=== PATIENT | female | born 1940 | race Caucasian/White ===

== ENCOUNTER 2019-01-04 21:48 | Inpatient (IN) | payer OTHER ==
--- NOTE | 2019-01-04 22:30 | PDOC ---
History of Present Illness - General Stated Complaint: SHORTNESS OF BREATH Time Seen by Provider: 01/04/19 21:54 History Source: Patient, Family (son) Exam Limitations: Language Barrier - History of Present Illness Initial Comments: 01/04/19 22:24 Pt is a 78yo F with PMH of HTN, DM, HLD, Breast Ca s/p L mastectomy (9 years ago ), Rectal Bleeding BIBA for SOB. Per son pt had sudden onset SOB that started around 1 hour ago, she has never had symptoms like this before. Endorses dry cough. Feels SOB when lying down flat. Pt states she was also feeling lightheaded. Denies chest pain, productive cough, fevers, chills, congestion, recent illnesses, abdominal pain, n/v/d, numbness/tingling. She recently returned from [place] 10 days ago. Denies bloody stools at this time. Denies leg swelling, calf pain. PMD: Ervin PMH: see hpi PSH: see hpi Meds: see med rec Allergies: nkda Past History - Past Medical History Allergies/Adverse Reactions: Allergies Allergy/AdvReac Type Severity Reaction Status Date / Time No Known Allergies Allergy Verified 12/23/15 12:13 Home Medications: Ambulatory Orders Aspirin [ASA -] 81 mg PO DAILY 12/15/15 Folic Acid 1 mg PO DAILY 12/15/15 Letrozole [Femara] 2.5 mg PO DAILY 12/15/15 Omeprazole [Prilosec (RX)] 40 mg PO DAILY 12/15/15 Ranitidine HCl [Zantac] 150 mg PO DAILY 12/15/15 Simvastatin [Zocor -] 40 mg PO HS 12/15/15 Carvedilol [Coreg -] 6.25 mg PO BID #60 tablet 12/21/15 Hydrochlorothiazide [Hctz -] 25 mg PO DAILY #30 tablet 12/21/15 Losartan Potassium [Cozaar -] 50 mg PO DAILY #30 tablet 12/21/15 Meclizine HCl 25 mg PO BID PRN #30 tablet 12/21/15 Acetaminophen [Extra Strength Non-Aspirin] 500 mg PO BID 12/23/15 Multivitamins [Tab-A-Vit -] 1 tab PO DAILY 12/23/15 Cancer: Yes (BREAST) Cardiac Disorders: Yes GI Disorders: Yes (HEMMOROIDS) HTN: Yes Hypercholesterolemia: Yes - Surgical History Cholecystectomy: Yes - Suicide/Smoking/Psychosocial Hx Smoking History: Never smoked Have you smoked in the past 12 months: No Hx Alcohol Use: No Drug/Substance Use Hx: No Substance Use Type: None Review of Systems - Review of Systems Constitutional: No: Chills, Fever, Weakness HEENTM: No: Symptoms Reported Respiratory: Yes: See HPI, Cough, Orthopnea, Shortness of Breath. No: Wheezing Cardiac (ROS): Yes: Lightheadedness. No: Chest Pain, Syncope, Chest Tightness ABD/GI: No: Symptoms Reported : No: Symptoms Reported Musculoskeletal: No: Symptoms Reported Integumentary: No: Symptoms Reported Neurological: No: Symptoms reported *Physical Exam - Physical Exam General Appearance: Yes: Appropriately Dressed, Obese. No: Apparent Distress HEENT: positive: EOMI, PRINCESS, Normal ENT Inspection Neck: positive: Trachea midline, Supple. negative: Lymphadenopathy (R), Lymphadenopathy (L) Respiratory/Chest: positive: Lungs Clear, Normal Breath Sounds. negative: Crackles, Wheezing Cardiovascular: positive: S1, S2, Tachycardia. negative: Edema, JVD, Murmur Vascular Pulses: Carotid (R): 2+, Carotid (L): 2+, Dorsalis-Pedis (R): 2+, Doralis-Pedis (L): 2+ Gastrointestinal/Abdominal: positive: Normal Bowel Sounds, Soft. negative: Tender Musculoskeletal: negative: CVA Tenderness Extremity: positive: Normal Capillary Refill. 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 Per son pt had sudden onset SOB that started around 1 hour ago, she has never had symptoms like this before. Pt states she was also feeling lightheaded. Denies chest pain, cough, fevers, chills, congestion, recent illnesses, abdominal pain, n/v/d, numbness/tingling. She recently returned from [place] 10 days ago. Denies bloody stools at this time. Denies leg swelling, calf pain. Vitals: tachycardia, saturating mid 90s on RA, PE: tachycardia, decreased breath sounds Ddx includes but not limited to: pe, acs, chf, anemia, copd/asthma, ptx, pna -labs -ekg, cxr Pt difficult access bedside us: decreased LV contractility. Negative DVT however could not visualize popliteal vv. Lower suspicion for PE at this time, pt probably tachycardic from fever or CHF. 01/05/19 00:08 rectal temp: 102.5. Started sepsis orderset. doppler LE. labs significant for Laboratory Tests 01/04/19 01/04/19 22:30 22:30 Sodium 133 L Magnesium 1.7 L Total Bilirubin 1.9 H Troponin I 0.04 B-Natriuretic Peptide 7629.3 H EKG: TWI leads V4-V6. no zoie or depressions repeat vitals: 100% on 2L NC, HR in 70s-80s, BP 133/68. will hold off on lasix at this time (pt febrile, do not want to volume deplete) straight cath for urine -will start on ceftriaxone once urine is taken -CTAP for fever source and why Tbili is elevated. other LFTs normal will replace Mg -doppler studies pending Will need admission: CHF, fever (uti v. abdominal source) pt signed out to Dr. Dugan *DC/Admit/Observation/Transfer Diagnosis at time of Disposition: CHF (congestive heart failure) Qualifiers: Heart failure type: unspecified Heart failure chronicity: acute Qualified Code( s): I50.9 - Heart failure, unspecified Fever Qualifiers: Fever type: unspecified Qualified Code(s): R50.9 - Fever, unspecified - Referrals Referrals: Kaden Mueller MD [Primary Care Provider] - - Patient Instructions - Post Discharge Activity
[2019-01-04 22:56] LABS: BASO % 0.8 % (0-2.0); EOS % 2.4 % (0-4.5); HEMATOCRIT 35.3 % (32.4-45.2); LYMPH % 10.7 % (8-40); MCH 30.9 pg (25.7-33.7); MEAN PLT VOLUME 8.8 fl (7.5-11.1); NEUT % 76.1 % (42.8-82.8); PLATELET COUNT 234 K/MM3 (134-434); RBC 3.88 M/mm3 (3.60-5.2); RDW 13.7 % (11.6-15.6); WHITE BLOOD COUNT 7.3 K/mm3 (4.0-10.0)
--- NOTE | 2019-01-04 23:51 | PDOC ---
Attending Attestation - Resident Resident Name: Debora,Kala - ED Attending Attestation I have performed the following: I have examined & evaluated the patient, The case was reviewed & discussed with the resident, I agree w/resident's findings & plan, Exceptions are as noted - HPI HPI: 01/04/19 23:45 78 yo F with h/;o breast ca, left mastectomy, htn hld DM here wtih /co sudden onset sob started today. mild cough nonproductive. no cp no leg swelling. no h/ o pe or dvt. also c/o feeling lighteaded. called EMS. on arrival oxygen sats 95 % , tachycardia afebrile. no n/v no chest pain. pt states sob is worse with walking. does have h/o prior gi bleed. no bright red blood per rectum. no other complaints. - Physicial Exam PE: 01/04/19 23:47 awake alert lungs clear bilaterally heart reg tachycardia. no mrg abd soft nt nd. ext wwp no edema. no calf tenderness. nuero alert oriented x 3. - Medical Decision Making 01/04/19 23:48 78 yo F htn hld dm piror gi bleed with sob. differential anemia, gi bleed acs, pneumonia, pe considered. effusion, chf. plan cta labs ekg trop. focused ED ultrasound tte performed indication sob. no rv dilation or strain. severely reduced contractility, trace pericardial effusion. bilat lower extremity doppler performed, common femoral scanned bilaterally past the bifurcation, no visualized clot, full compression bilat popliteals scanned past trifurcation. right with full compressio no clot. left difficult to visualized and limited. impression : no prox dvt right leg, left no prox dvt visualized but limited in popliteal region. recommend repeat. study. plan cxr labs ekg . pt extremely difficult acces. us guided right brachial placed. 01/04/19 23:54 rectal temp was 102. will add septic workup ua, and tylenol cultures obtained. Heart Score/ECG Review #1 General ECG Interpretation: Sinus Rhythm, Normal Rate, Normal Intervals Compared to previous ECG there are: Changes noted (TWI V4 - V6, left axis new from comparison 12/22)
[2019-01-04] MEDS ORDERED: ACETAMINOPHEN 1000 MG/100 ML VIAL (NON FORMULARY) IVPB ONE (23:54)
[2019-01-05] MEDS ORDERED: ACETAMINOPHEN INJECTION 100 ML IVPB ONE (00:04)
[2019-01-05] MEDS ORDERED: ACETAMINOPHEN 1000 MG/100 ML VIAL (NON FORMULARY) IVPB ONE (00:07)
[2019-01-05 00:19] LABS: ALBUMIN 3.7 g/dl (3.4-5.0); ALK PHOS 46 U/L (45-117); BILIRUBIN,TOTAL 1.9 mg/dL (0.2-1); CHLORIDE 101 mmol/L (98-107); CO2 25 mmol/L (21-32); N-TERMINAL BNP 7629.3 pg/ml (5-450); PHOSPHOROUS 3.2 mg/dL (2.5-4.9); SGPT/ALT 25 U/L (13-61); TOT PROT 7.3 g/dl (6.4-8.2)
[2019-01-05 02:00] LABS: ANION GAP 7 MMOL/L (8-16); BLOOD UREA NITROGEN 16 mg/dL (7-18); GLUCOSE,RANDOM 132 mg/dL (74-106); MAGNESIUM 1.7 mg/dL (1.8-2.4); POTASSIUM 4.3 mmol/L (3.5-5.1); SGOT/AST 30 U/L (15-37); SODIUM 133 mmol/L (136-145)
[2019-01-05] MEDS ORDERED: MAGNESIUM SULF 50% (8.12 MEQ/2 ML-1 GM VIAL) IVPB ONE (02:11)
--- NOTE | 2019-01-05 02:13 | PDOC ---
*Physical Exam - Vital Signs Vital Signs - 24 hr 01/04/19 01/05/19 21:55 01:00 Temperature 99 F 103.5 F H Pulse Rate 105 H Respiratory 20 Rate Blood Pressure 184/104 H O2 Sat by Pulse 98 Oximetry (%) - Physical Exam Comments: 01/05/19 02:08 Patient's care is endorsed to me by Dr. Cazares at the end of her shift. 78YOF with h/o breast CA, HTN, HLD, DM, rectal bleeding, and "weak heart" noted in the past by Dr. Shea, who p/w SOB x1 hour today which family states has never happened to her before. [place], was a little tachycardic and lightheaded when she arrived. BNP is over 7000, on POCUS the LV is not cornel well. Opted not to give Lasix at this time given BP. Awaiting UA, CT, admission for sepsis vitals and SOB. ED Treatment Course - LABORATORY CBC & Chemistry Diagram: 01/04/19 22:30 01/04/19 22:30 - ADDITIONAL ORDERS Additional order review: Laboratory Results 01/05/19 01/04/19 01/04/19 00:05 22:30 22:30 PTT (Actin FS) Sodium 133 L Potassium 4.3 Chloride 101 Carbon Dioxide 25 Anion Gap 7 L BUN 16 Creatinine 1.0 Creat Clearance w eGFR 53.48 Random Glucose 132 H Lactic Acid 1.1 Calcium 9.0 Phosphorus 3.2 Magnesium 1.7 L Total Bilirubin 1.9 H AST 30 ALT 25 Alkaline Phosphatase 46 Troponin I 0.04 B-Natriuretic Peptide 7629.3 H Total Protein 7.3 Albumin 3.7 01/04/19 22:30 PTT (Actin FS) 30.1 Sodium Potassium Chloride Carbon Dioxide Anion Gap BUN Creatinine Creat Clearance w eGFR Random Glucose Lactic Acid Calcium Phosphorus Magnesium Total Bilirubin AST ALT Alkaline Phosphatase Troponin I B-Natriuretic Peptide Total Protein Albumin 01/04/19 22:30 RBC 3.88 MCV 91.0 MCHC 34.0 RDW 13.7 D MPV 8.8 Neutrophils % 76.1 D Lymphocytes % 10.7 D Monocytes % 10.0 Eosinophils % 2.4 Basophils % 0.8 - Medications Given in the ED: ED Medications Discontinued Medications Generic Name Dose Route Start Last Admin Trade Name Freq PRN Reason Stop Dose Admin Acetaminophen 1,000 mg 01/04/19 23:54 01/05/19 00:03 Ofirmev Injection - IVPB 01/04/19 23:55 1,000 mg ONCE ONE Administration Acetaminophen 1,000 mg 01/05/19 00:07 01/05/19 00:51 Ofirmev Injection - IVPB 01/05/19 00:08 Not Given ONCE ONE Medical Decision Making - Medical Decision Making Laboratory Tests 01/04/19 01/04/19 01/04/19 22:30 22:30 22:30 WBC 7.3 RBC 3.88 Hgb 12.0 Hct 35.3 MCV 91.0 MCH 30.9 MCHC 34.0 RDW 13.7 D Plt Count 234 D MPV 8.8 Absolute Neuts (auto) 5.5 Neutrophils % 76.1 D Lymphocytes % 10.7 D Monocytes % 10.0 Eosinophils % 2.4 Basophils % 0.8 Nucleated RBC % 0 PTT (Actin FS) 30.1 Sodium 133 L Potassium 4.3 Chloride 101 Carbon Dioxide 25 Anion Gap 7 L BUN 16 Creatinine 1.0 Creat Clearance w eGFR 53.48 Random Glucose 132 H Lactic Acid Calcium 9.0 Phosphorus 3.2 Magnesium 1.7 L Total Bilirubin 1.9 H AST 30 ALT 25 Alkaline Phosphatase 46 Troponin I B-Natriuretic Peptide 7629.3 H Total Protein 7.3 Albumin 3.7 Urine Color Urine Appearance Urine pH Ur Specific [place] Urine Protein Urine Glucose (UA) Urine Ketones Urine Blood Urine Nitrite Urine Bilirubin Urine Urobilinogen Ur Leukocyte Esterase 01/04/19 01/05/19 01/05/19 22:30 00:05 02:30 WBC RBC Hgb Hct MCV MCH MCHC RDW Plt Count MPV Absolute Neuts (auto) Neutrophils % Lymphocytes % Monocytes % Eosinophils % Basophils % Nucleated RBC % PTT (Actin FS) Sodium Potassium Chloride Carbon Dioxide Anion Gap BUN Creatinine Creat Clearance w eGFR Random Glucose Lactic Acid 1.1 Calcium Phosphorus Magnesium Total Bilirubin AST ALT Alkaline Phosphatase Troponin I 0.04 B-Natriuretic Peptide Total Protein Albumin Urine Color Dk yellow Urine Appearance Clear Urine pH 6.5 Ur Specific [place] 1.021 Urine Protein Trace Urine Glucose (UA) Negative Urine Ketones Trace H Urine Blood Negative Urine Nitrite Negative Urine Bilirubin Negative Urine Urobilinogen 2.0 H Ur Leukocyte Esterase Negative 01/05/19 04:58 At this time the patient's SpO2 is 94% on RA, HR is 73, BP is 147/77. 01/05/19 05:20 The Pt is unsafe for discharge at this time. They require further hospital observation, workup, and treatment. Microblog sent to [facility] for admission. Blank Decision to Admit order is placed per ED protocol. The patient will have CT abdomen/pelvis but tech is on break at this time and CT is not emergent. 01/05/19 05:[address] Laurent, in agreement patient going to Med/Surg. *DC/Admit/Observation/Transfer Diagnosis at time of Disposition: Hyperbilirubinemia CHF (congestive heart failure) Qualifiers: Heart failure type: unspecified Heart failure chronicity: acute Qualified Code( s): I50.9 - Heart failure, unspecified Fever Qualifiers: Fever type: unspecified Qualified Code(s): R50.9 - Fever, unspecified - Discharge Dispostion Condition at time of disposition: Guarded Decision to Admit order: Yes - Referrals Referrals: Kaden Mueller MD [Primary Care Provider] - - Patient Instructions - Post Discharge Activity
--- NOTE | 2019-01-05 02:34 | PDOC ---
*Physical Exam - Vital Signs Last Vital Signs Temp Pulse Resp BP Pulse Ox 103.5 F H 105 H 20 184/104 H 98 01/05/19 01:00 01/04/19 21:55 01/04/19 21:55 01/04/19 21:55 01/04/19 21:55 ED Treatment Course - LABORATORY CBC & Chemistry Diagram: 01/04/19 22:30 01/04/19 22:30 - ADDITIONAL ORDERS Additional order review: Laboratory Results 01/05/19 01/04/19 01/04/19 00:05 22:30 22:30 PTT (Actin FS) Sodium 133 L Potassium 4.3 Chloride 101 Carbon Dioxide 25 Anion Gap 7 L BUN 16 Creatinine 1.0 Creat Clearance w eGFR 53.48 Random Glucose 132 H Lactic Acid 1.1 Calcium 9.0 Phosphorus 3.2 Magnesium 1.7 L Total Bilirubin 1.9 H AST 30 ALT 25 Alkaline Phosphatase 46 Troponin I 0.04 B-Natriuretic Peptide 7629.3 H Total Protein 7.3 Albumin 3.7 01/04/19 22:30 PTT (Actin FS) 30.1 Sodium Potassium Chloride Carbon Dioxide Anion Gap BUN Creatinine Creat Clearance w eGFR Random Glucose Lactic Acid Calcium Phosphorus Magnesium Total Bilirubin AST ALT Alkaline Phosphatase Troponin I B-Natriuretic Peptide Total Protein Albumin 01/04/19 22:30 RBC 3.88 MCV 91.0 MCHC 34.0 RDW 13.7 D MPV 8.8 Neutrophils % 76.1 D Lymphocytes % 10.7 D Monocytes % 10.0 Eosinophils % 2.4 Basophils % 0.8 - RADIOLOGY Radiology Studies Ordered: Category Date Time Status ABDOMEN & PELVIS CT W/O CONTR [CT] Stat CT Scan 01/05/19 02:06 Ordered - Medications Given in the ED: ED Medications Discontinued Medications Generic Name Dose Route Start Last Admin Trade Name Freq PRN Reason Stop Dose Admin Acetaminophen 1,000 mg 01/04/19 23:54 01/05/19 00:03 Ofirmev Injection - IVPB 01/04/19 23:55 1,000 mg ONCE ONE Administration Acetaminophen 1,000 mg 01/05/19 00:07 01/05/19 00:51 Ofirmev Injection - IVPB 01/05/19 00:08 Not Given ONCE ONE Medical Decision Making - Medical Decision Making 01/05/19 02:32 Pt signed out to me. Comes with HTN, and fever. Pt has SOB. She has enlarged heart and clear lung felds. She has no clear focus of fever. We are awaiting her UA. She has improvement of her condition with IV ofirmev. She was empirically treated for a UTI by the last team. I ordered a CT scan of the abd/pelvis to look for a source, as she has an elevated Tbili. *DC/Admit/Observation/Transfer Diagnosis at time of Disposition: CHF (congestive heart failure) Qualifiers: Heart failure type: unspecified Heart failure chronicity: acute Qualified Code( s): I50.9 - Heart failure, unspecified Fever Qualifiers: Fever type: unspecified Qualified Code(s): R50.9 - Fever, unspecified - Referrals Referrals: Kaden Mueller MD [Primary Care Provider] - - Patient Instructions - Post Discharge Activity
[2019-01-05 02:43] LABS: PH,URINE 6.5 (5.0-8.0); URINE APPEARANCE CLEAR; URINE BILIRUBIN NEGATIVE (NEGATIVE); URINE COLOR DK YELLOW; URINE GLUCOSE (UA) NEGATIVE (NEGATIVE); URINE KETONE TRACE (NEGATIVE); URINE LEUK ESTERASE NEGATIVE (NEGATIVE); URINE NITRITE NEGATIVE (NEGATIVE); URINE PROTEIN TRACE (NEGATIVE)
[2019-01-05] MEDS ORDERED: FUROSEMIDE 40 MG/4 ML INJECTABLE VIAL IVPUSH ONE (06:54)
--- NOTE | 2019-01-05 06:58 | HP ---
CHIEF COMPLAINT: fever PCP: HISTORY OF PRESENT ILLNESS: 78 y/o F with hx of L breast CA (s/p chemo, rads), HTN, DM, diastolic CHF (past ECHO 2016), rectal bleeding (ext hemorrhoids), who presents to the ED c/o SOB x2 days. As per pt, yesterday her symptoms began; she became SOB at rest and on exertion. During this time, pt also endorsed subjective fever, chills, but did not check her temperature at home. Also with generalized UP. As per ED, when pt arrived she was hypoxic into the upper 80's, but quickly improved. On interview , pt sat 96 on RA and appears comfortable. Denies chest pain or pressure, or changes in urinary or bowel function. Denies recent lower extremity edema. No sick contacts. Pt recently traveled to [facility], returning 10 days ago. At baseline, she ambulates with a rolling walker. Lives at home with her family. ER course was notable for: (1) mg sulfate 1g (2) IV tylenol (3) Recent Travel: [facility], recently returned 10 days ago PAST MEDICAL HISTORY: as above PAST SURGICAL HISTORY: L breast CA lumpectmoy Social History: Smoking: denies Alcohol: denies Drugs: denies Family History: non-contributory Allergies No Known Allergies Allergy (Verified 12/23/15 12:13) HOME MEDICATIONS: Home Medications Medication Instructions Recorded Acetaminophen [Tylenol -] 500 mg PO DAILY 01/05/19 Exemestane [Aromasin -] 25 mg PO DAILY 01/05/19 Folic Acid - 1 mg PO DAILY 01/05/19 Losartan Potassium 100 mg PO DAILY 01/05/19 Meclizine HCl 12.5 mg PO DAILY 01/05/19 Metoprolol Succinate 25 mg PO DAILY 01/05/19 metFORMIN HCL [Metformin HCl] 500 mg PO DAILY 01/05/19 meds need to be verified. pt does not know the dosages family was not at bedside. REVIEW OF SYSTEMS CONSTITUTIONAL: Absent: fever, chills, diaphoresis, generalized weakness, malaise, loss of appetite, weight change HEENT: Absent: rhinorrhea, nasal congestion, throat pain, throat swelling, difficulty swallowing, mouth swelling, ear pain, eye pain, visual changes CARDIOVASCULAR: Absent: chest pain, syncope, palpitations, irregular heart rate, lightheadedness , peripheral edema RESPIRATORY: +SOB, RANGEL Absent: cough, shortness of breath, dyspnea with exertion, orthopnea, wheezing, stridor, hemoptysis GASTROINTESTINAL: Absent: abdominal pain, abdominal distension, nausea, vomiting, diarrhea, constipation, melena, hematochezia GENITOURINARY: Absent: dysuria, frequency, urgency, hesitancy, hematuria, flank pain, genital pain MUSCULOSKELETAL: Absent: myalgia, arthralgia, joint swelling, back pain, neck pain SKIN: Absent: rash, itching, pallor HEMATOLOGIC/IMMUNOLOGIC: Absent: easy bleeding, easy bruising, lymphadenopathy, frequent infections ENDOCRINE: Absent: unexplained weight gain, unexplained weight loss, heat intolerance, cold intolerance NEUROLOGIC: Absent: headache, focal weakness or paresthesias, dizziness, unsteady gait, seizure, mental status changes, bladder or bowel incontinence PSYCHIATRIC: Absent: anxiety, depression, suicidal or homicidal ideation, hallucinations. PHYSICAL EXAMINATION Vital Signs - 24 hr 01/04/19 01/05/19 01/05/19 21:55 01:00 05:51 Temperature 99 F 103.5 F H Pulse Rate 105 H Pulse Rate [ 76 Right] Respiratory 20 16 Rate Blood Pressure 184/104 H Blood Pressure 147/77 [Right Arm] O2 Sat by Pulse 98 96 Oximetry (%) GENERAL: Pleasant. Awake, alert, and fully oriented, in no acute distress. HEAD: Normal with no signs of trauma. EYES: Pupils equal, round and reactive to light, extraocular movements intact, sclera anicteric, conjunctiva clear. EARS, NOSE, THROAT: Ears normal, nares patent, oropharynx clear without exudates. Moist mucous membranes. NECK: Normal range of motion, supple LUNGS: Breath sounds equal, clear to auscultation bilaterally. No wheezes, and no crackles. Poor inspiratory effort. HEART: Regular rate and rhythm, normal S1 and S2 without murmur, rub or gallop. ABDOMEN: Soft, obese, nontender, not distended, normoactive bowel sounds, no guarding, no rebound, no masses. LOWER EXTREMITIES: 2+ pt pulses, warm, well-perfused. No calf tenderness. No peripheral edema. NEUROLOGICAL: Cranial nerves II-XII intact. Able to move UE, LE. sensation intact. PSYCHIATRIC: Cooperative. Good eye contact. SKIN: Warm, dry, normal turgor Laboratory Results 04/02/1701/04/19 01/05/19 22:30 22:30 00:05 WBC 7.3 Hgb 12.0 Hct 35.3 Plt Count 234 D Sodium 133 L Potassium 4.3 Chloride 101 Carbon Dioxide 25 BUN 16 Creatinine 1.0 Lactic Acid 1.1 Total Bilirubin 1.9 H B-Natriuretic Peptide 7629.3 H Influenza A (Rapid) Influenza B (Rapid) 01/05/19 01/05/19 04:30 06:53 BUN Creatinine Lactic Acid 1.4 Total Bilirubin B-Natriuretic Peptide Influenza A (Rapid) Pending Influenza B (Rapid) Pending CTAP: taken, pending CXR: enlarged heart, blunting of costophrenic angles, does not appear to have infiltrate. however rotated. f/u official read duplex: prelim (-) ASSESSMENT/PLAN: 78 y/o F with hx of L breast CA (s/p chemo, rads), HTN, DM, diastolic CHF (past ECHO 2015), rectal bleeding (ext hemorrhoids), who presents to the ED c/o SOB x2 days. #SOB possible 2/2 diastolic CHF exacerbation -without significant vol overload on exam- f/u official CT results -s/p lasix 40mg IVPx 1. will see how responds and can determine if needs further diuresis -last ECHO 2015; f/u repeat ECHO -strict I/O -daily wts -cardio consult: Dr. Severino -na controlled 2g #Fever 2/2 unknown etiology -UA (-), without clinical sx, or leukocytosis -f/u flu testing -will not start abx at this time; f/u CT, flu testing -Tylenol PRN -f/u blood, ucx. lactic WNL #Elevated t bili -without symptoms, no abdom tenderness -will send direct bili -f/u CTAP #hx breast CA -c/w aromasin #HTN- uncontrolled -c/w losartan, metoprolol -meds need to be verified #DM -hold metformin -BGM, ISS ACHS #F/E/N no IVF indicated at this time continue to follow lytes na controlled diet #PPX lovenox 40mg sq qd #Dispo admit to med-surg Visit type - Emergency Visit Emergency Visit: Yes ED Registration Date: 01/05/19 Care time: The patient presented to the Emergency Department on the above date and was hospitalized for further evaluation of their emergent condition. - New Patient This patient is new to me today: Yes Date on this admission: 01/05/19 - Critical Care Critical Care patient: No
[2019-01-05] MEDS ORDERED: INSULIN SLIDING SCALE (NOVOLOG) 1 VIAL SQ SCH (07:00)
[2019-01-05] MEDS ORDERED: ACETAMINOPHEN 325 MG TABLET (FP) ONE (07:23)
--- NOTE | 2019-01-05 07:36 | PN ---
Teaching Attending Note Name of Resident: Liv June ATTENDING PHYSICIAN STATEMENT I saw and evaluated the patient. I reviewed the resident's note and discussed the case with the resident. I agree with the resident's findings and plan as documented. SUBJECTIVE: This is a 78 year old woman with a history of HTN, hyperlipidemia, chronic diastolic heart failure, type 2 DM, PE, breast cancer, OA who comes to the ED complaining of sudden onset of SOB. She reports having a non-productive cough and worse SOB when lying flat. She denies fever, chills, urinary frequency , nocturia. She had a recent trip to OBJECTIVE: Vital Signs Period Temp Pulse Resp BP Sys/Hale Pulse Ox Last 24 Hr 99 F-103.5 F 76-105 16-20 147-184/77-104 96-98 HEART: S1S2, RRR LUNGS: Clear ABDOMEN: Obese, soft, non-tender, non-distended, normal BS EXTREMITIES: No edema Laboratory Tests 01/04/19 01/04/19 01/04/19 22:30 22:30 22:30 WBC 7.3 RBC 3.88 Hgb 12.0 Hct 35.3 MCV 91.0 MCH 30.9 MCHC 34.0 RDW 13.7 D Plt Count 234 D MPV 8.8 Absolute Neuts (auto) 5.5 Neutrophils % 76.1 D Lymphocytes % 10.7 D Monocytes % 10.0 Eosinophils % 2.4 Basophils % 0.8 Nucleated RBC % 0 PTT (Actin FS) 30.1 Sodium 133 L Potassium 4.3 Chloride 101 Carbon Dioxide 25 Anion Gap 7 L BUN 16 Creatinine 1.0 Creat Clearance w eGFR 53.48 Random Glucose 132 H Lactic Acid Calcium 9.0 Phosphorus 3.2 Magnesium 1.7 L Total Bilirubin 1.9 H AST 30 ALT 25 Alkaline Phosphatase 46 Troponin I B-Natriuretic Peptide 7629.3 H Total Protein 7.3 Albumin 3.7 Urine Color Urine Appearance Urine pH Ur Specific [place] Urine Protein Urine Glucose (UA) Urine Ketones Urine Blood Urine Nitrite Urine Bilirubin Urine Urobilinogen Ur Leukocyte Esterase 01/04/19 01/05/19 01/05/19 22:30 00:05 02:30 WBC RBC Hgb Hct MCV MCH MCHC RDW Plt Count MPV Absolute Neuts (auto) Neutrophils % Lymphocytes % Monocytes % Eosinophils % Basophils % Nucleated RBC % PTT (Actin FS) Sodium Potassium Chloride Carbon Dioxide Anion Gap BUN Creatinine Creat Clearance w eGFR Random Glucose Lactic Acid 1.1 Calcium Phosphorus Magnesium Total Bilirubin AST ALT Alkaline Phosphatase Troponin I 0.04 B-Natriuretic Peptide Total Protein Albumin Urine Color Dk yellow Urine Appearance Clear Urine pH 6.5 Ur Specific [place] 1.021 Urine Protein Trace Urine Glucose (UA) Negative Urine Ketones Trace H Urine Blood Negative Urine Nitrite Negative Urine Bilirubin Negative Urine Urobilinogen 2.0 H Ur Leukocyte Esterase Negative 01/05/19 04:30 WBC RBC Hgb Hct MCV MCH MCHC RDW Plt Count MPV Absolute Neuts (auto) Neutrophils % Lymphocytes % Monocytes % Eosinophils % Basophils % Nucleated RBC % PTT (Actin FS) Sodium Potassium Chloride Carbon Dioxide Anion Gap BUN Creatinine Creat Clearance w eGFR Random Glucose Lactic Acid 1.4 Calcium Phosphorus Magnesium Total Bilirubin AST ALT Alkaline Phosphatase Troponin I B-Natriuretic Peptide Total Protein Albumin Urine Color Urine Appearance Urine pH Ur Specific [place] Urine Protein Urine Glucose (UA) Urine Ketones Urine Blood Urine Nitrite Urine Bilirubin Urine Urobilinogen Ur Leukocyte Esterase Home Medications Medication Instructions Recorded Acetaminophen [Tylenol -] 500 mg PO DAILY 01/05/19 Exemestane [Aromasin -] 25 mg PO DAILY 01/05/19 Folic Acid - 1 mg PO DAILY 01/05/19 Losartan Potassium 100 mg PO DAILY 01/05/19 Meclizine HCl 12.5 mg PO DAILY 01/05/19 Metoprolol Succinate 25 mg PO DAILY 01/05/19 metFORMIN HCL [Metformin HCl] 500 mg PO DAILY 01/05/19 ASSESSMENT AND PLAN: This is a 78 year old woman with a history of HTN, hyperlipidemia, chronic diastolic heart failure, type 2 DM, PE, breast cancer, OA who presented to the ED with sudden onset of SOB. 1. Acute on chronic diastolic heart failure - Lasix IV - Echocardiogram - Cardiology consult 2. SIRS with fever and tachycardia - No clear source of infection - CT abdomen/pelvis ordered by ED to evaluate fever, total bili 1.9 - Check influenza - Will hold antibiotics until results of CT and influenza swab available 3. Hyperbilirubinemia - No jaundice on exam - CT abd/pelvis ordered - Check direct bili 4. HTN - Continue Cozaar, Toprol XL 5. Type 2 DM - Hold metformin - Fingersticks with Novolog sliding scale 6. History of PE 7. Breast cancer - Continue Aromasin
[2019-01-05] MEDS: ACETAMINOPHEN 500 MG TABLET (FP) PO PRN ×2 (08:54→22:12)
[2019-01-05] MEDS ORDERED: LOSARTAN POTASSIUM 50 MG TABLET (FP) ONE (08:56)
[2019-01-05] MEDS ORDERED: ENOXAPARIN NA (PORCINE) 40 MG/0.4 ML DISP.SYRIN SQ ONE (08:57)
[2019-01-05] MEDS: ENOXAPARIN NA (PORCINE) 40 MG/0.4 ML DISP.SYRIN SQ SCH (09:03)
[2019-01-05] MEDS: metoPROLOL SUCCINATE 25 MG TAB.SR.24H (FP) PO SCH (09:03)
[2019-01-05] MEDS: LOSARTAN POTASSIUM 50 MG TABLET (FP) PO SCH (09:03)
[2019-01-05] MEDS: EXEMESTANE 25 MG TABLET PO SCH (09:42)
[2019-01-05] MEDS: INSULIN SLIDING SCALE (NOVOLOG) 1 VIAL SQ SCH ×3 (11:12→22:13)
--- NOTE | 2019-01-05 11:39 | EKG ---
Test Reason : Blood Pressure : / mmHG Vent. Rate : 106 BPM Atrial Rate : 106 BPM P-R Int : 128 ms QRS Dur : 094 ms QT Int : 344 ms P-R-T Axes : 041 -10 112 degrees QTc Int : 456 ms SINUS TACHYCARDIA ABNORMAL ECG WHEN COMPARED WITH ECG OF 23-DEC-2015 13:55, VENT. RATE HAS INCREASED BY 39 BPM T WAVE INVERSION NO LONGER EVIDENT IN INFERIOR LEADS T WAVE INVERSION NOW EVIDENT IN LATERAL LEADS Confirmed by DEQUAN BLAKE MD ([id number]) on 01/05/2019 11:38:57 AM Referred By: Confirmed By:DEQUAN BLAKE MD
--- NOTE | 2019-01-05 11:40 | EKG ---
Test Reason : Blood Pressure : / mmHG Vent. Rate : 077 BPM Atrial Rate : 077 BPM P-R Int : 130 ms QRS Dur : 092 ms QT Int : 434 ms P-R-T Axes : 041 -15 -37 degrees QTc Int : 491 ms NORMAL SINUS RHYTHM MINIMAL VOLTAGE CRITERIA FOR LVH, MAY BE NORMAL VARIANT PROLONGED QT ABNORMAL ECG WHEN COMPARED WITH ECG OF 04-JAN-2019 22:06, T WAVE INVERSION NOW EVIDENT IN INFERIOR LEADS T WAVE INVERSION NO LONGER EVIDENT IN LATERAL LEADS Confirmed by DEQUAN BLAKE MD ([id number]) on 01/05/2019 11:40:17 AM Referred By: Confirmed By:DEQUAN BLAKE MD
--- NOTE | 2019-01-05 13:07 | CON.CARD ---
Consult Consult Specialty:: cardiology Reason for Consultation:: SOB; hx CHF - History of Present Illness Chief Complaint: Pt A&Ox3; feels better (less dyspneic) no chest pain History of Present Illness: Pt is a 78yo F with PMH of HTN, DM, HLD, Breast Ca s/p L mastectomy (9 years ago ), Rectal Bleeding BIBA for SOB. Per son pt had sudden onset SOB that started around 1 hour ago, she has never had symptoms like this before. Endorses dry cough. Feels SOB when lying down flat. Pt states she was also feeling lightheaded. Denies chest pain, productive cough, fevers, chills, congestion, recent illnesses, abdominal pain, n/v/d, numbness/tingling. She recently returned from [place] 10 days ago. Denies bloody stools at this time. Denies leg swelling, calf pain. PMD: Ervin - History Source History Provided By: Patient, Medical Record Limitations to Obtaining History: No Limitations - Alcohol/Substance Use Hx Alcohol Use: No History of Substance Use: reports: None - Smoking History Smoking history: Never smoked Have you smoked in the past 12 months: No Home Medications - Allergies Allergies/Adverse Reactions: Allergies Allergy/AdvReac Type Severity Reaction Status Date / Time No Known Allergies Allergy Verified 12/23/15 12:13 - Home Medications Home Medications: Ambulatory Orders Acetaminophen [Tylenol -] 500 mg PO DAILY 01/05/19 Exemestane [Aromasin -] 25 mg PO DAILY 01/05/19 Folic Acid - 1 mg PO DAILY 01/05/19 Losartan Potassium 100 mg PO DAILY 01/05/19 Meclizine HCl 12.5 mg PO BID 01/05/19 Metoprolol Succinate 25 mg PO DAILY 01/05/19 Ranitidine HCl 150 mg PO DAILY 01/05/19 metFORMIN HCL [Metformin HCl] 500 mg PO BID 01/05/19 Vital Signs: Vital Signs Temperature 98.4 F 01/05/19 09:59 Pulse Rate 93 H 01/05/19 07:42 Respiratory Rate 22 H 01/05/19 07:42 Blood Pressure 160/56 L 01/05/19 07:42 O2 Sat by Pulse Oximetry (%) 100 01/05/19 09:06 Cardiovascular: Yes: Regular Rate and Rhythm Heart Sounds: Yes: S1, S2, S4 Murmur: Yes: Systolic Murmur (12/05, RSB-->apex) Musculoskeletal: Yes: Other (left breast removed 2009 (breast CA)) - Other Data Labs, Other Data: CBC, BMP 01/04/19 22:30 01/04/19 22:30 Troponin, BNP 01/04/19 01/04/19 22:30 22:30 Troponin I 0.04 B-Natriuretic Peptide 7629.3 H Troponin, BNP 01/04/19 01/04/19 22:30 22:30 Troponin I 0.04 B-Natriuretic Peptide 7629.3 H Problem List - Problems (1) Overweight Code(s): E66.3 - OVERWEIGHT (2) Acute on chronic diastolic (congestive) heart failure Code(s): I50.33 - ACUTE ON CHRONIC DIASTOLIC (CONGESTIVE) HEART FAILURE (3) Dyspnea Assessment/Plan: bronchodilators, steroids, and O2 per 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 ECHO for LVEF, diastolic compliance, valve status. Code(s): R06.00 - DYSPNEA, UNSPECIFIED Qualifiers: Dyspnea type: dyspnea on exertion Qualified Code(s): R06.09 - Other forms of dyspnea (4) HTN (hypertension) Assessment/Plan: ON losartan and metoprolol ER. Code(s): I10 - ESSENTIAL (PRIMARY) HYPERTENSION Qualifiers: Hypertension type: essential hypertension Qualified Code(s): I10 - Essential (primary) hypertension (5) Hypomagnesemia Assessment/Plan: replete, and keep 2.0-2.4 Code(s): E83.42 - HYPOMAGNESEMIA (6) Aortic stenosis Assessment/Plan: mild, with mod-severe MR on 2016 [facility]; await f/u. Code(s): I35.0 - NONRHEUMATIC AORTIC (VALVE) STENOSIS (7) H/O total mastectomy of left breast Code(s): Z90.12 - ACQUIRED ABSENCE OF LEFT BREAST AND NIPPLE
[2019-01-06] MEDS: ACETAMINOPHEN 500 MG TABLET (FP) PO PRN ×2 (06:13→18:08)
[2019-01-06] MEDS: INSULIN SLIDING SCALE (NOVOLOG) 1 VIAL SQ SCH ×4 (06:30→21:34)
[2019-01-06 08:13] LABS: BASO % 0.7 % (0-2.0); EOS % 1.5 % (0-4.5); HEMATOCRIT 31.2 % (32.4-45.2); HEMOGLOBIN 10.7 GM/dL (10.7-15.3); LYMPH % 8.8 % (8-40); MCH 31.2 pg (25.7-33.7); MCHC 34.3 g/dl (32.0-36.0); MEAN CELL VOLUME 90.8 fl (80-96); MEAN PLT VOLUME 8.8 fl (7.5-11.1); MONO % 9.7 % (3.8-10.2); NEUT % 79.3 % (42.8-82.8); PLATELET COUNT 199 K/MM3 (134-434); RBC 3.44 M/mm3 (3.60-5.2); RDW 13.4 % (11.6-15.6); WHITE BLOOD COUNT 5.7 K/mm3 (4.0-10.0)
[2019-01-06 08:37] LABS: ALBUMIN 3.3 g/dl (3.4-5.0); ALK PHOS 40 U/L (45-117); ANION GAP 9 MMOL/L (8-16); BILIRUBIN,TOTAL 2.5 mg/dL (0.2-1); BLOOD UREA NITROGEN 22 mg/dL (7-18); CALCIUM 7.9 mg/dL (8.5-10.1); CHLORIDE 102 mmol/L (98-107); CO2 22 mmol/L (21-32); GLUCOSE,RANDOM 114 mg/dL (74-106); MAGNESIUM 1.9 mg/dL (1.8-2.4); PHOSPHOROUS 2.5 mg/dL (2.5-4.9); POTASSIUM 3.7 mmol/L (3.5-5.1); SGOT/AST 31 U/L (15-37); SGPT/ALT 22 U/L (13-61); SODIUM 132 mmol/L (136-145); TOT PROT 6.5 g/dl (6.4-8.2)
[2019-01-06] MEDS: LOSARTAN POTASSIUM 50 MG TABLET (FP) PO SCH (10:02)
[2019-01-06] MEDS: EXEMESTANE 25 MG TABLET PO SCH (10:02)
[2019-01-06] MEDS: metoPROLOL SUCCINATE 25 MG TAB.SR.24H (FP) PO SCH (10:02)
[2019-01-06] MEDS: ENOXAPARIN NA (PORCINE) 40 MG/0.4 ML DISP.SYRIN SQ SCH (10:02)
--- NOTE | 2019-01-06 15:38 | PN ---
Progress Note, Physician Chief Complaint: Patient without complaint. Denies cp, sob, n/v. - Current Medication List Current Medications: Active Medications Acetaminophen (Tylenol -) 500 mg PO Q6H PRN PRN Reason: FEVER Last Admin: 01/06/19 06:13 Dose: 500 mg Enoxaparin Sodium (Lovenox -) 40 mg SQ DAILY [facility] Last Admin: 01/06/19 10:02 Dose: 40 mg Exemestane (Aromasin -) 25 mg PO DAILY [facility] Last Admin: 01/06/19 10:02 Dose: 25 mg Insulin Aspart (Novolog Vial Sliding Scale -) 1 vial SQ ACHS [facility]; Protocol Last Admin: 01/06/19 11:58 Dose: Not Given Losartan Potassium (Cozaar -) 100 mg PO DAILY [facility] Last Admin: 01/06/19 10:02 Dose: 100 mg Metoprolol Succinate (Toprol Xl -) 25 mg PO DAILY [facility] Last Admin: 01/06/19 10:02 Dose: 25 mg - Objective Vital Signs: Vital Signs Temperature 37.7 C H 01/06/19 15:30 Pulse Rate 75 01/06/19 15:30 Respiratory Rate 18 01/06/19 15:30 Blood Pressure 153/73 01/06/19 15:30 O2 Sat by Pulse Oximetry (%) 99 01/06/19 09:00 Constitutional: Yes: No Distress, Calm, Obese Cardiovascular: Yes: Regular Rate and Rhythm. No: Gallop, Murmur, Rub Respiratory: Yes: Regular, CTA Bilaterally. No: Rales, Rhonchi, Wheezes Gastrointestinal: Yes: Normal Bowel Sounds, Soft. No: Distention, Tenderness Extremities: Yes: WNL Edema: No Labs: CBC, BMP 01/06/19 06:45 01/06/19 06:45 Problem List - Problems (1) Fever Assessment/Plan: -unclear source -currently afebrile -cultures negative -continue to monitor off antibiotics Code(s): R50.9 - FEVER, UNSPECIFIED Qualifiers: Fever type: unspecified Qualified Code(s): R50.9 - Fever, unspecified (2) Hyperbilirubinemia Assessment/Plan: -continues to elevate -gallbladder unable to be evaluated on CT scan -check abdominal ultrasound -check acute hepatitis panel -if continues to increase, consult GI Code(s): E80.6 - OTHER DISORDERS OF BILIRUBIN METABOLISM (3) Acute on chronic diastolic (congestive) heart failure Assessment/Plan: -resolved Code(s): I50.33 - ACUTE ON CHRONIC DIASTOLIC (CONGESTIVE) HEART FAILURE (4) HTN (hypertension) Assessment/Plan: -continue cozaar and toprol xl Code(s): I10 - ESSENTIAL (PRIMARY) HYPERTENSION Qualifiers: Hypertension type: essential hypertension Qualified Code(s): I10 - Essential (primary) hypertension (5) Rectal bleeding Assessment/Plan: -history of hemorrhoids -monitor Code(s): K62.5 - HEMORRHAGE OF ANUS AND RECTUM
--- NOTE | 2019-01-06 20:50 | PN ---
Progress Note, Physician Chief Complaint: Pt A&O; denies chest pain or dyspnea; feels better with NC O2 (breathes easier). History of Present Illness: Pt is a 78yo F with PMH of HTN, DM, HLD, Breast Ca s/p L mastectomy (9 years ago ), Rectal Bleeding BIBA for SOB. Per son pt had sudden onset SOB that started around 1 hour ago, she has never had symptoms like this before. Endorses dry cough. Feels SOB when lying down flat. Pt states she was also feeling lightheaded. Denies chest pain, productive cough, fevers, chills, congestion, recent illnesses, abdominal pain, n/v/d, numbness/tingling. She recently returned from [place] 10 days ago. Denies bloody stools at this time. Denies leg swelling, calf pain. PMD: Perezro - Current Medication List Current Medications: Active Medications Acetaminophen (Tylenol -) 500 mg PO Q6H PRN PRN Reason: FEVER Last Admin: 01/06/19 18:08 Dose: 500 mg Enoxaparin Sodium (Lovenox -) 40 mg SQ DAILY [facility] [place] Last Admin: 01/06/19 10:02 Dose: 40 mg Exemestane (Aromasin -) 25 mg PO DAILY [facility] Last Admin: 01/06/19 10:02 Dose: 25 mg Insulin Aspart (Novolog Vial Sliding Scale -) 1 vial SQ [facility]; Protocol Last Admin: 01/06/19 17:44 Dose: Not Given Losartan Potassium (Cozaar -) 100 mg PO DAILY [facility] Last Admin: 01/06/19 10:02 Dose: 100 mg Metoprolol Succinate (Toprol Xl -) 25 mg PO DAILY [facility] Last Admin: 01/06/19 10:02 Dose: 25 mg - Objective Vital Signs: Vital Signs Temperature 100.2 F H 01/06/19 18:08 Pulse Rate 75 01/06/19 15:30 Respiratory Rate 18 01/06/19 15:30 Blood Pressure 153/73 01/06/19 15:30 O2 Sat by Pulse Oximetry (%) 99 01/06/19 09:00 Constitutional: Yes: No Distress Eyes: Yes: WNL Labs: CBC, BMP 01/06/19 06:45 01/06/19 06:45 Problem List - Problems (1) Overweight Code(s): E66.3 - OVERWEIGHT (2) Acute on chronic diastolic (congestive) heart failure Code(s): I50.33 - ACUTE ON CHRONIC DIASTOLIC (CONGESTIVE) HEART FAILURE (3) Dyspnea Code(s): R06.00 - DYSPNEA, UNSPECIFIED Qualifiers: Dyspnea type: dyspnea on exertion Qualified Code(s): R06.09 - Other forms of dyspnea (4) HTN (hypertension) Code(s): I10 - ESSENTIAL (PRIMARY) HYPERTENSION Qualifiers: Hypertension type: essential hypertension Qualified Code(s): I10 - Essential (primary) hypertension (5) Hypomagnesemia Code(s): E83.42 - HYPOMAGNESEMIA (6) Aortic stenosis Code(s): I35.0 - NONRHEUMATIC AORTIC (VALVE) STENOSIS (7) H/O total mastectomy of left breast Code(s): Z90.12 - ACQUIRED ABSENCE OF LEFT BREAST AND NIPPLE
[2019-01-06 21:27] LABS: MAGNESIUM 1.9 mg/dL (1.8-2.4)
[2019-01-07] MEDS: INSULIN SLIDING SCALE (NOVOLOG) 1 VIAL SQ SCH ×4 (06:18→21:47)
[2019-01-07 08:58] LABS: BASO % 0.6 % (0-2.0); EOS % 7.2 % (0-4.5); HEMATOCRIT 30.7 % (32.4-45.2); HEMOGLOBIN 10.4 GM/dL (10.7-15.3); LYMPH % 14.3 % (8-40); MCH 31.3 pg (25.7-33.7); MCHC 33.8 g/dl (32.0-36.0); MEAN CELL VOLUME 92.6 fl (80-96); MEAN PLT VOLUME 8.9 fl (7.5-11.1); MONO % 10.6 % (3.8-10.2); NEUT % 67.3 % (42.8-82.8); PLATELET COUNT 167 K/MM3 (134-434); RBC 3.32 M/mm3 (3.60-5.2); WHITE BLOOD COUNT 5.1 K/mm3 (4.0-10.0)
[2019-01-07 09:12] LABS: INR 1.21 (0.83-1.09); PROTHROMBIN TIME (PATIENT) 14.3 SEC (9.7-13.0)
[2019-01-07 09:28] LABS: ALBUMIN 3.1 g/dl (3.4-5.0); ALK PHOS 36 U/L (45-117); ANION GAP 9 MMOL/L (8-16); BILIRUBIN,DIRECT 0.5 mg/dL (0.0-0.2); BILIRUBIN,TOTAL 1.3 mg/dL (0.2-1); BLOOD UREA NITROGEN 22 mg/dL (7-18); CALCIUM 8.1 mg/dL (8.5-10.1); CHLORIDE 104 mmol/L (98-107); CO2 24 mmol/L (21-32); GLUCOSE,RANDOM 93 mg/dL (74-106); MAGNESIUM 2.4 mg/dL (1.8-2.4); PHOSPHOROUS 3.2 mg/dL (2.5-4.9); POTASSIUM 4.1 mmol/L (3.5-5.1); SGOT/AST 30 U/L (15-37); SGPT/ALT 18 U/L (13-61); SODIUM 136 mmol/L (136-145)
[2019-01-07] MEDS ORDERED: PT OWN MED DRAWER 7, Y5N ONE (11:16)
[2019-01-07] MEDS: metoPROLOL SUCCINATE 25 MG TAB.SR.24H (FP) PO SCH (11:31)
[2019-01-07] MEDS: LOSARTAN POTASSIUM 50 MG TABLET (FP) PO SCH (11:31)
[2019-01-07] MEDS: EXEMESTANE 25 MG TABLET PO SCH (11:32)
[2019-01-07] MEDS: ENOXAPARIN NA (PORCINE) 40 MG/0.4 ML DISP.SYRIN SQ SCH (11:32)
--- NOTE | 2019-01-07 12:36 | PN ---
Progress Note, Physician History of Present Illness: Orthopnea, dyspnea resolved. - Current Medication List Current Medications: Active Medications Acetaminophen (Tylenol -) 500 mg PO Q6H PRN PRN Reason: FEVER Last Admin: 01/06/19 18:08 Dose: 500 mg Enoxaparin Sodium (Lovenox -) 40 mg SQ DAILY [facility] Last Admin: 01/07/19 11:32 Dose: 40 mg Exemestane (Aromasin -) 25 mg PO DAILY [facility] Last Admin: 01/07/19 11:32 Dose: 25 mg Insulin Aspart (Novolog Vial Sliding Scale -) 1 vial SQ [facility]; Protocol Last Admin: 01/07/19 12:02 Dose: 2 units Losartan Potassium (Cozaar -) 100 mg PO DAILY [facility] Last Admin: 01/07/19 11:31 Dose: 100 mg Metoprolol Succinate (Toprol Xl -) 25 mg PO DAILY [facility] Last Admin: 01/07/19 11:31 Dose: 25 mg - Objective Vital Signs: Vital Signs Temperature 99.3 F 01/07/19 10:00 Pulse Rate 90 01/07/19 10:00 Respiratory Rate 20 01/07/19 10:00 Blood Pressure 156/79 01/07/19 10:00 O2 Sat by Pulse Oximetry (%) 98 01/07/19 09:00 Constitutional: Yes: No Distress, Calm Neck: Yes: Supple Cardiovascular: Yes: Regular Rate and Rhythm, Murmur (2/6 SM) Respiratory: Yes: Regular, Diminished, On Nasal O2 Gastrointestinal: Yes: Normal Bowel Sounds, Soft, Abdomen, Obese Edema: Yes Edema: LLE: Trace, RLE: Trace Labs: CBC, BMP 01/07/19 08:45 01/07/19 08:45 INR, PTT INR 1.21 (0.83-1.09) H 01/07/19 08:45 Assessment/Plan - Problems (1) Overweight Code(s): E66.3 - OVERWEIGHT (2) Acute on chronic diastolic (congestive) heart failure Code(s): I50.33 - ACUTE ON CHRONIC DIASTOLIC (CONGESTIVE) HEART FAILURE (3) Dyspnea Code(s): R06.00 - DYSPNEA, UNSPECIFIED Qualifiers: Dyspnea type: dyspnea on exertion Qualified Code(s): R06.09 - Other forms of dyspnea (4) HTN (hypertension) Code(s): I10 - ESSENTIAL (PRIMARY) HYPERTENSION Qualifiers: Hypertension type: essential hypertension Qualified Code(s): I10 - Essential (primary) hypertension (5) Hypomagnesemia Code(s): E83.42 - HYPOMAGNESEMIA (6) Aortic stenosis Code(s): I35.0 - NONRHEUMATIC AORTIC (VALVE) STENOSIS (7) H/O total mastectomy of left breast Code(s): Z90.12 - ACQUIRED ABSENCE OF LEFT BREAST AND NIPPLE 12/21/2015 Echo: Normal LV size and fxn, mild AVELINA, mod-severe MR, mild-mod TR RVSP 50-60 mmHg, mild MG 15 mmHg, tr-mild AR, mild MI 1. Acute on chronic LV diastolic failure resolved 2. HTN/HCVD 3. Mod-severe MR, mild P:1. F/u repeat echo results 2. Continue Toprol XL 25 qd, losartan 100 qd with uptitration as hemodynamics tolerate, minimize NSAID use 3. D/c planning, addressed importance of medication and diet compliance.
--- NOTE | 2019-01-07 14:24 | ECHO ---
Name: DE LOS SANTOSCHIDI BINGHAM Exam:Adult Echocardiogram Study Date: 01/07/2019 08:21 AM Age: 78 yrs Reason For Study: CHF Height: 65 in Weight: 200 lb BSA: 2.0 m2 MMode/2D Measurements & Calculations IVSd: 1.1 cm Ao root diam: 2.6 cm LVIDd: 5.1 cm LA dimension: 3.5 cm LVIDs: 4.1 cm LVPWd: 1.5 cm EDV(Teich): 126.6 ml LVOT diam: 2.0 cm ESV(Teich): 72.7 ml LAV (MOD-bp): 94.6 ml Doppler Measurements & Calculations MV E max yash: 94.6 cm/sec Ao V2 max: 278.2 cm/sec MV A max yash: 95.6 cm/sec Ao max P.0 mmHg MV E/A: 0.99 Ao V2 mean: 208.9 cm/sec MV dec time: 0.17 sec Ao mean P.1 mmHg Ao V2 VTI: 50.7 cm WILLI(I,D): 0.85 cm2 AI P1/2t: 425.3 msec WILLI(V,D): 0.95 cm2 AI max yash: 348.1 cm/sec LV V1 max P.8 mmHg AI max P.5 mmHg LV V1 mean P.3 mmHg AI dec slope: 239.7 cm/sec2 LV V1 max: 83.9 cm/sec LV V1 mean: 51.5 cm/sec LV V1 VTI: 13.6 cm MR max yash: 630.5 cm/sec SV(LVOT): 43.0 ml MR max P.2 mmHg TR max yash: 218.5 cm/sec PA V2 max: 134.4 cm/sec TR max P.2 mmHg PA max P.2 mmHg Med Peak E' Yash: 3.8 cm/sec PI Vmax: 181.9 cm/sec Med E/e': 24.8 Lat Peak E' Yash: 3.6 cm/sec Lat E/e': 26.4 Procedure A complete two-dimensional transthoracic echocardiogram was performed (2D, M-mode, Doppler and color flow Doppler). Left Ventricle The left ventricle is normal in size. Left ventricular systolic function is moderately reduced. Eject ion Fraction = 35-40%. There is moderate global hypokinesis of the left ventricle. Right Ventricle The right ventricle is normal size. The right ventricular systolic function is normal. Atria The left atrium is mildly dilated. Right atrial size is normal. Mitral Valve There is moderate mitral annular calcification. There is moderate mitral regurgitation. The mitral re gurgitant jet is eccentrically directed. Tricuspid Valve The tricuspid valve is normal in structure and function. There is mild tricuspid regurgitation. Pulmo nary artery systolic pressure is at least 25 mmHg assuming RA pressure of 3 mmHg. Aortic Valve There is mild aortic sclerosis.;. Mild aortic regurgitation. Pulmonic Valve The pulmonic valve is not well visualized. Mild pulmonic valvular regurgitation. Great Vessels The aortic root is normal size. Pericardium/Pleura Moderate pericardial effusion (1-2 cm). There are no echocardiographic indications of cardiac tampona de. Interpretation Summary The left ventricle is normal in size. Left ventricular systolic function is moderately reduced. There is moderate global hypokinesis of the left ventricle. Ejection Fraction = 35-40%. The right ventricular systolic function is normal. The left atrium is mildly dilated. Right atrial size is normal. There is moderate mitral annular calcification. There is moderate mitral regurgitation. The mitral regurgitant jet is eccentrically directed. There is mild tricuspid regurgitation. Pulmonary artery systolic pressure is at least 25 mmHg assuming RA pressure of 3 mmHg There is mild aortic sclerosis.; Mild aortic regurgitation. Mild pulmonic valvular regurgitation. The aortic root is normal size. Moderate pericardial effusion (1-2 cm) There are no echocardiographic indications of cardiac tamponade, although RA wall collapses during sy stole Previous study is not available for comparison Beka Stock MD 01/07/2019 02:24 PM
--- NOTE | 2019-01-07 15:35 | EKG ---
Test Reason : Blood Pressure : / mmHG Vent. Rate : 092 BPM Atrial Rate : 092 BPM P-R Int : 116 ms QRS Dur : 094 ms QT Int : 410 ms P-R-T Axes : 032 -18 -14 degrees QTc Int : 507 ms NORMAL SINUS RHYTHM MODERATE VOLTAGE CRITERIA FOR LVH, MAY BE NORMAL VARIANT PROLONGED QT ABNORMAL ECG WHEN COMPARED WITH ECG OF 05-JAN-2019 02:40, NO SIGNIFICANT CHANGE WAS FOUND Confirmed by SARBJIT MOLINA, HEATHER ([id number]) on 01/07/2019 3:35:17 PM Referred By: Confirmed By:HEATHER SCHAFFER MD
--- NOTE | 2019-01-07 15:45 | PN ---
Progress Note, Physician Chief Complaint: Patient without complaint. Denies cp, sob, n/v. - Current Medication List Current Medications: Active Medications Acetaminophen (Tylenol -) 500 mg PO Q6H PRN PRN Reason: FEVER Last Admin: 01/06/19 18:08 Dose: 500 mg Enoxaparin Sodium (Lovenox -) 40 mg SQ DAILY [facility] Last Admin: 01/07/19 11:32 Dose: 40 mg Exemestane (Aromasin -) 25 mg PO DAILY [facility] Last Admin: 01/07/19 11:32 Dose: 25 mg Furosemide (Lasix -) 40 mg PO DAILY [facility] Insulin Aspart (Novolog Vial Sliding Scale -) 1 vial SQ ACHS [facility]; Protocol Last Admin: 01/07/19 12:02 Dose: 2 units Losartan Potassium (Cozaar -) 100 mg PO DAILY [facility] Last Admin: 01/07/19 11:31 Dose: 100 mg Metoprolol Succinate (Toprol Xl -) 25 mg PO DAILY [facility] Last Admin: 01/07/19 11:31 Dose: 25 mg - Objective Vital Signs: Vital Signs Temperature 38.2 C H 01/07/19 15:04 Pulse Rate 88 01/07/19 15:04 Respiratory Rate 20 01/07/19 10:00 Blood Pressure 126/66 01/07/19 15:04 O2 Sat by Pulse Oximetry (%) 98 01/07/19 09:00 Constitutional: Yes: No Distress, Calm, Obese Cardiovascular: Yes: Regular Rate and Rhythm. No: Gallop, Murmur, Rub Respiratory: Yes: Regular, CTA Bilaterally, On Nasal O2. No: Rales, Rhonchi, Wheezes Gastrointestinal: Yes: Normal Bowel Sounds, Soft. No: Distention, Tenderness Extremities: Yes: WNL Edema: No Labs: CBC, BMP 01/07/19 08:45 01/07/19 08:45 INR, PTT INR 1.21 (0.83-1.09) H 01/07/19 08:45 Problem List - Problems (1) Fever Code(s): R50.9 - FEVER, UNSPECIFIED Qualifiers: Fever type: unspecified Qualified Code(s): R50.9 - Fever, unspecified (2) Hyperbilirubinemia Code(s): E80.6 - OTHER DISORDERS OF BILIRUBIN METABOLISM (3) Acute on chronic diastolic (congestive) heart failure Code(s): I50.33 - ACUTE ON CHRONIC DIASTOLIC (CONGESTIVE) HEART FAILURE (4) HTN (hypertension) Code(s): I10 - ESSENTIAL (PRIMARY) HYPERTENSION Qualifiers: Hypertension type: essential hypertension Qualified Code(s): I10 - Essential (primary) hypertension (5) Rectal bleeding Code(s): K62.5 - HEMORRHAGE OF ANUS AND RECTUM (6) CHF (congestive heart failure) Code(s): I50.9 - HEART FAILURE, UNSPECIFIED Qualifiers: Heart failure type: systolic Heart failure chronicity: acute on chronic Qualified Code(s): I50.23 - Acute on chronic systolic (congestive) heart failure Assessment/Plan (1) Fever Assessment/Plan: -resolved Code(s): R50.9 - FEVER, UNSPECIFIED Qualifiers: Fever type: unspecified Qualified Code(s): R50.9 - Fever, unspecified (2) Hyperbilirubinemia Assessment/Plan: -improving -ultrasound negative Code(s): E80.6 - OTHER DISORDERS OF BILIRUBIN METABOLISM (3) Acute on chronic diastolic (congestive) heart failure Assessment/Plan: -ECHO reviewed -cardiology following -will start lasix 40mg daily -may need home oxygen Code(s): I50.33 - ACUTE ON CHRONIC DIASTOLIC (CONGESTIVE) HEART FAILURE (4) HTN (hypertension) Assessment/Plan: -continue cozaar and toprol xl Code(s): I10 - ESSENTIAL (PRIMARY) HYPERTENSION Qualifiers: Hypertension type: essential hypertension Qualified Code(s): I10 - Essential (primary) hypertension (5) Rectal bleeding Assessment/Plan: -history of hemorrhoids -monitor Code(s): K62.5 - HEMORRHAGE OF ANUS AND RECTUM Dispo -possible discharge tomorrow
[2019-01-07] MEDS: FUROSEMIDE 40 MG TABLET (FP) PO SCH (16:20)
[2019-01-07] MEDS: ACETAMINOPHEN 500 MG TABLET (FP) PO PRN (16:20)
--- NOTE | 2019-01-07 18:22 | PN ---
Progress Note (short form) - Note Progress Note: ID CONSULT DICTATED PERSISTANT FEVER IN ELDERLY FEMALE RETURNING FROM ? INFECTIOUS ETIOL ( [place] RELATED ILLNESS- MALARIA, ZIKA,DENGUE) ? PNEUMONIA ( DYSPNEA/ DRY COUGH/ L BASILAR CREPITATIONS) ? NON INFECTIOUS (?TEMPORAL ARTERITIS) REPEAT BC ESR CRP QUANTIFERON MALARIA SMEAR CT CHEST HIV TEST REPEAT CBCD ( EOSINOPHILIA) OBSERVE OFF ANTIBIOTICS
--- NOTE | 2019-01-07 19:32 | PN ---
Physical Exam: SUBJECTIVE: Patient seen and examined, no complaints. Daughter present at bedside, granddaughter translated conversation. OBJECTIVE: Vital Signs Period Temp Pulse Resp BP Sys/Hale Pulse Ox Last 24 Hr 97.4 F-101.9 F 88-93 18-20 126-156/60-79 98-98 GENERAL: The patient is awake, alert, and fully oriented, in no acute distress. HEAD: Normal with no signs of trauma. EYES: PERRL, extraocular movements intact. ENT: Oropharynx clear without exudates, moist mucous membranes. NECK: Trachea midline, full range of motion, supple. LUNGS: Breath sounds equal, clear to auscultation bilaterally, no wheezes, no crackles, no accessory muscle use. HEART: Regular rate and rhythm, S1, S2 without murmur, rub or gallop. ABDOMEN: Soft, nontender, nondistended, normoactive bowel sounds. EXTREMITIES: 2+ pulses, warm, no edema. NEUROLOGICAL: Normal speech, gait not observed. PSYCH: Normal mood, normal affect. SKIN: Warm, dry, normal turgor, no rashes. Laboratory Results - last 24 hr 01/06/19 01/06/19 01/07/19 16:30 21:16 05:45 WBC RBC Hgb Hct MCV MCH MCHC RDW Plt Count MPV Absolute Neuts (auto) Neutrophils % Lymphocytes % Monocytes % Eosinophils % Basophils % Nucleated RBC % PT with INR INR Sodium Potassium Chloride Carbon Dioxide Anion Gap BUN Creatinine Creat Clearance w eGFR POC Glucometer 109 94 Random Glucose Calcium Phosphorus Magnesium 1.9 Total Bilirubin Direct Bilirubin AST ALT Alkaline Phosphatase Total Protein Albumin Triglycerides 118 Cholesterol 131 Total LDL Cholesterol 93 HDL Cholesterol 27 L TSH 0.56 01/07/19 01/07/19 01/07/19 08:45 08:45 08:45 WBC 5.1 RBC 3.32 L Hgb 10.4 L Hct 30.7 L MCV 92.6 MCH 31.3 MCHC 33.8 RDW 14.0 Plt Count 167 MPV 8.9 Absolute Neuts (auto) 3.5 Neutrophils % 67.3 Lymphocytes % 14.3 D Monocytes % 10.6 H Eosinophils % 7.2 H D Basophils % 0.6 Nucleated RBC % 0 PT with INR 14.30 H INR 1.21 H Sodium 136 Potassium 4.1 Chloride 104 Carbon Dioxide 24 Anion Gap 9 BUN 22 H Creatinine 1.0 Creat Clearance w eGFR 53.48 POC Glucometer Random Glucose 93 Calcium 8.1 L Phosphorus 3.2 Magnesium 2.4 Total Bilirubin 1.3 H Direct Bilirubin 0.5 H AST 30 ALT 18 Alkaline Phosphatase 36 L Total Protein 6.0 L Albumin 3.1 L Triglycerides Cholesterol Total LDL Cholesterol HDL Cholesterol TSH 01/07/19 01/07/19 11:54 17:23 WBC RBC Hgb Hct MCV MCH MCHC RDW Plt Count MPV Absolute Neuts (auto) Neutrophils % Lymphocytes % Monocytes % Eosinophils % Basophils % Nucleated RBC % PT with INR INR Sodium Potassium Chloride Carbon Dioxide Anion Gap BUN Creatinine Creat Clearance w eGFR POC Glucometer 161 122 Random Glucose Calcium Phosphorus Magnesium Total Bilirubin Direct Bilirubin AST ALT Alkaline Phosphatase Total Protein Albumin Triglycerides Cholesterol Total LDL Cholesterol HDL Cholesterol TSH Active Medications Generic Name Dose Route Start Last Admin Trade Name Freq PRN Reason Stop Dose Admin Acetaminophen 500 mg 01/05/19 10:00 01/07/19 16:20 Tylenol - PO 500 mg Q6H PRN Administration FEVER Enoxaparin Sodium 40 mg 01/05/19 10:00 01/07/19 11:32 Lovenox - SQ 40 mg DAILY [facility] Administration Exemestane 25 mg 01/05/19 10:00 01/07/19 11:32 Aromasin - PO 25 mg DAILY [facility] Administration Furosemide 40 mg 01/07/19 15:45 01/07/19 16:20 Lasix - PO 40 mg DAILY [facility] Administration Insulin Aspart 1 vial 01/05/19 07:52 01/07/19 17:25 Novolog Vial Sliding Scale - SQ Not Given ACHS [facility] Protocol Losartan Potassium 100 mg 01/05/19 10:00 01/07/19 11:31 Cozaar - PO 100 mg DAILY [facility] Administration Metoprolol Succinate 25 mg 01/05/19 10:00 01/07/19 11:31 Toprol Xl - PO 25 mg DAILY [facility] Administration ASSESSMENT/PLAN: 78 y/o F with hx of L breast CA (s/p chemo, rads), HTN, DM, diastolic CHF (past ECHO 2015), rectal bleeding (ext hemorrhoids), who presents to the ED c/o SOB. Fever -unknown source -spiked fever again this afternoon -cultures negative -monitor off abx -consulted ID today Hyperbilirubinemia -normalized today 1.3 from 2.5 -gallbladder unable to be evaluated on CT scan -checked abdominal ultrasound, nl -checked acute hepatitis panel, neg Acute on chronic diastolic heart failure -improved, no more SOB HTN -continue cozaar and toprol xl Rectal bleeding -history of hemorrhoids -monitor F/E/N; no/no changes/diabetic DVY PPX: lovenox Dispo: med surg Problem List - Problems (1) Aortic stenosis Code(s): I35.0 - NONRHEUMATIC AORTIC (VALVE) STENOSIS (2) CHF (congestive heart failure) Code(s): I50.9 - HEART FAILURE, UNSPECIFIED Qualifiers: Heart failure type: systolic Heart failure chronicity: acute on chronic Qualified Code(s): I50.23 - Acute on chronic systolic (congestive) heart failure (3) Fever Code(s): R50.9 - FEVER, UNSPECIFIED Qualifiers: Fever type: unspecified Qualified Code(s): R50.9 - Fever, unspecified (4) H/O total mastectomy of left breast Code(s): Z90.12 - ACQUIRED ABSENCE OF LEFT BREAST AND NIPPLE (5) Hyperbilirubinemia Code(s): E80.6 - OTHER DISORDERS OF BILIRUBIN METABOLISM (6) Hypomagnesemia Code(s): E83.42 - HYPOMAGNESEMIA (7) Overweight Code(s): E66.3 - OVERWEIGHT (8) Acute on chronic diastolic (congestive) heart failure Code(s): I50.33 - ACUTE ON CHRONIC DIASTOLIC (CONGESTIVE) HEART FAILURE (9) Cerebrovascular disease Code(s): I67.9 - CEREBROVASCULAR DISEASE, UNSPECIFIED (10) Dizziness Code(s): R42 - DIZZINESS AND GIDDINESS (11) Dyspnea Code(s): R06.00 - DYSPNEA, UNSPECIFIED Qualifiers: Dyspnea type: dyspnea on exertion Qualified Code(s): R06.09 - Other forms of dyspnea (12) External hemorrhoid Code(s): K64.4 - RESIDUAL HEMORRHOIDAL SKIN TAGS (13) HTN (hypertension) Code(s): I10 - ESSENTIAL (PRIMARY) HYPERTENSION Qualifiers: Hypertension type: essential hypertension Qualified Code(s): I10 - Essential (primary) hypertension (14) Headache Code(s): R51 - HEADACHE Qualifiers: Headache type: tension-type Headache chronicity pattern: acute headache (15) Hyperlipidemia Code(s): E78.5 - HYPERLIPIDEMIA, UNSPECIFIED Qualifiers: Hyperlipidemia type: Pure hypercholesterolemia (16) Hypertensive encephalopathy Code(s): I67.4 - HYPERTENSIVE ENCEPHALOPATHY (17) Rectal bleeding Code(s): K62.5 - HEMORRHAGE OF ANUS AND RECTUM (18) Vaginal prolapse Code(s): N81.10 - CYSTOCELE, UNSPECIFIED Visit type - Emergency Visit Emergency Visit: Yes ED Registration Date: 01/05/19 Care time: The patient presented to the Emergency Department on the above date and was hospitalized for further evaluation of their emergent condition. - New Patient This patient is new to me today: Yes Date on this admission: 01/07/19 - Critical Care Critical Care patient: No
[2019-01-07 23:38] VITALS: BMI 40.6
[2019-01-08 03:11] LABS: HEP.C VIRUS AB <0.1 s/co ratio (0.0-0.9)
[2019-01-08] MEDS: ACETAMINOPHEN 500 MG TABLET (FP) PO PRN (03:13)
[2019-01-08] MEDS: INSULIN SLIDING SCALE (NOVOLOG) 1 VIAL SQ SCH ×4 (06:25→21:38)
[2019-01-08 07:18] LABS: BASO % 0.6 % (0-2.0); EOS % 11.2 % (0-4.5); HEMATOCRIT 29.4 % (32.4-45.2); HEMOGLOBIN 10.2 GM/dL (10.7-15.3); LYMPH % 22.3 % (8-40); MCH 31.5 pg (25.7-33.7); MCHC 34.7 g/dl (32.0-36.0); MEAN PLT VOLUME 8.9 fl (7.5-11.1); MONO % 11.8 % (3.8-10.2); NEUT % 54.1 % (42.8-82.8); PLATELET COUNT 184 K/MM3 (134-434); RBC 3.23 M/mm3 (3.60-5.2); RDW 13.8 % (11.6-15.6); WHITE BLOOD COUNT 4.1 K/mm3 (4.0-10.0)
[2019-01-08 07:45] LABS: ALK PHOS 34 U/L (45-117); ANION GAP 7 MMOL/L (8-16); BILIRUBIN,TOTAL 1.1 mg/dL (0.2-1); BLOOD UREA NITROGEN 22 mg/dL (7-18); CHLORIDE 103 mmol/L (98-107); CO2 24 mmol/L (21-32); GLUCOSE,RANDOM 101 mg/dL (74-106); POTASSIUM 3.8 mmol/L (3.5-5.1); SGOT/AST 30 U/L (15-37); SGPT/ALT 21 U/L (13-61); SODIUM 134 mmol/L (136-145); TOT PROT 6.3 g/dl (6.4-8.2)
[2019-01-08] MEDS ORDERED: PT OWN MED DRAWER 7, Y5N ONE (10:54)
[2019-01-08] MEDS: FUROSEMIDE 40 MG TABLET (FP) PO SCH (10:55)
[2019-01-08] MEDS: LOSARTAN POTASSIUM 50 MG TABLET (FP) PO SCH (10:55)
[2019-01-08] MEDS: ENOXAPARIN NA (PORCINE) 40 MG/0.4 ML DISP.SYRIN SQ SCH (10:55)
[2019-01-08] MEDS: EXEMESTANE 25 MG TABLET PO SCH (10:55)
[2019-01-08] MEDS: metoPROLOL SUCCINATE 25 MG TAB.SR.24H (FP) PO SCH (10:55)
--- NOTE | 2019-01-08 13:46 | PN ---
Progress Note, Physician Chief Complaint: Events noted Not in distress History of Present Illness: Patient was seen and examined. Awake and alert. Chart was reviewed Denies chest pain, SOB or palpitations - Current Medication List Current Medications: Active Medications Acetaminophen (Tylenol -) 500 mg PO Q6H PRN PRN Reason: FEVER Last Admin: 01/08/19 03:13 Dose: 500 mg Enoxaparin Sodium (Lovenox -) 40 mg SQ DAILY [facility] Last Admin: 01/08/19 10:55 Dose: 40 mg Exemestane (Aromasin -) 25 mg PO DAILY [facility] Last Admin: 01/08/19 10:55 Dose: 25 mg Furosemide (Lasix -) 40 mg PO DAILY [facility] Last Admin: 01/08/19 10:55 Dose: 40 mg Insulin Aspart (Novolog Vial Sliding Scale -) 1 vial SQ ACHS [facility]; Protocol Last Admin: 01/08/19 11:36 Dose: Not Given Losartan Potassium (Cozaar -) 100 mg PO DAILY [facility] Last Admin: 01/08/19 10:55 Dose: 100 mg Metoprolol Succinate (Toprol Xl -) 25 mg PO DAILY [facility] Last Admin: 01/08/19 10:55 Dose: 25 mg - Objective Vital Signs: Vital Signs Temperature 99.1 F 01/08/19 13:25 Pulse Rate 71 01/08/19 13:25 Respiratory Rate 20 01/08/19 13:25 Blood Pressure 123/67 01/08/19 13:25 O2 Sat by Pulse Oximetry (%) 98 01/08/19 09:00 Eyes: Yes: PERRL HENT: Yes: Atraumatic Neck: Yes: Supple Cardiovascular: Yes: Regular Rate and Rhythm, Murmur (SM), S1, S2 Respiratory: Yes: CTA Bilaterally Gastrointestinal: Yes: Normal Bowel Sounds, Soft. No: Tenderness Edema: Yes Edema: LLE: Trace, RLE: Trace Labs: CBC, BMP 01/08/19 06:30 01/08/19 06:30 INR, PTT INR 1.21 (0.83-1.09) H 01/07/19 08:45 Problem List - Problems (1) Pericardial effusion Code(s): I31.3 - PERICARDIAL EFFUSION (NONINFLAMMATORY) (2) CHF (congestive heart failure) Code(s): I50.9 - HEART FAILURE, UNSPECIFIED Qualifiers: Heart failure type: systolic Heart failure chronicity: acute on chronic Qualified Code(s): I50.23 - Acute on chronic systolic (congestive) heart failure (3) Acute on chronic diastolic (congestive) heart failure Code(s): I50.33 - ACUTE ON CHRONIC DIASTOLIC (CONGESTIVE) HEART FAILURE (4) Cerebrovascular disease Code(s): I67.9 - CEREBROVASCULAR DISEASE, UNSPECIFIED (5) HTN (hypertension) Code(s): I10 - ESSENTIAL (PRIMARY) HYPERTENSION Qualifiers: Hypertension type: essential hypertension Qualified Code(s): I10 - Essential (primary) hypertension (6) Hyperlipidemia Code(s): E78.5 - HYPERLIPIDEMIA, UNSPECIFIED Qualifiers: Hyperlipidemia type: pure hypercholesterolemia Qualified Code(s): E78.00 - Pure hypercholesterolemia, unspecified; E78.0 - Pure hypercholesterolemia Assessment/Plan 1. Acute on chronic LV diastolic failure 2. HTN/HCVD 3. Moderate - severe MR and mild 4. Pericardial effusion PLAN: 1. Echocardiography revealed moderate LV systolic dysfunction, LVEF 35-40%, moderate eccentric MR, mild TR, mild AR, mild OK, moderate pericardial effusion , but evidence of cardiac tamponade 2. Continue Toprol XL 25 mg QD and Losartan 100 mg QD with uptitration as hemodynamics tolerate 3. Continue present therapy Beka Stock MD
--- NOTE | 2019-01-08 18:36 | PN ---
Teaching Attending Note Name of Resident: Corrine Cervantes ATTENDING PHYSICIAN STATEMENT I saw and evaluated the patient. I reviewed the resident's note and discussed the case with the resident. I agree with the resident's findings and plan as documented. SUBJECTIVE: Ms Chen says she is feeling well today. No cp, sob, n/v. OBJECTIVE: Last Vital Signs Temp Pulse Resp BP Pulse Ox 37.3 C 71 20 123/67 98 01/08/19 13:25 01/08/19 13:25 01/08/19 13:25 01/08/19 13:25 01/08/19 09:00 Gen: nad, obese Pulm: ctab w/o w/r/r CV: rrr w/o m/r/g Abd: +bs, s/nt/nd Ext: no c/c/e CBC, BMP 01/08/19 06:30 01/08/19 06:30 ASSESSMENT AND PLAN: (1) Fever of unknown origin Assessment/Plan: -recurred -ID consulted and appreciate assistance -chest CT reviewed -ESR/CRP checked -quantiferon sent -malarial smear -monitor off antibiotics Code(s): R50.9 - FEVER, UNSPECIFIED Qualifiers: Fever type: unspecified Qualified Code(s): R50.9 - Fever, unspecified (2) Hyperbilirubinemia Assessment/Plan: -improving -ultrasound negative Code(s): E80.6 - OTHER DISORDERS OF BILIRUBIN METABOLISM (3) Acute on chronic diastolic (congestive) heart failure Assessment/Plan: -continue lasix Code(s): I50.33 - ACUTE ON CHRONIC DIASTOLIC (CONGESTIVE) HEART FAILURE (4) HTN (hypertension) Assessment/Plan: -continue cozaar and toprol xl Code(s): I10 - ESSENTIAL (PRIMARY) HYPERTENSION Qualifiers: Hypertension type: essential hypertension Qualified Code(s): I10 - Essential (primary) hypertension (5) Rectal bleeding Assessment/Plan: -history of hemorrhoids -monitor Code(s): K62.5 - HEMORRHAGE OF ANUS AND RECTUM Problem List - Problems (1) Fever Code(s): R50.9 - FEVER, UNSPECIFIED Qualifiers: Fever type: unspecified Qualified Code(s): R50.9 - Fever, unspecified (2) Hyperbilirubinemia Code(s): E80.6 - OTHER DISORDERS OF BILIRUBIN METABOLISM (3) Acute on chronic diastolic (congestive) heart failure Code(s): I50.33 - ACUTE ON CHRONIC DIASTOLIC (CONGESTIVE) HEART FAILURE (4) HTN (hypertension) Code(s): I10 - ESSENTIAL (PRIMARY) HYPERTENSION Qualifiers: Hypertension type: essential hypertension Qualified Code(s): I10 - Essential (primary) hypertension (5) Rectal bleeding Code(s): K62.5 - HEMORRHAGE OF ANUS AND RECTUM (6) CHF (congestive heart failure) Code(s): I50.9 - HEART FAILURE, UNSPECIFIED Qualifiers: Heart failure type: systolic Heart failure chronicity: acute on chronic Qualified Code(s): I50.23 - Acute on chronic systolic (congestive) heart failure
--- NOTE | 2019-01-08 18:55 | PN ---
Physical Exam: SUBJECTIVE: Patient seen and examined, complaining of back pain and constipation. OBJECTIVE: Vital Signs Period Temp Pulse Resp BP Sys/Hale Pulse Ox Last 24 Hr 98.5 F-99.1 F 68-79 17-20 120-130/58-80 98 GENERAL: The patient is awake, alert, and fully oriented, in no acute distress. HEAD: Normal with no signs of trauma. EYES: PERRL, extraocular movements intact. ENT: Oropharynx clear without exudates, moist mucous membranes. NECK: Trachea midline, full range of motion, supple. LUNGS: Breath sounds equal, clear to auscultation bilaterally, no wheezes, no crackles, no accessory muscle use. HEART: Regular rate and rhythm, S1, S2 systolic murmur over right upper sternal border,, rub or gallop. ABDOMEN: Soft, nontender, nondistended, normoactive bowel sounds. EXTREMITIES: 2+ pulses, warm, no edema. NEUROLOGICAL: Normal speech, gait not observed. PSYCH: Normal mood, normal affect. SKIN: Warm, dry, normal turgor, no rashes. Laboratory Results - last 24 hr 01/06/19 01/07/19 01/08/19 16:05 21:40 05:51 WBC RBC Hgb Hct MCV MCH MCHC RDW Plt Count MPV Absolute Neuts (auto) Neutrophils % Lymphocytes % Monocytes % Eosinophils % Basophils % Nucleated RBC % ESR Sodium Potassium Chloride Carbon Dioxide Anion Gap BUN Creatinine Creat Clearance w eGFR POC Glucometer 127 106 Random Glucose Calcium Total Bilirubin AST ALT Alkaline Phosphatase C-Reactive Protein Total Protein Albumin Hepatitis A IgM Ab Negative Hep Bs Antigen Negative Hep B Core IgM Ab Negative Hepatitis C Antibody <0.1 01/08/19 01/08/19 01/08/19 06:30 06:30 06:30 WBC 4.1 RBC 3.23 L Hgb 10.2 L Hct 29.4 L MCV 91.0 MCH 31.5 MCHC 34.7 RDW 13.8 Plt Count 184 MPV 8.9 Absolute Neuts (auto) 2.2 Neutrophils % 54.1 Lymphocytes % 22.3 D Monocytes % 11.8 H Eosinophils % 11.2 H Basophils % 0.6 Nucleated RBC % 0 ESR 49 H Sodium 134 L Potassium 3.8 Chloride 103 Carbon Dioxide 24 Anion Gap 7 L BUN 22 H Creatinine 1.0 Creat Clearance w eGFR 53.48 POC Glucometer Random Glucose 101 Calcium 8.0 L Total Bilirubin 1.1 H AST 30 ALT 21 Alkaline Phosphatase 34 L C-Reactive Protein 8.3 H Total Protein 6.3 L Albumin 3.0 L Hepatitis A IgM Ab Hep Bs Antigen Hep B Core IgM Ab Hepatitis C Antibody 01/08/19 01/08/19 11:27 16:47 WBC RBC Hgb Hct MCV MCH MCHC RDW Plt Count MPV Absolute Neuts (auto) Neutrophils % Lymphocytes % Monocytes % Eosinophils % Basophils % Nucleated RBC % ESR Sodium Potassium Chloride Carbon Dioxide Anion Gap BUN Creatinine Creat Clearance w eGFR POC Glucometer 125 163 Random Glucose Calcium Total Bilirubin AST ALT Alkaline Phosphatase C-Reactive Protein Total Protein Albumin Hepatitis A IgM Ab Hep Bs Antigen Hep B Core IgM Ab Hepatitis C Antibody Active Medications Generic Name Dose Route Start Last Admin Trade Name Freq PRN Reason Stop Dose Admin Acetaminophen 500 mg 01/05/19 10:00 01/08/19 03:13 Tylenol - PO 500 mg Q6H PRN Administration FEVER Enoxaparin Sodium 40 mg 01/05/19 10:00 01/08/19 10:55 Lovenox - SQ 40 mg DAILY [facility] Administration Exemestane 25 mg 01/05/19 10:00 01/08/19 10:55 Aromasin - PO 25 mg DAILY [facility] Administration Furosemide 40 mg 01/07/19 15:45 01/08/19 10:55 Lasix - PO 40 mg DAILY [facility] Administration Insulin Aspart 1 vial 01/05/19 07:52 01/08/19 17:24 Novolog Vial Sliding Scale - SQ 2 units ACHS [facility] Administration Protocol Losartan Potassium 100 mg 01/05/19 10:00 01/08/19 10:55 Cozaar - PO 100 mg DAILY [facility] Administration Metoprolol Succinate 25 mg 01/05/19 10:00 01/08/19 10:55 Toprol Xl - PO 25 mg DAILY [facility] Administration ASSESSMENT/PLAN: 78 y/o F with hx of L breast CA (s/p chemo, rads), HTN, DM, diastolic CHF (past ECHO 2015), rectal bleeding (ext hemorrhoids), who presents to the ED c/o SOB. Fever -unknown source -no fever in 24 hr -cultures negative -monitor off abx -consulted ID today, will f/u TB, malaria screen -Ct chest nl, no acute pathology Hyperbilirubinemia -normalized today 1.31 from 1.3 yesterday -gallbladder unable to be evaluated on CT scan -checked abdominal ultrasound, nl -checked acute hepatitis panel, neg Acute on chronic diastolic heart failure -improved, no more SOB HTN -continue cozaar and toprol xl Rectal bleeding -history of hemorrhoids -monitor F/E/N; no/no changes/diabetic DVY PPX: lovenox Dispo: med surg, possible dc tomorrow Problem List - Problems (1) Aortic stenosis Code(s): I35.0 - NONRHEUMATIC AORTIC (VALVE) STENOSIS Qualifiers: Cardiac valve disease etiology: nonrheumatic Qualified Code(s): I35.0 - Nonrheumatic aortic (valve) stenosis (2) CHF (congestive heart failure) Code(s): I50.9 - HEART FAILURE, UNSPECIFIED Qualifiers: Heart failure type: systolic Heart failure chronicity: acute on chronic Qualified Code(s): I50.23 - Acute on chronic systolic (congestive) heart failure (3) Fever Code(s): R50.9 - FEVER, UNSPECIFIED Qualifiers: Fever type: unspecified Qualified Code(s): R50.9 - Fever, unspecified (4) H/O total mastectomy of left breast Code(s): Z90.12 - ACQUIRED ABSENCE OF LEFT BREAST AND NIPPLE (5) Hyperbilirubinemia Code(s): E80.6 - OTHER DISORDERS OF BILIRUBIN METABOLISM (6) Hypomagnesemia Code(s): E83.42 - HYPOMAGNESEMIA (7) Overweight Code(s): E66.3 - OVERWEIGHT (8) Acute on chronic diastolic (congestive) heart failure Code(s): I50.33 - ACUTE ON CHRONIC DIASTOLIC (CONGESTIVE) HEART FAILURE (9) Cerebrovascular disease Code(s): I67.9 - CEREBROVASCULAR DISEASE, UNSPECIFIED (10) Dizziness Code(s): R42 - DIZZINESS AND GIDDINESS (11) Dyspnea Code(s): R06.00 - DYSPNEA, UNSPECIFIED Qualifiers: Dyspnea type: dyspnea on exertion Qualified Code(s): R06.09 - Other forms of dyspnea (12) External hemorrhoid Code(s): K64.4 - RESIDUAL HEMORRHOIDAL SKIN TAGS (13) HTN (hypertension) Code(s): I10 - ESSENTIAL (PRIMARY) HYPERTENSION Qualifiers: Hypertension type: essential hypertension Qualified Code(s): I10 - Essential (primary) hypertension (14) Headache Code(s): R51 - HEADACHE Qualifiers: Headache type: tension-type Headache chronicity pattern: acute headache (15) Hyperlipidemia Code(s): E78.5 - HYPERLIPIDEMIA, UNSPECIFIED Qualifiers: Hyperlipidemia type: pure hypercholesterolemia Qualified Code(s): E78.00 - Pure hypercholesterolemia, unspecified; E78.0 - Pure hypercholesterolemia (16) Hypertensive encephalopathy Code(s): I67.4 - HYPERTENSIVE ENCEPHALOPATHY (17) Rectal bleeding Code(s): K62.5 - HEMORRHAGE OF ANUS AND RECTUM (18) Vaginal prolapse Code(s): N81.10 - CYSTOCELE, UNSPECIFIED Visit type - Emergency Visit Emergency Visit: Yes ED Registration Date: 01/05/19 Care time: The patient presented to the Emergency Department on the above date and was hospitalized for further evaluation of their emergent condition. - New Patient This patient is new to me today: No - Critical Care Critical Care patient: No
[2019-01-09] MEDS: INSULIN SLIDING SCALE (NOVOLOG) 1 VIAL SQ SCH ×4 (06:03→21:44)
[2019-01-09 07:12] LABS: BASO % 0.6 % (0-2.0); EOS % 10.8 % (0-4.5); HEMATOCRIT 29.3 % (32.4-45.2); HEMOGLOBIN 10.1 GM/dL (10.7-15.3); LYMPH % 26.2 % (8-40); MCH 31.4 pg (25.7-33.7); MCHC 34.6 g/dl (32.0-36.0); MEAN CELL VOLUME 90.7 fl (80-96); MEAN PLT VOLUME 8.9 fl (7.5-11.1); NEUT % 49.4 % (42.8-82.8); PLATELET COUNT 196 K/MM3 (134-434); RBC 3.23 M/mm3 (3.60-5.2); RDW 13.4 % (11.6-15.6); WHITE BLOOD COUNT 4.9 K/mm3 (4.0-10.0)
[2019-01-09 07:33] LABS: ALK PHOS 37 U/L (45-117); ANION GAP 8 MMOL/L (8-16); BILIRUBIN,TOTAL 0.8 mg/dL (0.2-1); BLOOD UREA NITROGEN 19 mg/dL (7-18); CHLORIDE 102 mmol/L (98-107); CO2 26 mmol/L (21-32); GLUCOSE,RANDOM 94 mg/dL (74-106); POTASSIUM 3.9 mmol/L (3.5-5.1); SGOT/AST 32 U/L (15-37); SGPT/ALT 25 U/L (13-61); SODIUM 137 mmol/L (136-145); TOT PROT 6.2 g/dl (6.4-8.2)
[2019-01-09] MEDS: metoPROLOL SUCCINATE 25 MG TAB.SR.24H (FP) PO SCH (09:34)
[2019-01-09] MEDS: ENOXAPARIN NA (PORCINE) 40 MG/0.4 ML DISP.SYRIN SQ SCH (09:34)
[2019-01-09] MEDS: FUROSEMIDE 40 MG TABLET (FP) PO SCH (09:34)
[2019-01-09] MEDS: LOSARTAN POTASSIUM 50 MG TABLET (FP) PO SCH (09:34)
[2019-01-09] MEDS ORDERED: PT OWN MED DRAWER 7, Y5N ONE (09:36)
[2019-01-09] MEDS: EXEMESTANE 25 MG TABLET PO SCH (09:40)
--- NOTE | 2019-01-09 11:10 | PN ---
Teaching Attending Note Name of Resident: Corrine Cervantes ATTENDING PHYSICIAN STATEMENT I saw and evaluated the patient. I reviewed the resident's note and discussed the case with the resident. I agree with the resident's findings and plan as documented with exceptions below. SUBJECTIVE: Patient seen and examined. denies any dyspnea, abdominal pain or urinary symptoms. OBJECTIVE: Vital Signs Period Temp Pulse Resp BP Sys/Hale Pulse Ox Last 24 Hr 98.7 F-99.2 F 68-79 17-20 122-154/64-76 98 Intake & Output 01/06/19 01/07/19 01/08/19 01/09/19 23:59 23:59 23:59 23:59 Intake Total 390 450 950 250 Balance 390 450 950 250 Weight 187 lb 1.6 oz 188 lb 188 lb 4 oz 185 lb 7 oz General: sitting in bed in no acute distress Neck: soft, supple, no JVD Chest: CTAB, no rales or wheezing appreciated Abdomen: soft, obese, NT, no suprapubic or CVA tenderness Extremities: no pedal edema or calf tenderness Home Medications Medication Instructions Recorded Acetaminophen [Tylenol -] 500 mg PO DAILY 01/05/19 Exemestane [Aromasin -] 25 mg PO DAILY 01/05/19 Folic Acid - 1 mg PO DAILY 01/05/19 Losartan Potassium 100 mg PO DAILY 01/05/19 Meclizine HCl 12.5 mg PO BID 01/05/19 Metoprolol Succinate 25 mg PO DAILY 01/05/19 Ranitidine HCl 150 mg PO DAILY 01/05/19 metFORMIN HCL [Metformin HCl] 500 mg PO BID 01/05/19 Active Medications Acetaminophen (Tylenol -) 500 mg PO Q6H PRN PRN Reason: FEVER Last Admin: 01/08/19 03:13 Dose: 500 mg Enoxaparin Sodium (Lovenox -) 40 mg SQ DAILY [facility] Last Admin: 01/09/19 09:34 Dose: 40 mg Exemestane (Aromasin -) 25 mg PO DAILY [facility] Last Admin: 01/09/19 09:40 Dose: 25 mg Furosemide (Lasix -) 40 mg PO DAILY [facility] Last Admin: 01/09/19 09:34 Dose: 40 mg Insulin Aspart (Novolog Vial Sliding Scale -) 1 vial SQ [facility]; Protocol Last Admin: 01/09/19 06:03 Dose: Not Given Losartan Potassium (Cozaar -) 100 mg PO DAILY [facility] Last Admin: 01/09/19 09:34 Dose: 100 mg Metoprolol Succinate (Toprol Xl -) 25 mg PO DAILY [facility] Last Admin: 01/09/19 09:34 Dose: 25 mg Laboratory Results - last 24 hr 01/08/19 01/08/19 01/08/19 11:27 16:47 21:25 WBC RBC Hgb Hct MCV MCH MCHC RDW Plt Count MPV Absolute Neuts (auto) Neutrophils % Lymphocytes % Monocytes % Eosinophils % Basophils % Nucleated RBC % Sodium Potassium Chloride Carbon Dioxide Anion Gap BUN Creatinine Creat Clearance w eGFR POC Glucometer 125 163 98 Random Glucose Calcium Total Bilirubin AST ALT Alkaline Phosphatase Total Protein Albumin 01/09/19 01/09/19 01/09/19 06:02 06:30 06:30 WBC 4.9 RBC 3.23 L Hgb 10.1 L Hct 29.3 L MCV 90.7 MCH 31.4 MCHC 34.6 RDW 13.4 Plt Count 196 MPV 8.9 Absolute Neuts (auto) 2.4 Neutrophils % 49.4 Lymphocytes % 26.2 Monocytes % 13.0 H Eosinophils % 10.8 H Basophils % 0.6 Nucleated RBC % 0 Sodium 137 Potassium 3.9 Chloride 102 Carbon Dioxide 26 Anion Gap 8 BUN 19 H Creatinine 1.0 Creat Clearance w eGFR 53.48 POC Glucometer 98 Random Glucose 94 Calcium 8.0 L Total Bilirubin 0.8 AST 32 ALT 25 Alkaline Phosphatase 37 L Total Protein 6.2 L Albumin 3.0 L 01/09/19 10:49 WBC RBC Hgb Hct MCV MCH MCHC RDW Plt Count MPV Absolute Neuts (auto) Neutrophils % Lymphocytes % Monocytes % Eosinophils % Basophils % Nucleated RBC % Sodium Potassium Chloride Carbon Dioxide Anion Gap BUN Creatinine Creat Clearance w eGFR POC Glucometer 160 Random Glucose Calcium Total Bilirubin AST ALT Alkaline Phosphatase Total Protein Albumin Microbiology 01/05/19 00:05 Blood - Peripheral Venous Blood Culture - Preliminary NO GROWTH OBTAINED AFTER 96 HOURS, INCUBATION TO CONTINUE FOR 1 DAYS. 01/05/19 00:15 Blood - Peripheral Venous Blood Culture - Preliminary NO GROWTH OBTAINED AFTER 96 HOURS, INCUBATION TO CONTINUE FOR 1 DAYS. 01/07/19 20:05 Blood - Peripheral Venous Blood Culture - Preliminary NO GROWTH OBTAINED AFTER 24 HOURS, INCUBATION TO CONTINUE FOR 4 DAYS. 01/07/19 19:45 Blood - Peripheral Venous Blood Culture - Preliminary NO GROWTH OBTAINED AFTER 24 HOURS, INCUBATION TO CONTINUE FOR 4 DAYS. 01/07/19 19:45 Blood - Peripheral Venous Blood Parasites Smear - Final 01/05/19 02:30 Urine - Urine Clean Catch Urine Culture - Final NO GROWTH OBTAINED CT chest/Abdomen/Pelvis and abdominal US results reviewed ASSESSMENT AND PLAN: 78 yof with PMhx of L breast CA (s/p chemo, rads), HTN, DM, diastolic CHF (last Echo 2015 with normal EF), rectal bleeding (ext hemorrhoids) admitted with fever and transient hypoxia. -fever of unknown origin -Acute systolic heart failure exacerbation -New cardiomyopathy (Last EF in 2016 normal) -Moderate Pericardial effusion -Moderate Mitral regurgitation -Mild Aortic scloerosis -NIDDM -HTN -H/o left breast ca (s/p chemoradiation) -H/o haemorrhoidal bleed Plan: Recent travel to [place]. ID input noted. Blood parasite smear neg. ESR/CRP noted. ID input appreciated. HIV test. Monitor off abx. Cardiology input noted. PO lasix. Anticipate outpatient cardiology follow up for further testing given new LV dysfunction, once active infection concerns have improved. Losartan/Beta esther per cardiology. IDDM, diabetic diet, A1c 4.7. DVTPPX lovenox Dispo pending clinical improvement, in 24-48 if afebrile off abx and w/u neg. PT eval and CM consult for d/c planning. Plan discussed with patient and nursing, all questions answered.
--- NOTE | 2019-01-09 12:04 | PN ---
Progress Note, Physician History of Present Illness: Orthopnea, dyspnea resolved. - Current Medication List Current Medications: Active Medications Acetaminophen (Tylenol -) 500 mg PO Q6H PRN PRN Reason: FEVER Last Admin: 01/08/19 03:13 Dose: 500 mg Enoxaparin Sodium (Lovenox -) 40 mg SQ DAILY [facility] Last Admin: 01/09/19 09:34 Dose: 40 mg Exemestane (Aromasin -) 25 mg PO DAILY [facility] Last Admin: 01/09/19 09:40 Dose: 25 mg Furosemide (Lasix -) 40 mg PO DAILY [facility] Last Admin: 01/09/19 09:34 Dose: 40 mg Insulin Aspart (Novolog Vial Sliding Scale -) 1 vial SQ [facility]; Protocol Last Admin: 01/09/19 11:22 Dose: 2 units Losartan Potassium (Cozaar -) 100 mg PO DAILY [facility] Last Admin: 01/09/19 09:34 Dose: 100 mg Metoprolol Succinate (Toprol Xl -) 25 mg PO DAILY [facility] Last Admin: 01/09/19 09:34 Dose: 25 mg - Objective Vital Signs: Vital Signs Temperature 98.8 F 01/09/19 09:00 Pulse Rate 70 01/09/19 09:00 Respiratory Rate 17 01/09/19 09:00 Blood Pressure 149/76 01/09/19 09:00 O2 Sat by Pulse Oximetry (%) 97 01/09/19 09:00 Constitutional: Yes: No Distress, Calm Neck: Yes: Supple Cardiovascular: Yes: Regular Rate and Rhythm Respiratory: Yes: Regular, Diminished Gastrointestinal: Yes: Normal Bowel Sounds, Soft, Abdomen, Obese Edema: No Labs: CBC, BMP 01/09/19 06:30 01/09/19 06:30 INR, PTT INR 1.21 (0.83-1.09) H 01/07/19 08:45 Problem List - Problems (1) Aortic stenosis Code(s): I35.0 - NONRHEUMATIC AORTIC (VALVE) STENOSIS Qualifiers: Cardiac valve disease etiology: nonrheumatic Qualified Code(s): I35.0 - Nonrheumatic aortic (valve) stenosis (2) Pericardial effusion Code(s): I31.3 - PERICARDIAL EFFUSION (NONINFLAMMATORY) (3) HTN (hypertension) Code(s): I10 - ESSENTIAL (PRIMARY) HYPERTENSION Qualifiers: Hypertension type: essential hypertension Qualified Code(s): I10 - Essential (primary) hypertension (4) Hyperlipidemia Code(s): E78.5 - HYPERLIPIDEMIA, UNSPECIFIED Qualifiers: Hyperlipidemia type: pure hypercholesterolemia Qualified Code(s): E78.00 - Pure hypercholesterolemia, unspecified; E78.0 - Pure hypercholesterolemia (5) Acute on chronic systolic (congestive) heart failure Code(s): I50.23 - ACUTE ON CHRONIC SYSTOLIC (CONGESTIVE) HEART FAILURE Assessment/Plan 01/07/2019 Echocardiography revealed moderate LV systolic dysfunction, LVEF 35- 40%, moderate eccentric MR, mild TR, mild AR, mild OR, moderate pericardial effusion, w/o evidence of cardiac tamponade 1. Acute on chronic LV diastolic failure resolved 2. HTN/HCVD 3. Moderate - severe MR and mild 4. Pericardial effusion PLAN: 1. Continue Toprol XL 25 mg QD and Losartan 100 mg QD with uptitration as hemodynamics tolerate 2. Decrease Lasix 20 qd, encourage ambulation
--- NOTE | 2019-01-09 17:30 | PN ---
Physical Exam: SUBJECTIVE: Patient seen and examined. She is feeling good, denies fever. OBJECTIVE: Vital Signs Period Temp Pulse Resp BP Sys/Hale Pulse Ox Last 24 Hr 98.8 F-99.2 F 68-79 17-20 122-154/64-76 95-98 GENERAL: The patient is awake, alert, and fully oriented, in no acute distress. HEAD: Normal with no signs of trauma. EYES: PERRL, extraocular movements intact. ENT: Oropharynx clear without exudates, moist mucous membranes. NECK: Trachea midline, full range of motion, supple. LUNGS: Breath sounds equal, clear to auscultation bilaterally, no wheezes, no crackles, no accessory muscle use. HEART: Regular rate and rhythm, S1, S2 systolic murmur over right upper sternal border, rub or gallop. ABDOMEN: Soft, nontender, nondistended, normoactive bowel sounds. EXTREMITIES: 2+ pulses, warm, no edema. NEUROLOGICAL: Normal speech, gait not observed. PSYCH: Normal mood, normal affect. SKIN: Warm, dry, normal turgor, no rashes. Laboratory Results - last 24 hr 01/08/19 01/09/19 01/09/19 21:25 06:02 06:30 WBC 4.9 RBC 3.23 L Hgb 10.1 L Hct 29.3 L MCV 90.7 MCH 31.4 MCHC 34.6 RDW 13.4 Plt Count 196 MPV 8.9 Absolute Neuts (auto) 2.4 Neutrophils % 49.4 Lymphocytes % 26.2 Monocytes % 13.0 H Eosinophils % 10.8 H Basophils % 0.6 Nucleated RBC % 0 Sodium Potassium Chloride Carbon Dioxide Anion Gap BUN Creatinine Creat Clearance w eGFR POC Glucometer 98 98 Random Glucose Hemoglobin A1c % Calcium Total Bilirubin AST ALT Alkaline Phosphatase Total Protein Albumin 01/09/19 01/09/19 01/09/19 06:30 06:30 10:49 WBC RBC Hgb Hct MCV MCH MCHC RDW Plt Count MPV Absolute Neuts (auto) Neutrophils % Lymphocytes % Monocytes % Eosinophils % Basophils % Nucleated RBC % Sodium 137 Potassium 3.9 Chloride 102 Carbon Dioxide 26 Anion Gap 8 BUN 19 H Creatinine 1.0 Creat Clearance w eGFR 53.48 POC Glucometer 160 Random Glucose 94 Hemoglobin A1c % 4.7 Calcium 8.0 L Total Bilirubin 0.8 AST 32 ALT 25 Alkaline Phosphatase 37 L Total Protein 6.2 L Albumin 3.0 L 01/09/19 16:31 WBC RBC Hgb Hct MCV MCH MCHC RDW Plt Count MPV Absolute Neuts (auto) Neutrophils % Lymphocytes % Monocytes % Eosinophils % Basophils % Nucleated RBC % Sodium Potassium Chloride Carbon Dioxide Anion Gap BUN Creatinine Creat Clearance w eGFR POC Glucometer 122 Random Glucose Hemoglobin A1c % Calcium Total Bilirubin AST ALT Alkaline Phosphatase Total Protein Albumin Active Medications Generic Name Dose Route Start Last Admin Trade Name Nolvia PRN Reason Stop Dose Admin Acetaminophen 500 mg 01/05/19 10:00 01/08/19 03:13 Tylenol - PO 500 mg Q6H PRN Administration FEVER Enoxaparin Sodium 40 mg 01/05/19 10:00 01/09/19 09:34 Lovenox - SQ 40 mg DAILY [facility] Administration Exemestane 25 mg 01/05/19 10:00 01/09/19 09:40 Aromasin - PO 25 mg DAILY [facility] Administration Furosemide 40 mg 01/07/19 15:45 01/09/19 09:34 Lasix - PO 40 mg DAILY [facility] Administration Insulin Aspart 1 vial 01/05/19 07:52 01/09/19 16:34 Novolog Vial Sliding Scale - SQ Not Given ACHS [facility] Protocol Losartan Potassium 100 mg 01/05/19 10:00 01/09/19 09:34 Cozaar - PO 100 mg DAILY [facility] Administration Metoprolol Succinate 25 mg 01/05/19 10:00 01/09/19 09:34 Toprol Xl - PO 25 mg DAILY [facility] Administration ASSESSMENT/PLAN: 78 y/o F with hx of L breast CA (s/p chemo, rads), HTN, DM, diastolic CHF (past ECHO 2015), rectal bleeding (ext hemorrhoids), who presents to the ED c/o SOB. Fever -unknown source, no fever in 24 hr -cultures negative -monitor off abx -consulted ID , will f/u TB, malaria screen, HIV, ESR/CRP -Ct chest nl, no acute pathology Hyperbilirubinemia -normalized -gallbladder unable to be evaluated on CT scan -checked abdominal ultrasound, nl -checked acute hepatitis panel, neg Acute on chronic diastolic heart failure -improved, no more SOB -will follow Cardiology recommendations HTN -continue cozaar and toprol xl Rectal bleeding -history of hemorrhoids -monitor h/o of left breast ca -stable, s.p amputation F/E/N; no/no changes/diabetic DVT PPX: lovenox Dispo: med surg, possible dc tomorrow Problem List - Problems (1) Aortic stenosis Code(s): I35.0 - NONRHEUMATIC AORTIC (VALVE) STENOSIS Qualifiers: Cardiac valve disease etiology: nonrheumatic Qualified Code(s): I35.0 - Nonrheumatic aortic (valve) stenosis (2) CHF (congestive heart failure) Code(s): I50.9 - HEART FAILURE, UNSPECIFIED Qualifiers: Heart failure type: systolic Heart failure chronicity: acute on chronic Qualified Code(s): I50.23 - Acute on chronic systolic (congestive) heart failure (3) Fever Code(s): R50.9 - FEVER, UNSPECIFIED Qualifiers: Fever type: unspecified Qualified Code(s): R50.9 - Fever, unspecified (4) H/O total mastectomy of left breast Code(s): Z90.12 - ACQUIRED ABSENCE OF LEFT BREAST AND NIPPLE (5) Hyperbilirubinemia Code(s): E80.6 - OTHER DISORDERS OF BILIRUBIN METABOLISM (6) Hypomagnesemia Code(s): E83.42 - HYPOMAGNESEMIA (7) Overweight Code(s): E66.3 - OVERWEIGHT (8) Acute on chronic diastolic (congestive) heart failure Code(s): I50.33 - ACUTE ON CHRONIC DIASTOLIC (CONGESTIVE) HEART FAILURE (9) Cerebrovascular disease Code(s): I67.9 - CEREBROVASCULAR DISEASE, UNSPECIFIED (10) Dizziness Code(s): R42 - DIZZINESS AND GIDDINESS (11) Dyspnea Code(s): R06.00 - DYSPNEA, UNSPECIFIED Qualifiers: Dyspnea type: dyspnea on exertion Qualified Code(s): R06.09 - Other forms of dyspnea (12) External hemorrhoid Code(s): K64.4 - RESIDUAL HEMORRHOIDAL SKIN TAGS (13) HTN (hypertension) Code(s): I10 - ESSENTIAL (PRIMARY) HYPERTENSION Qualifiers: Hypertension type: essential hypertension Qualified Code(s): I10 - Essential (primary) hypertension (14) Headache Code(s): R51 - HEADACHE Qualifiers: Headache type: tension-type Headache chronicity pattern: acute headache (15) Hyperlipidemia Code(s): E78.5 - HYPERLIPIDEMIA, UNSPECIFIED Qualifiers: Hyperlipidemia type: pure hypercholesterolemia Qualified Code(s): E78.00 - Pure hypercholesterolemia, unspecified; E78.0 - Pure hypercholesterolemia (16) Hypertensive encephalopathy Code(s): I67.4 - HYPERTENSIVE ENCEPHALOPATHY (17) Rectal bleeding Code(s): K62.5 - HEMORRHAGE OF ANUS AND RECTUM (18) Vaginal prolapse Code(s): N81.10 - CYSTOCELE, UNSPECIFIED Visit type - Emergency Visit Emergency Visit: Yes ED Registration Date: 01/05/19 Care time: The patient presented to the Emergency Department on the above date and was hospitalized for further evaluation of their emergent condition. - New Patient This patient is new to me today: No - Critical Care Critical Care patient: No
[2019-01-10] MEDS: INSULIN SLIDING SCALE (NOVOLOG) 1 VIAL SQ SCH ×2 (06:04→12:03)
[2019-01-10 07:09] LABS: BASO % 0.6 % (0-2.0); EOS % 12.6 % (0-4.5); HEMATOCRIT 29.9 % (32.4-45.2); HEMOGLOBIN 10.4 GM/dL (10.7-15.3); LYMPH % 26.6 % (8-40); MCH 31.4 pg (25.7-33.7); MCHC 34.6 g/dl (32.0-36.0); MEAN CELL VOLUME 90.7 fl (80-96); MEAN PLT VOLUME 8.7 fl (7.5-11.1); NEUT % 47.2 % (42.8-82.8); PLATELET COUNT 218 K/MM3 (134-434); RDW 13.4 % (11.6-15.6); WHITE BLOOD COUNT 5.1 K/mm3 (4.0-10.0)
[2019-01-10 09:10] VITALS: BP 135/64; PULSE 70; TEMP 98.9
[2019-01-10] MEDS ORDERED: PT OWN MED DRAWER 7, Y5N ONE (09:36)
[2019-01-10] MEDS: metoPROLOL SUCCINATE 25 MG TAB.SR.24H (FP) PO SCH (09:44)
[2019-01-10] MEDS: EXEMESTANE 25 MG TABLET PO SCH (09:44)
[2019-01-10] MEDS: ENOXAPARIN NA (PORCINE) 40 MG/0.4 ML DISP.SYRIN SQ SCH (09:44)
[2019-01-10] MEDS: FUROSEMIDE 40 MG TABLET (FP) PO SCH (09:44)
[2019-01-10] MEDS: LOSARTAN POTASSIUM 50 MG TABLET (FP) PO SCH (09:44)
[2019-01-10] MEDS ORDERED: SENNOSIDES 8.6MG TABLET (FP) PO PRN (10:57)
--- NOTE | 2019-01-10 10:57 | PN ---
Progress Note, Physician History of Present Illness: Orthopnea, dyspnea resolved. - Current Medication List Current Medications: Active Medications Acetaminophen (Tylenol -) 500 mg PO Q6H PRN PRN Reason: FEVER Last Admin: 01/08/19 03:13 Dose: 500 mg Enoxaparin Sodium (Lovenox -) 40 mg SQ DAILY [facility] Last Admin: 01/10/19 09:44 Dose: 40 mg Exemestane (Aromasin -) 25 mg PO DAILY [facility] Last Admin: 01/10/19 09:44 Dose: 25 mg Furosemide (Lasix -) 20 mg PO DAILY [facility] Insulin Aspart (Novolog Vial Sliding Scale -) 1 vial SQ ACHS [facility]; Protocol Last Admin: 01/10/19 06:04 Dose: Not Given Losartan Potassium (Cozaar -) 100 mg PO DAILY [facility] Last Admin: 01/10/19 09:44 Dose: 100 mg Metoprolol Succinate (Toprol Xl -) 25 mg PO DAILY [facility] Last Admin: 01/10/19 09:44 Dose: 25 mg - Objective Vital Signs: Vital Signs Temperature 98.9 F 01/10/19 09:09 Pulse Rate 70 01/10/19 09:09 Respiratory Rate 20 01/10/19 09:09 Blood Pressure 135/64 01/10/19 09:09 O2 Sat by Pulse Oximetry (%) 93 L 01/10/19 09:00 Constitutional: Yes: No Distress, Calm Neck: Yes: Supple Cardiovascular: Yes: Regular Rate and Rhythm, Murmur (2/6 SM) Respiratory: Yes: Regular, CTA Bilaterally Gastrointestinal: Yes: Normal Bowel Sounds, Soft Edema: No Labs: CBC, BMP 01/10/19 06:40 01/09/19 06:30 INR, PTT INR 1.21 (0.83-1.09) H 01/07/19 08:45 Problem List - Problems (1) Aortic stenosis Code(s): I35.0 - NONRHEUMATIC AORTIC (VALVE) STENOSIS Qualifiers: Cardiac valve disease etiology: nonrheumatic Qualified Code(s): I35.0 - Nonrheumatic aortic (valve) stenosis (2) Pericardial effusion Code(s): I31.3 - PERICARDIAL EFFUSION (NONINFLAMMATORY) (3) HTN (hypertension) Code(s): I10 - ESSENTIAL (PRIMARY) HYPERTENSION Qualifiers: Hypertension type: essential hypertension Qualified Code(s): I10 - Essential (primary) hypertension (4) Hyperlipidemia Code(s): E78.5 - HYPERLIPIDEMIA, UNSPECIFIED Qualifiers: Hyperlipidemia type: pure hypercholesterolemia Qualified Code(s): E78.00 - Pure hypercholesterolemia, unspecified; E78.0 - Pure hypercholesterolemia (5) Acute on chronic systolic (congestive) heart failure Code(s): I50.23 - ACUTE ON CHRONIC SYSTOLIC (CONGESTIVE) HEART FAILURE Assessment/Plan 01/07/2019 Echocardiography revealed moderate LV systolic dysfunction, LVEF 35- 40%, moderate eccentric MR, mild TR, mild AR, mild NM, moderate pericardial effusion, w/o evidence of cardiac tamponade 1. Acute on chronic LV diastolic failure resolved 2. HTN/HCVD 3. Moderate - severe MR and mild 4. Pericardial effusion PLAN: 1. Continue Toprol XL 25 mg QD and Losartan 100 mg QD with uptitration as hemodynamics tolerate 2. Decreased Lasix 20 qd, encourage ambulation 3. D/c planning with f/u in office
--- NOTE | 2019-01-10 11:00 | DS ---
Physical Exam: SUBJECTIVE: Patient seen and examined, no complaints, eating well, tolerating diet. OBJECTIVE: Vital Signs Period Temp Pulse Resp BP Sys/Hale Pulse Ox Last 24 Hr 98 F-99.0 F 65-74 18-20 127-153/64-77 93-97 PHYSICAL EXAM GENERAL: The patient is awake, alert, in no acute distress. HEAD: Normal with no signs of trauma. EYES: PERRL, extraocular movements intact, sclera anicteric, conjunctiva clear. ENT: Ears normal, nares patent, oropharynx clear without exudates, moist mucous membranes. NECK: Trachea midline, full range of motion, supple. LUNGS: Breath sounds equal, clear to auscultation bilaterally, no wheezes, no crackles, no accessory muscle use. HEART: Regular rate and rhythm, S1, S2 . ABDOMEN: Soft, nontender, nondistended, normoactive bowel sounds, no guarding, no rebound, no hepatosplenomegaly, no masses. EXTREMITIES: 2+ pulses, warm, well-perfused, no edema. NEUROLOGICAL: AAOx3, Cranial nerves II through XII grossly intact. Normal speech , gait not observed. PSYCH: Normal mood, normal affect, pleasant. SKIN: Warm, dry, normal turgor, no rashes or lesions noted. LABS Laboratory Results - last 24 hr 01/08/19 01/09/19 01/09/19 06:30 06:30 16:31 WBC RBC Hgb Hct MCV MCH MCHC RDW Plt Count MPV Absolute Neuts (auto) Neutrophils % Lymphocytes % Monocytes % Eosinophils % Basophils % Nucleated RBC % POC Glucometer 122 Hemoglobin A1c % 4.7 NAIMA Screen Negative 01/09/19 01/10/19 01/10/19 21:06 06:03 06:40 WBC 5.1 RBC 3.30 L Hgb 10.4 L Hct 29.9 L MCV 90.7 MCH 31.4 MCHC 34.6 RDW 13.4 Plt Count 218 MPV 8.7 Absolute Neuts (auto) 2.4 Neutrophils % 47.2 Lymphocytes % 26.6 Monocytes % 13.0 H Eosinophils % 12.6 H Basophils % 0.6 Nucleated RBC % 0 POC Glucometer 133 106 Hemoglobin A1c % NAIMA Screen Microbiology 01/05/19 00:05 Blood - Peripheral Venous Blood Culture - Final NO GROWTH AFTER 5 DAYS INCUBATION 01/05/19 00:15 Blood - Peripheral Venous Blood Culture - Final NO GROWTH AFTER 5 DAYS INCUBATION 01/07/19 20:05 Blood - Peripheral Venous Blood Culture - Preliminary NO GROWTH OBTAINED AFTER 48 HOURS, INCUBATION TO CONTINUE FOR 3 DAYS. 01/07/19 19:45 Blood - Peripheral Venous Blood Culture - Preliminary NO GROWTH OBTAINED AFTER 48 HOURS, INCUBATION TO CONTINUE FOR 3 DAYS. 01/09/19 12:21 Blood - Peripheral Venous Blood Parasites Smear - Final 01/07/19 19:45 Blood - Peripheral Venous Blood Parasites Smear - Final 01/05/19 02:30 Urine - Urine Clean Catch Urine Culture - Final NO GROWTH OBTAINED T Abdomen/Pelvis: CT scan of the abdomen pelvis without oral and intravenous contrast Coronal and sagittal reformatted images were obtained Compared to prior CT scan of the abdomen pelvis dated 12/23/2015 There is interval slight patent in the included the left lower lobe suggestive of air trapping. There are mild bibasal atelectatic changes, right more than left and a small right pleural effusion. Pleural-based nodular density in the right posterior costophrenic angle measuring 7 mm. There is mild cardiomegaly. Moderate pericardial effusion that measures 2.3 cm with the right. Questionable small hiatus hernia. Evaluation of the liver, spleen and pancreas appear unremarkable. Nonvisualization of the gallbladder. There is suggestion of a tiny hiatus hernia. Partially distended stomach without gross wall thickening. Both adrenal glands appear unremarkable. Right kidney is small. Left kidney is within normal limits in size with a large exophytic left renal upper pole cyst again seen measuring 6.2 cm in maximum dimension without gross interval change. There is no evidence of small bowel obstruction. Normal-appearing terminal ileum and appendix. Normal stool burden in the colon with diverticulosis coli and without evidence of acute diverticulitis. No free air, free fluid or enlarged lymph nodes identified. Partially distended urinary bladder without thickening. Nonvisualization of the uterus. Perirectal and pericecal fat are clear. Normal size abdominal aorta with calcified plaques down through its bifurcation. Small fat-containing left inguinal hernia. Moderate degenerative disc disease at L5-S1 level. Visualized osseous structures appear otherwise intact IMPRESSION: See discussion above. No gross interval change. Mild cardiomegaly and moderate pericardial effusion Small hiatus hernia. Nonvisualization of the gallbladder with possible mild fatty infiltration of the liver. Left renal simple cyst and small right kidney again seen. There is no evidence of small bowel obstruction. Diverticulosis coli without evidence of acute diverticulitis. Small fat-containing left inguinal hernia. Nonvisualization of the uterus. CT chest: CT scan of the chest without intravenous contrast Coronal and sagittal reconstruction images were obtained. Compared to prior chest x-ray dated 01/04/2019 there is minimal left apical pleural thickening and scarring as well as adjacent to mild left apical atelectatic changes/interstitial thickening. Note is made of air trapping versus mild atelectatic changes in the right middle lobe, lingular segment of the left upper lobe and both lower lobes. There are mild atelectatic changes versus infiltrates in the right lung base extending to the costophrenic angle. No gross pulmonary nodules, pneumothorax or pleural effusion identified, bilaterally. In the included portion of the lower neck, an enlarged left thyroid lobe with retrosternal extension is present and with a 6 mm focal calcific densities suggestive of a calcified nodule. There is mild cardiomegaly. Moderate pericardial effusion measuring up to 2.2 cm along the right lateral cardiac margin. Calcification of the coronary arteries are present as well as of the aortic and mitral valve. No gross enlarged mediastinal or hilar lymph nodes are identified. Normal size thoracic and included upper abdominal aorta. In included portion of the upper abdomen, there is questionable mild fatty infiltration of the liver. Large exophytic left renal cyst measuring 6 x 5.5 cm. Visualized osseous structures appear intact with minimal degenerative changes in the thoracic spine Impression : Mild air trapping and atelectatic changes in the lung, left apical pleural thickening and scarring as well as mild atelectatic changes versus infiltrates in the right posterior costophrenic angle. No pneumothorax or pleural effusion identified. Mild cardiomegaly and moderate pericardial effusion. Large left renal exophytic cyst measuring 6 x 5.5 cm. Questionable mild fatty infiltration of the liver. Left renal cyst measuring 6 x 5.5 cm. Abdominal US: Real time examination of the abdomen demonstrates the following: The study is limited. The gallbladder has been removed. There is no evidence of intra or extrahepatic biliary duct dilatation. The liver is slightly enlarged measuring 18 cm in craniocaudad dimension. No intrahepatic masses are identified. Hepatopedal flow is documented within the main portal vein. The pancreas is poorly visualized due to overlying bowel gas. The spleen is not enlarged. There is no evidence of hydronephrosis or acute renal abnormalities. The kidneys are mildly atrophic. There is a left upper pole cyst measuring 5.7 x 5.6 x 4.8 cm. There is no evidence of AAA. The IVC is patent. IMPRESSION: Limited study with mild hepatomegaly and no evidence of acute pathology. Please see above discussion. 2D echo: Moderately reduced LV funciton EF 35-40%, moderate MR, mild aortic sclerosis, moderate pericardial effusion HOSPITAL COURSE: Date of Admission:01/05/19 Date of Discharge: 01/10/19 Minutes to complete discharge: 40 Discharge Summary Reason For Visit: FEVER/CONGESTIVE HEART FAILURE/HYPERBILIRUBINEMIA Current Active Problems Acute on chronic systolic (congestive) heart failure (Acute) Aortic stenosis (Acute) CHF (congestive heart failure) (Acute) Fever (Acute) H/O total mastectomy of left breast (Acute) Hyperbilirubinemia (Acute) Hypomagnesemia (Acute) Overweight (Acute) Pericardial effusion (Acute) Hospital Course: 78 yof with PMhx of L breast CA (s/p chemo, rads), HTN, DM, diastolic CHF (last Echo 2015 with normal EF), rectal bleeding (ext hemorrhoids) admitted with fever and transient hypoxia. She had 2D echo with new LV dysfunction with EF 35- 40%, moderate MR and moderate pericardial effusion.She was seen by cardiology and started on lasix with improvement. She was continued on her metoprolol/ losartan. She was noted with fevers during her stay, she had CT chest and abdomen/pelvis and abdominal US as above but no concerns for infection. She had no focal signs/ symptoms concerning for infection. Her duplex lower extremities were negative. Infectious disease was consulted, she initially had work up including ESR (40s) , CRP (8.3), blood parasite screen that was negative and Quantiferon test (that is pending). She was monitored off antibiotics. She has been afebrile for more than 48 hours with no focal concerns for infection and cleared for discharge by cardiology and infectious disease. Her QUANTIFERON test results are pending and can be followed outpatient. Her metformin was held. A1c was noted at 4.7. She will be continued on sliding scale at the SNF for now. She was evaluated by physical therapy and advised SNF placemement. She will be discharged in stable condition. Condition: Stable - Instructions Diet, Activity, Other Instructions: You were admitted with trouble breathing and you were found with decreased heart function and fluid around your lungs. You were seen by risk prevention engineer, received medication to decrease fluid and will need outpatient follow up. You were also noted on fevers, were placed on short term antibiotics. Your fevers have resolved with no concerns. MEDICATIONS: New medication: Lasix 20 mg daily. Insulin sliding scale while at the rehab facility Stop this medication: Metformin 500 mg twice daily Continue other medications as before DIET/ACTIVITY INSTRUCTIONS: Low salt diet. Weigh yourself daily and notify doctor if weight gain > 3 lbs in 2 days. Please note that you kidney function and potassium will need to monitored closely while on the water pill "lasix". Avoid motrin, ibuprofen or any other NSAIDs without discussion with your doctor. FOLLOW UP: YOUR QUANTIFERON TEST IS SENT RESULTS OF WHICH ARE PENDING, PLEASE HAVE YOUR DOCTOR FOLLOW UP ON THE RESULTS. With your primary care physician in 1 week of discharge from rehab With risk prevention engineer Dr. Severino in 1 week (It is very important to follow up with risk prevention engineer as your heart was noted to be weak and will need additional monitoring and testing. If you notice any new fevers, chills, trouble breathing, weight gain or any new concerns, please call 911 or come to the ED. Referrals: Kaden Mueller MD [Primary Care Provider] - Jozef Severino MD [Staff Physician] - 1 Week Disposition: NURSING HOME FACILITY - Home Medications Comprehensive Discharge Medication List: Ambulatory Orders Acetaminophen [Tylenol .Extra-Strength -] 500 mg PO DAILY 01/05/19 Exemestane [Aromasin -] 25 mg PO DAILY 01/05/19 Folic Acid - 1 mg PO DAILY 01/05/19 Losartan Potassium 100 mg PO DAILY 01/05/19 Meclizine HCl 12.5 mg PO BID 01/05/19 Metoprolol Succinate 25 mg PO DAILY 01/05/19 Ranitidine HCl 150 mg PO DAILY 01/05/19 Docusate Sodium [Colace -] 100 mg PO TID capsule 01/10/19 Furosemide [Lasix] 20 mg PO DAILY #30 tablet 01/10/19 Insulin Sliding Scale [Novolog Vial Sliding Scale -] 1 vial SQ ACHS units 01/10 Sennosides [Senna -] 2 tab PO HS PRN tablet 01/10/19 This patient is new to me today: No Emergency Visit: Yes ED Registration Date: 01/05/19 Care time: The patient presented to the Emergency Department on the above date and was hospitalized for further evaluation of their emergent condition. Critical Care patient: No - Discharge Referral Referred to [facility] Yes Physician Referral: Kaden Shea MD ([facility])
[2019-01-10] MEDS ORDERED: POLYETHYLENE GLYCOL 3350 119 GM BTL PO ONE (11:15)
[2019-01-10] MEDS ORDERED: DOCUSATE SODIUM 100 MG CAPSULE (FP) PO SCH (14:00)
[2019-01-11] MEDS ORDERED: FUROSEMIDE 20 MG TABLET (FP) PO SCH (10:00)
== END 2019-01-10 15:26 | disposition home health service (06) | DRG 194 ==
LOC: JER 21:48 → JERBED 01-05 05:19 → J6S 01-05 17:04
PROVIDERS: ADMIT Internal Medicine; ATTEND Hospitalist
DX: I11.0 Hypertensive heart disease with heart failure (principal); I50.33 Acute on chronic diastolic (congestive) heart failure; E78.5 Hyperlipidemia, unspecified; E11.9 Type 2 diabetes mellitus without complications; I67.4 Hypertensive encephalopathy; R50.9 Fever, unspecified; R00.0 Tachycardia, unspecified; E80.6 Other disorders of bilirubin metabolism; R51 Headache; E66.3 Overweight; Z68.41 Body mass index [BMI] 40.0-44.9, adult; E83.42 Hypomagnesemia; K62.5 Hemorrhage of anus and rectum; I08.0 Rheumatic disorders of both mitral and aortic valves; N81.10 Cystocele, unspecified; I31.3 Pericardial effusion (noninflammatory); I42.8 Other cardiomyopathies; R09.02 Hypoxemia; Z85.3 Personal history of malignant neoplasm of breast; Z90.12 Acquired absence of left breast and nipple; Z86.711 Personal history of pulmonary embolism
CPT/HCPCS: 36415; 71045-TC-FY; 71250-TC; 74176-TC; 76700-TC; 80048; 80053; 80061; 80074; 80076; 81003; 82248; 82962; 83036; 83605; 83721; 83735; 83880; 84100; 84443; 84484; 85025; 85610; 85651; 85730; 86038; 86140; 86480; 87040; 87086; 87207; 87804; 93005; 93010; 93306-TC; 93970-TC; 97116-GP; 97162-GP; 99284-25; J0131

== ENCOUNTER 2019-02-18 14:03 | Inpatient (IN) | payer OTHER | END 2019-02-23 16:00 | disposition home or self-care (01) | LOC: J8W 02-19 01:01 → JER 14:03 → JERBED 20:48 ==

== ENCOUNTER 2019-05-09 19:51 | Inpatient (IN) | payer OTHER ==
--- NOTE | 2019-05-09 20:06 | PDOC ---
Rapid Medical Evaluation Chief Complaint: Cold Symptoms Time Seen by Provider: 05/09/19 19:53 Medical Evaluation: Allergies Allergy/AdvReac Type Severity Reaction Status Date / Time No Known Allergies Allergy Verified 02/18/19 14:41 Vital Signs Temp Pulse Resp BP Pulse Ox 100.9 F H 90 20 116/77 97 05/09/19 19:55 05/09/19 19:55 05/09/19 19:55 05/09/19 19:55 05/09/19 19:55 05/09/19 20:04 Pt presents to the ER with cold like symptoms and lower abdominal pain for 4 days Exam: lungs ctab Orders: labs, cxr, iv Pt to proceed to the ER for further evaluation Discharge Disposition - Diagnosis Fever - Referrals - Patient Instructions - Post Discharge Activity
--- NOTE | 2019-05-09 21:36 | PDOC ---
Documentation entered by Austin Carmona SCRIBE, acting as scribe for Adam Gerber MD. Adam Gerber MD: This documentation has been prepared by the Kristine reese Elijah, SCRIBE, under my direction and personally reviewed by me in its entirety. I confirm that the documentation accurately reflects all work, treatment, procedures, and medical decision making performed by me. Attending Attestation - Resident Resident Name: Helder Jean - ED Attending Attestation I have performed the following: I have examined & evaluated the patient, The case was reviewed & discussed with the resident, I agree w/resident's findings & plan - HPI HPI: 05/09/19 21:53 Patient is a 78 year old female with a significant past medical history of HTN, DM, anemia, F, h/o pericardial effusion, Left breast CA s/p mastectomy who presents to the ED with fever. Patient associates fever with cough, decreased PO intake, nausea and abdominal Pain. Allergies: NKA Social History: Has Home [facility] x7 a week. - Physicial Exam PE: 05/10/19 00:37 NAD LCTAB Abd soft, +TTP LLQ, no guarding, no rebound - Medical Decision Making 05/10/19 04:19 Patient describing non-specific symptoms, cough, decreased appetite, nausea, + fever ?viral syndrome Acutely decreased h/h, denies immanuel bleeding, no brb on rectal Focal abd tenderness f/u ct ap [facility] admit
--- NOTE | 2019-05-09 21:38 | PDOC ---
History of Present Illness - General Chief Complaint: Cold Symptoms Stated Complaint: FEVER/COUGHING/BACK PAIN Time Seen by Provider: 05/09/19 19:53 History Source: Patient, Family ([place] Islander-speaking adult son, at bedside) Exam Limitations: No Limitations - History of Present Illness Initial Comments: 05/09/19 21:45 78F w/ HTN, DM, anemia, systolic HF, h/o pericardial effusion, Left breast CA s/ p mastectomy + ALND + chemo + rad presents to the ED w/ complaint of fever, UP, malaise, nonproductive cough, loss of appetite, nausea, diffuse constant lower abd pain 4/10 severity x4day. Denies sick contacts. No new foods. Lives with at home. Ambulates with walker at baseline. Has [employer] x7days/week. 05/10/19 03:48 Timing/Duration: 1 week Severity: mild Past History - Travel Traveled outside of the country in the last 30 days: No Close contact w/someone who was outside of country & ill: No - Past Medical History Allergies/Adverse Reactions: Allergies Allergy/AdvReac Type Severity Reaction Status Date / Time No Known Allergies Allergy Verified 02/18/19 14:41 Home Medications: Ambulatory Orders Exemestane [Aromasin -] 25 mg PO DAILY 01/05/19 Losartan Potassium 100 mg PO DAILY 01/05/19 Metoprolol Succinate 25 mg PO DAILY 01/05/19 Metformin HCl [Glucophage] 500 mg PO BID 02/18/19 Furosemide 40 mg PO DAILY 02/19/19 Amlodipine Besylate 5 mg PO DAILY #30 tablet 02/23/19 Docusate Sodium [Colace -] 100 mg PO TID capsule 02/23/19 Folic Acid - 1 mg PO DAILY #30 tablet 02/23/19 Losartan Potassium [Cozaar -] 100 mg PO DAILY tablet 02/23/19 Metoprolol Succinate [Toprol XL -] 50 mg PO DAILY tab.sr.24h 02/23/19 Pantoprazole Sodium [Protonix -] 40 mg PO DAILY #30 tablet.ec 02/23/19 predniSONE [Deltasone -] 60 mg PO DAILY #42 tablet 02/23/19 Cancer: Yes (BREAST L mastectomy) Cardiac Disorders: Yes COPD: No Diabetes: Yes GI Disorders: Yes (HEMMOROIDS) HTN: Yes Hypercholesterolemia: Yes Other medical history: arthtitis - Surgical History Cholecystectomy: Yes (open cholecystectomy) Other Surgical History: 05/09/19 21:53 - Left mastectomy - hysterectomy - Family Disease History Comment:: 05/09/19 21:54 - no significant FH - Suicide/Smoking/Psychosocial Hx Smoking History: Never smoked Have you smoked in the past 12 months: No Hx Alcohol Use: No Drug/Substance Use Hx: No Substance Use Type: None Hx Substance Use Treatment: No Review of Systems - Review of Systems Able to Perform ROS?: Yes Is the patient limited [place] Islander proficient: Yes Constitutional: Yes: Fever, Loss of Appetite, Weakness HEENTM: No: Blurred Vision, Double Vision, Throat Pain, Difficulty Swallowing Respiratory: Yes: Cough, Shortness of Breath, SOB at Rest. No: Orthopnea, Productive cough Cardiac (ROS): No: Chest Pain, Irregular Heart Rate, Palpitations, Chest Tightness ABD/GI: Yes: Constipated, Nausea. No: Abdominal Distended, Diarrhea, Abdominal cramping, Tarry Stools : No: Burning, Dysuria, Frequency Musculoskeletal: No: Back Pain Neurological: Yes: Headache (frontal UP), Weakness Hematologic/Lymphatic: Yes: Anemia *Physical Exam - Vital Signs Last Vital Signs Temp Pulse Resp BP Pulse Ox 100.9 F H 90 20 116/77 97 05/09/19 19:55 05/09/19 19:55 05/09/19 19:55 05/09/19 19:55 05/09/19 19:55 - Physical Exam General Appearance: Yes: Obese. No: Apparent Distress HEENT: positive: Pale Conjunctivae. negative: Scleral Icterus (R), Scleral Icterus (L), Pharyngeal Erythema Neck: positive: Trachea midline. negative: Lymphadenopathy (R), Lymphadenopathy (L) Respiratory/Chest: positive: Lungs Clear, Normal Breath Sounds. negative: Respiratory Distress, Labored Respiration, Decreased Breath Sounds, Crackles, Rales, Plerual Rub Cardiovascular: positive: Regular Rhythm, S1, S2. negative: Edema, Irregularly Irregular Gastrointestinal/Abdominal: positive: Soft, Other (well-healed Right subcostal incision, lower midline incision). negative: Distended, Guarding, Rebound, Tenderness, Hernia Rectal Exam: positive: normal rectal tone, other (external skin tags visualized , no blood on glove) Neurologic: positive: Fully Oriented, Alert ED Treatment Course - LABORATORY CBC & Chemistry Diagram: 05/09/19 22:50 05/09/19 22:50 Medical Decision Making - Medical Decision Making 05/09/19 22:00 - rectal Tmax 100.8F - pending basic labs(CBC, CMP, UA); CXR, EKG 05/10/19 03:35 - Hgb 6.6, to be transfused pRBC x1 - CT A/P -- slightly prominent retroperitnoeal LN - pt to be admitted *DC/Admit/Observation/Transfer Diagnosis at time of Disposition: Fever Qualifiers: Fever type: unspecified Qualified Code(s): R50.9 - Fever, unspecified Anemia Qualifiers: Anemia type: unspecified type Qualified Code(s): D64.9 - Anemia, unspecified - Discharge Dispostion Condition at time of disposition: Stable Decision to Admit order: Yes - Referrals - Patient Instructions - Post Discharge Activity
[2019-05-09] MEDS ORDERED: ACETAMINOPHEN 1000 MG/100 ML VIAL (NON FORMULARY) IVPB ONE (23:29)
[2019-05-09] MEDS ORDERED: ACETAMINOPHEN INJECTION 100 ML IVPB ONE (23:34)
[2019-05-09 23:38] LABS: ALBUMIN 3.1 g/dl (3.4-5.0); BILIRUBIN,TOTAL 1.4 mg/dL (0.2-1); BLOOD UREA NITROGEN 11.5 mg/dL (7-18); CALCIUM 8.2 mg/dL (8.5-10.1); POTASSIUM 4.5 mmol/L (3.5-5.1); TOT PROT 5.9 g/dl (6.4-8.2)
[2019-05-09 23:47] LABS: BASO % 0.4 % (0-2.0); EOS % 11.7 % (0-4.5); HEMATOCRIT 19.4 % (32.4-45.2); LYMPH % 24.6 % (8-40); MCH 33.7 pg (25.7-33.7); MCHC 34.2 g/dl (32.0-36.0); MEAN CELL VOLUME 98.5 fl (80-96); MEAN PLT VOLUME 8.4 fl (7.5-11.1); MONO % 10.5 % (3.8-10.2); NEUT % 52.8 % (42.8-82.8); PLATELET COUNT 235 K/MM3 (134-434); RBC 1.97 M/mm3 (3.60-5.2); RDW 13.3 % (11.6-15.6); WHITE BLOOD COUNT 5.5 K/mm3 (4.0-10.0)
[2019-05-09 23:54] LABS: HEMOGLOBIN 6.6 GM/dL (10.7-15.3)
[2019-05-09 23:55] LABS: EPI CELLS 13.7 /HPF (0-5/HPF); HYALINE CASTS 15 /lpf (0-8); PH,URINE 6.5 (5.0-8.0); URINE APPEARANCE CLOUDY; URINE BACTERIA 420.2 /hpf (NEGATIVE); URINE BILIRUBIN 1+ (NEGATIVE); URINE COLOR DK YELLOW; URINE GLUCOSE (UA) NEGATIVE (NEGATIVE); URINE KETONE NEGATIVE (NEGATIVE); URINE LEUK ESTERASE TRACE (NEGATIVE); URINE NITRITE NEGATIVE (NEGATIVE); URINE PROTEIN NEGATIVE (NEGATIVE); URINE RBC 1 /hpf (0-4); URINE UROBILINOGEN 4.0 E.U/dl mg/dL (0.2-1.0); URINE WBC 26 /hpf (0-5)
[2019-05-09 23:56] LABS: INR 1.24 (0.83-1.09); PROTHROMBIN TIME (PATIENT) 14.7 SEC (9.7-13.0)
--- NOTE | 2019-05-10 05:08 | HP ---
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 Pt reports she has had one episode of bloody stool. Pt also reports that she is unable to see from her right eye. She reports that she was supposed to see her appeals coordinator-Dr. Berumen but was unable to f/u. She is a poor historian and wants us to speak to her son. Currently, she is stable and c/o of no symptoms at the moment. Admits to night sweats and recent weight loss. Denies sob, chest pain, numbness, tingling, changes in vision, nausea, vomiting, urinary symptoms. ROS is negative. ER course was notable for: (1)CT a/p: Left colon diverticulosis, small haital hernia, left renal cyst, atrophic right kidney, increased retroperitoneal LN presents, cardiomegaly (2)Blood Transfxn in ED (3)FOBT Recent Travel: denies PAST MEDICAL HISTORY: breast ca s/p [id number]-[id number]-[id number], HTN,, CHF, nikkie+ Autoimmune hemolytic anemia, DM PAST SURGICAL HISTORY: Breast ca mastectomy Social History: Smoking: denies Alcohol: denies Drugs: denies Family History: noncontributory Allergies No Known Allergies Allergy (Verified 02/18/19 14:41) HOME MEDICATIONS: Home Medications Medication Instructions Recorded Exemestane [Aromasin -] 25 mg PO DAILY 01/05/19 Losartan Potassium 100 mg PO DAILY 01/05/19 Metoprolol Succinate 25 mg PO DAILY 01/05/19 Metformin HCl [Glucophage] 500 mg PO BID 02/18/19 Furosemide 40 mg PO DAILY 02/19/19 Amlodipine Besylate 5 mg PO DAILY #30 tablet 02/23/19 Docusate Sodium [Colace -] 100 mg PO TID capsule 02/23/19 Folic Acid - 1 mg PO DAILY #30 tablet 02/23/19 Losartan Potassium [Cozaar -] 100 mg PO DAILY tablet 02/23/19 Metoprolol Succinate [Toprol XL -] 50 mg PO DAILY tab.sr.24h 02/23/19 Pantoprazole Sodium [Protonix -] 40 mg PO DAILY #30 tablet.ec 02/23/19 predniSONE [Deltasone -] 60 mg PO DAILY #42 tablet 02/23/19 REVIEW OF SYSTEMS CONSTITUTIONAL: Admits: fever, generalized weakness, weight loss Absent: chills, diaphoresis, loss of appetite, HEENT: Admits: visual changes- cannot see from right eye- possibly chronic- unable to verify Absent: eye pain, CARDIOVASCULAR: Absent: chest pain, syncope RESPIRATORY: Admits: mild, cough Absent: shortness of breath, GASTROINTESTINAL: Admits: lower abdominal pain, one episode of hematochezia Absent: abdominal distension, nausea, vomiting, diarrhea, constipation, melena, GENITOURINARY: Admits: urinary incontinence Absent: dysuria, frequency, urgency ENDOCRINE: Absent: unexplained weight loss NEUROLOGIC: Admits: headache, Absent: bowel incontinence PHYSICAL EXAMINATION Vital Signs - 24 hr Last Vital Signs Temp Pulse Resp BP Pulse Ox 100.9 F H 90 20 116/77 97 05/09/19 19:55 05/09/19 19:55 05/09/19 19:55 05/09/19 19:55 05/09/19 19:55 GENERAL: Awake, alert, and fully oriented, in no acute distress. EYES: Pupils equal, round and reactive to light, extraocular movements intact. Unable to see from right eye- severely blurry vision on right eye NECK: supple without lymphadenopathy, JVD, or masses. No carotid bruit was appreciated LUNGS: Breath sounds equal, clear to auscultation bilaterally. No wheezes, and no crackles. HEART: Systolic murmur present. Regular rate and rhythm, normal S1 and S2. ABDOMEN: Soft, nontender, not distended, normoactive bowel sounds, no guarding, no rebound, no masses. UPPER EXTREMITIES: 2+ pulses, warm, well-perfused. No peripheral edema. LOWER EXTREMITIES: 2+ pulses, warm, well-perfused. No peripheral edema. PSYCHIATRIC: Cooperative. Good eye contact. Appropriate mood and affect. Laboratory Results - last 24 hr CBC, BMP 05/09/19 22:50 05/09/19 22:50 Hepatic Panel Total Bilirubin 1.4 mg/dL (0.2-1) H 05/09/19 22:50 AST 52 U/L (15-37) H 05/09/19 22:50 ALT 35 U/L (13-61) 05/09/19 22:50 Alkaline Phosphatase 37 U/L (45-117) L 05/09/19 22:50 Albumin 3.1 g/dl (3.4-5.0) L 05/09/19 22:50 ASSESSMENT/PLAN: 78 y/o F, pmh of breast ca s/p [id number]-[id number]-[id number], nikkie+ Autoimmune hemolytic anemia presents to the ED c/o fevers, weakness, headaches and 3 days of abdominal pain likely 2/2 to anemia #Autoimmune hemolytic Anemia Vit B12 and folate ordered FOBT ordered Transfusion given in ED- 1U pRBC CT a/p-Left colon diverticulosis, small haital hernia, left renal cyst, atrophic right kidney, increased retroperitoneal LN presents, cardiomegaly EKG LDH ordered Reticulocyte levels Haptoglobin Iron-TIBC panel UCx Prednisone 81mg F/u outpt f/u Dr. Whitten ID f/u r/o TB #Weakness monitor H/H Transfuse if necessary monitor sugars #Abdominal pain r/o colon ca Tylenol IV monitor labs #DVT ppx SCDs #DM BGM Insulin sliding scale FEN: NPO Dispo: f/u vit b12 and folate, LDH, reticulocytes, monitor overnight, continue steroids Visit type - Emergency Visit Emergency Visit: Yes ED Registration Date: 05/10/19 Care time: The patient presented to the Emergency Department on the above date and was hospitalized for further evaluation of their emergent condition. - New Patient This patient is new to me today: Yes Date on this admission: 05/15/19 - Critical Care Critical Care patient: No ATTENDING PHYSICIAN STATEMENT I saw and evaluated the patient. I reviewed the resident's note and discussed the case with the resident. I agree with the resident's findings and plan as documented. SUBJECTIVE: OBJECTIVE: ASSESSMENT AND PLAN:
--- NOTE | 2019-05-10 05:21 | PN ---
Teaching Attending Note ATTENDING PHYSICIAN STATEMENT I saw and evaluated the patient. I reviewed the resident's note and discussed the case with the resident. I agree with the resident's findings and plan as documented. Seen and examined; please refer to resident note for further historical information. Briefly, this is a 78 y/o female presenting to the ER with anemiawith known hx AI hemolytic anemia (states lost to followup with Dr Berumen since DC) who is a poor historian. She tells me that she is not sure if she is on steroids. No marked hemodynamic instability. Stated abdominal pain in ER; improved wehn I saw her with benign exam. Report pending on CT. Febrile at home. Broadly covered and hydrated with isotonic fluid as per ER records. VS, labs, imging reviewed AAO, NAD, resting in bed NC AT EOMI PERRLA RRR s1/2 Lungs CTAB, w/ sym exp NT ND +BS EKG reviewed CXR without apparent change CT report pending; prelim with ASSESSMENT AND PLAN: # Sepsis 2/2 UTI -Assuming fevers, etc also worsened by underying AI process. Continue abx, followup cultures. Consult ID if needed. # AI heme anemia -Checking LDH/retic count. Checking CBC post XF (ordered in ER). 1 mg/kg prednisone. Consulted Dr. Berumen, Dr. Whitten. Appreciate expert assistance. # Hx +TB -Obtain OP records; consider ID consultation. # Diastolic dysfunction -Careful fluid management; noted on echo # Valvular heart disease -Noted; avoid extremes in BP and FU with CV nonurgently Full Code
[2019-05-10] MEDS ORDERED: PANTOPRAZOLE SODIUM 40 MG/100 ML BAG IVPB ONE (05:54)
[2019-05-10] MEDS: PANTOPRAZOLE SODIUM 40 MG VIAL IVPUSH SCH (05:55)
[2019-05-10 07:07] LABS: BILIRUBIN,TOTAL 1.5 mg/dL (0.2-1); BLOOD UREA NITROGEN 10.5 mg/dL (7-18); CALCIUM 8.3 mg/dL (8.5-10.1); POTASSIUM 4.3 mmol/L (3.5-5.1); TOT PROT 5.7 g/dl (6.4-8.2)
[2019-05-10] MEDS: INSULIN SLIDING SCALE (NOVOLOG) 1 VIAL SQ SCH ×4 (07:10→21:59)
[2019-05-10 07:11] LABS: BASO % 0.6 % (0-2.0); EOS % 14.4 % (0-4.5); HEMATOCRIT 19.5 % (32.4-45.2); LYMPH % 29.7 % (8-40); MCH 33.7 pg (25.7-33.7); MCHC 33.9 g/dl (32.0-36.0); MEAN CELL VOLUME 99.5 fl (80-96); MEAN PLT VOLUME 8.9 fl (7.5-11.1); MONO % 9.8 % (3.8-10.2); NEUT % 45.5 % (42.8-82.8); PLATELET COUNT 203 K/MM3 (134-434); RBC 1.96 M/mm3 (3.60-5.2); RDW 13.6 % (11.6-15.6); WHITE BLOOD COUNT 4.8 K/mm3 (4.0-10.0)
[2019-05-10 07:38] LABS: HEMOGLOBIN 6.6 GM/dL (10.7-15.3)
--- NOTE | 2019-05-10 08:29 | PN ---
Teaching Attending Note Name of Resident: Dannie Miranda ATTENDING PHYSICIAN STATEMENT I saw and evaluated the patient. I reviewed the resident's note and discussed the case with the resident. I agree with the resident's findings and plan as documented. SUBJECTIVE: C/O feeling tired and weak OBJECTIVE: Vital Signs Temperature 97.7 F 05/10/19 06:40 Pulse Rate 70 05/10/19 06:40 Respiratory Rate 14 05/10/19 06:40 Blood Pressure 144/55 L 05/10/19 06:40 O2 Sat by Pulse Oximetry (%) 100 05/10/19 06:40 elderly F notin distress HEENT: Mm moist anemia + NECK: No JVD no Bruit CHEST: CTA B/L CVS; S1S2 R SM in mitral area CBC, [facility] 05/10/19 06:00 05/10/19 06:00 ABD: No distention, non tender Bs + EXT: No ovidio afeet EMER[employer]ENCY [employer]ICAL TECH; AOX3 non focal CBC, [facility] 05/10/19 06:00 05/10/19 06:00 Active Medications Insulin Aspart (Novolog Vial Sliding Scale -) 1 vial SQ ACHS [facility]; Protocol Last Admin: 05/10/19 07:10 Dose: Not Given Pantoprazole Sodium (Protonix Iv) 40 mg IVPUSH DAILY [facility] Last Admin: 05/10/19 05:55 Dose: 40 mg Prednisone (Deltasone -) 80 mg PO DAILY [facility] ASSESSMENT AND PLAN:78 y/o F, pmh of breast ca s/p [id number]-eoiexekgy-quttj, HTN,, CHF, nikkie+ Autoimmune hemolytic anemia presents to the ED c/o one week of severe fevers, weakness, headaches and 3 days of intermittent non-radiating abdominal pain. Pt reports she has had one episode of bloody stool Problem List - Problems (1) Symptomatic anemia Assessment/Plan: Due to hemolysis patient didnt F/U with Rhematology or Hematology on Dc home since 02/19/2019 transfuse 1 unit and F/U H/H hematology consult. Code(s): D64.9 - ANEMIA, UNSPECIFIED (2) Autoimmune hemolytic anemias Assessment/Plan: cont Prednisone F/U Rhematology and hematology input Code(s): D59.1 - OTHER AUTOIMMUNE HEMOLYTIC ANEMIAS (3) CHF (congestive heart failure) Assessment/Plan: compensated F/U BMP Code(s): I50.9 - HEART FAILURE, UNSPECIFIED Qualifiers: Heart failure type: systolic Heart failure chronicity: acute on chronic Qualified Code(s): I50.23 - Acute on chronic systolic (congestive) heart failure (4) HTN (hypertension) Assessment/Plan: Well consytrolled resume Home meds Code(s): I10 - ESSENTIAL (PRIMARY) HYPERTENSION Qualifiers: Hypertension type: essential hypertension Qualified Code(s): I10 - Essential (primary) hypertension (5) Hyperlipidemia Assessment/Plan: cont statin Code(s): E78.5 - HYPERLIPIDEMIA, UNSPECIFIED Qualifiers: Hyperlipidemia type: pure hypercholesterolemia Qualified Code(s): E78.00 - Pure hypercholesterolemia, unspecified; E78.0 - Pure hypercholesterolemia (6) Rectal bleeding Assessment/Plan: low H/H plaese consult GI to re evalute Code(s): K62.5 - HEMORRHAGE OF ANUS AND RECTUM (7) Moderate mitral regurgitation Assessment/Plan: Plaese observe closely for CHF F/U BNP and clinical course add lasix PO if c/o pulmonary congestion. Code(s): I34.0 - NONRHEUMATIC MITRAL (VALVE) INSUFFICIENCY
[2019-05-10] MEDS: predniSONE 20 MG TABLET (UD) PO SCH (12:23)
--- NOTE | 2019-05-10 14:00 | EKG ---
Test Reason : Blood Pressure : / mmHG Vent. Rate : 085 BPM Atrial Rate : 085 BPM P-R Int : 134 ms QRS Dur : 094 ms QT Int : 398 ms P-R-T Axes : 048 -09 004 degrees QTc Int : 473 ms NORMAL SINUS RHYTHM NONSPECIFIC ST AND T WAVE ABNORMALITY ABNORMAL ECG WHEN COMPARED WITH ECG OF 18-FEB-2019 17:12, NO SIGNIFICANT CHANGE WAS FOUND Confirmed by LIZZIE BRENNER MD ([id number]) on 05/10/2019 2:00:22 PM Referred By: Confirmed By:LIZZIE BRENNER MD
--- NOTE | 2019-05-10 14:42 | CONSULT ---
Consultation: CONSULT REQUEST: heme/onc HISTORY OF PRESENT ILLNESS: 78 y/o F, pmh of breast ca s/p mastectomy(1999)-radiation-chemo, HTN,, CHF, nikkie+ presents to the ED with weakness and mild headaches for 3 days with abdominal pain and bloody stools. She was found with a Hgb of 6.6/19.5. She is currently being transfused 1 U PRBC. She was discharged on 02/23 for Anemia and was found to have a +nikkie hemolytic anemia w/ macrocytosis and was discharged on prednisone. She was supposed to follow up with Dr Park (who was working patient up for collagen vascular dz), and Dr. Whitten/Irena but was unable to due insurance issues. She did not have a endoscopy/colonoscopy last admission given lack of GI symptomatology, guaiac negative stool. Patient also had a peripheral eosiniphilia at that time that still persists ( 14.4%). Stronglyoidies IgG negative last admission. Parvo B19 IgM ab negative, IGg elevation. Patient currently denies symptoms. Denies headaches, abdominal pain, dizziness since being admitted. Currently denies bloody stools. Famlily hx: no bleeding disorders, malignancies Social hx: denies tobacco, alcohol, drugs Surgical Hx: hysterectomy, mastectomy, cholecystectomy Home Medications Medication Instructions Recorded Exemestane [Aromasin -] 25 mg PO DAILY 01/05/19 Metformin HCl [Glucophage] 500 mg PO BID 02/18/19 Furosemide 40 mg PO DAILY 02/19/19 Amlodipine Besylate 5 mg PO DAILY #30 tablet 02/23/19 Docusate Sodium [Colace -] 100 mg PO TID capsule 02/23/19 Folic Acid - 1 mg PO DAILY #30 tablet 02/23/19 Losartan Potassium [Cozaar -] 100 mg PO DAILY tablet 02/23/19 Metoprolol Succinate [Toprol XL -] 50 mg PO DAILY tab.sr.24h 02/23/19 Pantoprazole Sodium [Protonix -] 40 mg PO DAILY #30 tablet.ec 02/23/19 predniSONE [Deltasone -] 60 mg PO DAILY #42 tablet 02/23/19 Ranitidine HCl 150 mg PO DAILY 05/10/19 Allergies Allergy/AdvReac Type Severity Reaction Status Date / Time No Known Allergies Allergy Verified 02/18/19 14:41 REVIEW OF SYSTEMS: CONSTITUTIONAL: weight changes, weakness Absent: fever, chills, diaphoresis, malaise, loss of appetite HEENT: Absent: rhinorrhea, nasal congestion, throat pain, throat swelling, difficulty swallowing, mouth swelling, ear pain, eye pain, visual changes CARDIOVASCULAR: Absent: chest pain, syncope, palpitations, irregular heart rate, lightheadedness , peripheral edema RESPIRATORY: Absent: cough, shortness of breath, dyspnea with exertion, orthopnea, wheezing, stridor, hemoptysis GASTROINTESTINAL: Absent: abdominal pain, abdominal distension, nausea, vomiting, diarrhea, constipation, melena, hematochezia GENITOURINARY: Absent: dysuria, frequency, urgency, hesitancy, hematuria, flank pain, genital pain SKIN: Absent: rash, itching, pallor HEMATOLOGIC/IMMUNOLOGIC: Absent: easy bleeding, easy bruising, lymphadenopathy, frequent infections PHYSICAL EXAMINATION Vital Signs - 24 hr 05/09/19 05/10/19 05/10/19 19:55 06:40 08:57 Temperature 100.9 F H 97.7 F 97.6 F Pulse Rate 90 Pulse Rate [ 70 70 Right Radial] Respiratory 20 14 16 Rate Blood Pressure 116/77 Blood Pressure 144/55 L 120/54 L [Right Arm] O2 Sat by Pulse 97 100 96 Oximetry (%) 05/10/19 05/10/19 05/10/19 10:13 13:40 14:07 Temperature 98.6 F 98.4 F 98.9 F Pulse Rate 75 80 81 Pulse Rate [ Right Radial] Respiratory 18 20 20 Rate Blood Pressure 151/60 125/48 L 153/75 Blood Pressure [Right Arm] O2 Sat by Pulse 97 Oximetry (%) GENERAL: a/o x 3 EYES: Pupils equal, round and reactive to light, pale conjunctiva EARS, NOSE, THROAT: Moist mucous membranes. Chest: L masectomy NECK: supple without lymphadenopathy, JVD, or masses. LUNGS: decreased breath sounds HEART: RRR ABDOMEN: Soft, nontender, not distended, normoactive bowel sounds LOWER EXTREMITIES: 2+ pulses, No peripheral edema. Laboratory Results - last 24 hr 05/09/19 05/10/19 05/10/19 23:10 00:25 06:00 WBC 4.8 RBC 1.96 L Hgb 6.6 L* Hct 19.5 L MCV 99.5 H MCH 33.7 MCHC 33.9 RDW 13.6 Plt Count 203 MPV 8.9 Absolute Neuts (auto) 2.2 Neutrophils % 45.5 Lymphocytes % 29.7 D Monocytes % 9.8 Eosinophils % 14.4 H Basophils % 0.6 Nucleated RBC % 0 PT with INR INR Sodium Potassium Chloride Carbon Dioxide Anion Gap BUN Creatinine Est GFR (CKD-EPI)AfAm Est GFR (CKD-EPI)NonAf POC Glucometer Random Glucose Calcium Iron TIBC Iron Saturation Unsaturated IBC Total Bilirubin AST ALT Alkaline Phosphatase LD Total Total Protein Albumin Urine Color Dk yellow Urine Appearance Cloudy Urine pH 6.5 Ur Specific [place] 1.017 Urine Protein Negative Urine Glucose (UA) Negative Urine Ketones Negative Urine Blood Negative Urine Nitrite Negative Urine Bilirubin 1+ H Urine Urobilinogen 4.0 e.u/dl H Ur Leukocyte Esterase Trace Urine WBC (Auto) 26 Urine RBC (Auto) 1 Urine Casts (Auto) 15 U Pathogenic Cast Auto None seen U Epithel Cells (Auto) 13.7 Urine Bacteria (Auto) 420.2 Blood Type A POSITIVE Antibody Screen Positive Prewarmed Antibody Srcn Negative Antibody Identification Cold auto Antigen Identification No Result Required. Crossmatch See Detail Active Medications Generic Name Dose Route Start Last Admin Trade Name Freq PRN Reason Stop Dose Admin Insulin Aspart 1 vial 05/10/19 07:00 05/10/19 12:13 Novolog Vial Sliding Scale - SQ Not Given ACHS [facility] Protocol Pantoprazole Sodium 40 mg 05/10/19 04:57 05/10/19 05:55 Protonix Iv IVPUSH 40 mg DAILY [facility]RI Administration Prednisone 80 mg 05/10/19 10:00 05/10/19 12:23 Deltasone - PO 80 mg DAILY [facility]RI Administration ASSESSMENT/PLAN: #Anemia #Nikkie + AIHA #Macrocytosis -1 U prbc ordered -FOBT pending -no signs of bleeding -Retic count, haptoglobin pending. -LDH 361 -B12, Folic acid -Repeat nikkie test -On Prednisone 80mg daily -FU rheumatology reccs -GI consult -monitor H&H Dispo: We will continue to follow the patient. Thank you for this consultative opportunity. Visit type - Emergency Visit Emergency Visit: Yes ED Registration Date: 05/10/19 Care time: The patient presented to the Emergency Department on the above date and was hospitalized for further evaluation of their emergent condition. - New Patient This patient is new to me today: Yes Date on this admission: 05/11/19 - Critical Care Critical Care patient: No ATTENDING PHYSICIAN STATEMENT I saw and evaluated the patient. I reviewed the resident's note and discussed the case with the resident. I agree with the resident's findings and plan as documented. SUBJECTIVE: OBJECTIVE: ASSESSMENT AND PLAN:
[2019-05-10 15:13] LABS: RETICULOCYTES 3.82 % (0.5-1.5)
--- NOTE | 2019-05-10 17:27 | CONSULT ---
Consult Consult Specialty:: Rheumatology - History of Present Illness History of Present Illness: 78-year-old female with a history of hemolytic anemia, breast cancer more than 10 years ago,, s/p chemo and radiation, hypertension, anemia (baseline Hgb 10) diabetes, diastolic CHF and 2 year history decreased vision in the right eye ( etiology?) admitted with a 3 day history of weakness, malaise, possible fever and shortness of breath. HPI The patient was admitted on with hemolytic anemia. On that admission: NAIMA and anti-DNA ds were negative, no M spike and normal urinalysis. Haptoglobin <10, reticulocytes 10.19% and direct Sudha positive. She was started on steroids and on DC H/H was 8.8/26.3. The patient reports that 3 days ago she developed progressive weakness, difficulty in walking with her walker and shortness of breath even at rest. According to her son she had fever of 100. She denies cough, chest pain, abdominal pain or hematochezia. On this admission CBC with WBC of 5.5, Hgb 6.6, HCT 19.4 and platelets 235. On admission temp was 100.9 and since then she has not have fever. She denies skin rash, oral ulcers, Sicca syndrome, Raynaud's phenomenon or hair loss.. - History Source History Provided By: Patient, Family Member, Medical Record Limitations to Obtaining History: No Limitations - Past Medical History Cardio/Vascular: Yes: CHF (Diastolic oper the chart), HTN ...: No Musculoskeletal: Yes: Osteoarthritis Endocrine: Yes: Diabetes Mellitus (DM II) - Past Surgical History Past Surgical History: Yes: Cholecystectomy (Open), Hysterectomy (LEYLA) - Alcohol/Substance Use Hx Alcohol Use: No History of Substance Use: reports: None - Smoking History Smoking history: Never smoked Have you smoked in the past 12 months: No - Social History Usual Living Arrangement: With Spouse ADL: Independent History of Recent Travel: Yes ([facility]) Home Medications - Allergies Allergies/Adverse Reactions: Allergies Allergy/AdvReac Type Severity Reaction Status Date / Time No Known Allergies Allergy Verified 02/18/19 14:41 - Home Medications Home Medications: Ambulatory Orders Exemestane [Aromasin -] 25 mg PO DAILY 01/05/19 Metformin HCl [Glucophage] 500 mg PO BID 02/18/19 Furosemide 40 mg PO DAILY 02/19/19 Amlodipine Besylate 5 mg PO DAILY #30 tablet 02/23/19 Docusate Sodium [Colace -] 100 mg PO TID capsule 02/23/19 Folic Acid - 1 mg PO DAILY #30 tablet 02/23/19 Losartan Potassium [Cozaar -] 100 mg PO DAILY tablet 02/23/19 Metoprolol Succinate [Toprol XL -] 50 mg PO DAILY tab.sr.24h 02/23/19 Pantoprazole Sodium [Protonix -] 40 mg PO DAILY #30 tablet.ec 02/23/19 predniSONE [Deltasone -] 60 mg PO DAILY #42 tablet 02/23/19 Ranitidine HCl 150 mg PO DAILY 05/10/19 Family Disease History - Family Disease History Family Disease History: Other: Father (Killed. Pt. could not remember age), Mother (: "Lung problems"), Brother (3, 1 with diabetes), Sister (2, healthy ), Son (5. Some with "sugar problems"), Daughter (3 ) Review of Systems - Review of Systems Constitutional: reports: Lethargy, Malaise, Weakness Eyes: reports: Other (Long termhistorydecreased vision in theright eye.) HENT: reports: No Symptoms Neck: reports: No Symptoms Cardiovascular: reports: Shortness of Breath Respiratory: reports: No Symptoms Gastrointestinal: reports: No Symptoms Musculoskeletal: reports: No Symptoms Integumentary: reports: No Symptoms Neurological: reports: No Symptoms Physical Exam Vital Signs: Vital Signs Temperature 98.9 F 05/10/19 14:07 Pulse Rate 81 05/10/19 14:07 Respiratory Rate 20 05/10/19 14:07 Blood Pressure 153/75 05/10/19 14:07 O2 Sat by Pulse Oximetry (%) 97 05/10/19 10:13 Constitutional: Yes: Mild Distress Eyes: Yes: WNL HENT: Yes: WNL Neck: Yes: WNL Cardiovascular: Yes: WNL Respiratory: Yes: WNL Gastrointestinal: Yes: WNL Musculoskeletal: Yes: Other (No active joints.) Labs: CBC, BMP 05/10/19 06:00 05/10/19 06:00 Laboratory Tests 05/09/19 05/10/19 05/10/19 23:10 06:00 06:00 Retic Count 3.82 H D Random Glucose 88 Calcium 8.3 L Iron 108 TIBC 213 L Iron Saturation 50 H Unsaturated IBC 105 L Total Bilirubin 1.5 H AST 42 H ALT 32 Alkaline Phosphatase 36 L LD Total 361 H Total Protein 5.7 L Albumin 3.0 L Urine Appearance Cloudy Urine pH 6.5 Ur Specific [place] 1.017 Urine Protein Negative Urine Glucose (UA) Negative Urine Ketones Negative Urine Blood Negative Urine Nitrite Negative Urine Bilirubin 1+ H Urine Urobilinogen 4.0 e.u/dl H Ur Leukocyte Esterase Trace Urine WBC (Auto) 26 Urine RBC (Auto) 1 Urine Casts (Auto) 15 U Pathogenic Cast Auto None seen Problem List - Problems (1) Autoimmune hemolytic anemias Assessment/Plan: Sudha positive hemolytic anemia. No evidence of other CTD. Continue same medications. Code(s): D59.1 - OTHER AUTOIMMUNE HEMOLYTIC ANEMIAS
--- NOTE | 2019-05-10 17:43 | PN ---
Physical Exam: SUBJECTIVE: Patient seen and examined at bedside today. no acute events overnight. OBJECTIVE: Vital Signs Period Temp Pulse Resp BP Sys/Hale Pulse Ox Last 24 Hr 97.6 F-100.9 F 70-90 14-20 116-153/48-77 96-100 GENERAL: The patient is awake, alert, and fully oriented, in no acute distress. HEAD: Normal with no signs of trauma. LUNGS: Breath sounds equal, clear to auscultation bilaterally, no wheezes, no crackles, no accessory muscle use. HEART: Regular rate and rhythm, S1, S2 without murmur, rub or gallop. ABDOMEN: Soft, nontender, nondistended, normoactive bowel sounds, no guarding, no rebound. EXTREMITIES: warm, well-perfused, no edema. NEUROLOGICAL: Cranial nerves II through XII grossly intact. Normal speech, gait not observed. PSYCH: Normal mood, normal affect. SKIN: Warm, dry, normal turgor, no rashes or lesions noted Laboratory Results - last 24 hr 05/09/19 05/09/19 05/09/19 22:50 22:50 22:50 WBC 5.5 RBC 1.97 L Hgb 6.6 L* Hct 19.4 L D MCV 98.5 H MCH 33.7 MCHC 34.2 RDW 13.3 D Plt Count 235 D MPV 8.4 Absolute Neuts (auto) 2.9 Neutrophils % 52.8 Lymphocytes % 24.6 Monocytes % 10.5 H Eosinophils % 11.7 H D Basophils % 0.4 Nucleated RBC % 0 Retic Count PT with INR 14.70 H INR 1.24 H Sodium 138 Potassium 4.5 Chloride 106 Carbon Dioxide 25 Anion Gap 8 BUN 11.5 Creatinine 1.0 Est GFR (CKD-EPI)AfAm 62.05 Est GFR (CKD-EPI)NonAf 53.54 POC Glucometer Random Glucose 94 Calcium 8.2 L Iron TIBC Iron Saturation Unsaturated IBC Total Bilirubin 1.4 H AST 52 H ALT 35 Alkaline Phosphatase 37 L LD Total Total Protein 5.9 L Albumin 3.1 L Urine Color Urine Appearance Urine pH Ur Specific [place] Urine Protein Urine Glucose (UA) Urine Ketones Urine Blood Urine Nitrite Urine Bilirubin Urine Urobilinogen Ur Leukocyte Esterase Urine WBC (Auto) Urine RBC (Auto) Urine Casts (Auto) U Pathogenic Cast Auto U Epithel Cells (Auto) Urine Bacteria (Auto) Blood Type Antibody Screen Prewarmed Antibody Srcn Antibody Identification Antigen Identification Crossmatch 05/09/19 05/10/19 05/10/19 23:10 00:25 06:00 WBC 4.8 RBC 1.96 L Hgb 6.6 L* Hct 19.5 L MCV 99.5 H MCH 33.7 MCHC 33.9 RDW 13.6 Plt Count 203 MPV 8.9 Absolute Neuts (auto) 2.2 Neutrophils % 45.5 Lymphocytes % 29.7 D Monocytes % 9.8 Eosinophils % 14.4 H Basophils % 0.6 Nucleated RBC % 0 Retic Count 3.82 H D PT with INR INR Sodium Potassium Chloride Carbon Dioxide Anion Gap BUN Creatinine Est GFR (CKD-EPI)AfAm Est GFR (CKD-EPI)NonAf POC Glucometer Random Glucose Calcium Iron TIBC Iron Saturation Unsaturated IBC Total Bilirubin AST ALT Alkaline Phosphatase LD Total Total Protein Albumin Urine Color Dk yellow Urine Appearance Cloudy Urine pH 6.5 Ur Specific [place] 1.017 Urine Protein Negative Urine Glucose (UA) Negative Urine Ketones Negative Urine Blood Negative Urine Nitrite Negative Urine Bilirubin 1+ H Urine Urobilinogen 4.0 e.u/dl H Ur Leukocyte Esterase Trace Urine WBC (Auto) 26 Urine RBC (Auto) 1 Urine Casts (Auto) 15 U Pathogenic Cast Auto None seen U Epithel Cells (Auto) 13.7 Urine Bacteria (Auto) 420.2 Blood Type A POSITIVE Antibody Screen Positive Prewarmed Antibody Srcn Negative Antibody Identification Cold auto Antigen Identification No Result Required. Crossmatch See Detail 05/10/19 05/10/19 05/10/19 06:00 12:09 16:29 WBC RBC Hgb Hct MCV MCH MCHC RDW Plt Count MPV Absolute Neuts (auto) Neutrophils % Lymphocytes % Monocytes % Eosinophils % Basophils % Nucleated RBC % Retic Count PT with INR INR Sodium 142 Potassium 4.3 Chloride 108 H Carbon Dioxide 25 Anion Gap 8 BUN 10.5 Creatinine 1.0 Est GFR (CKD-EPI)AfAm 62.05 Est GFR (CKD-EPI)NonAf 53.54 POC Glucometer 91 106 Random Glucose 88 Calcium 8.3 L Iron 108 TIBC 213 L Iron Saturation 50 H Unsaturated IBC 105 L Total Bilirubin 1.5 H AST 42 H ALT 32 Alkaline Phosphatase 36 L LD Total 361 H Total Protein 5.7 L Albumin 3.0 L Urine Color Urine Appearance Urine pH Ur Specific [place] Urine Protein Urine Glucose (UA) Urine Ketones Urine Blood Urine Nitrite Urine Bilirubin Urine Urobilinogen Ur Leukocyte Esterase Urine WBC (Auto) Urine RBC (Auto) Urine Casts (Auto) U Pathogenic Cast Auto U Epithel Cells (Auto) Urine Bacteria (Auto) Blood Type Antibody Screen Prewarmed Antibody Srcn Antibody Identification Antigen Identification Crossmatch Active Medications Generic Name Dose Route Start Last Admin Trade Name Nolvia PRN Reason Stop Dose Admin Insulin Aspart 1 vial 05/10/19 07:00 05/10/19 17:10 Novolog Vial Sliding Scale - SQ Not Given ACHS GERRI Protocol Pantoprazole Sodium 40 mg 05/10/19 04:57 05/10/19 05:55 Protonix Iv IVPUSH 40 mg DAILY GERRI Administration Prednisone 80 mg 05/10/19 10:00 05/10/19 12:23 Deltasone - PO 80 mg DAILY GERRI Administration ASSESSMENT/PLAN: 78 y/o F, pmh of breast ca s/p [id number]-[id number], nikkie+ Autoimmune hemolytic anemia presents to the ED c/o fevers, weakness, headaches and 3 days of abdominal pain likely 2/2 to anemia #Autoimmune hemolytic Anemia Vit B12 and folate normal FOBT ordered Transfusion given- 1U pRBC, rpt cbc at 10pm CT a/p-Left colon diverticulosis, small haital hernia, left renal cyst, atrophic right kidney, increased retroperitoneal LN presents, cardiomegaly LDH 361 (High) Reticulocyte levels Haptoglobin Iron-TIBC panel - Rpt nikkie test pending Prednisone 80mg continue, Dr. 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 F/u outpt f/u Dr. Whitten #Weakness monitor H/H Transfuse if necessary monitor sugars #Abdominal pain r/o colon ca Tylenol IV monitor labs #DVT ppx SCDs #DM BGM Insulin sliding scale Visit type - Emergency Visit Emergency Visit: Yes ED Registration Date: 05/10/19 Care time: The patient presented to the Emergency Department on the above date and was hospitalized for further evaluation of their emergent condition. - New Patient This patient is new to me today: Yes Date on this admission: 05/10/19 - Critical Care Critical Care patient: No - Discharge Referral Referred to [facility] Med P.C.: No ATTENDING PHYSICIAN STATEMENT I saw and evaluated the patient. I reviewed the resident's note and discussed the case with the resident. I agree with the resident's findings and plan as documented. SUBJECTIVE: OBJECTIVE: ASSESSMENT AND PLAN:
[2019-05-10 20:03] LABS: HEMATOCRIT 26.3 % (32.4-45.2); HEMOGLOBIN 8.8 GM/dL (10.7-15.3); MCH 33.2 pg (25.7-33.7); MCHC 33.4 g/dl (32.0-36.0); MEAN CELL VOLUME 99.4 fl (80-96); MEAN PLT VOLUME 9.4 fl (7.5-11.1); PLATELET COUNT 262 K/MM3 (134-434); RBC 2.65 M/mm3 (3.60-5.2); RDW 13.8 % (11.6-15.6); WHITE BLOOD COUNT 5.8 K/mm3 (4.0-10.0)
--- NOTE | 2019-05-10 20:38 | PN ---
Teaching Attending Note Name of Resident: Gretta Koehler ATTENDING PHYSICIAN STATEMENT I saw and evaluated the patient. I reviewed the resident's note and discussed the case with the resident. I agree with the resident's findings and plan as documented. ASSESSMENT AND PLAN: 78 y/o patient with Nikkie+ autoimmunehemolytic anemia, obesity, wheel chair bound, DM, HTN, h/o breast cancer h/o breast cancer --8yrs. ago s/p MRM/chemotx/RT. HAs been on aromasin for 8 yrs.Treated by Johny Gale at [facility] Autoimmune hemolytic anemia--s/p 1 unit PRBCs 02/17--+ nikkie 05/10/19--nikkie negative/ + cold auto antibody Monitor CBC/LDh/REtic Will repeat Nikkie continue 80mg prednisone continue protonix and folic acid will follow
--- NOTE | 2019-05-10 20:53 | CON.GI ---
Consult Consult Specialty:: Gastroenterology ( covering the [facility] GI service) Referred by:: Dr Jamey Koehler Reason for Consultation:: anemia - History of Present Illness Chief Complaint: fever History of Present Illness: 78 Iranian speaking F is admitted with fever. She denies abdominal pain. She denies any overt bleeding. The history is obtained with a Iranian speaking staff member interpreting. She has a history hemolysis. She has a colonoscopy remotely. Dr Bass offered her EGD and colonoscopy when he consulted on and she declined it after being informed of the potential risks. She has not changed her mind. Her LDH suggests hemolysis but other confirmatory studies are pending. - History Source History Provided By: Patient Limitations to Obtaining History: Language Barrier - Past Medical History Cardio/Vascular: Yes: CHF (Diastolic oper the chart), HTN Gastrointestinal: Yes: Hiatal Hernia ...: No Heme/Onc: Yes: Anemia (hemolysis), Cancer (breast cancer s/p resection and chemotherapy) Musculoskeletal: Yes: Osteoarthritis Endocrine: Yes: Diabetes Mellitus (DM II) - Past Surgical History Past Surgical History: Yes: Cholecystectomy (Open), Hysterectomy (LEYLA) - Alcohol/Substance Use Hx Alcohol Use: No History of Substance Use: reports: None - Smoking History Smoking history: Never smoked Have you smoked in the past 12 months: No - Social History Usual Living Arrangement: With Spouse ADL: Independent History of Recent Travel: Yes ([facility]) Home Medications - Allergies Allergies/Adverse Reactions: Allergies Allergy/AdvReac Type Severity Reaction Status Date / Time No Known Allergies Allergy Verified 02/18/19 14:41 - Home Medications Home Medications: Ambulatory Orders Exemestane [Aromasin -] 25 mg PO DAILY 01/05/19 Metformin HCl [Glucophage] 500 mg PO BID 02/18/19 Furosemide 40 mg PO DAILY 02/19/19 Amlodipine Besylate 5 mg PO DAILY #30 tablet 02/23/19 Docusate Sodium [Colace -] 100 mg PO TID capsule 02/23/19 Folic Acid - 1 mg PO DAILY #30 tablet 02/23/19 Losartan Potassium [Cozaar -] 100 mg PO DAILY tablet 02/23/19 Metoprolol Succinate [Toprol XL -] 50 mg PO DAILY tab.sr.24h 02/23/19 Pantoprazole Sodium [Protonix -] 40 mg PO DAILY #30 tablet.ec 02/23/19 predniSONE [Deltasone -] 60 mg PO DAILY #42 tablet 02/23/19 Ranitidine HCl 150 mg PO DAILY 05/10/19 Family Disease History - Family Disease History Family Disease History: Other: Father (Killed. Pt. could not remember age), Mother (: "Lung problems"), Brother (3, 1 with diabetes), Sister (2, healthy ), Son (5. Some with "sugar problems"), Daughter (3 ) Review of Systems Unable to obtain ROS, reason: language barrier Physical Exam-GI Vital Signs: Vital Signs Temperature 98.0 F 05/10/19 18:20 Pulse Rate 77 05/10/19 18:20 Respiratory Rate 18 05/10/19 18:20 Blood Pressure 151/80 05/10/19 18:20 O2 Sat by Pulse Oximetry (%) 97 05/10/19 10:13 CBC,CMP WBC 5.8 K/mm3 (4.0-10.0) 05/10/19 19:15 RBC 2.65 M/mm3 (3.60-5.2) L 05/10/19 19:15 Hgb 8.8 GM/dL (10.7-15.3) L 05/10/19 19:15 Hct 26.3 % (32.4-45.2) L D 05/10/19 19:15 MCV 99.4 fl (80-96) H 05/10/19 19:15 MCH 33.2 pg (25.7-33.7) 05/10/19 19:15 MCHC 33.4 g/dl (32.0-36.0) 05/10/19 19:15 RDW 13.8 % (11.6-15.6) 05/10/19 19:15 Plt Count 262 K/MM3 (134-434) D 05/10/19 19:15 MPV 9.4 fl (7.5-11.1) 05/10/19 19:15 Absolute Neuts (auto) 2.2 K/mm3 (1.5-8.0) 05/10/19 06:00 Neutrophils % 45.5 % (42.8-82.8) 05/10/19 06:00 Lymphocytes % 29.7 % (8-40) D 05/10/19 06:00 Monocytes % 9.8 % (3.8-10.2) 05/10/19 06:00 Eosinophils % 14.4 % (0-4.5) H 05/10/19 06:00 Basophils % 0.6 % (0-2.0) 05/10/19 06:00 Nucleated RBC % 0 % (0-0) 05/10/19 06:00 Retic Count 3.82 % (0.5-1.5) H D 05/10/19 06:00 Sodium 142 mmol/L (136-145) 05/10/19 06:00 Potassium 4.3 mmol/L (3.5-5.1) 05/10/19 06:00 Chloride 108 mmol/L (98-107) H 05/10/19 06:00 Carbon Dioxide 25 mmol/L (21-32) 05/10/19 06:00 Anion Gap 8 MMOL/L (8-16) 05/10/19 06:00 BUN 10.5 mg/dL (7-18) 05/10/19 06:00 Creatinine 1.0 mg/dL (0.55-1.3) 05/10/19 06:00 Est GFR (CKD-EPI)AfAm 62.05 05/10/19 06:00 Est GFR (CKD-EPI)NonAf 53.54 05/10/19 06:00 POC Glucometer 106 UNITS (80-120) 05/10/19 16:29 Random Glucose 88 mg/dL (74-106) 05/10/19 06:00 Calcium 8.3 mg/dL (8.5-10.1) L 05/10/19 06:00 Iron 108 ug/dL (50-175) 05/10/19 06:00 TIBC 213 ug/dL (250-450) L 05/10/19 06:00 Iron Saturation 50 % (17.5-39) H 05/10/19 06:00 Unsaturated IBC 105 ug/dL (200-275) L 05/10/19 06:00 Total Bilirubin 1.5 mg/dL (0.2-1) H 05/10/19 06:00 AST 42 U/L (15-37) H 05/10/19 06:00 ALT 32 U/L (13-61) 05/10/19 06:00 Alkaline Phosphatase 36 U/L (45-117) L 05/10/19 06:00 LD Total 361 U/L (84-246) H 05/10/19 06:00 Total Protein 5.7 g/dl (6.4-8.2) L 05/10/19 06:00 Albumin 3.0 g/dl (3.4-5.0) L 05/10/19 06:00 Current Medications Generic Name Dose Route Start Last Admin Trade Name Nolvia PRN Reason Stop Dose Admin Insulin Aspart 1 vial 05/10/19 07:00 05/10/19 17:10 Novolog Vial Sliding Scale - SQ Not Given ACHS GERRI Protocol Pantoprazole Sodium 40 mg 05/10/19 04:57 05/10/19 05:55 Protonix Iv IVPUSH 40 mg DAILY GERRI Administration Prednisone 80 mg 05/10/19 10:00 05/10/19 12:23 Deltasone - PO 80 mg DAILY GERRI Administration Constitutional: Yes: Calm Eyes: Yes: Conjunctiva Clear HENT: Yes: Atraumatic Neck: Yes: Trachea Midline Cardiovascular: Yes: Regular Rate and Rhythm Respiratory: Yes: CTA Bilaterally Gastrointestinal Inspection: Yes: Scars (healed vertical suprapubic and oblique RUQ incisionsl) ...Auscultate: Yes: Normoactive Bowel Sounds ...Palpate: Yes: Soft, Other (nontender) ...Rectal Exam: Yes: Guaiac Positive (soft brown guaiac negative stool) Labs: CBC, BMP 05/10/19 19:15 05/10/19 06:00 INR, PTT INR 1.24 (0.83-1.09) H 05/09/19 22:50 Laboratory Tests 12/15/15 01/04/19 01/10/19 16:36 22:30 06:40 Hgb 12.4 12.0 10.4 L 02/18/19 02/19/19 02/23/19 17:30 05:40 07:30 Hgb 8.6 L 7.7 L 8.8 L 05/09/19 05/10/19 22:50 19:15 Hgb 6.6 L* 8.8 L Imaging - Results Cat Scan: Report Reviewed ( Final Report CT ABDOMEN & PELVIS CT WITH CONTR Show Printer-Friendly Version Patient Name: Chidi Spencer : 1940 ID: [id number] Study Date: 10-May-2019 01:34 Craig Vargasracqueljevon Name: CHIDI SPENCER DEPARTMENT OF RADIOLOGY Phys: Lupe Jeanh RESIDENT : 1940 Age: 78 [facility]: [facility] Acct: [id number] Loc: [address] [place] [address] Exam Date: 05/10/19 Status: [place] [address] Unit Number: [id number] EXAM#: TYPE/EXAM: RESULT: [id number] CT/ ABDOMEN PELVIS CT WITH CONTR Evaluate for abdominal pain CT scan of the abdomen and pelvis following intravenous contrast. Coronal and sagittal reformatted images were obtained 98 cc of Omnipaque 350 was intravenously injected Comparison: Prior CT scan of the abdomen pelvis dated 01/05/2019 There are mild bibasal atelectatic changes, right more than left. Evaluation of the liver, spleen and pancreas appear unremarkable. Nonvisualization of the gallbladder. Small hiatus hernia. Nondistended stomach limiting its evaluation. Both adrenal glands appear unremarkable. Right kidney is small with an irregular margin suggestive of scarring. Partially exaggerated phytic large left renal simple cyst measuring 5.3 cm. There is no evidence of small bowel obstruction. Notes made of mild mesenteric stranding at the junction of the third and fourth portion of the duodenal which is of uncertain etiology without gross wall thickening. However, no oral contrast was administered. There is no evidence of small bowel obstruction. Normal- appearing terminal ileum and appendix. Normal stool burden in the colon with multiple diverticula mainly in the descending as well as in the proximal and mid sigmoid colon without evidence of acute diverticulitis. No free air or free fluid in the abdomen pelvis. Normal size and enhancement of the lower thoracic and abdominal aorta down through its bifurcation with multiple calcified plaques present. Partially distended urinary bladder without wall thickening. Nonvisualization of the uterus. There are a few subcentimeter and almost borderline para-aortic and paracaval lymph nodes which are nonspecific. Mild degenerative disc disease at L5-S1 level. Mild chronic compression of L2 superior endplate and minimal anterolisthesis of L4 over L5. IMPRESSION : Small hiatus hernia. Nonvisualization of the gallbladder and uterus. Small right kidney with very irregular margins suggestive of scarring. Exophytic left renal simple cyst measuring 5.3 cm. Questionable mild mesenteric stranding around the wall of the duodenum at the junction of its third and fourth portion without gross wall thickening. Correlate clinically for further evaluation. No free air or free fluid in the abdomen and pelvis. A few subcentimeter and almost borderline para-aortic lymph nodes which are nonspecific. Mild cardiomegaly Reported By: Greg Masters MD 1133 Technologist: Christian Gaffney Transcribed Date/Time: 05/10/19 1133 Statistical Methods Teacher: Greg Masters Printed Date/Time: By: Signed by: Greg Masters Signed on: 10-May-2019 11:34) Problem List - Problems (1) Breast cancer Code(s): C50.919 - MALIGNANT NEOPLASM OF UNSP SITE OF UNSPECIFIED FEMALE BREAST (2) Anemia Code(s): D64.9 - ANEMIA, UNSPECIFIED Qualifiers: Anemia type: unspecified type Qualified Code(s): D64.9 - Anemia, unspecified (3) Autoimmune hemolytic anemias Code(s): D59.1 - OTHER AUTOIMMUNE HEMOLYTIC ANEMIAS (4) Fever Code(s): R50.9 - FEVER, UNSPECIFIED Qualifiers: Fever type: unspecified Qualified Code(s): R50.9 - Fever, unspecified (5) Diabetes mellitus Code(s): E11.9 - TYPE 2 DIABETES MELLITUS WITHOUT COMPLICATIONS Assessment/Plan Assessment: - Worsening of anemia that appears related to hemolysis as she is guaiac negative Plan: -- Await hemotological evaluation results - Serial stools for occult blood. If positive will need to ask patient to reconsider endoscopic evaluations
[2019-05-10] MEDS ORDERED: INSULIN (NOVOLOG MIX 70/30) 100 UNITS/ML MDV SQ ONE ×2 (21:33→21:36)
[2019-05-10] MEDS ORDERED: INSULIN (NOVOLOG) ASPART 100 UNITS/ML 10ML VIAL ONE (21:36)
[2019-05-11] MEDS: INSULIN SLIDING SCALE (NOVOLOG) 1 VIAL SQ SCH ×4 (06:14→21:40)
[2019-05-11 08:11] LABS: BASO % 0.2 % (0-2.0); EOS % 0.2 % (0-4.5); HEMATOCRIT 24.8 % (32.4-45.2); HEMOGLOBIN 8.4 GM/dL (10.7-15.3); LYMPH % 20.9 % (8-40); MCH 33.5 pg (25.7-33.7); MEAN CELL VOLUME 98.6 fl (80-96); MEAN PLT VOLUME 8.4 fl (7.5-11.1); MONO % 9.1 % (3.8-10.2); NEUT % 69.6 % (42.8-82.8); PLATELET COUNT 290 K/MM3 (134-434); RBC 2.51 M/mm3 (3.60-5.2); RDW 13.1 % (11.6-15.6); WHITE BLOOD COUNT 7.9 K/mm3 (4.0-10.0)
[2019-05-11 08:26] LABS: BILIRUBIN,TOTAL 3.4 mg/dL (0.2-1); BLOOD UREA NITROGEN 17.1 mg/dL (7-18); CALCIUM 8.4 mg/dL (8.5-10.1); POTASSIUM 4.7 mmol/L (3.5-5.1); TOT PROT 6.1 g/dl (6.4-8.2)
[2019-05-11] MEDS: FOLIC ACID 1 MG TABLET (FP) PO SCH (10:17)
[2019-05-11] MEDS: predniSONE 20 MG TABLET (UD) PO SCH (10:17)
[2019-05-11] MEDS: PANTOPRAZOLE SODIUM 40 MG VIAL IVPUSH SCH (10:17)
[2019-05-11] MEDS ORDERED: INSULIN (NOVOLOG) ASPART 100 UNITS/ML 10ML VIAL ONE ×2 (10:37→17:02)
[2019-05-11 11:38] LABS: ANISOCYTOSIS 1+; MACROCYTOSIS 1+; OVALOCYTE 1+; PLATELET ESTIMATE NORMAL
--- NOTE | 2019-05-11 12:01 | PN ---
<Dannie Miranda - Last Filed: 05/11/19 14:28> Physical Exam: SUBJECTIVE: Patient seen and examined at the bedside this AM. No acute events overnight. OBJECTIVE: Vital Signs Period Temp Pulse Resp BP Sys/Hale Pulse Ox Last 24 Hr 97.6 F-98.9 F 73-83 18-20 103-158/48-80 96-97 GENERAL: The patient is awake, alert, and fully oriented, c/o dizziness. HEAD: Normal with no signs of trauma. NECK: supple. LUNGS: Breath sounds equal, clear to auscultation bilaterally, no wheezes, no crackles, no accessory muscle use. HEART: Regular rate and rhythm, S1, S2 without murmur, rub or gallop. ABDOMEN: Soft, nontender, nondistended, normoactive bowel sounds, no guarding, no rebound. EXTREMITIES: 2+ pulses, warm, well-perfused, no edema. NEUROLOGICAL: Cranial nerves II through XII grossly intact. Normal speech, gait not observed. PSYCH: Normal mood, normal affect. SKIN: Warm, dry, no rashes or lesions noted Laboratory Results - last 24 hr 05/10/19 05/10/19 05/10/19 00:25 06:00 06:00 WBC RBC Hgb Hct MCV MCH MCHC RDW Plt Count MPV Absolute Neuts (auto) Neutrophils % Lymphocytes % Monocytes % Eosinophils % Basophils % Nucleated RBC % Retic Count 3.82 H D Haptoglobin 26 L Sodium Potassium Chloride Carbon Dioxide Anion Gap BUN Creatinine Est GFR (CKD-EPI)AfAm Est GFR (CKD-EPI)NonAf POC Glucometer Random Glucose Calcium Total Bilirubin AST ALT Alkaline Phosphatase Total Protein Albumin Vitamin B12 Serum Folate Blood Type A POSITIVE Antibody Screen Positive Prewarmed Antibody Srcn Negative Antibody Identification Cold auto Antigen Identification No Result Required. Direct Antiglob Test Crossmatch See Detail 05/10/19 05/10/19 05/10/19 12:09 16:29 19:15 WBC RBC Hgb Hct MCV MCH MCHC RDW Plt Count MPV Absolute Neuts (auto) Neutrophils % Lymphocytes % Monocytes % Eosinophils % Basophils % Nucleated RBC % Retic Count Haptoglobin Sodium Potassium Chloride Carbon Dioxide Anion Gap BUN Creatinine Est GFR (CKD-EPI)AfAm Est GFR (CKD-EPI)NonAf POC Glucometer 91 106 Random Glucose Calcium Total Bilirubin AST ALT Alkaline Phosphatase Total Protein Albumin Vitamin B12 607 Serum Folate 37 H Blood Type Antibody Screen Prewarmed Antibody Srcn Antibody Identification Antigen Identification Direct Antiglob Test Crossmatch 05/10/19 05/10/19 05/10/19 19:15 19:15 21:26 WBC 5.8 RBC 2.65 L Hgb 8.8 L Hct 26.3 L D MCV 99.4 H MCH 33.2 MCHC 33.4 RDW 13.8 Plt Count 262 D MPV 9.4 Absolute Neuts (auto) Neutrophils % Lymphocytes % Monocytes % Eosinophils % Basophils % Nucleated RBC % Retic Count Haptoglobin Sodium Potassium Chloride Carbon Dioxide Anion Gap BUN Creatinine Est GFR (CKD-EPI)AfAm Est GFR (CKD-EPI)NonAf POC Glucometer 168 Random Glucose Calcium Total Bilirubin AST ALT Alkaline Phosphatase Total Protein Albumin Vitamin B12 Serum Folate Blood Type Antibody Screen Prewarmed Antibody Srcn Antibody Identification Antigen Identification Direct Antiglob Test Negative Crossmatch 05/11/19 05/11/19 05/11/19 05:46 06:40 06:40 WBC 7.9 RBC 2.51 L Hgb 8.4 L Hct 24.8 L MCV 98.6 H MCH 33.5 MCHC 34.0 RDW 13.1 Plt Count 290 MPV 8.4 D Absolute Neuts (auto) 5.5 Neutrophils % 69.6 D Lymphocytes % 20.9 D Monocytes % 9.1 Eosinophils % 0.2 D Basophils % 0.2 Nucleated RBC % 0 Retic Count Haptoglobin Sodium 141 Potassium 4.7 Chloride 107 Carbon Dioxide 23 Anion Gap 11 BUN 17.1 Creatinine 1.0 Est GFR (CKD-EPI)AfAm 62.05 Est GFR (CKD-EPI)NonAf 53.54 POC Glucometer 145 Random Glucose 174 H Calcium 8.4 L Total Bilirubin 3.4 H AST 36 ALT 30 Alkaline Phosphatase 42 L Total Protein 6.1 L Albumin 3.0 L Vitamin B12 Serum Folate Blood Type Antibody Screen Prewarmed Antibody Srcn Antibody Identification Antigen Identification Direct Antiglob Test Crossmatch 05/11/19 10:27 WBC RBC Hgb Hct MCV MCH MCHC RDW Plt Count MPV Absolute Neuts (auto) Neutrophils % Lymphocytes % Monocytes % Eosinophils % Basophils % Nucleated RBC % Retic Count Haptoglobin Sodium Potassium Chloride Carbon Dioxide Anion Gap BUN Creatinine Est GFR (CKD-EPI)AfAm Est GFR (CKD-EPI)NonAf POC Glucometer 191 Random Glucose Calcium Total Bilirubin AST ALT Alkaline Phosphatase Total Protein Albumin Vitamin B12 Serum Folate Blood Type Antibody Screen Prewarmed Antibody Srcn Antibody Identification Antigen Identification Direct Antiglob Test Crossmatch Active Medications Generic Name Dose Route Start Last Admin Trade Name Nolvia PRN Reason Stop Dose Admin Folic Acid 1 mg 05/11/19 10:00 05/11/19 10:17 Folic Acid - PO 1 mg DAILY GERRI Administration Insulin Aspart 1 vial 05/10/19 07:00 05/11/19 10:44 Novolog Vial Sliding Scale - SQ 2 unit ACHS GERRI Administration Protocol Pantoprazole Sodium 40 mg 05/10/19 04:57 05/11/19 10:17 Protonix Iv IVPUSH 40 mg DAILY GERRI Administration Prednisone 80 mg 05/10/19 10:00 05/11/19 10:17 Deltasone - PO 80 mg DAILY GERRI Administration ASSESSMENT/PLAN: Images: CT A/P: Left colon diverticulosis, small haital hernia, left renal cyst, atrophic right kidney, increased retroperitoneal LN presents, cardiomegaly 78 y/o F, pmh of breast ca s/p [id number], nikkie+ Autoimmune hemolytic anemia presents to the ED c/o fevers, weakness, headaches and 3 days of abdominal pain likely 2/2 to anemia #Autoimmune hemolytic Anemia Vit B12-[address] Osborn consulted- iron deficiency anemia, pt on folate, continue with Prednisone 80mg, ordered rpt nikkie test, protonix. Dr. Park consulted- c/w prednisone 80mg Dr. Faith (GI consult) -FOBT negative, pt refusing colonoscopy in past and at this time, monitor for any signs of bleeding. Transfusion given- 1U pRBC, rpt cbc shows Hb 8.4 Reticulocyte increased, haptoglobin low, LDH high suggestive of UP. - Direct bili ordered, rpt LDH, haptoglobin. -Rpt nikkie test pending Prednisone 80mg continue, Dr. 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 #Abdominal pain r/o colon ca Tylenol IV monitor labs - no colonoscopy at this time - protonix 40mg IV for stress ulcer ppx while on steroids. #DM BGM Insulin sliding scale #DVT ppx: SCDs Visit type - Emergency Visit Emergency Visit: Yes ED Registration Date: 05/10/19 Care time: The patient presented to the Emergency Department on the above date and was hospitalized for further evaluation of their emergent condition. - New Patient This patient is new to me today: No - Critical Care Critical Care patient: No - Discharge Referral Referred to [facility] Med [facility].C[facility] No ATTENDING PHYSICIAN STATEMENT I saw and evaluated the patient. I reviewed the resident's note and discussed the case with the resident. I agree with the resident's findings and plan as documented. SUBJECTIVE: OBJECTIVE: ASSESSMENT AND PLAN: <ChrisMando angeles - Last Filed: 05/11/19 16:26> Physical Exam: SUBJECTIVE: Patient seen and examined OBJECTIVE: Vital Signs Period Temp Pulse Resp BP Sys/Hale Pulse Ox Last 24 Hr 97.4 F-98.3 F 73-83 18-20 103-158/63-80 96-97 GENERAL: The patient is awake, alert, and fully oriented, in no acute distress. HEAD: Normal with no signs of trauma. EYES: PERRL, extraocular movements intact, sclera anicteric, conjunctiva clear. No ptosis. ENT: Ears normal, nares patent, oropharynx clear without exudates, moist mucous membranes. NECK: Trachea midline, full range of motion, supple. LUNGS: Breath sounds equal, clear to auscultation bilaterally, no wheezes, no crackles, no accessory muscle use. HEART: Regular rate and rhythm, S1, S2 without murmur, rub or gallop. ABDOMEN: Soft, nontender, nondistended, normoactive bowel sounds, no guarding, no rebound, no hepatosplenomegaly, no masses. EXTREMITIES: 2+ pulses, warm, well-perfused, no edema. NEUROLOGICAL: Cranial nerves II through XII grossly intact. Normal speech, gait not observed. PSYCH: Normal mood, normal affect. SKIN: Warm, dry, normal turgor, no rashes or lesions noted Laboratory Results - last 24 hr 05/10/19 05/10/19 05/10/19 06:00 16:29 19:15 WBC RBC Hgb Hct MCV MCH MCHC RDW Plt Count MPV Absolute Neuts (auto) Neutrophils % Neutrophils % (Manual) Band Neutrophils % Lymphocytes % Lymphocytes % (Manual) Monocytes % Monocytes % (Manual) Eosinophils % Eosinophils % (Manual) Basophils % Basophils % (Manual) Myelocytes % (Man) Promyelocytes % (Man) Blast Cells % (Manual) Nucleated RBC % Metamyelocytes Hypochromia Platelet Estimate Polychromasia Poikilocytosis Anisocytosis Microcytosis Macrocytosis Ovalocytes Acanthocytes (Spur) Haptoglobin 26 L Sodium Potassium Chloride Carbon Dioxide Anion Gap BUN Creatinine Est GFR (CKD-EPI)AfAm Est GFR (CKD-EPI)NonAf POC Glucometer 106 Random Glucose Calcium Total Bilirubin AST ALT Alkaline Phosphatase Total Protein Albumin Vitamin B12 607 Serum Folate 37 H Direct Antiglob Test 05/10/19 05/10/19 05/10/19 19:15 19:15 21:26 WBC 5.8 RBC 2.65 L Hgb 8.8 L Hct 26.3 L D MCV 99.4 H MCH 33.2 MCHC 33.4 RDW 13.8 Plt Count 262 D MPV 9.4 Absolute Neuts (auto) Neutrophils % Neutrophils % (Manual) Band Neutrophils % Lymphocytes % Lymphocytes % (Manual) Monocytes % Monocytes % (Manual) Eosinophils % Eosinophils % (Manual) Basophils % Basophils % (Manual) Myelocytes % (Man) Promyelocytes % (Man) Blast Cells % (Manual) Nucleated RBC % Metamyelocytes Hypochromia Platelet Estimate Polychromasia Poikilocytosis Anisocytosis Microcytosis Macrocytosis Ovalocytes Acanthocytes (Spur) Haptoglobin Sodium Potassium Chloride Carbon Dioxide Anion Gap BUN Creatinine Est GFR (CKD-EPI)AfAm Est GFR (CKD-EPI)NonAf POC Glucometer 168 Random Glucose Calcium Total Bilirubin AST ALT Alkaline Phosphatase Total Protein Albumin Vitamin B12 Serum Folate Direct Antiglob Test Negative 05/11/19 05/11/19 05/11/19 05:46 06:40 06:40 WBC 7.9 RBC 2.51 L Hgb 8.4 L Hct 24.8 L MCV 98.6 H MCH 33.5 MCHC 34.0 RDW 13.1 Plt Count 290 MPV 8.4 D Absolute Neuts (auto) 5.5 Neutrophils % 69.6 D Neutrophils % (Manual) 75.0 Band Neutrophils % 1.0 Lymphocytes % 20.9 D Lymphocytes % (Manual) 13.0 Monocytes % 9.1 Monocytes % (Manual) 8 Eosinophils % 0.2 D Eosinophils % (Manual) 0.0 Basophils % 0.2 Basophils % (Manual) 0.0 Myelocytes % (Man) 2 Promyelocytes % (Man) 0 Blast Cells % (Manual) 0 Nucleated RBC % 0 Metamyelocytes 0 Hypochromia 0 Platelet Estimate Normal Polychromasia 1+ Poikilocytosis 1+ Anisocytosis 1+ Microcytosis 0 Macrocytosis 1+ Ovalocytes 1+ Acanthocytes (Spur) 1+ Haptoglobin Sodium 141 Potassium 4.7 Chloride 107 Carbon Dioxide 23 Anion Gap 11 BUN 17.1 Creatinine 1.0 Est GFR (CKD-EPI)AfAm 62.05 Est GFR (CKD-EPI)NonAf 53.54 POC Glucometer 145 Random Glucose 174 H Calcium 8.4 L Total Bilirubin 3.4 H AST 36 ALT 30 Alkaline Phosphatase 42 L Total Protein 6.1 L Albumin 3.0 L Vitamin B12 Serum Folate Direct Antiglob Test 05/11/19 10:27 WBC RBC Hgb Hct MCV MCH MCHC RDW Plt Count MPV Absolute Neuts (auto) Neutrophils % Neutrophils % (Manual) Band Neutrophils % Lymphocytes % Lymphocytes % (Manual) Monocytes % Monocytes % (Manual) Eosinophils % Eosinophils % (Manual) Basophils % Basophils % (Manual) Myelocytes % (Man) Promyelocytes % (Man) Blast Cells % (Manual) Nucleated RBC % Metamyelocytes Hypochromia Platelet Estimate Polychromasia Poikilocytosis Anisocytosis Microcytosis Macrocytosis Ovalocytes Acanthocytes (Spur) Haptoglobin Sodium Potassium Chloride Carbon Dioxide Anion Gap BUN Creatinine Est GFR (CKD-EPI)AfAm Est GFR (CKD-EPI)NonAf POC Glucometer 191 Random Glucose Calcium Total Bilirubin AST ALT Alkaline Phosphatase Total Protein Albumin Vitamin B12 Serum Folate Direct Antiglob Test Active Medications Generic Name Dose Route Start Last Admin Trade Name Freq PRN Reason Stop Dose Admin Folic Acid 1 mg 05/11/19 10:00 05/11/19 10:17 Folic Acid - PO 1 mg DAILY GERRI Administration Insulin Aspart 1 vial 05/10/19 07:00 05/11/19 10:44 Novolog Vial Sliding Scale - SQ 2 unit ACHS GERRI Administration Protocol Pantoprazole Sodium 40 mg 05/10/19 04:57 05/11/19 10:17 Protonix Iv IVPUSH 40 mg DAILY GERRI Administration Prednisone 80 mg 05/10/19 10:00 05/11/19 10:17 Deltasone - PO 80 mg DAILY GERRI Administration ASSESSMENT/PLAN: ATTENDING PHYSICIAN STATEMENT see teaching attending note
--- NOTE | 2019-05-11 16:57 | PN ---
Teaching Attending Note Name of Resident: Dannie Miranda ATTENDING PHYSICIAN STATEMENT I saw and evaluated the patient. I reviewed the resident's note and discussed the case with the resident. I agree with the resident's findings and plan as documented. SUBJECTIVE: Pt today reports feeling some mild abd discomfort but otherwise no fevers, chills, Nausea, vomiting, diarrhea, dysuria. She continues to feel some malaise. Pt states appetite is good. OBJECTIVE: Vital Signs Temperature 97.4 F L 05/11/19 15:00 Pulse Rate 76 05/11/19 15:00 Respiratory Rate 20 05/11/19 15:00 Blood Pressure 146/67 05/11/19 15:00 O2 Sat by Pulse Oximetry (%) 96 05/11/19 10:00 Intake & Output 05/09/19 05/10/19 05/11/19 05/12/19 11:59 11:59 11:59 11:59 Intake Total 830 600 Balance 830 600 Weight 179 lb 1.6 oz 176 lb 11.2 oz Laboratory Results - last 24 hr 05/10/19 05/10/19 05/10/19 06:00 19:15 19:15 WBC RBC Hgb Hct MCV MCH MCHC RDW Plt Count MPV Absolute Neuts (auto) Neutrophils % Neutrophils % (Manual) Band Neutrophils % Lymphocytes % Lymphocytes % (Manual) Monocytes % Monocytes % (Manual) Eosinophils % Eosinophils % (Manual) Basophils % Basophils % (Manual) Myelocytes % (Man) Promyelocytes % (Man) Blast Cells % (Manual) Nucleated RBC % Metamyelocytes Hypochromia Platelet Estimate Polychromasia Poikilocytosis Anisocytosis Microcytosis Macrocytosis Ovalocytes Acanthocytes (Spur) Haptoglobin 26 L Sodium Potassium Chloride Carbon Dioxide Anion Gap BUN Creatinine Est GFR (CKD-EPI)AfAm Est GFR (CKD-EPI)NonAf POC Glucometer Random Glucose Calcium Total Bilirubin AST ALT Alkaline Phosphatase Total Protein Albumin Vitamin B12 607 Serum Folate 37 H Direct Antiglob Test Negative 05/10/19 05/10/19 05/11/19 19:15 21:26 05:46 WBC 5.8 RBC 2.65 L Hgb 8.8 L Hct 26.3 L D MCV 99.4 H MCH 33.2 MCHC 33.4 RDW 13.8 Plt Count 262 D MPV 9.4 Absolute Neuts (auto) Neutrophils % Neutrophils % (Manual) Band Neutrophils % Lymphocytes % Lymphocytes % (Manual) Monocytes % Monocytes % (Manual) Eosinophils % Eosinophils % (Manual) Basophils % Basophils % (Manual) Myelocytes % (Man) Promyelocytes % (Man) Blast Cells % (Manual) Nucleated RBC % Metamyelocytes Hypochromia Platelet Estimate Polychromasia Poikilocytosis Anisocytosis Microcytosis Macrocytosis Ovalocytes Acanthocytes (Spur) Haptoglobin Sodium Potassium Chloride Carbon Dioxide Anion Gap BUN Creatinine Est GFR (CKD-EPI)AfAm Est GFR (CKD-EPI)NonAf POC Glucometer 168 145 Random Glucose Calcium Total Bilirubin AST ALT Alkaline Phosphatase Total Protein Albumin Vitamin B12 Serum Folate Direct Antiglob Test 05/11/19 05/11/19 05/11/19 06:40 06:40 10:27 WBC 7.9 RBC 2.51 L Hgb 8.4 L Hct 24.8 L MCV 98.6 H MCH 33.5 MCHC 34.0 RDW 13.1 Plt Count 290 MPV 8.4 D Absolute Neuts (auto) 5.5 Neutrophils % 69.6 D Neutrophils % (Manual) 75.0 Band Neutrophils % 1.0 Lymphocytes % 20.9 D Lymphocytes % (Manual) 13.0 Monocytes % 9.1 Monocytes % (Manual) 8 Eosinophils % 0.2 D Eosinophils % (Manual) 0.0 Basophils % 0.2 Basophils % (Manual) 0.0 Myelocytes % (Man) 2 Promyelocytes % (Man) 0 Blast Cells % (Manual) 0 Nucleated RBC % 0 Metamyelocytes 0 Hypochromia 0 Platelet Estimate Normal Polychromasia 1+ Poikilocytosis 1+ Anisocytosis 1+ Microcytosis 0 Macrocytosis 1+ Ovalocytes 1+ Acanthocytes (Spur) 1+ Haptoglobin Sodium 141 Potassium 4.7 Chloride 107 Carbon Dioxide 23 Anion Gap 11 BUN 17.1 Creatinine 1.0 Est GFR (CKD-EPI)AfAm 62.05 Est GFR (CKD-EPI)NonAf 53.54 POC Glucometer 191 Random Glucose 174 H Calcium 8.4 L Total Bilirubin 3.4 H AST 36 ALT 30 Alkaline Phosphatase 42 L Total Protein 6.1 L Albumin 3.0 L Vitamin B12 Serum Folate Direct Antiglob Test ASSESSMENT AND PLAN: Autoimmune hemolytic anemias - antiglobin test neg, Tbil rising - pt with ongoing hemolysis evaluation, repeat LDH, haptoglobin, CBC and Tbil/ Dbil to determine indirect bili - CBC today roughtly stable, no indication for additional transfusion at this time - c/w prednisone 80mg as per heme recommendations, avoid cold exposure - c/w folate daily Diabetes mellitus - monitor daily FSG DVT PPx: SCDs given hemolysis Nutrition: moderate carb diet, low sodium < 2gm/day
--- NOTE | 2019-05-11 17:02 | PN ---
Progress Note, Physician History of Present Illness: Feels very well. No complaints. Endorses some generalized weakness when walked to bathroom with assistance. - Current Medication List Current Medications: Active Medications Folic Acid (Folic Acid -) 1 mg PO DAILY [facility] Last Admin: 05/11/19 10:17 Dose: 1 mg Insulin Aspart (Novolog Vial Sliding Scale -) 1 vial SQ ACHS [facility]; Protocol Last Admin: 05/11/19 10:44 Dose: 2 unit Pantoprazole Sodium (Protonix Iv) 40 mg IVPUSH DAILY [facility] Last Admin: 05/11/19 10:17 Dose: 40 mg Prednisone (Deltasone -) 80 mg PO DAILY [facility] Last Admin: 05/11/19 10:17 Dose: 80 mg - Objective Vital Signs: Vital Signs Temperature 97.4 F L 05/11/19 15:00 Pulse Rate 76 05/11/19 15:00 Respiratory Rate 20 05/11/19 15:00 Blood Pressure 146/67 05/11/19 15:00 O2 Sat by Pulse Oximetry (%) 96 05/11/19 10:00 Constitutional: Yes: No Distress Cardiovascular: Yes: Regular Rate and Rhythm Respiratory: Yes: Regular, CTA Bilaterally Gastrointestinal: Yes: WNL, Normal Bowel Sounds, Soft Edema: No Labs: CBC, BMP 05/11/19 06:40 05/11/19 06:40 INR, PTT INR 1.24 (0.83-1.09) H 05/09/19 22:50 Assessment/Plan 78F with hx Arlyn+ (on 02/17) autoimmune hemolytic anemia, wheel chair bound, DM , HTN, h/o breast cancer s/p MRM/chemotx/RT 8 years ago, on aromasin, admitted with anemia. Mildly elevated LDH, hapto decfreased. 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 s/p 1 u PRBC with good response. Started on prednisone 80 mg daily. Hgb stable today. Keep patient warm.
[2019-05-12] MEDS: INSULIN SLIDING SCALE (NOVOLOG) 1 VIAL SQ SCH ×4 (06:35→21:19)
[2019-05-12 08:58] LABS: HEMOGLOBIN 7.5 GM/dL (10.7-15.3); MCH 33.8 pg (25.7-33.7); MCHC 33.9 g/dl (32.0-36.0); MEAN CELL VOLUME 99.7 fl (80-96); MEAN PLT VOLUME 8.1 fl (7.5-11.1); PLATELET COUNT 347 K/MM3 (134-434); RDW 13.4 % (11.6-15.6); WHITE BLOOD COUNT 12.1 K/mm3 (4.0-10.0)
[2019-05-12 09:09] LABS: BILIRUBIN,DIRECT 0.8 mg/dL (0.0-0.2)
[2019-05-12] MEDS: PANTOPRAZOLE SODIUM 40 MG VIAL IVPUSH SCH (09:25)
[2019-05-12] MEDS: predniSONE 20 MG TABLET (UD) PO SCH (09:25)
[2019-05-12] MEDS: FOLIC ACID 1 MG TABLET (FP) PO SCH (09:25)
--- NOTE | 2019-05-12 09:27 | PN ---
Physical Exam: SUBJECTIVE: Patient seen and examined, has no complaints at this time. OBJECTIVE:She has been afebrile since admission and VS are stable Vital Signs Period Temp Pulse Resp BP Sys/Hale Pulse Ox Last 24 Hr 97.4 F-98.2 F 74-86 20-20 143-153/67-86 96-97 GENERAL: The patient is awake, alert, and fully oriented, in no acute distress. HEAD: Normal with no signs of trauma. EYES: PERRL, extraocular movements intact, sclera anicteric, conjunctiva clear. No ptosis. ENT: Ears normal, nares patent, oropharynx clear without exudates, moist mucous membranes. NECK: Trachea midline, full range of motion, supple. LUNGS: Breath sounds equal, clear to auscultation bilaterally, no wheezes, no crackles, no accessory muscle use. HEART: Regular rate and rhythm, S1, S2 without murmur, rub or gallop. ABDOMEN: Soft, nontender, nondistended, normoactive bowel sounds, no guarding, no rebound, no hepatosplenomegaly, no masses. EXTREMITIES: 2+ pulses, warm, well-perfused, no edema. NEUROLOGICAL: Cranial nerves II through XII grossly intact. Normal speech, gait not observed. PSYCH: Normal mood, normal affect. SKIN: Warm, dry, normal turgor, no rashes or lesions noted Laboratory Results - last 24 hr 05/11/19 05/11/19 05/11/19 06:40 10:27 16:57 WBC RBC Hgb Hct MCV MCH MCHC RDW Plt Count MPV Neutrophils % (Manual) 75.0 Band Neutrophils % 1.0 Lymphocytes % (Manual) 13.0 Monocytes % (Manual) 8 Eosinophils % (Manual) 0.0 Basophils % (Manual) 0.0 Myelocytes % (Man) 2 Promyelocytes % (Man) 0 Blast Cells % (Manual) 0 Metamyelocytes 0 Hypochromia 0 Platelet Estimate Normal Polychromasia 1+ Poikilocytosis 1+ Anisocytosis 1+ Microcytosis 0 Macrocytosis 1+ Ovalocytes 1+ Acanthocytes (Spur) 1+ POC Glucometer 191 238 Direct Bilirubin LD Total 05/11/19 05/12/19 05/12/19 21:39 06:15 07:40 WBC 12.1 H RBC 2.20 L Hgb 7.5 L Hct 22.0 L MCV 99.7 H MCH 33.8 H MCHC 33.9 RDW 13.4 Plt Count 347 MPV 8.1 Neutrophils % (Manual) Band Neutrophils % Lymphocytes % (Manual) Monocytes % (Manual) Eosinophils % (Manual) Basophils % (Manual) Myelocytes % (Man) Promyelocytes % (Man) Blast Cells % (Manual) Metamyelocytes Hypochromia Platelet Estimate Polychromasia Poikilocytosis Anisocytosis Microcytosis Macrocytosis Ovalocytes Acanthocytes (Spur) POC Glucometer 211 160 Direct Bilirubin LD Total 05/12/19 07:40 WBC RBC Hgb Hct MCV MCH MCHC RDW Plt Count MPV Neutrophils % (Manual) Band Neutrophils % Lymphocytes % (Manual) Monocytes % (Manual) Eosinophils % (Manual) Basophils % (Manual) Myelocytes % (Man) Promyelocytes % (Man) Blast Cells % (Manual) Metamyelocytes Hypochromia Platelet Estimate Polychromasia Poikilocytosis Anisocytosis Microcytosis Macrocytosis Ovalocytes Acanthocytes (Spur) POC Glucometer Direct Bilirubin 0.8 H LD Total 437 H Active Medications Generic Name Dose Route Start Last Admin Trade Name Freq PRN Reason Stop Dose Admin Folic Acid 1 mg 05/11/19 10:00 05/12/19 09:25 Folic Acid - PO 1 mg DAILY GERRI Administration Insulin Aspart 1 vial 05/10/19 07:00 05/12/19 06:35 Novolog Vial Sliding Scale - SQ 2 unit ACHS GERRI Administration Protocol Pantoprazole Sodium 40 mg 05/10/19 04:57 05/12/19 09:25 Protonix Iv IVPUSH 40 mg DAILY GERRI Administration Prednisone 80 mg 05/10/19 10:00 05/12/19 09:25 Deltasone - PO 80 mg DAILY GERRI Administration ASSESSMENT/PLAN: 78 y/o F, pmh of breast ca s/p [id number], HTN,, CHF( questionabel History as the TTE on 01/2019 was WNL), nikkie+ Autoimmune hemolytic anemia presents to the ED c/o one week of severe fevers, weakness, headaches and 3 days of intermittent nonradiating abdominal pain. Pt reports she has had one episode of bloody stool. Pt also reports that she is unable to see from her right eye. She was found to have active hemolytic anemia which responded to transfusion and prednisone also been evaluated by GI and they recommended colonoscopy for the episodes of blood in the stool h/o breast cancer --8yrs. ago s/p MRM/chemotx/RT. HAs been on aromasin for 8 yrs.Treated by Johny Gale at [facility] Autoimmune hemolytic anemia--s/p 1 unit PRBCs, H/H is stable at this time 02/17--+ nikkie 05/10/19--nikkie negative/ + cold auto antibody Monitor CBC/LDh/REtic(pending for today) CBC is stable at this time Will repeat Nikkie continue 80mg prednisone continue protonix and folic acid Abnormal colon on imaging: was evaluated by GI and further revaluation by colonoscopy was recommended Diet: dibatic/ cardiac DVT ppx: on SCD Visit type - Emergency Visit Emergency Visit: Yes ED Registration Date: 05/10/19 Care time: The patient presented to the Emergency Department on the above date and was hospitalized for further evaluation of their emergent condition. - New Patient This patient is new to me today: Yes Date on this admission: 05/12/19 - Critical Care Critical Care patient: No - Discharge Referral Referred to [facility] Med [facility] No
--- NOTE | 2019-05-12 21:35 | PN ---
Progress Note, Physician History of Present Illness: No complaints. Denies SOB, chest pain, dizziness - Current Medication List Current Medications: Active Medications Folic Acid (Folic Acid -) 1 mg PO DAILY [facility] Last Admin: 05/12/19 09:25 Dose: 1 mg Insulin Aspart (Novolog Vial Sliding Scale -) 1 vial SQ ACHS [facility]; Protocol Last Admin: 05/12/19 21:19 Dose: 4 unit Pantoprazole Sodium (Protonix Iv) 40 mg IVPUSH DAILY [facility] Last Admin: 05/12/19 09:25 Dose: 40 mg Prednisone (Deltasone -) 80 mg PO DAILY [facility] Last Admin: 05/12/19 09:25 Dose: 80 mg - Objective Vital Signs: Vital Signs Temperature 98.0 F 05/12/19 14:00 Pulse Rate 68 05/12/19 14:00 Respiratory Rate 18 05/12/19 14:00 Blood Pressure 142/70 05/12/19 14:00 O2 Sat by Pulse Oximetry (%) 95 05/12/19 10:00 Constitutional: Yes: No Distress Eyes: Yes: Conjunctiva Clear Respiratory: Yes: Regular, CTA Bilaterally Gastrointestinal: Yes: Soft. No: Distention, Tenderness Edema: No Labs: CBC, BMP 05/12/19 07:40 05/11/19 06:40 INR, PTT INR 1.24 (0.83-1.09) H 05/09/19 22:50 Assessment/Plan 78F with hx Arlyn+ (on 02/17) autoimmune hemolytic anemia, wheel chair bound, DM , HTN, h/o breast cancer s/p MRM/chemotx/RT 8 years ago, on aromasin, admitted with anemia. Mildly elevated LDH, hapto decreased. 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 s/p 1 u PRBC with good response. Started on prednisone 80 mg daily. Hgb decreased today. Continue to monitor CBC and hemolysis parameters closely. Keep patient warm.
[2019-05-13] MEDS: INSULIN SLIDING SCALE (NOVOLOG) 1 VIAL SQ SCH ×4 (06:02→21:18)
--- NOTE | 2019-05-13 08:01 | PN ---
Teaching Attending Note Name of Resident: Dannie Miranda ATTENDING PHYSICIAN STATEMENT I saw and evaluated the patient. I reviewed the resident's note and discussed the case with the resident. I agree with the resident's findings and plan as documented. SUBJECTIVE: Feels imp OBJECTIVE: Vital Signs Temperature 99.5 F 05/13/19 06:00 Pulse Rate 94 H 05/13/19 06:00 Respiratory Rate 20 05/13/19 06:00 Blood Pressure 121/70 05/13/19 06:00 O2 Sat by Pulse Oximetry (%) 95 05/12/19 22:00 Elderly F notin distress HEENT: Mm moist anemia + NECK: No JVD no Bruit CHEST: CTA B/L CVS; S1S2 R SM in mitral area ABD: No distention, non tender Bs + EXT: No ovidio afeet [employer]; AOX3 non focal CBC, BMP 05/12/19 07:40 05/11/19 06:40 Active Medications Folic Acid (Folic Acid -) 1 mg PO DAILY [facility] Last Admin: 05/12/19 09:25 Dose: 1 mg Insulin Aspart (Novolog Vial Sliding Scale -) 1 vial SQ [facility]; Protocol Last Admin: 05/13/19 06:02 Dose: Not Given Pantoprazole Sodium (Protonix Iv) 40 mg IVPUSH DAILY [facility] Last Admin: 05/12/19 09:25 Dose: 40 mg Prednisone (Deltasone -) 80 mg PO DAILY [facility] Last Admin: 05/12/19 09:25 Dose: 80 mg ASSESSMENT AND PLAN:78 yers old f admited with anemia H/O Arlyn + hemolytic anemia Plan: please discuss with Hematology patient wants to F/U in [place] , if agrees can be Dc home on Po prednisone tapering as recommonded by the Hemayatology consult Rhematology sign off dont want to F/U. Problem List - Problems (1) Symptomatic anemia Code(s): D64.9 - ANEMIA, UNSPECIFIED (2) Autoimmune hemolytic anemias Code(s): D59.1 - OTHER AUTOIMMUNE HEMOLYTIC ANEMIAS (3) CHF (congestive heart failure) Code(s): I50.9 - HEART FAILURE, UNSPECIFIED Qualifiers: Heart failure type: systolic Heart failure chronicity: acute on chronic Qualified Code(s): I50.23 - Acute on chronic systolic (congestive) heart failure (4) HTN (hypertension) Code(s): I10 - ESSENTIAL (PRIMARY) HYPERTENSION Qualifiers: Hypertension type: essential hypertension Qualified Code(s): I10 - Essential (primary) hypertension (5) Hyperlipidemia Code(s): E78.5 - HYPERLIPIDEMIA, UNSPECIFIED Qualifiers: Hyperlipidemia type: pure hypercholesterolemia Qualified Code(s): E78.00 - Pure hypercholesterolemia, unspecified; E78.0 - Pure hypercholesterolemia (6) Rectal bleeding Code(s): K62.5 - HEMORRHAGE OF ANUS AND RECTUM (7) Moderate mitral regurgitation Code(s): I34.0 - NONRHEUMATIC MITRAL (VALVE) INSUFFICIENCY
[2019-05-13 09:53] LABS: HEMATOCRIT 22.6 % (32.4-45.2); HEMOGLOBIN 7.4 GM/dL (10.7-15.3); MCH 33.4 pg (25.7-33.7); MCHC 32.7 g/dl (32.0-36.0); MEAN CELL VOLUME 102.1 fl (80-96); MEAN PLT VOLUME 8.2 fl (7.5-11.1); PLATELET COUNT 330 K/MM3 (134-434); RBC 2.21 M/mm3 (3.60-5.2); RDW 13.8 % (11.6-15.6); WHITE BLOOD COUNT 13.9 K/mm3 (4.0-10.0)
[2019-05-13] MEDS: FOLIC ACID 1 MG TABLET (FP) PO SCH (10:18)
[2019-05-13] MEDS: predniSONE 20 MG TABLET (UD) PO SCH (10:18)
[2019-05-13] MEDS: PANTOPRAZOLE SODIUM 40 MG VIAL IVPUSH SCH (10:19)
--- NOTE | 2019-05-13 16:29 | PN ---
Physical Exam: SUBJECTIVE: Patient seen and examined at the bedside. No acute events overnight. OBJECTIVE: Vital Signs Period Temp Pulse Resp BP Sys/Hale Pulse Ox Last 24 Hr 98.2 F-99.5 F 70-94 18-103 121-149/69-85 95-95 GENERAL: The patient is awake, alert, and fully oriented, in no acute distress. HEAD: Normal with no signs of trauma. NECK: supple. LUNGS: Breath sounds equal, clear to auscultation bilaterally, no wheezes, no crackles, no accessory muscle use. HEART: Regular rate and rhythm, S1, S2 without murmur, rub or gallop. ABDOMEN: Soft, nontender, nondistended, normoactive bowel sounds, no guarding, no rebound. EXTREMITIES: warm, well-perfused, no edema. NEUROLOGICAL: Cranial nerves II through XII grossly intact. Normal speech, gait not observed. PSYCH: Normal mood, normal affect. SKIN: Warm, dry, no rashes or lesions noted Laboratory Results - last 24 hr 05/10/19 05/12/19 05/12/19 00:25 17:11 21:16 WBC RBC Hgb Hct MCV MCH MCHC RDW Plt Count MPV POC Glucometer 333 210 LD Total Blood Type A POSITIVE Antibody Screen Positive Prewarmed Antibody Srcn Negative Antibody Identification Cold auto Crossmatch See Detail 05/13/19 05/13/19 05/13/19 05:44 06:30 06:30 WBC 13.9 H RBC 2.21 L Hgb 7.4 L Hct 22.6 L MCV 102.1 H MCH 33.4 MCHC 32.7 RDW 13.8 Plt Count 330 MPV 8.2 POC Glucometer 146 LD Total 392 H Blood Type Antibody Screen Prewarmed Antibody Srcn Antibody Identification Crossmatch 05/13/19 11:48 WBC RBC Hgb Hct MCV MCH MCHC RDW Plt Count MPV POC Glucometer 145 LD Total Blood Type Antibody Screen Prewarmed Antibody Srcn Antibody Identification Crossmatch Active Medications Generic Name Dose Route Start Last Admin Trade Name Freq PRN Reason Stop Dose Admin Folic Acid 1 mg 05/11/19 10:00 05/13/19 10:18 Folic Acid - PO 1 mg DAILY [facility] Administration Insulin Aspart 1 vial 05/10/19 07:00 05/13/19 11:49 Novolog Vial Sliding Scale - SQ Not Given ACHS [facility] Protocol Pantoprazole Sodium 40 mg 05/10/19 04:57 05/13/19 10:19 Protonix Iv IVPUSH 40 mg DAILY [facility] Administration Prednisone 80 mg 05/10/19 10:00 05/13/19 10:18 Deltasone - PO 80 mg DAILY [facility] Administration ASSESSMENT/PLAN: Images: CT A/P: Left colon diverticulosis, small haital hernia, left renal cyst, atrophic right kidney, increased retroperitoneal LN presents, cardiomegaly 78 y/o F, pmh of breast ca s/p [id number], nikkie+ Autoimmune hemolytic anemia presents to the ED c/o fevers, weakness, headaches and 3 days of abdominal pain likely 2/2 to anemia #Autoimmune hemolytic Anemia Dr. Osborn consulted- patient wants to F/U in [place], 7.4 Hb, LDH [address] Osborn's evaluation of patient before d/c. Dr. Park consulted- c/w prednisone 80mg, no f/u necessary. Dr. Faith (GI consult) -FOBT negative, pt refusing colonoscopy in past and at this time, monitor for any signs of bleeding. Prednisone 80mg continue, can be d/c on po prednisone taper w protonix. Dr. 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 #Abdominal pain r/o colon ca Tylenol IV monitor labs - no colonoscopy at this time - protonix 40mg IV for stress ulcer ppx while on steroids. #DM BGM Insulin sliding scale #DVT ppx: SCDs Visit type - Emergency Visit Emergency Visit: Yes ED Registration Date: 05/10/19 Care time: The patient presented to the Emergency Department on the above date and was hospitalized for further evaluation of their emergent condition. - New Patient This patient is new to me today: No - Critical Care Critical Care patient: No - Discharge Referral Referred to [facility] Med P.C.: No ATTENDING PHYSICIAN STATEMENT I saw and evaluated the patient. I reviewed the resident's note and discussed the case with the resident. I agree with the resident's findings and plan as documented. SUBJECTIVE: OBJECTIVE: ASSESSMENT AND PLAN:
--- NOTE | 2019-05-13 19:10 | PN ---
Progress Note (short form) - Note Progress Note: Patient seen and examined Denies any specific complaints Last Vital Signs Temp Pulse Resp BP Pulse Ox 98.8 F 74 20 149/85 95 05/13/19 08:41 05/13/19 08:41 05/13/19 08:41 05/13/19 08:41 05/13/19 09:00 Cor: RSR, No murmurs, No gallops Lungs: Clear to P&A Abd: Soft, Normal bowel sounds, No organomegaly Ext:No significant edema Abnormal Lab Results 05/10/19 05/13/19 05/13/19 00:25 06:30 06:30 WBC 13.9 H RBC 2.21 L Hgb 7.4 L Hct 22.6 L MCV 102.1 H LD Total 392 H Crossmatch See Detail Home Medication List Medication Instructions Recorded Confirmed Type Exemestane [Aromasin -] 25 mg PO DAILY 01/05/19 05/10/19 History Metformin HCl [Glucophage] 500 mg PO BID 02/18/19 05/10/19 History Furosemide 40 mg PO DAILY 02/19/19 05/10/19 History Ranitidine HCl 150 mg PO DAILY 05/10/19 05/10/19 History Active Medications Generic Name Dose Route Start Last Admin Trade Name Freq PRN Reason Stop Dose Admin Folic Acid 1 mg 05/11/19 10:00 05/13/19 10:18 Folic Acid - PO 1 mg DAILY [facility] Administration Insulin Aspart 1 vial 05/10/19 07:00 05/13/19 17:29 Novolog Vial Sliding Scale - SQ 8 unit ACHS [facility] Administration Protocol Pantoprazole Sodium 40 mg 05/10/19 04:57 05/13/19 10:19 Protonix Iv IVPUSH 40 mg DAILY [facility] Administration Prednisone 80 mg 05/10/19 10:00 05/13/19 10:18 Deltasone - PO 80 mg DAILY [facility] Administration A/P 78 y/o patient with Nikkie+ autoimmunehemolytic anemia, obesity, wheel chair bound, DM, HTN, h/o breast cancer h/o breast cancer --8yrs. ago s/p MRM/chemotx/RT. HAs been on aromasin for 8 yrs.Treated by Johny Gale at [facility] Autoimmune hemolytic anemia--s/p 1 unit PRBCs 02/17--+ nikkie 05/10/19--nikkie negative/ + cold auto antibody LDH/hapto s/o hemolysis Discussed with blood bank -- will send repeat Nikkie test/tepe and screen to [facility] [place] will check cold agglutinins/cryoglobulins/Hep. serologies/flow/FISH/cytogenetics CT a/p non contrast--renal scarring, thickening of duodenum, mesenteric staranding, nonspecific paraaortic adenopathy CT chest --left apical pleural scarring SIFE/UIFE --negative. TSH/B12/folate--normal IRon studies s/o overload continue 60mg prednisone continue protonix and folic acid Plan: check ferritin check flow to r/o PNH/lymphoproliferative disorders and MDS Will also check repeat stool studies . May need GI w/u check cold aggluitinind/cryoglobulins/ Hep. serologies Discussed with blood bank -- will send repeat Nikkie test/tepe and screen to [facility] [place] continue 60mg daily prednisone/folic acid Based on above w/u will consider further testing
[2019-05-13 19:58] LABS: BASO % 0.1 % (0-2.0); HEMATOCRIT 25.8 % (32.4-45.2); HEMOGLOBIN 8.3 GM/dL (10.7-15.3); LYMPH % 17.1 % (8-40); MCH 33.4 pg (25.7-33.7); MCHC 32.2 g/dl (32.0-36.0); MEAN CELL VOLUME 103.8 fl (80-96); MEAN PLT VOLUME 8.2 fl (7.5-11.1); NEUT % 80.8 % (42.8-82.8); PLATELET COUNT 376 K/MM3 (134-434); RBC 2.49 M/mm3 (3.60-5.2); RDW 13.5 % (11.6-15.6); WHITE BLOOD COUNT 13.4 K/mm3 (4.0-10.0)
[2019-05-13] MEDS ORDERED: INSULIN (NOVOLOG) ASPART 100 UNITS/ML 10ML VIAL ONE (21:10)
[2019-05-14] MEDS: INSULIN SLIDING SCALE (NOVOLOG) 1 VIAL SQ SCH ×4 (06:07→21:28)
--- NOTE | 2019-05-14 07:55 | PN ---
Teaching Attending Note Name of Resident: Dannie Miranda ATTENDING PHYSICIAN STATEMENT I saw and evaluated the patient. I reviewed the resident's note and discussed the case with the resident. I agree with the resident's findings and plan as documented. 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; AOX3 non focal CBC, BMP 05/14/19 10:40 05/14/19 10:45 Active Medications Folic Acid (Folic Acid -) 1 mg PO DAILY [facility] Last Admin: 05/13/19 10:18 Dose: 1 mg Insulin Aspart (Novolog Vial Sliding Scale -) 1 vial SQ ACHS [facility]; Protocol Last Admin: 05/14/19 06:07 Dose: Not Given Pantoprazole Sodium (Protonix Iv) 40 mg IVPUSH DAILY [facility] Last Admin: 05/13/19 10:19 Dose: 40 mg Prednisone (Deltasone -) 60 mg PO DAILY [facility] ASSESSMENT AND PLAN:78 yers old f admited with anemia H/O Arlyn + hemolytic anemia H/H stable on Prednisone 60 mg Daily Problem List - Problems (1) Symptomatic anemia Assessment/Plan: Improving on Prednisone cont PO prednisone 60 mg daily F/U Hematology recommendations. Daily CBC LDH, Reticount. Code(s): D64.9 - ANEMIA, UNSPECIFIED (2) Autoimmune hemolytic anemias Assessment/Plan: cont Prednisone F/U hematology input Code(s): D59.1 - OTHER AUTOIMMUNE HEMOLYTIC ANEMIAS (3) CHF (congestive heart failure) Assessment/Plan: compensated F/U BMP Code(s): I50.9 - HEART FAILURE, UNSPECIFIED Qualifiers: Heart failure type: systolic Heart failure chronicity: acute on chronic Qualified Code(s): I50.23 - Acute on chronic systolic (congestive) heart failure (4) HTN (hypertension) Assessment/Plan: Well consytrolled resume Home meds Code(s): I10 - ESSENTIAL (PRIMARY) HYPERTENSION Qualifiers: Hypertension type: essential hypertension Qualified Code(s): I10 - Essential (primary) hypertension (5) Hyperlipidemia Assessment/Plan: cont statin Code(s): E78.5 - HYPERLIPIDEMIA, UNSPECIFIED Qualifiers: Hyperlipidemia type: pure hypercholesterolemia Qualified Code(s): E78.00 - Pure hypercholesterolemia, unspecified; E78.0 - Pure hypercholesterolemia (6) Moderate mitral regurgitation Assessment/Plan: Please observe closely for CHF F/U BNP and clinical course add lasix PO if develops pulmonary congestion. Code(s): I34.0 - NONRHEUMATIC MITRAL (VALVE) INSUFFICIENCY
[2019-05-14] MEDS ORDERED: INSULIN (NOVOLOG) ASPART 100 UNITS/ML 10ML VIAL ONE (11:07)
[2019-05-14] MEDS: PANTOPRAZOLE 40 MG TABLET (FP) PO SCH (11:10)
[2019-05-14] MEDS: predniSONE 20 MG TABLET (UD) PO SCH (11:12)
[2019-05-14] MEDS: FOLIC ACID 1 MG TABLET (FP) PO SCH (11:12)
[2019-05-14] MEDS: PANTOPRAZOLE SODIUM 40 MG VIAL IVPUSH SCH (11:13)
[2019-05-14] MEDS ORDERED: PT OWN MED DRAWER 7, Y5N ONE (11:56)
[2019-05-14 12:09] LABS: ALBUMIN 3.3 g/dl (3.4-5.0); BILIRUBIN,TOTAL 0.9 mg/dL (0.2-1); BLOOD UREA NITROGEN 30.7 mg/dL (7-18); CALCIUM 8.7 mg/dL (8.5-10.1); POTASSIUM 4.2 mmol/L (3.5-5.1); TOT PROT 6.3 g/dl (6.4-8.2)
[2019-05-14 13:54] LABS: ANISOCYTOSIS 1+; MACROCYTOSIS 1+; PLATELET ESTIMATE NORMAL
[2019-05-14 13:56] LABS: BASO % 0.4 % (0-2.0); EOS % 0.2 % (0-4.5); HEMATOCRIT 28.1 % (32.4-45.2); HEMOGLOBIN 8.9 GM/dL (10.7-15.3); LYMPH % 26.6 % (8-40); MCH 33.4 pg (25.7-33.7); MCHC 31.8 g/dl (32.0-36.0); MEAN CELL VOLUME 105.1 fl (80-96); MEAN PLT VOLUME 8.4 fl (7.5-11.1); MONO % 7.7 % (3.8-10.2); NEUT % 65.1 % (42.8-82.8); PLATELET COUNT 390 K/MM3 (134-434); RBC 2.68 M/mm3 (3.60-5.2); RDW 14.6 % (11.6-15.6); WHITE BLOOD COUNT 16.5 K/mm3 (4.0-10.0)
[2019-05-14 14:57] LABS: ANISOCYTOSIS 1+; MACROCYTOSIS 1+; OVALOCYTE 1+; PLATELET ESTIMATE NORMAL
--- NOTE | 2019-05-14 17:09 | PN ---
Physical Exam: SUBJECTIVE: Patient seen and examined at bedside. No acute events. OBJECTIVE: Vital Signs Period Temp Pulse Resp BP Sys/Hale Pulse Ox Last 24 Hr 97.6 F-98.7 F 71-86 16-20 134-160/70-85 96 GENERAL: The patient is awake, alert, and fully oriented, in no acute distress. HEAD: Normal with no signs of trauma. NECK: supple. LUNGS: Breath sounds equal, clear to auscultation bilaterally, no wheezes, no crackles, no accessory muscle use. HEART: Regular rate and rhythm, S1, S2 without murmur, rub or gallop. ABDOMEN: Soft, nontender, nondistended, normoactive bowel sounds, no guarding, no rebound. EXTREMITIES: warm, well-perfused, no edema. NEUROLOGICAL: Cranial nerves II through XII grossly intact. Normal speech, gait not observed. PSYCH: Normal mood, normal affect. SKIN: Warm, dry, no rashes or lesions noted Laboratory Results - last 24 hr 05/12/19 05/13/19 05/13/19 07:40 06:30 17:02 WBC RBC Hgb Hct MCV MCH MCHC RDW Plt Count MPV Absolute Neuts (auto) Neutrophils % Neutrophils % (Manual) Band Neutrophils % Lymphocytes % Lymphocytes % (Manual) Monocytes % Monocytes % (Manual) Eosinophils % Eosinophils % (Manual) Basophils % Basophils % (Manual) Myelocytes % (Man) Promyelocytes % (Man) Blast Cells % (Manual) Nucleated RBC % Metamyelocytes Hypochromia Platelet Estimate Polychromasia Poikilocytosis Anisocytosis Microcytosis Macrocytosis Ovalocytes Acanthocytes (Spur) Haptoglobin < 10 L < 10 L Sodium Potassium Chloride Carbon Dioxide Anion Gap BUN Creatinine Est GFR (CKD-EPI)AfAm Est GFR (CKD-EPI)NonAf POC Glucometer 332 Random Glucose Calcium Total Bilirubin AST ALT Alkaline Phosphatase LD Total Total Protein Albumin Blood Type Antibody Screen Antibody Identification Antigen Identification Direct Antiglob Test 05/13/19 05/13/19 05/13/19 19:00 19:00 19:00 WBC 13.4 H RBC 2.49 L Hgb 8.3 L Hct 25.8 L MCV 103.8 H MCH 33.4 MCHC 32.2 RDW 13.5 Plt Count 376 MPV 8.2 Absolute Neuts (auto) 10.8 H Neutrophils % 80.8 Neutrophils % (Manual) 72.7 Band Neutrophils % 0.0 Lymphocytes % 17.1 Lymphocytes % (Manual) 21.2 D Monocytes % 2.0 L Monocytes % (Manual) 3 L Eosinophils % 0.0 D Eosinophils % (Manual) 2.0 D Basophils % 0.1 Basophils % (Manual) 0.0 Myelocytes % (Man) 0 D Promyelocytes % (Man) 0 Blast Cells % (Manual) 0 Nucleated RBC % 1 H Metamyelocytes 0 Hypochromia 0 Platelet Estimate Normal Polychromasia 1+ Poikilocytosis 0 Anisocytosis 1+ Microcytosis 0 Macrocytosis 1+ Ovalocytes Acanthocytes (Spur) Haptoglobin Sodium Potassium Chloride Carbon Dioxide Anion Gap BUN Creatinine Est GFR (CKD-EPI)AfAm Est GFR (CKD-EPI)NonAf POC Glucometer Random Glucose Calcium Total Bilirubin AST ALT Alkaline Phosphatase LD Total Total Protein Albumin Blood Type A POSITIVE Antibody Screen Positive Antibody Identification Inconclusive Antigen Identification No Result Required. Direct Antiglob Test Positive H 05/13/19 05/13/19 05/14/19 20:15 20:59 05:51 WBC RBC Hgb Hct MCV MCH MCHC RDW Plt Count MPV Absolute Neuts (auto) Neutrophils % Neutrophils % (Manual) Band Neutrophils % Lymphocytes % Lymphocytes % (Manual) Monocytes % Monocytes % (Manual) Eosinophils % Eosinophils % (Manual) Basophils % Basophils % (Manual) Myelocytes % (Man) Promyelocytes % (Man) Blast Cells % (Manual) Nucleated RBC % Metamyelocytes Hypochromia Platelet Estimate Polychromasia Poikilocytosis Anisocytosis Microcytosis Macrocytosis Ovalocytes Acanthocytes (Spur) Haptoglobin Sodium Potassium Chloride Carbon Dioxide Anion Gap BUN Creatinine Est GFR (CKD-EPI)AfAm Est GFR (CKD-EPI)NonAf POC Glucometer 253 135 Random Glucose Calcium Total Bilirubin AST ALT Alkaline Phosphatase LD Total 849 H Total Protein Albumin Blood Type Antibody Screen Antibody Identification Antigen Identification Direct Antiglob Test 05/14/19 05/14/19 05/14/19 10:40 10:45 11:11 WBC 16.5 H RBC 2.68 L Hgb 8.9 L Hct 28.1 L MCV 105.1 H MCH 33.4 MCHC 31.8 L RDW 14.6 Plt Count 390 MPV 8.4 Absolute Neuts (auto) 10.7 H Neutrophils % 65.1 Neutrophils % (Manual) 66.3 Band Neutrophils % 0.0 Lymphocytes % 26.6 D Lymphocytes % (Manual) 29.6 D Monocytes % 7.7 D Monocytes % (Manual) 3 L Eosinophils % 0.2 D Eosinophils % (Manual) 0.0 D Basophils % 0.4 D Basophils % (Manual) 0.0 Myelocytes % (Man) 1 D Promyelocytes % (Man) 0 Blast Cells % (Manual) 0 Nucleated RBC % 1 H Metamyelocytes 0 Hypochromia 0 Platelet Estimate Normal Polychromasia 1+ Poikilocytosis 2+ Anisocytosis 1+ Microcytosis 0 Macrocytosis 1+ Ovalocytes 1+ Acanthocytes (Spur) 1+ Haptoglobin Sodium 141 Potassium 4.2 Chloride 109 H Carbon Dioxide 23 Anion Gap 10 BUN 30.7 H Creatinine 1.0 Est GFR (CKD-EPI)AfAm 62.05 Est GFR (CKD-EPI)NonAf 53.54 POC Glucometer 144 Random Glucose 146 H Calcium 8.7 Total Bilirubin 0.9 D AST 57 H ALT 73 H Alkaline Phosphatase 41 L LD Total Total Protein 6.3 L Albumin 3.3 L Blood Type Antibody Screen Antibody Identification Antigen Identification Direct Antiglob Test Active Medications Generic Name Dose Route Start Last Admin Trade Name Freq PRN Reason Stop Dose Admin Folic Acid 1 mg 05/11/19 10:00 05/14/19 11:12 Folic Acid - PO 1 mg DAILY [facility] Administration Insulin Aspart 1 vial 05/10/19 07:00 05/14/19 11:13 Novolog Vial Sliding Scale - SQ Not Given ACHS [facility] Protocol Losartan Potassium 100 mg 05/14/19 14:45 Cozaar - PO DAILY [facility] Metoprolol Succinate 50 mg 05/14/19 14:45 Toprol Xl - PO DAILY [facility] Pantoprazole Sodium 40 mg 05/14/19 10:30 05/14/19 11:10 Protonix - PO Not Given DAILY [facility] Prednisone 60 mg 05/14/19 10:00 05/14/19 11:12 Deltasone - PO 60 mg DAILY [facility] Administration ASSESSMENT/PLAN: Images: CT A/P: Left colon diverticulosis, small haital hernia, left renal cyst, atrophic right kidney, increased retroperitoneal LN presents, cardiomegaly Echo- 02/19/19: moderate MR 78 y/o F, pmh of breast ca s/p [id number]-[id number], nikkie+ Autoimmune hemolytic anemia presents to the ED c/o fevers, weakness, headaches and 3 days of abdominal pain likely 2/2 to anemia #Autoimmune hemolytic Anemia Dr. Osborn consulted- Pt undergoing extensive heme w/u for hemolytic anemia ( nikkie test, type and screen, cold agglutinins, cryoglobulins, hep serologies, flow, fish, cytogenetics, LDH) and this will determine if pt goes home on rituximab or prednisone depending on cold/warm agglutinin positivity. elevated MCV due to immature rbc's being larger b12, folate not decreased, 8.4 Hb, LDH 849. Dr. Park consulted- c/w prednisone 80mg, no f/u necessary. Dr. Faith (GI consult) -FOBT negative, pt refusing colonoscopy in past and at this time, monitor for any signs of bleeding. switch Prednisone to 60mg, w PO 40mg protonix. Dr. 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 - Please observe closely for CHF F/U BNP and clinical course add lasix PO if develops pulmonary congestion #Abdominal pain r/o colon ca Tylenol IV AST/ALT: newly elevated at 57,73 respectively - no colonoscopy at this time - protonix 40mg po for stress ulcer ppx while on steroids. - monitor for signs of CHF, f/u BNP, start PO lasix if isigns of of overload, echo in january showed moderate MR. #DM BGM Insulin sliding scale #DVT ppx: SCDs Visit type - Emergency Visit Emergency Visit: Yes ED Registration Date: 05/10/19 Care time: The patient presented to the Emergency Department on the above date and was hospitalized for further evaluation of their emergent condition. - New Patient This patient is new to me today: No - Critical Care Critical Care patient: No - Discharge Referral Referred to [facility] Med P.C.: No ATTENDING PHYSICIAN STATEMENT I saw and evaluated the patient. I reviewed the resident's note and discussed the case with the resident. I agree with the resident's findings and plan as documented. SUBJECTIVE: OBJECTIVE: ASSESSMENT AND PLAN:
[2019-05-14] MEDS: LOSARTAN POTASSIUM 50 MG TABLET (FP) PO SCH (17:41)
--- NOTE | 2019-05-14 19:07 | PN ---
Progress Note (short form) - Note Progress Note: Patient seen and examined Offers no complaints No chest pains or SOB Last Vital Signs Temp Pulse Resp BP Pulse Ox 98.7 F 71 18 134/82 100 05/14/19 14:47 05/14/19 14:47 05/14/19 14:47 05/14/19 14:47 05/14/19 09:00 CBC, BMP 05/14/19 10:40 05/14/19 10:45 HEENT: FIFI, EOM Intact Cor: RSR, systolic murmur Lungs: Clear to P&A Abd: Soft, Normal bowel sounds, No organomegaly Ext:SCD Skin: No rashes, Integument intact Current Medications Generic Name Dose Route Start Last Admin Trade Name Nolvia PRN Reason Stop Dose Admin Folic Acid 1 mg 05/11/19 10:00 05/14/19 11:12 Folic Acid - PO 1 mg DAILY [facility] Administration Insulin Aspart 1 vial 05/10/19 07:00 05/14/19 17:41 Novolog Vial Sliding Scale - SQ 10 unit ACHS [facility] Administration Protocol Losartan Potassium 100 mg 05/14/19 14:45 05/14/19 17:41 Cozaar - PO 100 mg DAILY [facility] Administration Metoprolol Succinate 50 mg 05/14/19 14:45 05/14/19 17:41 Toprol Xl - PO 50 mg DAILY [facility] Administration Pantoprazole Sodium 40 mg 05/14/19 10:30 05/14/19 11:10 Protonix - PO Not Given DAILY [facility] Prednisone 60 mg 05/14/19 10:00 05/14/19 11:12 Deltasone - PO 60 mg DAILY [facility] Administration Impression: History of Arlyn positivity with hemolysis Currently Arlyn- negative with cold antibody positivity Work up for PNH , cold agglutinins , hepatitis, Cryoglobulins pending S/P transfusion of one unit of packed cells- 2ith Hct 28% Await work up Continue prednisone
[2019-05-15] MEDS: INSULIN SLIDING SCALE (NOVOLOG) 1 VIAL SQ SCH ×4 (06:01→21:53)
[2019-05-15 09:16] LABS: BILIRUBIN,TOTAL 0.8 mg/dL (0.2-1); BLOOD UREA NITROGEN 29.1 mg/dL (7-18); CALCIUM 8.4 mg/dL (8.5-10.1); POTASSIUM 4.2 mmol/L (3.5-5.1); TOT PROT 5.8 g/dl (6.4-8.2)
[2019-05-15 09:32] LABS: BASO % 0.2 % (0-2.0); EOS % 0.2 % (0-4.5); HEMATOCRIT 24.9 % (32.4-45.2); HEMOGLOBIN 8.3 GM/dL (10.7-15.3); LYMPH % 27.2 % (8-40); MCH 34.3 pg (25.7-33.7); MCHC 33.4 g/dl (32.0-36.0); MEAN CELL VOLUME 102.6 fl (80-96); MEAN PLT VOLUME 8.1 fl (7.5-11.1); MONO % 9.4 % (3.8-10.2); PLATELET COUNT 368 K/MM3 (134-434); RBC 2.42 M/mm3 (3.60-5.2); RDW 14.4 % (11.6-15.6)
[2019-05-15] MEDS: LOSARTAN POTASSIUM 50 MG TABLET (FP) PO SCH (10:03)
[2019-05-15] MEDS: predniSONE 20 MG TABLET (UD) PO SCH (10:03)
[2019-05-15] MEDS: FOLIC ACID 1 MG TABLET (FP) PO SCH (10:03)
[2019-05-15] MEDS: PANTOPRAZOLE 40 MG TABLET (FP) PO SCH (10:04)
[2019-05-15] MEDS ORDERED: INSULIN (NOVOLOG) ASPART 100 UNITS/ML 10ML VIAL ONE ×2 (11:58→21:07)
[2019-05-15 14:08] LABS: MACROCYTOSIS 1+; OVALOCYTE 1+; PLATELET ESTIMATE NORMAL
--- NOTE | 2019-05-15 17:06 | PN ---
Teaching Attending Note Name of Resident: Dannie Miranda ATTENDING PHYSICIAN STATEMENT I saw and evaluated the patient. I reviewed the resident's note and discussed the case with the resident. I agree with the resident's findings and plan as documented. SUBJECTIVE: Patient is feeling well with jennifer cute distress. wants to go home OBJECTIVE: Vital Signs Temperature 98.2 F 05/15/19 14:38 Pulse Rate 67 05/15/19 14:38 Respiratory Rate 20 05/15/19 14:38 Blood Pressure 143/70 05/15/19 14:38 O2 Sat by Pulse Oximetry (%) 98 05/15/19 09:00 GENERAL: The patient is awake, alert, and fully oriented, in no acute distress. HEAD: Normal with no signs of trauma. EYES: PERRL, extraocular movements intact, sclera anicteric, conjunctiva clear. No ptosis. ENT: Ears normal, nares patent, oropharynx clear without exudates, moist mucous membranes. NECK: Trachea midline, full range of motion, supple. LUNGS: Breath sounds equal, clear to auscultation bilaterally, no wheezes, no crackles, no accessory muscle use. HEART: Regular rate and rhythm, S1, S2 without murmur, rub or gallop. ABDOMEN: Soft, nontender, nondistended, normoactive bowel sounds, no guarding, no rebound, no hepatosplenomegaly, no masses. EXTREMITIES: 2+ pulses, warm, well-perfused, no edema. NEUROLOGICAL: Cranial nerves II through XII grossly intact. Normal speech, gait not observed. PSYCH: Normal mood, normal affect. SKIN: Warm, dry, normal turgor, no rashes or lesions noted CBCD WBC 13.0 K/mm3 (4.0-10.0) H 05/15/19 08:00 RBC 2.42 M/mm3 (3.60-5.2) L 05/15/19 08:00 Hgb 8.3 GM/dL (10.7-15.3) L 05/15/19 08:00 Hct 24.9 % (32.4-45.2) L 05/15/19 08:00 MCV 102.6 fl (80-96) H 05/15/19 08:00 MCHC 33.4 g/dl (32.0-36.0) 05/15/19 08:00 RDW 14.4 % (11.6-15.6) 05/15/19 08:00 Plt Count 368 K/MM3 (134-434) 05/15/19 08:00 MPV 8.1 fl (7.5-11.1) 05/15/19 08:00 CMP Sodium 143 mmol/L (136-145) 05/15/19 08:00 Potassium 4.2 mmol/L (3.5-5.1) 05/15/19 08:00 Chloride 112 mmol/L (98-107) H 05/15/19 08:00 Carbon Dioxide 24 mmol/L (21-32) 05/15/19 08:00 Anion Gap 7 MMOL/L (8-16) L 05/15/19 08:00 BUN 29.1 mg/dL (7-18) H 05/15/19 08:00 Creatinine 1.0 mg/dL (0.55-1.3) 05/15/19 08:00 Random Glucose 117 mg/dL (74-106) H 05/15/19 08:00 Calcium 8.4 mg/dL (8.5-10.1) L 05/15/19 08:00 Total Bilirubin 0.8 mg/dL (0.2-1) 05/15/19 08:00 AST 43 U/L (15-37) H 05/15/19 08:00 ALT 71 U/L (13-61) H 05/15/19 08:00 Alkaline Phosphatase 37 U/L (45-117) L 05/15/19 08:00 Total Protein 5.8 g/dl (6.4-8.2) L 05/15/19 08:00 Albumin 3.0 g/dl (3.4-5.0) L 05/15/19 08:00 Current Medications Generic Name Dose Route Start Last Admin Trade Name Freq PRN Reason Stop Dose Admin Folic Acid 1 mg 05/11/19 10:00 05/15/19 10:03 Folic Acid - PO 1 mg DAILY GERRI Administration Insulin Aspart 1 vial 05/10/19 07:00 05/15/19 12:10 Novolog Vial Sliding Scale - SQ 2 unit ACHS GERRI Administration Protocol Losartan Potassium 100 mg 05/14/19 14:45 05/15/19 10:03 Cozaar - PO 100 mg DAILY GERRI Administration Metoprolol Succinate 50 mg 05/14/19 14:45 05/15/19 10:04 Toprol Xl - PO 50 mg DAILY GERRI Administration Pantoprazole Sodium 40 mg 05/14/19 10:30 05/15/19 10:04 Protonix - PO 40 mg DAILY GERRI Administration Prednisone 60 mg 05/14/19 10:00 05/15/19 10:03 Deltasone - PO 60 mg DAILY GERRI Administration Home Medications Medication Instructions Recorded Exemestane [Aromasin -] 25 mg PO DAILY 01/05/19 Metformin HCl [Glucophage] 500 mg PO BID 02/18/19 Furosemide 40 mg PO DAILY 02/19/19 Amlodipine Besylate 5 mg PO DAILY #30 tablet 02/23/19 Docusate Sodium [Colace -] 100 mg PO TID capsule 02/23/19 Folic Acid - 1 mg PO DAILY #30 tablet 02/23/19 Losartan Potassium [Cozaar -] 100 mg PO DAILY tablet 02/23/19 Metoprolol Succinate [Toprol XL -] 50 mg PO DAILY tab.sr.24h 02/23/19 Pantoprazole Sodium [Protonix -] 40 mg PO DAILY #30 tablet.ec 02/23/19 predniSONE [Deltasone -] 60 mg PO DAILY #42 tablet 02/23/19 Ranitidine HCl 150 mg PO DAILY 05/10/19 ASSESSMENT AND PLAN: Patient is a 78yo female with PMHx of chronic systolic and diastolic heart failure, pericardial effusion, severe MR, L breast cancer, s/p chemo and radiation , HTn, anemia, external hemorrhoids , and a recent hospitalization for CHF . presented with hemolytic anemia. 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 #Osteoarthritis of knees. on po tylenol and getting steroid which is helping her knee pain. # Macrocytic anemia : on folate acid , Hapto and LDH elevated trending down # H/o chronic systolic and diastolic heart failure: euvolemic ,cont home lasix , losartan, cont Bb ( increased due to elevated HTN) # H/o Mod pericarial effusion : last admission , repeat Echo. no signs of tamponade clinically # Hx of diabetes on metformin at home, will order BGMs ac with ss coverage #Positive QTF gold last admission, no resp sx. no fever or chills. chest CT last admisison with scarring in FABIENNE and L base possible atelectasis. # Elevated Bili: chronic ,indirect. mild hepatomegaly on US form last admission. GI input appreciated DVT Px: SCds only GI Px: Protonix
--- NOTE | 2019-05-15 17:41 | PN ---
Physical Exam: SUBJECTIVE: Patient seen and examined at bedside this AM. No acute events. OBJECTIVE: Vital Signs Period Temp Pulse Resp BP Sys/Hale Pulse Ox Last 24 Hr 97.5 F-98.8 F 66-79 16-20 143-157/70-90 98-98 GENERAL: The patient is awake, alert, and fully oriented, in no acute distress. HEAD: Normal with no signs of trauma. NECK: supple. LUNGS: Breath sounds equal, clear to auscultation bilaterally, no wheezes, no crackles, no accessory muscle use. HEART: Regular rate and rhythm, S1, S2 without murmur, rub or gallop. ABDOMEN: Soft, nontender, nondistended, normoactive bowel sounds, no guarding, no rebound. EXTREMITIES: warm, well-perfused, no edema. NEUROLOGICAL: Cranial nerves II through XII grossly intact. Normal speech, gait not observed. PSYCH: Normal mood, normal affect. SKIN: Warm, dry, no rashes or lesions noted Laboratory Results - last 24 hr 05/14/19 05/15/19 05/15/19 20:42 05:41 08:00 WBC RBC Hgb Hct MCV MCH MCHC RDW Plt Count MPV Absolute Neuts (auto) Neutrophils % Neutrophils % (Manual) Band Neutrophils % Lymphocytes % Lymphocytes % (Manual) Monocytes % Monocytes % (Manual) Eosinophils % Eosinophils % (Manual) Basophils % Basophils % (Manual) Myelocytes % (Man) Promyelocytes % (Man) Blast Cells % (Manual) Nucleated RBC % Metamyelocytes Hypochromia Platelet Estimate Polychromasia Poikilocytosis Microcytosis Macrocytosis Ovalocytes Bristol Cells Acanthocytes (Spur) Retic Count Sodium 143 Potassium 4.2 Chloride 112 H Carbon Dioxide 24 Anion Gap 7 L BUN 29.1 H Creatinine 1.0 Est GFR (CKD-EPI)AfAm 62.05 Est GFR (CKD-EPI)NonAf 53.54 POC Glucometer 291 144 Random Glucose 117 H Calcium 8.4 L Total Bilirubin 0.8 AST 43 H ALT 71 H Alkaline Phosphatase 37 L LD Total 358 H Total Protein 5.8 L Albumin 3.0 L 05/15/19 05/15/19 05/15/19 08:00 08:15 11:46 WBC 13.0 H RBC 2.42 L Hgb 8.3 L Hct 24.9 L MCV 102.6 H MCH 34.3 H MCHC 33.4 RDW 14.4 Plt Count 368 MPV 8.1 Absolute Neuts (auto) 8.2 H Neutrophils % 63.0 Neutrophils % (Manual) 64.9 Band Neutrophils % 0.0 Lymphocytes % 27.2 Lymphocytes % (Manual) 21.7 D Monocytes % 9.4 Monocytes % (Manual) 6 D Eosinophils % 0.2 Eosinophils % (Manual) 0.0 Basophils % 0.2 Basophils % (Manual) 0.0 Myelocytes % (Man) 0 D Promyelocytes % (Man) 0 Blast Cells % (Manual) 0 Nucleated RBC % 1 H Metamyelocytes 0 Hypochromia 0 Platelet Estimate Normal Polychromasia 2+ Poikilocytosis 2+ Microcytosis 1+ Macrocytosis 1+ Ovalocytes 1+ Juan Cells 2+ Acanthocytes (Spur) 1+ Retic Count 13.96 H* D Sodium Potassium Chloride Carbon Dioxide Anion Gap BUN Creatinine Est GFR (CKD-EPI)AfAm Est GFR (CKD-EPI)NonAf POC Glucometer 169 Random Glucose Calcium Total Bilirubin AST ALT Alkaline Phosphatase LD Total Total Protein Albumin 05/15/19 16:44 WBC RBC Hgb Hct MCV MCH MCHC RDW Plt Count MPV Absolute Neuts (auto) Neutrophils % Neutrophils % (Manual) Band Neutrophils % Lymphocytes % Lymphocytes % (Manual) Monocytes % Monocytes % (Manual) Eosinophils % Eosinophils % (Manual) Basophils % Basophils % (Manual) Myelocytes % (Man) Promyelocytes % (Man) Blast Cells % (Manual) Nucleated RBC % Metamyelocytes Hypochromia Platelet Estimate Polychromasia Poikilocytosis Microcytosis Macrocytosis Ovalocytes Juan Cells Acanthocytes (Spur) Retic Count Sodium Potassium Chloride Carbon Dioxide Anion Gap BUN Creatinine Est GFR (CKD-EPI)AfAm Est GFR (CKD-EPI)NonAf POC Glucometer 215 Random Glucose Calcium Total Bilirubin AST ALT Alkaline Phosphatase LD Total Total Protein Albumin Active Medications Generic Name Dose Route Start Last Admin Trade Name Freq PRN Reason Stop Dose Admin Folic Acid 1 mg 05/11/19 10:00 05/15/19 10:03 Folic Acid - PO 1 mg DAILY GERRI Administration Insulin Aspart 1 vial 05/10/19 07:00 05/15/19 17:17 Novolog Vial Sliding Scale - SQ 4 unit ACHS GERRI Administration Protocol Losartan Potassium 100 mg 05/14/19 14:45 05/15/19 10:03 Cozaar - PO 100 mg DAILY GERRI Administration Metoprolol Succinate 50 mg 05/14/19 14:45 05/15/19 10:04 Toprol Xl - PO 50 mg DAILY GERRI Administration Pantoprazole Sodium 40 mg 05/14/19 10:30 05/15/19 10:04 Protonix - PO 40 mg DAILY GERRI Administration Prednisone 60 mg 05/14/19 10:00 05/15/19 10:03 Deltasone - PO 60 mg DAILY GERRI Administration ASSESSMENT/PLAN: 78 y/o F, pmh of breast ca s/p [id number], nikkie+ Autoimmune hemolytic anemia presents to the ED c/o fevers, weakness, headaches and 3 days of abdominal pain likely 2/2 to anemia #Autoimmune hemolytic Anemia - nikkie test, type and screen, cold agglutinins, cryoglobulins, hep serologies , flow, fish, cytogenetics pending - as per heme pt will be placed on rituximab or prednisone depending on cold/ warm agglutinin positivity. - Hb and Hct stable, LDH 849-> 358, retic count up from 3.82 on admission -> 13.96 but in prior admission pt has elevated retic count. - Please observe closely for CHF F/U BNP and clinical course add lasix PO if develops pulmonary congestion #Abdominal pain r/o colon ca Tylenol IV - AST/ALT 43, 71. - no colonoscopy at this time - protonix 40mg po for stress ulcer ppx while on steroids. #DM BGM Insulin sliding scale #DVT ppx: SCDs Dispo: spoke to pt's son regarding f/u with hematology, he agreed to take his mother to follow up. Visit type - Emergency Visit Emergency Visit: Yes ED Registration Date: 05/10/19 Care time: The patient presented to the Emergency Department on the above date and was hospitalized for further evaluation of their emergent condition. - New Patient This patient is new to me today: No - Critical Care Critical Care patient: No - Discharge Referral Referred to [facility] No ATTENDING PHYSICIAN STATEMENT I saw and evaluated the patient. I reviewed the resident's note and discussed the case with the resident. I agree with the resident's findings and plan as documented. SUBJECTIVE: OBJECTIVE: ASSESSMENT AND PLAN:
--- NOTE | 2019-05-15 18:28 | PN ---
Progress Note (short form) - Note Progress Note: Patient seen and examined Denies any specific complaints Last Vital Signs Temp Pulse Resp BP Pulse Ox 98.2 F 67 20 143/70 98 05/15/19 14:38 05/15/19 14:38 05/15/19 14:38 05/15/19 14:38 05/15/19 09:00 Cor: RSR, No murmurs, No gallops Lungs: Clear to P&A Abd: Soft, Normal bowel sounds, No organomegaly Ext:No significant edema Abnormal Lab Results 05/15/19 05/15/19 05/15/19 08:00 08:00 08:15 WBC 13.0 H RBC 2.42 L Hgb 8.3 L Hct 24.9 L MCV 102.6 H MCH 34.3 H Absolute Neuts (auto) 8.2 H Nucleated RBC % 1 H Retic Count 13.96 H* D Chloride 112 H Anion Gap 7 L BUN 29.1 H Random Glucose 117 H Calcium 8.4 L AST 43 H ALT 71 H Alkaline Phosphatase 37 L LD Total 358 H Total Protein 5.8 L Albumin 3.0 L Home Medication List Medication Instructions Recorded Confirmed Type Exemestane [Aromasin -] 25 mg PO DAILY 01/05/19 05/10/19 History Metformin HCl [Glucophage] 500 mg PO BID 02/18/19 05/10/19 History Furosemide 40 mg PO DAILY 02/19/19 05/10/19 History Ranitidine HCl 150 mg PO DAILY 05/10/19 05/10/19 History Active Medications Generic Name Dose Route Start Last Admin Trade Name Roberthq PRN Reason Stop Dose Admin Folic Acid 1 mg 05/11/19 10:00 05/15/19 10:03 Folic Acid - PO 1 mg DAILY GERRI Administration Insulin Aspart 1 vial 05/10/19 07:00 05/15/19 17:17 Novolog Vial Sliding Scale - SQ 4 unit ACHS GERRI Administration Protocol Losartan Potassium 100 mg 05/14/19 14:45 05/15/19 10:03 Cozaar - PO 100 mg DAILY GERRI Administration Metoprolol Succinate 50 mg 05/14/19 14:45 05/15/19 10:04 Toprol Xl - PO 50 mg DAILY GERRI Administration Pantoprazole Sodium 40 mg 05/14/19 10:30 05/15/19 10:04 Protonix - PO 40 mg DAILY GERRI Administration Prednisone 60 mg 05/14/19 10:00 05/15/19 10:03 Deltasone - PO 60 mg DAILY GERRI Administration A/P 78 y/o patient with Nikkie+ autoimmunehemolytic anemia, obesity, wheel chair bound, DM, HTN, h/o breast cancer h/o breast cancer --8yrs. ago s/p MRM/chemotx/RT. HAs been on aromasin for 8 yrs.Treated by Johyn Gale at [facility] Autoimmune hemolytic anemia--s/p 1 unit PRBCs 02/17--+ nikkie 05/10/19--nikkie negative/ + cold auto antibody Ab testing from [facility] shows -- Autoanti E, autoanti-I and warmautoaby LDH/hapto s/o hemolysis Continue 60 mg daily prednisone/ protonix/folic acid CT a/p non contrast--renal scarring, thickening of duodenum, mesenteric staranding, nonspecific paraaortic adenopathy CT chest --left apical pleural scarring SIFE/UIFE --negative. TSH/B12/folate--normal IRon studies s/o overload Plan: check flow to r/o PNH/lymphoproliferative disorders and MDS Will also check repeat stool studies . May need GI w/u check cold aggluitinins/cryoglobulins/ Hep. serologies continue 60mg daily prednisone/folic acid PAtient will need to follow up closely with Johny Michael on discharge at [facility]
[2019-05-16] MEDS: INSULIN SLIDING SCALE (NOVOLOG) 1 VIAL SQ SCH ×4 (06:26→21:07)
[2019-05-16 07:59] LABS: BASO % 0.7 % (0-2.0); EOS % 0.3 % (0-4.5); LYMPH % 28.6 % (8-40); MCHC 33.5 g/dl (32.0-36.0); MEAN CELL VOLUME 104.5 fl (80-96); MEAN PLT VOLUME 8.5 fl (7.5-11.1); MONO % 9.2 % (3.8-10.2); NEUT % 61.2 % (42.8-82.8); PLATELET COUNT 318 K/MM3 (134-434); RBC 2.58 M/mm3 (3.60-5.2); RDW 17.4 % (11.6-15.6); WHITE BLOOD COUNT 10.6 K/mm3 (4.0-10.0)
[2019-05-16 08:40] LABS: BILIRUBIN,TOTAL 0.6 mg/dL (0.2-1); BLOOD UREA NITROGEN 29.8 mg/dL (7-18); CALCIUM 8.5 mg/dL (8.5-10.1); CREATININE 1.1 mg/dL (0.55-1.3); POTASSIUM 4.4 mmol/L (3.5-5.1); TOT PROT 5.5 g/dl (6.4-8.2); URIC ACID 6.1 mg/dL (2.6-7.2)
[2019-05-16] MEDS: predniSONE 20 MG TABLET (UD) PO SCH (09:54)
[2019-05-16] MEDS: LOSARTAN POTASSIUM 50 MG TABLET (FP) PO SCH (09:54)
[2019-05-16] MEDS: PANTOPRAZOLE 40 MG TABLET (FP) PO SCH (09:54)
[2019-05-16] MEDS: FOLIC ACID 1 MG TABLET (FP) PO SCH (09:54)
[2019-05-16 10:12] LABS: ANISOCYTOSIS 1+; MACROCYTOSIS 1+; OVALOCYTE 1+; PLATELET ESTIMATE NORMAL
--- NOTE | 2019-05-16 17:56 | PN ---
<Dannie Miranda - Last Filed: 05/16/19 18:00> Physical Exam: SUBJECTIVE: Patient seen and examined at bedside this AM. no acute events. OBJECTIVE: Vital Signs Period Temp Pulse Resp BP Sys/Hale Pulse Ox Last 24 Hr 97.4 F-98.4 F 62-64 20-20 143-175/69-85 98-98 GENERAL: The patient is awake, alert, and fully oriented, in no acute distress. HEAD: Normal with no signs of trauma. NECK: supple. LUNGS: Breath sounds equal, clear to auscultation bilaterally, no wheezes, no crackles, no accessory muscle use. HEART: Regular rate and rhythm, S1, S2 without murmur, rub or gallop. ABDOMEN: Soft, nontender, nondistended, normoactive bowel sounds, no guarding, no rebound. EXTREMITIES: warm, well-perfused, no edema. NEUROLOGICAL: Cranial nerves II through XII grossly intact. Normal speech, gait not observed. PSYCH: Normal mood, normal affect. SKIN: Warm, dry, no rashes or lesions noted Laboratory Results - last 24 hr 05/15/19 05/16/19 05/16/19 21:22 06:06 07:01 WBC 10.6 H RBC 2.58 L Hgb 9.0 L Hct 27.0 L MCV 104.5 H MCH 35.0 H MCHC 33.5 RDW 17.4 H Plt Count 318 MPV 8.5 Absolute Neuts (auto) 6.5 Neutrophils % 61.2 Neutrophils % (Manual) 59.6 Band Neutrophils % 1.0 Lymphocytes % 28.6 Lymphocytes % (Manual) 26.3 D Monocytes % 9.2 Monocytes % (Manual) 10 Eosinophils % 0.3 Eosinophils % (Manual) 1.0 D Basophils % 0.7 D Basophils % (Manual) 0.0 Myelocytes % (Man) 0 Promyelocytes % (Man) 0 Blast Cells % (Manual) 0 Nucleated RBC % 0 Metamyelocytes 1 D Hypochromia 0 Platelet Estimate Normal Polychromasia 1+ Poikilocytosis 2+ Anisocytosis 1+ Microcytosis 0 Macrocytosis 1+ Ovalocytes 1+ Acanthocytes (Spur) 1+ Sodium Potassium Chloride Carbon Dioxide Anion Gap BUN Creatinine Est GFR (CKD-EPI)AfAm Est GFR (CKD-EPI)NonAf POC Glucometer 235 115 Random Glucose Uric Acid Calcium Ferritin Total Bilirubin AST ALT Alkaline Phosphatase LD Total Total Protein Albumin 05/16/19 05/16/19 05/16/19 07:01 07:01 11:21 WBC RBC Hgb Hct MCV MCH MCHC RDW Plt Count MPV Absolute Neuts (auto) Neutrophils % Neutrophils % (Manual) Band Neutrophils % Lymphocytes % Lymphocytes % (Manual) Monocytes % Monocytes % (Manual) Eosinophils % Eosinophils % (Manual) Basophils % Basophils % (Manual) Myelocytes % (Man) Promyelocytes % (Man) Blast Cells % (Manual) Nucleated RBC % Metamyelocytes Hypochromia Platelet Estimate Polychromasia Poikilocytosis Anisocytosis Microcytosis Macrocytosis Ovalocytes Acanthocytes (Spur) Sodium 143 Potassium 4.4 Chloride 110 H Carbon Dioxide 25 Anion Gap 8 BUN 29.8 H Creatinine 1.1 Est GFR (CKD-EPI)AfAm 55.30 Est GFR (CKD-EPI)NonAf 47.71 POC Glucometer 136 Random Glucose 108 H Uric Acid 6.1 Calcium 8.5 Ferritin 821.5 H Total Bilirubin 0.6 AST 30 ALT 68 H Alkaline Phosphatase 36 L LD Total 321 H Total Protein 5.5 L Albumin 3.0 L 05/16/19 16:26 WBC RBC Hgb Hct MCV MCH MCHC RDW Plt Count MPV Absolute Neuts (auto) Neutrophils % Neutrophils % (Manual) Band Neutrophils % Lymphocytes % Lymphocytes % (Manual) Monocytes % Monocytes % (Manual) Eosinophils % Eosinophils % (Manual) Basophils % Basophils % (Manual) Myelocytes % (Man) Promyelocytes % (Man) Blast Cells % (Manual) Nucleated RBC % Metamyelocytes Hypochromia Platelet Estimate Polychromasia Poikilocytosis Anisocytosis Microcytosis Macrocytosis Ovalocytes Acanthocytes (Spur) Sodium Potassium Chloride Carbon Dioxide Anion Gap BUN Creatinine Est GFR (CKD-EPI)AfAm Est GFR (CKD-EPI)NonAf POC Glucometer 306 Random Glucose Uric Acid Calcium Ferritin Total Bilirubin AST ALT Alkaline Phosphatase LD Total Total Protein Albumin Active Medications Generic Name Dose Route Start Last Admin Trade Name Freq PRN Reason Stop Dose Admin Folic Acid 1 mg 05/11/19 10:00 05/16/19 09:54 Folic Acid - PO 1 mg DAILY GERRI Administration Insulin Aspart 1 vial 05/10/19 07:00 05/16/19 17:08 Novolog Vial Sliding Scale - SQ 8 unit ACHS GERRI Administration Protocol Losartan Potassium 100 mg 05/14/19 14:45 05/16/19 09:54 Cozaar - PO 100 mg DAILY GERRI Administration Metoprolol Succinate 50 mg 05/14/19 14:45 05/16/19 09:54 Toprol Xl - PO 50 mg DAILY GERRI Administration Pantoprazole Sodium 40 mg 05/14/19 10:30 05/16/19 09:54 Protonix - PO 40 mg DAILY GERRI Administration Prednisone 60 mg 05/14/19 10:00 05/16/19 09:54 Deltasone - PO 60 mg DAILY GERRI Administration ASSESSMENT/PLAN: 78 y/o F, pmh of breast ca s/p [id number], nikkie+ Autoimmune hemolytic anemia presents to the ED c/o fevers, weakness, headaches and 3 days of abdominal pain likely 2/2 to anemia #Autoimmune hemolytic Anemia - nikkie test, type and screen, r/o PNG, MDS, cold agglutinins, cryoglobulins, hep serologies, flow, fish, cytogenetics pending - as per heme, pt will be placed on rituximab or prednisone depending on cold/ warm agglutinin positivity. - Hb 9 and Hct 27 stable, LDH 358->321 downtrending, ferritin-821 - Please observe closely for CHF F/U BNP and clinical course add lasix PO if develops pulmonary congestion #Abdominal pain r/o colon ca Tylenol IV - AST/ALT 43, 71. - no colonoscopy at this time - protonix 40mg po for stress ulcer ppx while on steroids. #DM BGM Insulin sliding scale #DVT ppx: SCDs Dispo: Waiting for heme labs before d/c. Visit type - Emergency Visit Emergency Visit: Yes ED Registration Date: 05/10/19 Care time: The patient presented to the Emergency Department on the above date and was hospitalized for further evaluation of their emergent condition. - New Patient This patient is new to me today: No - Critical Care Critical Care patient: No - Discharge Referral Referred to [facility] Med P.C.: No ATTENDING PHYSICIAN STATEMENT I saw and evaluated the patient. I reviewed the resident's note and discussed the case with the resident. I agree with the resident's findings and plan as documented. SUBJECTIVE: OBJECTIVE: ASSESSMENT AND PLAN: <Irena Merritt - Last Filed: 05/16/19 18:21> Physical Exam: SUBJECTIVE: Patient seen and examined OBJECTIVE: Vital Signs Period Temp Pulse Resp BP Sys/Hale Pulse Ox Last 24 Hr 97.4 F-98.4 F 62-64 20-20 143-175/69-85 98-98 GENERAL: The patient is awake, alert, and fully oriented, in no acute distress. HEAD: Normal with no signs of trauma. EYES: PERRL, extraocular movements intact, sclera anicteric, conjunctiva clear. No ptosis. ENT: Ears normal, nares patent, oropharynx clear without exudates, moist mucous membranes. NECK: Trachea midline, full range of motion, supple. LUNGS: Breath sounds equal, clear to auscultation bilaterally, no wheezes, no crackles, no accessory muscle use. HEART: Regular rate and rhythm, S1, S2 without murmur, rub or gallop. ABDOMEN: Soft, nontender, nondistended, normoactive bowel sounds, no guarding, no rebound, no hepatosplenomegaly, no masses. EXTREMITIES: 2+ pulses, warm, well-perfused, no edema. NEUROLOGICAL: Cranial nerves II through XII grossly intact. Normal speech, gait not observed. PSYCH: Normal mood, normal affect. SKIN: Warm, dry, normal turgor, no rashes or lesions noted Laboratory Results - last 24 hr 05/15/19 05/16/19 05/16/19 21:22 06:06 07:01 WBC 10.6 H RBC 2.58 L Hgb 9.0 L Hct 27.0 L MCV 104.5 H MCH 35.0 H MCHC 33.5 RDW 17.4 H Plt Count 318 MPV 8.5 Absolute Neuts (auto) 6.5 Neutrophils % 61.2 Neutrophils % (Manual) 59.6 Band Neutrophils % 1.0 Lymphocytes % 28.6 Lymphocytes % (Manual) 26.3 D Monocytes % 9.2 Monocytes % (Manual) 10 Eosinophils % 0.3 Eosinophils % (Manual) 1.0 D Basophils % 0.7 D Basophils % (Manual) 0.0 Myelocytes % (Man) 0 Promyelocytes % (Man) 0 Blast Cells % (Manual) 0 Nucleated RBC % 0 Metamyelocytes 1 D Hypochromia 0 Platelet Estimate Normal Polychromasia 1+ Poikilocytosis 2+ Anisocytosis 1+ Microcytosis 0 Macrocytosis 1+ Ovalocytes 1+ Acanthocytes (Spur) 1+ Sodium Potassium Chloride Carbon Dioxide Anion Gap BUN Creatinine Est GFR (CKD-EPI)AfAm Est GFR (CKD-EPI)NonAf POC Glucometer 235 115 Random Glucose Uric Acid Calcium Ferritin Total Bilirubin AST ALT Alkaline Phosphatase LD Total Total Protein Albumin 05/16/19 05/16/19 05/16/19 07:01 07:01 11:21 WBC RBC Hgb Hct MCV MCH MCHC RDW Plt Count MPV Absolute Neuts (auto) Neutrophils % Neutrophils % (Manual) Band Neutrophils % Lymphocytes % Lymphocytes % (Manual) Monocytes % Monocytes % (Manual) Eosinophils % Eosinophils % (Manual) Basophils % Basophils % (Manual) Myelocytes % (Man) Promyelocytes % (Man) Blast Cells % (Manual) Nucleated RBC % Metamyelocytes Hypochromia Platelet Estimate Polychromasia Poikilocytosis Anisocytosis Microcytosis Macrocytosis Ovalocytes Acanthocytes (Spur) Sodium 143 Potassium 4.4 Chloride 110 H Carbon Dioxide 25 Anion Gap 8 BUN 29.8 H Creatinine 1.1 Est GFR (CKD-EPI)AfAm 55.30 Est GFR (CKD-EPI)NonAf 47.71 POC Glucometer 136 Random Glucose 108 H Uric Acid 6.1 Calcium 8.5 Ferritin 821.5 H Total Bilirubin 0.6 AST 30 ALT 68 H Alkaline Phosphatase 36 L LD Total 321 H Total Protein 5.5 L Albumin 3.0 L 05/16/19 16:26 WBC RBC Hgb Hct MCV MCH MCHC RDW Plt Count MPV Absolute Neuts (auto) Neutrophils % Neutrophils % (Manual) Band Neutrophils % Lymphocytes % Lymphocytes % (Manual) Monocytes % Monocytes % (Manual) Eosinophils % Eosinophils % (Manual) Basophils % Basophils % (Manual) Myelocytes % (Man) Promyelocytes % (Man) Blast Cells % (Manual) Nucleated RBC % Metamyelocytes Hypochromia Platelet Estimate Polychromasia Poikilocytosis Anisocytosis Microcytosis Macrocytosis Ovalocytes Acanthocytes (Spur) Sodium Potassium Chloride Carbon Dioxide Anion Gap BUN Creatinine Est GFR (CKD-EPI)AfAm Est GFR (CKD-EPI)NonAf POC Glucometer 306 Random Glucose Uric Acid Calcium Ferritin Total Bilirubin AST ALT Alkaline Phosphatase LD Total Total Protein Albumin Active Medications Generic Name Dose Route Start Last Admin Trade Name Freq PRN Reason Stop Dose Admin Folic Acid 1 mg 05/11/19 10:00 05/16/19 09:54 Folic Acid - PO 1 mg DAILY GERRI Administration Insulin Aspart 1 vial 05/10/19 07:00 05/16/19 17:08 Novolog Vial Sliding Scale - SQ 8 unit ACHS GERRI Administration Protocol Losartan Potassium 100 mg 05/14/19 14:45 05/16/19 09:54 Cozaar - PO 100 mg DAILY GERRI Administration Metoprolol Succinate 50 mg 05/14/19 14:45 05/16/19 09:54 Toprol Xl - PO 50 mg DAILY GERRI Administration Pantoprazole Sodium 40 mg 05/14/19 10:30 05/16/19 09:54 Protonix - PO 40 mg DAILY GERRI Administration Prednisone 60 mg 05/14/19 10:00 05/16/19 09:54 Deltasone - PO 60 mg DAILY GERRI Administration ASSESSMENT/PLAN: ATTENDING PHYSICIAN STATEMENT I saw and evaluated the patient. I reviewed the resident's note and discussed the case with the resident. I agree with the resident's findings and plan as documented. SUBJECTIVE: OBJECTIVE: ASSESSMENT AND PLAN:
[2019-05-16 19:11] LABS: HEP B CORE AB, TOT Negative (Negative)
--- NOTE | 2019-05-16 19:30 | PN ---
Teaching Attending Note Name of Resident: Dannie Miranda ATTENDING PHYSICIAN STATEMENT I saw and evaluated the patient. I reviewed the resident's note and discussed the case with the resident. I agree with the resident's findings and plan as documented. SUBJECTIVE: Patient is feeling better with no acute distress. OBJECTIVE: Vital Signs Temperature 98.4 F 05/16/19 15:32 Pulse Rate 62 05/16/19 15:32 Respiratory Rate 20 05/16/19 09:00 Blood Pressure 143/69 05/16/19 15:32 O2 Sat by Pulse Oximetry (%) 98 05/16/19 09:00 GENERAL: The patient is awake, alert, and fully oriented, in no acute distress. HEAD: Normal with no signs of trauma. EYES: PERRL, extraocular movements intact, sclera anicteric, conjunctiva clear. ENT: Ears normal, oropharynx clear without exudates, moist mucous membranes. NECK: Trachea midline, full range of motion, supple. LUNGS: Breath sounds equal, clear to auscultation bilaterally, no wheezes, no crackles, no accessory muscle use. HEART: Regular rate and rhythm, S1, S2 without murmur, rub or gallop. ABDOMEN: Soft, NT, ND, normoactive bowel sounds, no guarding, no rebound, no hepatosplenomegaly, no masses. EXTREMITIES: 2+ pulses, warm, well-perfused, no edema. NEUROLOGICAL: Cranial nerves II through XII grossly intact. Normal speech, gait not observed. PSYCH: Normal mood, normal affect. SKIN: Warm, dry, normal turgor, no rashes or lesions noted CBCD WBC 10.6 K/mm3 (4.0-10.0) H 05/16/19 07:01 RBC 2.58 M/mm3 (3.60-5.2) L 05/16/19 07:01 Hgb 9.0 GM/dL (10.7-15.3) L 05/16/19 07:01 Hct 27.0 % (32.4-45.2) L 05/16/19 07:01 MCV 104.5 fl (80-96) H 05/16/19 07:01 MCHC 33.5 g/dl (32.0-36.0) 05/16/19 07:01 RDW 17.4 % (11.6-15.6) H 05/16/19 07:01 Plt Count 318 K/MM3 (134-434) 05/16/19 07:01 MPV 8.5 fl (7.5-11.1) 05/16/19 07:01 CMP Sodium 143 mmol/L (136-145) 05/16/19 07:01 Potassium 4.4 mmol/L (3.5-5.1) 05/16/19 07:01 Chloride 110 mmol/L (98-107) H 05/16/19 07:01 Carbon Dioxide 25 mmol/L (21-32) 05/16/19 07:01 Anion Gap 8 MMOL/L (8-16) 05/16/19 07:01 BUN 29.8 mg/dL (7-18) H 05/16/19 07:01 Creatinine 1.1 mg/dL (0.55-1.3) 05/16/19 07:01 Random Glucose 108 mg/dL (74-106) H 05/16/19 07:01 Calcium 8.5 mg/dL (8.5-10.1) 05/16/19 07:01 Total Bilirubin 0.6 mg/dL (0.2-1) 05/16/19 07:01 AST 30 U/L (15-37) 05/16/19 07:01 ALT 68 U/L (13-61) H 05/16/19 07:01 Alkaline Phosphatase 36 U/L (45-117) L 05/16/19 07:01 Total Protein 5.5 g/dl (6.4-8.2) L 05/16/19 07:01 Albumin 3.0 g/dl (3.4-5.0) L 05/16/19 07:01 Current Medications Generic Name Dose Route Start Last Admin Trade Name Freq PRN Reason Stop Dose Admin Folic Acid 1 mg 05/11/19 10:00 05/16/19 09:54 Folic Acid - PO 1 mg DAILY GERRI Administration Insulin Aspart 1 vial 05/10/19 07:00 05/16/19 17:08 Novolog Vial Sliding Scale - SQ 8 unit ACHS GERRI Administration Protocol Losartan Potassium 100 mg 05/14/19 14:45 05/16/19 09:54 Cozaar - PO 100 mg DAILY GERRI Administration Metoprolol Succinate 50 mg 05/14/19 14:45 05/16/19 09:54 Toprol Xl - PO 50 mg DAILY GERRI Administration Pantoprazole Sodium 40 mg 05/14/19 10:30 05/16/19 09:54 Protonix - PO 40 mg DAILY GERRI Administration Prednisone 60 mg 05/14/19 10:00 05/16/19 09:54 Deltasone - PO 60 mg DAILY GERRI Administration Home Medications Medication Instructions Recorded Exemestane [Aromasin -] 25 mg PO DAILY 01/05/19 Metformin HCl [Glucophage] 500 mg PO BID 02/18/19 Furosemide 40 mg PO DAILY 02/19/19 Amlodipine Besylate 5 mg PO DAILY #30 tablet 02/23/19 Docusate Sodium [Colace -] 100 mg PO TID capsule 02/23/19 Folic Acid - 1 mg PO DAILY #30 tablet 02/23/19 Losartan Potassium [Cozaar -] 100 mg PO DAILY tablet 02/23/19 Metoprolol Succinate [Toprol XL -] 50 mg PO DAILY tab.sr.24h 02/23/19 Pantoprazole Sodium [Protonix -] 40 mg PO DAILY #30 tablet.ec 02/23/19 predniSONE [Deltasone -] 60 mg PO DAILY #42 tablet 02/23/19 Ranitidine HCl 150 mg PO DAILY 05/10/19 ASSESSMENT AND PLAN: Patient is a 78yo female with PMHx of chronic systolic and diastolic heart failure, pericardial effusion, severe MR, L breast cancer, s/p chemo and radiation , HTn, anemia, external hemorrhoids , and a recent hospitalization for CHF . presented with hemolytic anemia. # Acute asymptomatic hemolytic anemia; autoimmune in nature with macrocytosis: on Prednisone po 60mg daily as per hematology TO CONTINUE. # CT a/p non contrast--renal scarring, thickening of duodenum, mesenteric staranding, nonspecific paraaortic adenopathy follow up as an outpatient. #Autoimmune hemolytic anemia--s/p 1 unit PRBCs, 02/17--+ nikkie, 05/10/19--nikkie negative/ + cold auto antibody # HTN controlled will continue to monitor ; on Losartan and BB continue to monitor . #Osteoarthritis of knees. on po tylenol and getting steroid which is helping her knee pain. # Macrocytic anemia : on folate acid , Hapto and LDH elevated trending down # H/o chronic systolic and diastolic heart failure: euvolemic ,cont home lasix , losartan, cont Bb ( increased due to elevated HTN) # H/o Mod pericarial effusion : last admission , repeat Echo. no signs of tamponade clinically # Hx of diabetes on metformin at home, will order BGMs ac with ss coverage #Positive QTF gold last admission, no resp sx. no fever or chills. chest CT last admisison with scarring in FABIENNE and L base possible atelectasis. # Elevated Bili: chronic ,indirect. mild hepatomegaly on US form last admission. GI input appreciated DVT Px: SCds only GI Px: Protonix
[2019-05-16 20:56] VITALS: PULSE 61
[2019-05-16] MEDS ORDERED: INSULIN (NOVOLOG) ASPART 100 UNITS/ML 10ML VIAL ONE (21:00)
--- NOTE | 2019-05-16 21:30 | PN ---
Progress Note (short form) - Note Progress Note: Patient seen and examined Denies any specific complaints Last Vital Signs Temp Pulse Resp BP Pulse Ox 98.9 F 61 18 147/69 100 05/16/19 20:55 05/16/19 20:55 05/16/19 20:56 05/16/19 20:55 05/16/19 20:56 Cor: RSR, No murmurs, No gallops Lungs: Clear to P&A Abd: Soft, Normal bowel sounds, No organomegaly Ext:No significant edema Abnormal Lab Results 05/14/19 05/16/19 05/16/19 12:34 07:01 07:01 WBC 10.6 H RBC 2.58 L Hgb 9.0 L Hct 27.0 L MCV 104.5 H MCH 35.0 H RDW 17.4 H Chloride 110 H BUN 29.8 H Random Glucose 108 H Ferritin ALT 68 H Alkaline Phosphatase 36 L LD Total 321 H Total Protein 5.5 L Albumin 3.0 L Hepatitis A Ab Total Positive H 05/16/19 07:01 WBC RBC Hgb Hct MCV MCH RDW Chloride BUN Random Glucose Ferritin 821.5 H ALT Alkaline Phosphatase LD Total Total Protein Albumin Hepatitis A Ab Total Home Medication List Medication Instructions Recorded Confirmed Type Exemestane [Aromasin -] 25 mg PO DAILY 01/05/19 05/10/19 History Metformin HCl [Glucophage] 500 mg PO BID 02/18/19 05/10/19 History Furosemide 40 mg PO DAILY 02/19/19 05/10/19 History Ranitidine HCl 150 mg PO DAILY 05/10/19 05/10/19 History Active Medications Generic Name Dose Route Start Last Admin Trade Name Nolvia PRN Reason Stop Dose Admin Folic Acid 1 mg 05/11/19 10:00 05/16/19 09:54 Folic Acid - PO 1 mg DAILY GERRI Administration Insulin Aspart 1 vial 05/10/19 07:00 05/16/19 21:07 Novolog Vial Sliding Scale - SQ 4 unit ACHS GERRI Administration Protocol Losartan Potassium 100 mg 05/14/19 14:45 05/16/19 09:54 Cozaar - PO 100 mg DAILY GERRI Administration Metoprolol Succinate 50 mg 05/14/19 14:45 05/16/19 09:54 Toprol Xl - PO 50 mg DAILY GERRI Administration Pantoprazole Sodium 40 mg 05/14/19 10:30 05/16/19 09:54 Protonix - PO 40 mg DAILY GERRI Administration Prednisone 60 mg 05/14/19 10:00 05/16/19 09:54 Deltasone - PO 60 mg DAILY GERRI Administration A/P 78 y/o patient with Nikkie+ autoimmunehemolytic anemia, obesity, wheel chair bound, DM, HTN, h/o breast cancer h/o breast cancer --8yrs. ago s/p MRM/chemotx/RT. HAs been on aromasin for 8 yrs.Treated by Johny Gale at [facility] Autoimmune hemolytic anemia--s/p 1 unit PRBCs 02/17--+ nikkie 05/10/19--nikkie negative/ + cold auto antibody Ab testing from [facility] shows -- Autoanti E, autoanti-I and warmautoaby LDH/hapto s/o hemolysis Continue 60 mg daily prednisone/ protonix/folic acid add mepron Based on response to steroids may need to consider rituxan CT a/p non contrast--renal scarring, thickening of duodenum, mesenteric staranding, nonspecific paraaortic adenopathy CT chest --left apical pleural scarring SIFE/UIFE --negative. TSH/B12/folate--normal NAIMA negative IRon studies s/o overload cold agglutinins pending Flow preliminarily suggestive of left shift of neutrophils. no atypical findins. Negative for PNH PAtient will need to follow up closely with Johny Michael on discharge at [facility]. Will need to coordinate care with Dr. Aguila discussed with primary team
[2019-05-17] MEDS: INSULIN SLIDING SCALE (NOVOLOG) 1 VIAL SQ SCH ×2 (06:05→11:45)
[2019-05-17] MEDS ORDERED: ATOVAQUONE 750 MG/5 ML (UNIT-DOSE PACKAGING) PO SCH (08:00)
[2019-05-17] MEDS ORDERED: PT OWN MED DRAWER 7, Y5N ONE ×3 (08:25→10:26)
[2019-05-17 08:53] LABS: BASO % 0.1 % (0-2.0); EOS % 0.5 % (0-4.5); HEMATOCRIT 27.3 % (32.4-45.2); HEMOGLOBIN 9.3 GM/dL (10.7-15.3); LYMPH % 29.9 % (8-40); MCH 35.4 pg (25.7-33.7); MCHC 34.1 g/dl (32.0-36.0); MEAN CELL VOLUME 103.9 fl (80-96); MONO % 10.2 % (3.8-10.2); NEUT % 59.3 % (42.8-82.8); PLATELET COUNT 282 K/MM3 (134-434); RBC 2.62 M/mm3 (3.60-5.2); RDW 17.6 % (11.6-15.6); WHITE BLOOD COUNT 9.8 K/mm3 (4.0-10.0)
[2019-05-17 09:14] LABS: BILIRUBIN,TOTAL 0.7 mg/dL (0.2-1); BLOOD UREA NITROGEN 28.6 mg/dL (7-18); CALCIUM 8.4 mg/dL (8.5-10.1); CREATININE 0.9 mg/dL (0.55-1.3); POTASSIUM 4.3 mmol/L (3.5-5.1); TOT PROT 5.6 g/dl (6.4-8.2)
--- NOTE | 2019-05-17 09:29 | PATH ---
Surgical Pathology Report Patient Name: CHIDI SPENCER [facility]. Rec. #: [id number] /Age/Gender: 1940 (Age: 78) / F Account: [id number] Location: [address] [place] [address] Taken: 05/14/2019 Received: 05/15/2019 Reported: 05/17/2019 Physicians: Irena Merritt M.D. Specimen(s) Received PERIPHERAL BLOOD Clinical History r/o Autoimmune hemolytic anemia Final Diagnosis COMPREHENSIVE FLOW PANEL performed and interpreted at [place], [place] ([id number]) shows the following: INTERPRETATION: Slightly left-shifted granulocytes. There is no evidence of B or T-cell proliferative disorders or increased blasts. PAROXYSMAL NOCTURNAL HEMOGLOBINURIA ASSAY by Flow performed and reported by [facility] [place], [place] ([id number]) shows the following: INTERPRETATION: No phenotypic evidence of Paroxysmal Nocturnal Hemoglobulinuria (PNH) See [facility] report ([id number] and [id number]) for additional details. Electronically Signed Jada Menendez M.D. Addendum Reported: 05/20/2019 Addendum Diagnosis MYELODYSPLASIA FISH PANEL performed and interpreted at [facility] [place], [place] ([id number]) shows the following: INTERPRETATION: No evidence of deletion 5q or monosomy 5 is present. No evidence of deletion 7q or monosomy 7 is present. No evidence of trisomy 8 (+8) is present. No evidence of deletion 13q14 is present. No evidence of rearrangement of 11q23. No evidence of a deletion of the p53 (17p13) locus. No evidence of deletion 20q12 is present See [facility] report ([id number]) for additional details. Jada Menendez M.D. Addendum Reported: 05/22/2019 Addendum Diagnosis CYTOGENETIC KARYOTYPE ANALYSIS performed and interpreted at [facility] [place] ([id number]) shows the following: RESULTS: 45,X,-X[3]/46,XX[17] INTERPRETATION: Normal Female Karyotype Analysis was performed on cells from an unstimulated culture and a culture that was stimulated with lymphoid mitogens. 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 Although loss of an X chromosome has been reported in association with lymphoid disorders, this is most likely age-related and of no clinical significance. No other consistent numerical or structural chromosome abnormalities were observed and the remaining seventeen cells appear to be chromosomally normal. Subtle rearrangements or the presence of an aberrant clone in a low proportion of cells cannot be ruled out. Correlation with another clinical hematologic data is suggested. See [facility] report for additional details. Jada Menendez M.D. Gross Description Received are 2 green top tubes of blood which are sent to [facility]. 05/15/2019 saudi05/15/2019
[2019-05-17] MEDS: PANTOPRAZOLE 40 MG TABLET (FP) PO SCH (10:07)
[2019-05-17] MEDS: predniSONE 20 MG TABLET (UD) PO SCH (10:07)
[2019-05-17] MEDS: FOLIC ACID 1 MG TABLET (FP) PO SCH (10:07)
[2019-05-17] MEDS: LOSARTAN POTASSIUM 50 MG TABLET (FP) PO SCH (10:07)
[2019-05-17] MEDS ORDERED: PANTOPRAZOLE 40 MG TABLET (FP) PO SCH (10:45)
--- NOTE | 2019-05-17 12:04 | PN ---
Teaching Attending Note Name of Resident: Dannie Miranda ATTENDING PHYSICIAN STATEMENT I saw and evaluated the patient. I reviewed the resident's note and discussed the case with the resident. I agree with the resident's findings and plan as documented. SUBJECTIVE: Patient is comfortable with no acute distress. wants to go home OBJECTIVE: Vital Signs Temperature 97.6 F 05/17/19 05:00 Pulse Rate 61 05/17/19 05:00 Respiratory Rate 18 05/16/19 20:56 Blood Pressure 157/74 05/17/19 05:00 O2 Sat by Pulse Oximetry (%) 100 05/16/19 20:56 GENERAL: The patient is awake, alert, and fully oriented, in no acute distress. HEAD: Normal with no signs of trauma. EYES: PERRL, extraocular movements intact, sclera anicteric, conjunctiva clear. ENT: Ears normal, oropharynx clear without exudates, moist mucous membranes. NECK: Trachea midline, full range of motion, supple. LUNGS: Breath sounds equal, clear to auscultation bilaterally, no wheezes, no crackles, no accessory muscle use. HEART: Regular rate and rhythm, S1, S2 without murmur, rub or gallop. ABDOMEN: Soft, NT, ND, normoactive bowel sounds, no guarding, no rebound, no hepatosplenomegaly, no masses. EXTREMITIES: 2+ pulses, warm, well-perfused, no edema. NEUROLOGICAL: Cranial nerves II through XII grossly intact. Normal speech, gait not observed. PSYCH: Normal mood, normal affect. SKIN: Warm, dry, normal turgor, no rashes or lesions noted CBCD WBC 9.8 K/mm3 (4.0-10.0) 05/17/19 08:00 RBC 2.62 M/mm3 (3.60-5.2) L 05/17/19 08:00 Hgb 9.3 GM/dL (10.7-15.3) L 05/17/19 08:00 Hct 27.3 % (32.4-45.2) L 05/17/19 08:00 MCV 103.9 fl (80-96) H 05/17/19 08:00 MCHC 34.1 g/dl (32.0-36.0) 05/17/19 08:00 RDW 17.6 % (11.6-15.6) H 05/17/19 08:00 Plt Count 282 K/MM3 (134-434) 05/17/19 08:00 MPV 8.0 fl (7.5-11.1) 05/17/19 08:00 CMP Sodium 142 mmol/L (136-145) 05/17/19 08:00 Potassium 4.3 mmol/L (3.5-5.1) 05/17/19 08:00 Chloride 110 mmol/L (98-107) H 05/17/19 08:00 Carbon Dioxide 25 mmol/L (21-32) 05/17/19 08:00 Anion Gap 7 MMOL/L (8-16) L 05/17/19 08:00 BUN 28.6 mg/dL (7-18) H 05/17/19 08:00 Creatinine 0.9 mg/dL (0.55-1.3) 05/17/19 08:00 Random Glucose 100 mg/dL (74-106) 05/17/19 08:00 Calcium 8.4 mg/dL (8.5-10.1) L 05/17/19 08:00 Total Bilirubin 0.7 mg/dL (0.2-1) 05/17/19 08:00 AST 27 U/L (15-37) 05/17/19 08:00 ALT 61 U/L (13-61) 05/17/19 08:00 Alkaline Phosphatase 37 U/L (45-117) L 05/17/19 08:00 Total Protein 5.6 g/dl (6.4-8.2) L 05/17/19 08:00 Albumin 3.0 g/dl (3.4-5.0) L 05/17/19 08:00 Current Medications Generic Name Dose Route Start Last Admin Trade Name Freq PRN Reason Stop Dose Admin Atovaquone 1,500 mg 05/17/19 08:00 05/17/19 09:27 Mepron - PO 1,500 mg DAILY@0800 [facility] Administration Folic Acid 1 mg 05/11/19 10:00 05/17/19 10:07 Folic Acid - PO 1 mg DAILY GERRI Administration Insulin Aspart 1 vial 05/10/19 07:00 05/17/19 06:05 Novolog Vial Sliding Scale - SQ Not Given ACHS [facility] Protocol Losartan Potassium 100 mg 05/14/19 14:45 05/17/19 10:07 Cozaar - PO 100 mg DAILY GERRI Administration Metoprolol Succinate 50 mg 05/14/19 14:45 05/17/19 10:07 Toprol Xl - PO 50 mg DAILY GERRI Administration Pantoprazole Sodium 40 mg 05/17/19 10:45 Protonix - PO DAILY GERRI Prednisone 60 mg 05/14/19 10:00 05/17/19 10:07 Deltasone - PO 60 mg DAILY GERRI Administration Home Medications Medication Instructions Recorded Exemestane [Aromasin -] 25 mg PO DAILY 01/05/19 Metformin HCl [Glucophage] 500 mg PO BID 02/18/19 Folic Acid - 1 mg PO DAILY #30 tablet 02/23/19 Losartan Potassium [Cozaar -] 100 mg PO DAILY tablet 02/23/19 Metoprolol Succinate [Toprol XL -] 50 mg PO DAILY tab.sr.24h 02/23/19 Pantoprazole Sodium [Protonix -] 40 mg PO DAILY #30 tablet.ec 05/17/19 Prednisone [Prednisone 50 MG 50 mg PO DAILY #8 tablet 05/17/19 TABLETS] ASSESSMENT AND PLAN: Patient is a 78yo female with PMHx of chronic systolic and diastolic heart failure, pericardial effusion, severe MR, L breast cancer, s/p chemo and radiation , HTn, anemia, external hemorrhoids , and a recent hospitalization for CHF . presented with hemolytic anemia. # Acute asymptomatic hemolytic anemia; autoimmune in nature with macrocytosis: on Prednisone po 60mg daily as per hematology we can taper it off on a weekly basis, will start 50mg x 5 days then 4mg x 5days -->40mg x 5days--->30mg x 5 days , follow with territory service representative closely at [facility]; Johny Michael who is her hem/onc , patient has an appointment on 05/24/2019 at [facility] with dr. Mingo chaney. Case discussed with dR. Mingo Chaney (HEM/ONC OF THE PATIENT ) AGREES to send the patient on prednisone 50mg x [address] Aguila is aware and will continue the taper in his office and as per no indication at this time to give the patient Mepron, discussed with as well. added protonix/folic acid; as per (hem/onc) ; Ab testing from [facility] shows -- Autoanti E, autoanti-I and warmautoaby, LDH/hapto suggestive of possible hemolysis, NAIMA negative, NAIMA negative, IRon studies suggestive of overload, SIFE/UIFE --negative. TSH/B12/folate--normal. # CT a/p non contrast--renal scarring, thickening of duodenum, mesenteric stranding, nonspecific paraaortic adenopathy #Autoimmune hemolytic anemia--s/p 1 unit PRBCs, 02/17--+ nikkie, 05/10/19--nikkie negative/ + cold auto antibody # HTN controlled will continue to monitor ; on Losartan and BB continue to monitor . #Osteoarthritis of knees. on po tylenol and getting steroid which is helping her knee pain. # Macrocytic anemia : on folate acid , Hapto and LDH elevated trending down # H/o chronic systolic and diastolic heart failure: euvolemic ,cont home lasix , losartan, cont Bb ( increased due to elevated HTN) # H/o Mod pericarial effusion : last admission , repeat Echo. no signs of tamponade clinically # Hx of diabetes on metformin at home, will order BGMs ac with ss coverage #Positive QTF gold last admission, no resp sx. no fever or chills. chest CT last admisison with scarring in FABIENNE and L base possible atelectasis. # Elevated Bili: chronic ,indirect. mild hepatomegaly on US form last admission. GI input appreciated DVT Px: SCds only GI Px: Protonix
[2019-05-17 12:22] VITALS: BP 146/72; TEMP 98.5
[2019-05-17 13:33] VITALS: BMI 35.2
--- NOTE | 2019-05-17 14:02 | DS ---
Physical Exam: SUBJECTIVE: Patient seen and examined at the bedside this AM. No acute events. OBJECTIVE: Vital Signs Period Temp Pulse Resp BP Sys/Hale Pulse Ox Last 24 Hr 97.6 F-98.9 F 61-64 18-20 143-157/69-74 100-100 PHYSICAL EXAM GENERAL: The patient is awake, alert, and fully oriented, in no acute distress. NECK: supple. LUNGS: Breath sounds equal, clear to auscultation bilaterally, no wheezes, no crackles, no accessory muscle use. HEART: Regular rate and rhythm, S1, S2 without murmur, rub or gallop. ABDOMEN: Soft, nontender, nondistended, no guarding, no rebound. EXTREMITIES: warm, well-perfused, no edema. NEUROLOGICAL: Cranial nerves II through XII grossly intact. Normal speech, gait not observed. PSYCH: Normal mood, normal affect. SKIN: Warm, dry, no rashes or lesions noted. LABS Laboratory Results - last 24 hr 05/14/19 05/16/19 05/16/19 12:34 16:26 20:52 WBC RBC Hgb Hct MCV MCH MCHC RDW Plt Count MPV Absolute Neuts (auto) Neutrophils % Lymphocytes % Monocytes % Eosinophils % Basophils % Nucleated RBC % Sodium Potassium Chloride Carbon Dioxide Anion Gap BUN Creatinine Est GFR (CKD-EPI)AfAm Est GFR (CKD-EPI)NonAf POC Glucometer 306 221 Random Glucose Calcium Total Bilirubin AST ALT Alkaline Phosphatase Total Protein Albumin Hep A IgM Ab Confirm Negative Hepatitis A Ab Total Positive H Hep Bs Antigen Negative Hep Bs Antibody Non reactive Hep B Core Total Ab Negative Hep B Core IgM Ab Negative Hepatitis Be Antibody Negative Hepatitis Be Antigen Negative 05/17/19 05/17/19 05/17/19 06:04 08:00 08:00 WBC 9.8 RBC 2.62 L Hgb 9.3 L Hct 27.3 L MCV 103.9 H MCH 35.4 H MCHC 34.1 RDW 17.6 H Plt Count 282 MPV 8.0 Absolute Neuts (auto) 5.8 Neutrophils % 59.3 Lymphocytes % 29.9 Monocytes % 10.2 Eosinophils % 0.5 Basophils % 0.1 Nucleated RBC % 0 Sodium 142 Potassium 4.3 Chloride 110 H Carbon Dioxide 25 Anion Gap 7 L BUN 28.6 H Creatinine 0.9 Est GFR (CKD-EPI)AfAm 70.48 Est GFR (CKD-EPI)NonAf 60.81 POC Glucometer 135 Random Glucose 100 Calcium 8.4 L Total Bilirubin 0.7 AST 27 ALT 61 Alkaline Phosphatase 37 L Total Protein 5.6 L Albumin 3.0 L Hep A IgM Ab Confirm Hepatitis A Ab Total Hep Bs Antigen Hep Bs Antibody Hep B Core Total Ab Hep B Core IgM Ab Hepatitis Be Antibody Hepatitis Be Antigen 05/17/19 11:46 WBC RBC Hgb Hct MCV MCH MCHC RDW Plt Count MPV Absolute Neuts (auto) Neutrophils % Lymphocytes % Monocytes % Eosinophils % Basophils % Nucleated RBC % Sodium Potassium Chloride Carbon Dioxide Anion Gap BUN Creatinine Est GFR (CKD-EPI)AfAm Est GFR (CKD-EPI)NonAf POC Glucometer 122 Random Glucose Calcium Total Bilirubin AST ALT Alkaline Phosphatase Total Protein Albumin Hep A IgM Ab Confirm Hepatitis A Ab Total Hep Bs Antigen Hep Bs Antibody Hep B Core Total Ab Hep B Core IgM Ab Hepatitis Be Antibody Hepatitis Be Antigen HOSPITAL COURSE: Date of Admission:05/10/19 This is a 78 y/o F with a PMH of breast ca s/p mastectomy (radiation/chemo), nikkie+ autoimmune hemolytic anemia, who was admitted for anemia. She received one bag of prbc since being here as well as evaluated by GI for any bleeding, but no signs have been shown at this time. She is to f/u with GI as o/p. She is being worked up for multiple causes of hemolytic anemia and most of her labs are still pending at this time and she is to follow up with her chef broiler or fry as an o/p to see what type of treatment she should be on. She was sent home on prednisone. Date of Discharge: 05/17/19 Minutes to complete discharge: 35 Discharge Summary Reason For Visit: ANEMIA Current Active Problems Anemia (Chronic) Autoimmune hemolytic anemias (Chronic) Diabetes mellitus (Chronic) Symptomatic anemia (Chronic) Condition: Improved - Instructions Diet, Activity, Other Instructions: You were admitted for having low blood levels (autoimmune hemolytic anemia). We had Rice Milling Supervisor (stomach doctor) evaluate you while you were here and you refused colonoscopy but you did not show any signs of bleeding. You were seen by a blood doctor (Dr. Osborn) who checked multiple blood tests on you and would like you to follow up with her in regards to the findings and what treatment you should be on. Medication to continue to taking at home: - Prednisone 50 mg for 8 days (05/18-05/25) - Protonix 40mg by mouth once daily. These are the blood anemia doctors to follow up with: Dr. Whitten/Dr. Osborn-- [phone] Dr. Troy- [phone] Dr. Yuri Romero--[phone] Hematology at [address] [place], [place] [phone] Hematology at [address] [place] [address] -- [phone] YOU HAVE AN APPOINTMENT WITH YOUR OWN DOCTOR DR. TANIA JOHN NEXT MONDAY PLEASE FOLLOW UP WITH HIM FOR FURTHER CARE. Please follow up with your car seat upholsterer, Dr. Berumen within 1 week. Please follow up with your primary care physician, Dr. Mueller, within 1 week. Please follow up with your itinerant teacher assistant, Dr. Bass. You will need a colonoscopy and/or endoscopy as an outpatient. Return to the emergency room if you have any worsening of your current symptoms , or: chest pain, severe headache, dizziness, shortness of breath, or signs of bleeding. En espanol: Fue ingresado por tener niveles sanguneos bajos (anemia hemoltica autoinmune) . Hicimos que un Gastroenterlogo (mdico del estmago) lo evaluara mientras estuvo aqu y rechaz la colonoscopia, dewey no mostr signos de sangrado. Fue visto por un mdico de janine (Dr. Osborn) que shagufta mltiples anlisis de janine en usted y le adryanara que hiciera un seguimiento con avni con respecto a los hallazgos y el tratamiento que debe recibir. Medicamentos para seguir tomando en casa: - Prednisona 50 mg por va oral jacqueline vez al da para 8 hale. - Protonix 40mg por va oral jacqueline vez al da. Estos son los mdicos de anemia sangunea a los que se debe susan seguimiento: Dr. Whitten / Dr. Osborn-- [phone] Dr. Troy- [phone] Dr. Yuri Romero - [phone] Hematologa en [phone] Hematologa en [address] [place] [address] Ross un seguimiento con willson reumatlogo, el Dr. Berumen dentro de 1 semana. Ross un seguimiento con willson mdico de atencin primaria, Dr. Mueller, dentro de 1 semana. Por favor, ross un seguimiento con willson gastroenterlogo, Dr. Bass. Necesitar jacqueline colonoscopia y / o endoscopia mateo paciente ambulatorio. Regrese a la ana laura de emergencias si empeora derek sntomas actuales o: dolor en el pecho, dolor de sabino intenso, mareos, falta de aliento o signos de sangrado. Hayes suerte! Referrals: Kaden Mueller MD [Staff Physician] - 1 Week Desmond Bass DO [Staff Physician] - Joe Romero MD [Staff Physician] - 1 Week Tania John MD [Non Staff, Medical] - 05/24/19 Irena Merritt MD [Staff Physician] - 1 Week Mando Troy MD [Staff Physician] - 1 Week Garth Whitten MD [Staff Physician] - 1 Week Disposition: HOME - Home Medications Comprehensive Discharge Medication List: Ambulatory Orders Exemestane [Aromasin -] 25 mg PO DAILY 01/05/19 Metformin HCl [Glucophage] 500 mg PO BID 02/18/19 Folic Acid - 1 mg PO DAILY #30 tablet 02/23/19 Losartan Potassium [Cozaar -] 100 mg PO DAILY tablet 02/23/19 Metoprolol Succinate [Toprol XL -] 50 mg PO DAILY tab.sr.24h 02/23/19 Pantoprazole Sodium [Protonix -] 40 mg PO DAILY #30 tablet.ec 05/17/19 Prednisone [Prednisone 50 MG TABLETS] 50 mg PO DAILY #8 tablet 05/17/19 This patient is new to me today: No Emergency Visit: Yes ED Registration Date: 05/10/19 Care time: The patient presented to the Emergency Department on the above date and was hospitalized for further evaluation of their emergent condition. Critical Care patient: No - Discharge Referral Referred to [facility] No ATTENDING PHYSICIAN STATEMENT I saw and evaluated the patient. I reviewed the resident's note and discussed the case with the resident. I agree with the resident's findings and plan as documented. SUBJECTIVE: OBJECTIVE: ASSESSMENT AND PLAN:
[2019-05-17 17:11] LABS: COLD AGGLUTININS Negative (Neg <1:32)
== END 2019-05-17 16:00 | disposition home or self-care (01) | DRG 660 ==
LOC: JER 19:51 → JERBED 05-10 03:46 → J6S 05-10 10:02
PROVIDERS: ADMIT Internal Medicine; ATTEND Internal Medicine
PROC: 30233N1 Transfusion of Nonautologous Red Blood Cells into Peripheral Vein, Percutaneous Approach (ICD-10-PCS; principal; 2019-05-10)
DX: D59.1 Other autoimmune hemolytic anemias (principal); E11.9 Type 2 diabetes mellitus without complications; I50.42 Chronic combined systolic (congestive) and diastolic (congestive) heart failure; K57.90 Diverticulosis of intestine, part unspecified, without perforation or abscess without bleeding; K44.9 Diaphragmatic hernia without obstruction or gangrene; N28.1 Cyst of kidney, acquired; N26.1 Atrophy of kidney (terminal); I31.3 Pericardial effusion (noninflammatory); I11.0 Hypertensive heart disease with heart failure; K64.4 Residual hemorrhoidal skin tags; M17.0 Bilateral primary osteoarthritis of knee; I34.0 Nonrheumatic mitral (valve) insufficiency; D64.9 Anemia, unspecified; K62.5 Hemorrhage of anus and rectum; E66.8 Other obesity; J98.11 Atelectasis; R51 Headache; R16.0 Hepatomegaly, not elsewhere classified; H54.50 Low vision, one eye, unspecified eye; Z99.3 Dependence on wheelchair; Z68.35 Body mass index [BMI] 35.0-35.9, adult; Z85.3 Personal history of malignant neoplasm of breast
CPT/HCPCS: 36415; 36430; 36511; 71045-TC-FY; 74177-TC; 80053; 81003; 82248; 82595; 82607; 82728; 82746; 82962; 83010; 83540; 83550; 83615; 84550; 85025; 85027; 85044; 85610; 86157; 86704; 86706; 86707; 86708; 86709; 86850; 86870; 86880; 86900; 86901; 86902; 86922; 87086; 87340; 88300-TC; 93005; 93010; 97116-GP; 97161-GP; 99285-25; J0131; P9038; P9058

== ENCOUNTER → 2019-06-02 | Emergency (ER) | payer OTHER | LOC: JER 19:25 ==

== ENCOUNTER 2019-12-19 15:49 | Inpatient (IN) | payer MEDICARE, OTHER ==
--- NOTE | 2019-12-19 16:34 | PDOC ---
History of Present Illness - General Stated Complaint: FEVER Time Seen by Provider: 12/19/19 15:54 History Source: EMS, Old Records Exam Limitations: Clinical Condition - History of Present Illness Initial Comments: 12/19/19 16:36 79YOF with h/o IDDM, breast CA s/p left mastectomy with chemo and radiation, Arlyn+ hemolytic anemia requiring admission and transfusions, syncope, HTN, HLD, and morbid obesity who was BIBEMS for altered mental status per family and fever, also had a 30 second episode of seizure-like activity per EMS just after exiting the ambulance here on [facility] property. She is drowsy on arrival into the ED and unable to provide any medical history or to converse. Family is not present for additional history, but EMS elaborates that the symptoms began this morning and family was concerned when she was less responsive and interactive than normal. Past History - Past Medical History Allergies/Adverse Reactions: Allergies Allergy/AdvReac Type Severity Reaction Status Date / Time No Known Allergies Allergy Verified 02/18/19 14:41 Home Medications: Ambulatory Orders Exemestane [Aromasin -] 25 mg PO DAILY 01/05/19 Metformin HCl [Glucophage] 500 mg PO BID 02/18/19 Folic Acid - 1 mg PO DAILY #30 tablet 02/23/19 Metoprolol Succinate [Toprol XL -] 50 mg PO DAILY tab.sr.24h 02/23/19 Lancets/Blood Glucose Strips [Fora [id number] Strp-Lnct] 1 each MC DAILY 30 Days combo..pkg 05/17/19 Pantoprazole Sodium [Protonix -] 40 mg PO DAILY #30 tablet.ec 05/17/19 Atovaquone [Mepron Oral Solution -] 1,500 mg PO DAILY@0800 #300 ml 06/15/19 Prednisone 5 mg PO DAILY #80 tab.ds.pk 06/15/19 Amlodipine Besylate [Norvasc -] 5 mg PO DAILY 12/23/19 Chlorthalidone 25 mg PO DAILY 12/23/19 Furosemide [Lasix] 40 mg PO DAILY 12/23/19 Losartan Potassium [Cozaar -] 50 mg PO DAILY 12/23/19 Anemia: Yes Cancer: Yes (BREAST L mastectomy) Cardiac Disorders: Yes COPD: No CHF: Yes Diabetes: Yes GI Disorders: Yes (HEMMOROIDS) HTN: Yes Hypercholesterolemia: Yes - Surgical History Cholecystectomy: Yes (open cholecystectomy) - Psycho Social/Smoking Cessation Hx Smoking History: Never smoked Have you smoked in the past 12 months: No Hx Alcohol Use: No Drug/Substance Use Hx: No Substance Use Type: None Hx Substance Use Treatment: No Review of Systems - Review of Systems Able to Perform ROS?: No (altered mental state) *Physical Exam - Physical Exam 12/23/19 10:11 GENERAL: obtunded, unable to answer questions, decreased response to verbal stimuli, only responsive to sternal rub and pain with moans, obese HEENT: PERRLA, EOMI, moist mucous membranes, atraumatic NECK/BACK: no spinal stepoff or deformity, no hematoma, neck supple CARDIOVASCULAR: rapid regular rhythm, normal S1S2, no MGR, capillary refill <2 seconds, extremities wwp LUNGS/RESPIRATORY: bilateral diffuse crackles and coarse breath sounds without focal area of decreased breath sounds GI/ABDOMEN: symmetric [id number], normoactive BS, soft, no midline pulsatile masses, no organomegaly : normal external appearance, no lesions, no swelling, non-malodorous EXTREMITIES: no muscle atrophy, no acute deformity, significant LUE>RUE edema with 3+ pitting edema to left hand and distal FA SKIN: warm and dry, no pallor, no jaundice, no rash, no bruising, no skin b reakdown, no cuts NEUROLOGICAL: Not alert or oriented, GCS is 7, CN II-XII grossly intact, no obvious facial droop, otherwise patient is unable to participate in exam ED Treatment Course - LABORATORY CBC & Chemistry Diagram: 12/23/19 05:00 12/23/19 05:00 Medical Decision Making - Critical Care Time Total Critical Care Time (minutes): 100 Critical Care Statement: The care of this patient involved high complexity decision making to prevent further life threatening deterioration of the patient's condition and/or to evaluate & treat vital organ system(s) failure or risk of failure. - Medical Decision Making 12/19/19 17:34 79YOF with h/o IDDM, breast CA, HTN, HLD, hemolytic anemia, BIBEMS for AMS, fever, and apparent seizure. Initial Vital Signs Temp Pulse Resp BP Pulse Ox 102.5 F H 127 H 20 137/85 100 12/19/19 15:50 12/19/19 15:50 12/19/19 15:50 12/19/19 15:50 12/19/19 15:50 Likely seizure. Most likely sepsis d/t UTI, PNA, influenza, or other infectious etiology. Possible superimposed CHF exacerbation, possible PE although patient never hypoxic on RA. W/U ORDERED: Sepsis order set, head CT, chest CT wwo contrast, EKG, CXR TX Ordered: Initially ordered D5W, Ceftriaxone, Azithromycin, Keppra. EKG: See HEART Score/ECG Section. CXR: Rotated, atelectasis, suboptimal study but no obvious focal consolidation. Left shoulder dislocation noted, unclear at this time whether acute or chronic as patient does not react to palpation/slight ranging of the LUE. Radial pulses intact and symmetric. Laboratory Tests 12/19/19 12/19/19 12/19/19 15:57 16:00 16:00 WBC RBC Hgb Hct MCV MCH MCHC RDW Plt Count MPV Absolute Neuts (auto) Neutrophils % Neutrophils % (Manual) Band Neutrophils % Lymphocytes % Lymphocytes % (Manual) Monocytes % Monocytes % (Manual) Eosinophils % Eosinophils % (Manual) Basophils % Nucleated RBC % Hypochromia Platelet Estimate Anisocytosis Macrocytosis Rouleaux PT with INR 12.80 INR 1.08 PTT (Actin FS) 23.6 L VBG pH POC VBG pCO2 POC VBG pO2 VBG HCO3 VBG O2 Sat (Mehran) VBG Base Excess Sodium Potassium Chloride Carbon Dioxide Anion Gap BUN Creatinine Est GFR (CKD-EPI)AfAm Est GFR (CKD-EPI)NonAf POC Glucometer 142 Random Glucose Lactic Acid Calcium Magnesium Total Bilirubin AST ALT Alkaline Phosphatase Troponin I 0.09 H Total Protein Albumin Urine Color Urine Appearance Urine pH Ur Specific [place] Urine Protein Urine Glucose (UA) Urine Ketones Urine Blood Urine Nitrite Urine Bilirubin Urine Urobilinogen Ur Leukocyte Esterase Urine WBC (Auto) Urine RBC (Auto) Urine Casts (Auto) U Epithel Cells (Auto) Urine Bacteria (Auto) Influenza A (Rapid) Influenza B (Rapid) 12/19/19 12/19/19 12/19/19 16:00 16:00 16:00 WBC 6.8 RBC 2.32 L Hgb 8.1 L Hct 24.7 L MCV 106.5 H MCH 35.0 H MCHC 32.9 RDW 14.0 D Plt Count 200 MPV 8.6 Absolute Neuts (auto) 4.3 Neutrophils % 63.1 Neutrophils % (Manual) 65.0 Band Neutrophils % 3.0 Lymphocytes % 32.0 D Lymphocytes % (Manual) 25.0 D Monocytes % 3.7 L Monocytes % (Manual) 6 D Eosinophils % 0.3 Eosinophils % (Manual) 1.0 Basophils % 0.9 Nucleated RBC % 0 Hypochromia 2+ Platelet Estimate Adequate Anisocytosis 2+ Macrocytosis 2+ Rouleaux 2+ PT with INR INR PTT (Actin FS) VBG pH POC VBG pCO2 POC VBG pO2 VBG HCO3 VBG O2 Sat (Mehran) VBG Base Excess Sodium Potassium Chloride Carbon Dioxide Anion Gap BUN Creatinine Est GFR (CKD-EPI)AfAm Est GFR (CKD-EPI)NonAf POC Glucometer Random Glucose Lactic Acid Calcium Magnesium Total Bilirubin AST ALT Alkaline Phosphatase Troponin I Total Protein Albumin Urine Color Yellow Urine Appearance Cloudy Urine pH 5.0 D Ur Specific [place] 1.017 Urine Protein 1+ H Urine Glucose (UA) Trace Urine Ketones Negative Urine Blood Negative Urine Nitrite Negative Urine Bilirubin Negative Urine Urobilinogen 1.0 Ur Leukocyte Esterase Negative Urine WBC (Auto) 5 Urine RBC (Auto) 4 Urine Casts (Auto) 1 U Epithel Cells (Auto) 14 Urine Bacteria (Auto) 5320 Influenza A (Rapid) Negative Influenza B (Rapid) Negative 12/19/19 12/19/19 12/19/19 16:00 16:00 16:00 WBC RBC Hgb Hct MCV MCH MCHC RDW Plt Count MPV Absolute Neuts (auto) Neutrophils % Neutrophils % (Manual) Band Neutrophils % Lymphocytes % Lymphocytes % (Manual) Monocytes % Monocytes % (Manual) Eosinophils % Eosinophils % (Manual) Basophils % Nucleated RBC % Hypochromia Platelet Estimate Anisocytosis Macrocytosis Rouleaux PT with INR INR PTT (Actin FS) VBG pH 7.42 H POC VBG pCO2 35.0 L POC VBG pO2 138 H VBG HCO3 22.2 L VBG O2 Sat (Mehran) 99.3 H VBG Base Excess -1.4 Sodium 143 Potassium 2.6 L* Chloride 106 Carbon Dioxide 23 Anion Gap 15 BUN 25.7 H Creatinine 1.5 H Est GFR (CKD-EPI)AfAm 37.74 Est GFR (CKD-EPI)NonAf 32.56 POC Glucometer Random Glucose 135 H Lactic Acid 9.2 H* Calcium 7.9 L Magnesium 1.3 L Total Bilirubin 1.1 H AST 22 ALT 24 Alkaline Phosphatase 45 Troponin I Total Protein 5.2 L Albumin 2.7 L Urine Color Urine Appearance Urine pH Ur Specific [place] Urine Protein Urine Glucose (UA) Urine Ketones Urine Blood Urine Nitrite Urine Bilirubin Urine Urobilinogen Ur Leukocyte Esterase Urine WBC (Auto) Urine RBC (Auto) Urine Casts (Auto) U Epithel Cells (Auto) Urine Bacteria (Auto) Influenza A (Rapid) Influenza B (Rapid) 12/19/19 17:45 Additionally ordered given the hypokalemia are potassium and Mg IVPB. Patient being started on medications and second PIV being started then will go to CT under iso precautions. 12/19/19 18:[address] Michael's discussion with the son, it is learned that the patient's last known well time was noon today when he was speaking with the patient. Son stated that she is normally talking and functional. 12/19/19 18:[address] getting studies, patient remains responsive only to sternal rub/pain, opens eyes spontaneously but does not track or make eye contact, possible slight gaze to the right noted my myself and RN Andra. Discharge - Discharge Information Problems reviewed: Yes Clinical Impression/Diagnosis: Fever, Altered mental status Condition: Guarded - Admission Yes - Follow up/Referral - Patient Discharge Instructions - Post Discharge Activity
[2019-12-19] MEDS ORDERED: ACETAMINOPHEN 1000 MG/100 ML VIAL (NON FORMULARY) IVPB ONE (16:41)
[2019-12-19] MEDS ORDERED: ACETAMINOPHEN INJECTION 100 ML IVPB ONE (16:44)
[2019-12-19] MEDS ORDERED: VANCOMYCIN 1 GRAM (PRE-DOCKED) 1,000 MG/250 ML BAG IVPB ONE ×2 (16:45→21:06)
[2019-12-19 16:52] LABS: BASO % 0.9 % (0-2.0); EOS % 0.3 % (0-4.5); HEMATOCRIT 24.7 % (32.4-45.2); HEMOGLOBIN 8.1 GM/dL (10.7-15.3); MCHC 32.9 g/dl (32.0-36.0); MEAN CELL VOLUME 106.5 fl (80-96); MEAN PLT VOLUME 8.6 fl (7.5-11.1); MONO % 3.7 % (3.8-10.2); NEUT % 63.1 % (42.8-82.8); PLATELET COUNT 200 K/MM3 (134-434); RBC 2.32 M/mm3 (3.60-5.2); WHITE BLOOD COUNT 6.8 K/mm3 (4.0-10.0)
[2019-12-19 16:55] LABS: EPI CELLS 14 /uL (0-25.1); HYALINE CASTS 1 /uL (0-3.1); URINE APPEARANCE CLOUDY; URINE BACTERIA 5320 /uL (0-1359); URINE BILIRUBIN NEGATIVE (NEGATIVE); URINE COLOR YELLOW; URINE GLUCOSE (UA) TRACE (NEGATIVE); URINE KETONE NEGATIVE (NEGATIVE); URINE LEUK ESTERASE NEGATIVE (NEGATIVE); URINE NITRITE NEGATIVE (NEGATIVE); URINE PROTEIN 1+ (NEGATIVE); URINE RBC 4 /uL (0-23.9); URINE WBC 5 /uL (0-25.8)
[2019-12-19] MEDS ORDERED: CEFTRIAXONE 1,000 MG in DEXTROSE 5%-WATER - 50 ML IVPB ONE (17:07)
[2019-12-19] MEDS ORDERED: AZITHROMYCIN IVPB 500 MG in DEXTROSE 5%-WATER - 250 ML IVPB ONE (17:08)
[2019-12-19] MEDS ORDERED: levETIRAcetam 500 MG/5 ML INJECTION VIAL IVPB ONE ×2 (17:15→17:43)
[2019-12-19 17:17] LABS: INR 1.08 (0.83-1.09); PROTHROMBIN TIME (PATIENT) 12.8 SEC (9.7-13.0)
[2019-12-19 17:20] LABS: ACTIVATED PTT 23.6 SECONDS (25.2-36.5)
[2019-12-19 17:23] LABS: ALBUMIN 2.7 g/dl (3.4-5.0); BILIRUBIN,TOTAL 1.1 mg/dL (0.2-1); BLOOD UREA NITROGEN 25.7 mg/dL (7-18); CALCIUM 7.9 mg/dL (8.5-10.1); CREATININE 1.5 mg/dL (0.55-1.3); MAGNESIUM 1.3 mg/dL (1.8-2.4); TOT PROT 5.2 g/dl (6.4-8.2)
[2019-12-19 17:28] LABS: POTASSIUM 2.6 mmol/L (3.5-5.1)
[2019-12-19] MEDS ORDERED: POTASSIUM CHLORIDE 20 MEQ PREMIX IVPB 100 ML IVPB ONE (17:28)
[2019-12-19] MEDS ORDERED: DEXTROSE 5%-WATER 1000 ML INFUS.BAG IV ONE (17:30)
[2019-12-19 17:36] LABS: VENOUS PH 7.42 (7.31-7.41)
[2019-12-19 17:41] LABS: ANISOCYTOSIS 2+; MACROCYTOSIS 2+
[2019-12-19 17:42] LABS: PLATELET ESTIMATE ADEQUATE; ROULEAU 2+
[2019-12-19] MEDS ORDERED: CEFTRIAXONE 2 GM/100 ML BAG IVPB ONE (17:43)
[2019-12-19] MEDS ORDERED: AZITHROMYCIN IVPB 500 MG/250 ML BAG IVPB ONE (17:43)
[2019-12-19] MEDS ORDERED: CEFTRIAXONE 1 GM/50 ML BAG ONE (17:44)
[2019-12-19] MEDS ORDERED: MAGNESIUM SULF 50% (8.12 MEQ/2 ML-1 GM VIAL) IVPB ONE ×2 (17:47→21:00)
[2019-12-19] MEDS ORDERED: VANCOMYCIN 1,000 MG in DEXTROSE 5%-WATER - 250 ML IVPB ONE (19:12)
[2019-12-19] MEDS ORDERED: ACYCLOVIR INJECTION 860 MG in DEXTROSE 5%-WATER - 100 ML IVPB ONE (19:14)
[2019-12-19] MEDS ORDERED: KCL 10 MEQ IVPB 20 MEQ/200 ML INFUS.BAG IVPB ONE (19:33)
[2019-12-19] MEDS ORDERED: MAGNESIUM 1GM/D5W - 1 GM/100 ML IVPB IVPB ONE ×2 (19:33→22:27)
--- NOTE | 2019-12-19 19:46 | CONSULT ---
Consultation: REQUESTING PROVIDER: CONSULT REQUEST: We have been asked to medically evaluate this patient for altered mental status, sepsis. HISTORY OF PRESENT ILLNESS: 79 yo M w h/o HTN, HLD, IDDM, Morbid obesity, breast cancer s/p chemoradiation, Arlyn + hemolytic anemia requiring transfusion who presented to the emergency department with seizure like activity, altered mental status. Patient not accompanied by family at bedside. Patient partially verbal, non communicative, and confused on history. Patient Algerian speaking, and poor historian. ED staff report that patient experienced witnessed episode of whole body convulsive "shaking," at approximately 1200 PM today following administration of Insulin. This episode lasted for approximately 30 minutes. Patient brought into ED by EMS, with waxing and waning consciousness, slurred speech, and disorientation. Next of Kin () [phone]. Allergies: NKDA REVIEW OF SYSTEMS: CONSTITUTIONAL: Patient unable to provide 13 point ROS inspection d/t current mental status impairment. PHYSICAL EXAMINATION Vital Signs - 24 hr 12/19/19 12/19/19 12/19/19 15:50 17:38 18:15 Temperature 102.5 F H Pulse Rate 127 H Pulse Rate [ 108 H Apical] Respiratory 20 20 Rate Blood Pressure 137/85 Blood Pressure 124/79 [Right Arm] O2 Sat by Pulse 100 96 99 Oximetry (%) 12/19/19 19:00 Temperature Pulse Rate Pulse Rate [ 100 H Apical] Respiratory 20 Rate Blood Pressure Blood Pressure 126/65 [Right Arm] O2 Sat by Pulse 98 Oximetry (%) GENERAL: +Minimally responsive to tactile stimuli, disoriented, does not follow commands, slightly verbal, non communicative. HEAD: Normal with no signs of trauma. EYES: Pupils equal, round and reactive to light, extraocular movements intact, sclera anicteric, conjunctiva clear. No lid lag. EARS, NOSE, THROAT: Ears normal, nares patent, oropharynx clear without exudates. Moist mucous membranes. NECK: Normal range of motion, supple without lymphadenopathy, JVD, or masses. LUNGS: + Lung sounds diminished right lower lung field. No accessory muscle use. HEART: Regular rate and rhythm, normal S1 and S2 without murmur, rub or gallop. ABDOMEN: Soft, nontender, not distended, normoactive bowel sounds, no guarding, no rebound, no masses. No hepatomegaly or splenomegaly. MUSCULOSKELETAL: Normal range of motion at all joints. No bony deformities or tenderness. No CVA tenderness. UPPER EXTREMITIES: 2+ pitting edema. 2+ pulses, warm, well-perfused. No cyanosis. No clubbing. Cap refill <2 seconds. LOWER EXTREMITIES: 2+ pitting edema. 2+ pulses, warm, well-perfused. No calf tenderness. NEUROLOGICAL: Cranial nerves II-XII intact. Normal speech. Normal gait. SKIN: Warm, dry, normal turgor, no rashes or lesions noted. Laboratory Results - last 24 hr 12/19/19 12/19/19 12/19/19 15:57 16:00 16:00 WBC RBC Hgb Hct MCV MCH MCHC RDW Plt Count MPV Absolute Neuts (auto) Neutrophils % Neutrophils % (Manual) Band Neutrophils % Lymphocytes % Lymphocytes % (Manual) Monocytes % Monocytes % (Manual) Eosinophils % Eosinophils % (Manual) Basophils % Nucleated RBC % Hypochromia Platelet Estimate Anisocytosis Macrocytosis Rouleaux PT with INR 12.80 INR 1.08 PTT (Actin FS) 23.6 L VBG pH POC VBG pCO2 POC VBG pO2 VBG HCO3 VBG O2 Sat (Mehran) VBG Base Excess Sodium Potassium Chloride Carbon Dioxide Anion Gap BUN Creatinine Est GFR (CKD-EPI)AfAm Est GFR (CKD-EPI)NonAf POC Glucometer 142 Random Glucose Lactic Acid Calcium Magnesium Total Bilirubin AST ALT Alkaline Phosphatase Troponin I 0.09 H Total Protein Albumin Urine Color Urine Appearance Urine pH Ur Specific [place] Urine Protein Urine Glucose (UA) Urine Ketones Urine Blood Urine Nitrite Urine Bilirubin Urine Urobilinogen Ur Leukocyte Esterase Urine WBC (Auto) Urine RBC (Auto) Urine Casts (Auto) U Epithel Cells (Auto) Urine Bacteria (Auto) Influenza A (Rapid) Influenza B (Rapid) 12/19/19 12/19/19 12/19/19 16:00 16:00 16:00 WBC 6.8 RBC 2.32 L Hgb 8.1 L Hct 24.7 L MCV 106.5 H MCH 35.0 H MCHC 32.9 RDW 14.0 D Plt Count 200 MPV 8.6 Absolute Neuts (auto) 4.3 Neutrophils % 63.1 Neutrophils % (Manual) 65.0 Band Neutrophils % 3.0 Lymphocytes % 32.0 D Lymphocytes % (Manual) 25.0 D Monocytes % 3.7 L Monocytes % (Manual) 6 D Eosinophils % 0.3 Eosinophils % (Manual) 1.0 Basophils % 0.9 Nucleated RBC % 0 Hypochromia 2+ Platelet Estimate Adequate Anisocytosis 2+ Macrocytosis 2+ Rouleaux 2+ PT with INR INR PTT (Actin FS) VBG pH POC VBG pCO2 POC VBG pO2 VBG HCO3 VBG O2 Sat (Mehran) VBG Base Excess Sodium Potassium Chloride Carbon Dioxide Anion Gap BUN Creatinine Est GFR (CKD-EPI)AfAm Est GFR (CKD-EPI)NonAf POC Glucometer Random Glucose Lactic Acid Calcium Magnesium Total Bilirubin AST ALT Alkaline Phosphatase Troponin I Total Protein Albumin Urine Color Yellow Urine Appearance Cloudy Urine pH 5.0 D Ur Specific [place] 1.017 Urine Protein 1+ H Urine Glucose (UA) Trace Urine Ketones Negative Urine Blood Negative Urine Nitrite Negative Urine Bilirubin Negative Urine Urobilinogen 1.0 Ur Leukocyte Esterase Negative Urine WBC (Auto) 5 Urine RBC (Auto) 4 Urine Casts (Auto) 1 U Epithel Cells (Auto) 14 Urine Bacteria (Auto) 5320 Influenza A (Rapid) Negative Influenza B (Rapid) Negative 12/19/19 12/19/19 12/19/19 16:00 16:00 16:00 WBC RBC Hgb Hct MCV MCH MCHC RDW Plt Count MPV Absolute Neuts (auto) Neutrophils % Neutrophils % (Manual) Band Neutrophils % Lymphocytes % Lymphocytes % (Manual) Monocytes % Monocytes % (Manual) Eosinophils % Eosinophils % (Manual) Basophils % Nucleated RBC % Hypochromia Platelet Estimate Anisocytosis Macrocytosis Rouleaux PT with INR INR PTT (Actin FS) VBG pH 7.42 H POC VBG pCO2 35.0 L POC VBG pO2 138 H VBG HCO3 22.2 L VBG O2 Sat (Mehran) 99.3 H VBG Base Excess -1.4 Sodium 143 Potassium 2.6 L* Chloride 106 Carbon Dioxide 23 Anion Gap 15 BUN 25.7 H Creatinine 1.5 H Est GFR (CKD-EPI)AfAm 37.74 Est GFR (CKD-EPI)NonAf 32.56 POC Glucometer Random Glucose 135 H Lactic Acid 9.2 H* Calcium 7.9 L Magnesium 1.3 L Total Bilirubin 1.1 H AST 22 ALT 24 Alkaline Phosphatase 45 Troponin I Total Protein 5.2 L Albumin 2.7 L Urine Color Urine Appearance Urine pH Ur Specific [place] Urine Protein Urine Glucose (UA) Urine Ketones Urine Blood Urine Nitrite Urine Bilirubin Urine Urobilinogen Ur Leukocyte Esterase Urine WBC (Auto) Urine RBC (Auto) Urine Casts (Auto) U Epithel Cells (Auto) Urine Bacteria (Auto) Influenza A (Rapid) Influenza B (Rapid) Active Medications Generic Name Dose Route Start Last Admin Trade Name Freq PRN Reason Stop Dose Admin Vancomycin HCl 1,000 mg/ 250 mls @ 166.667 mls/hr 12/19/19 19:12 Dextrose IVPB 12/19/19 20:41 ONCE ONE Protocol Acyclovir 860 mg/ Dextrose 117.2 mls @ 100 mls/hr 12/19/19 19:14 IVPB 12/19/19 20:13 ONCE ONE ASSESSMENT/PLAN: 79 yo M w h/o HTN, HLD, IDDM, diverticuloisis, chronic systolic and diastolic heart failure, morbid obesity, breast cancer s/p chemoradiation, 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 Patient with 2/4 SIRS criteria in ED (Temp 102.5, HR 127, BP 137/85, RR 20, O2 100 % on RA). Exam notable for disorientation, with minimal responsiveness to tactile stimuli. Patient does not follow commands, is non communicative, and slightly verbal, with disoriented speech. + diffuse peripheral pitting edema. Negative nuchal rigidity or findings. Breath sounds slightly diminished RLL base, airway intact. Patient to be admitted to ICU for further evaluation / workup for presumptive infectious etiology of altered mental status, and concern for respiratory airway/compromise. Neurologic: Responsive to tactile stimuli, disoriented, non communicative - Mental status possibly 2/2 infectious etiology vs. metabolic encephalopathy - Possible seizure prior to arrival (1200 PM) 12-19-19 - CT Head (12-19-19): No acute intracranial pathology. Chronic supratentorial, and infratentorial infarcts - Cervical Spine CT (12-19-19): No fracture identified - Levetiracetam 1000 mg IV in ED. - Continue Levetiracetam 500 mg IV BID - Continuous neuro checks - Neurology consult Cardiac: - BP 137, 85, HR 127 - Tachycardia likely 2/2 sepsis vs. dehydration - Troponin 0.09. Troponinemia Likely 2/2 demand ischemia, - EKG: LVH, TWI V4-V6, AvL (12-19-19). Similiar to prior interval EKG (06-03-19) - Echocardiogram (02-19-19): Moderate Mitral Regurgitation. Left atrium mildly dilated. - Provide fluid resuscitation Pulmonary: - Airway intact, with absent emesis - Nasal Cannula 2 Liters, O2 100 % - ABG (12-19-19): 7.42/35/138/22.0 - CXR (12-19-19): No acute process Gastrointestinal: - Home Protonix 40 mg QD - Continue 40 mg Protonix PPI IV QD Renal: - BUN/Cr: 25.7/1.5 (Cr~0.8) - Replace K+, Mg+ . K+ 2.6, Mg+ 1.3 (12-19-19) - Cantu Catheter in place (12-19-19) - Follow up renal ultrasound - Will continue to avoid nephrotoxic agents including contrast dyes, Aminoglycosides, and Metformin - Maintain accurate Is/Os - Provide gentle fluid resuscitation / normal saline Hematology/Oncology: History of Autoimmune Hemolytic Anemia - H/H: 8.1/24.7, PLT 200 (12-19-19) - Serial CBC (H/H ) monitoring - Transfuse PRBC Hemoglobin < 7.0. - Follow up Iron studies (Ferritin, Reticulocyte Count, LDH, Haptoglobin) - Hematology Consult Infectious Disease: - 2/4 SIRS criteria (Temp 102.5, HR 127) - WBC ~6.8, Lactic Acid ~9.2 - CXR (12-19-19): No sign of an acute process - Influenza A/B: Negative - UA: Negative LE, Negative Nitrite, 5 WBC, 4 RBC - Pending blood cx., sputum cx., urine cx. - Pending COVID-19 nasopharyngeal swab obtained in ED (12-19-19) - Placed on Contact and droplet precautions - Patient received Ceftriaxone 1000 mg in ED - Continue Vancomycin 1000 mg IV QD, Azithromycin 500 mg IV QD, Cefepime 1000 mg IV QD, Acyclovir 850 IV BID - F/u Vancomycin Trough - Repeat Lactic Acid - Lumbar puncture r/o meningitis. Patient currently unable to tolerate LP d/t agitation/AMS - Consult Infectious Disease Endocrine: - BS ~ 142 (12-19-19) - Withhold home Metformin 500 mg BID - Sliding scale Insulin FEN: - NS 75 cc/hr - lytes PRN, Mg +, K + - NPO T/L/N: Right IJ central PPx: Mechanical/SCDs, Heparin SubQ, Protonix 40 mg QD Code Status : Full Code Dispo: Continue ICU monitoring Visit type - Emergency Visit Emergency Visit: Yes Care time: The patient presented to the Emergency Department on the above date and was hospitalized for further evaluation of their emergent condition. - New Patient This patient is new to me today: Yes Date on this admission: 12/19/19 - Critical Care Critical Care patient: Yes Total Critical Care Time (in minutes): 45 Critical Care Statement: The care of this patient involved high complexity decision making to prevent further life threatening deterioration of the patient's condition and/or to evaluate & treat vital organ system(s) failure or risk of failure. ATTENDING PHYSICIAN STATEMENT I saw and evaluated the patient. I reviewed the resident's note and discussed the case with the resident. I agree with the resident's findings and plan as documented. SUBJECTIVE: OBJECTIVE: ASSESSMENT AND PLAN:
[2019-12-19] MEDS ORDERED: CEFEPIME 1 GM in DEXTROSE 5%-WATER 100 ML IVPB ONE ×2 (20:20→20:45)
[2019-12-19] MEDS ORDERED: SODIUM CHLORIDE 1,000 ML IV STA (20:21)
[2019-12-19] MEDS ORDERED: CEFEPIME HCL/D5W 1 GM/50 ML BAG IVPB ONE (20:21)
--- NOTE | 2019-12-19 20:22 | HP ---
CHIEF COMPLAINT: fever, seizure PCP: Beatrice HISTORY OF PRESENT ILLNESS: 79 yo woman Presented to ER with altered mental status and had a seizure in route to emergency room. As per family patient was noncommunicative and confused during the day. Patient was brought in with waxing and waning consciousness, slurred speech and disorientation. She was thought to be protecting her airway and decision was made not to intubate her. Patient was hemodynamically stable. Found to have high lactic acidosis shortly after her procedure episode. Decision to place central venous line and right femoral vein was made after patient was thought to have poor venous access. Patient noted to have had positive QuantiFERON in the past and received rifampin for latent TB. Was previously on Bactrim prophylaxis? Status post Rituxan therapy. Unsure if patient completed her rifampin course already are no for latent TB. To determine during the day. Patient had bone marrow biopsy performed which showed no increase in blast, no morphological evidence of overt/advanced MDS, no immunophenotypic evidence of lymphoma. ER course was notable for: (1) acyclovir (2)vanocmycin (3) ceftriaxone Recent Travel: no PAST MEDICAL HISTORY: HTN, HLD, IDDM, Morbid obesity, breast cancer s/p chemoradiation, Arlyn + hemolytic anemia PAST SURGICAL HISTORY: unknown Social History:unknown Smoking: Alcohol: Drugs: Allergies No Known Allergies Allergy (Verified 02/18/19 14:41) HOME MEDICATIONS: Home Medications Medication Instructions Recorded Exemestane [Aromasin -] 25 mg PO DAILY 01/05/19 Metformin HCl [Glucophage] 500 mg PO BID 02/18/19 Folic Acid - 1 mg PO DAILY #30 tablet 02/23/19 Losartan Potassium [Cozaar -] 100 mg PO DAILY tablet 02/23/19 Metoprolol Succinate [Toprol XL -] 50 mg PO DAILY tab.sr.24h 02/23/19 Lancets/Blood Glucose Strips [Fora 1 each MC DAILY 30 Days combo..pkg 05/17/19 [id number] Strp-Lnct] Pantoprazole Sodium [Protonix -] 40 mg PO DAILY #30 tablet.ec 05/17/19 Atovaquone [Mepron Oral Solution -] 1,500 mg PO DAILY@0800 #300 ml 06/15/19 Prednisone 5 mg PO DAILY #80 tab.ds.pk 06/15/19 Rifampin [Rifadin -] 600 mg PO DAILY #30 capsule 06/15/19 REVIEW OF SYSTEMS Unable to obtain at this time as patient has altered mental status is not able to provide a reliable history PHYSICAL EXAMINATION Vital Signs - 24 hr 12/19/19 12/19/19 12/19/19 15:50 17:38 18:15 Temperature 102.5 F H Pulse Rate 127 H Pulse Rate [ 108 H Apical] Respiratory 20 20 Rate Blood Pressure 137/85 Blood Pressure 124/79 [Right Arm] O2 Sat by Pulse 100 96 99 Oximetry (%) 12/19/19 19:00 Temperature Pulse Rate Pulse Rate [ 100 H Apical] Respiratory 20 Rate Blood Pressure Blood Pressure 126/65 [Right Arm] O2 Sat by Pulse 98 Oximetry (%) GENERAL: Obese, nontoxic-appearing, disoriented HEAD: Normal with no signs of trauma. EYES: Pupils equal, round and reactive to light, extraocular movements intact, sclera anicteric, conjunctiva clear. No lid lag. EARS, NOSE, THROAT: Ears normal, nares patent, oropharynx clear without exudates. Moist mucous membranes. NECK: Normal range of motion, supple without lymphadenopathy, JVD, or masses. LUNGS: Breath sounds equal, clear to auscultation bilaterally. No wheezes, and no crackles. No accessory muscle use. HEART: Regular rate and rhythm, normal S1 and S2 without murmur, rub or gallop. ABDOMEN: Soft, nontender, not distended, normoactive bowel sounds, no guarding, no rebound, no masses. MUSCULOSKELETAL: Normal range of motion at all joints. No bony deformities or tenderness. No CVA tenderness. UPPER EXTREMITIES: 2+ pulses, warm, well-perfused. No cyanosis. No clubbing. No peripheral edema. LOWER EXTREMITIES: 2+ pulses, warm, well-perfused. No calf tenderness. No peripheral edema. NEUROLOGICAL: Altered mental status PSYCHIATRIC: Cooperative. Good eye contact. Appropriate mood and affect. SKIN: Warm, dry, normal turgor, no rashes or lesions noted, normal capillary refill. Laboratory Results - last 24 hr 12/19/19 12/19/19 12/19/19 15:57 16:00 16:00 WBC RBC Hgb Hct MCV MCH MCHC RDW Plt Count MPV Absolute Neuts (auto) Neutrophils % Neutrophils % (Manual) Band Neutrophils % Lymphocytes % Lymphocytes % (Manual) Monocytes % Monocytes % (Manual) Eosinophils % Eosinophils % (Manual) Basophils % Nucleated RBC % Hypochromia Platelet Estimate Anisocytosis Macrocytosis Rouleaux PT with INR 12.80 INR 1.08 PTT (Actin FS) 23.6 L VBG pH POC VBG pCO2 POC VBG pO2 VBG HCO3 VBG O2 Sat (Mehran) VBG Base Excess Sodium Potassium Chloride Carbon Dioxide Anion Gap BUN Creatinine Est GFR (CKD-EPI)AfAm Est GFR (CKD-EPI)NonAf POC Glucometer 142 Random Glucose Lactic Acid Calcium Magnesium Total Bilirubin AST ALT Alkaline Phosphatase Troponin I 0.09 H Total Protein Albumin Urine Color Urine Appearance Urine pH Ur Specific [place] Urine Protein Urine Glucose (UA) Urine Ketones Urine Blood Urine Nitrite Urine Bilirubin Urine Urobilinogen Ur Leukocyte Esterase Urine WBC (Auto) Urine RBC (Auto) Urine Casts (Auto) U Epithel Cells (Auto) Urine Bacteria (Auto) Influenza A (Rapid) Influenza B (Rapid) 12/19/19 12/19/19 12/19/19 16:00 16:00 16:00 WBC 6.8 RBC 2.32 L Hgb 8.1 L Hct 24.7 L MCV 106.5 H MCH 35.0 H MCHC 32.9 RDW 14.0 D Plt Count 200 MPV 8.6 Absolute Neuts (auto) 4.3 Neutrophils % 63.1 Neutrophils % (Manual) 65.0 Band Neutrophils % 3.0 Lymphocytes % 32.0 D Lymphocytes % (Manual) 25.0 D Monocytes % 3.7 L Monocytes % (Manual) 6 D Eosinophils % 0.3 Eosinophils % (Manual) 1.0 Basophils % 0.9 Nucleated RBC % 0 Hypochromia 2+ Platelet Estimate Adequate Anisocytosis 2+ Macrocytosis 2+ Rouleaux 2+ PT with INR INR PTT (Actin FS) VBG pH POC VBG pCO2 POC VBG pO2 VBG HCO3 VBG O2 Sat (Mehran) VBG Base Excess Sodium Potassium Chloride Carbon Dioxide Anion Gap BUN Creatinine Est GFR (CKD-EPI)AfAm Est GFR (CKD-EPI)NonAf POC Glucometer Random Glucose Lactic Acid Calcium Magnesium Total Bilirubin AST ALT Alkaline Phosphatase Troponin I Total Protein Albumin Urine Color Yellow Urine Appearance Cloudy Urine pH 5.0 D Ur Specific [place] 1.017 Urine Protein 1+ H Urine Glucose (UA) Trace Urine Ketones Negative Urine Blood Negative Urine Nitrite Negative Urine Bilirubin Negative Urine Urobilinogen 1.0 Ur Leukocyte Esterase Negative Urine WBC (Auto) 5 Urine RBC (Auto) 4 Urine Casts (Auto) 1 U Epithel Cells (Auto) 14 Urine Bacteria (Auto) 5320 Influenza A (Rapid) Negative Influenza B (Rapid) Negative 12/19/19 12/19/19 12/19/19 16:00 16:00 16:00 WBC RBC Hgb Hct MCV MCH MCHC RDW Plt Count MPV Absolute Neuts (auto) Neutrophils % Neutrophils % (Manual) Band Neutrophils % Lymphocytes % Lymphocytes % (Manual) Monocytes % Monocytes % (Manual) Eosinophils % Eosinophils % (Manual) Basophils % Nucleated RBC % Hypochromia Platelet Estimate Anisocytosis Macrocytosis Rouleaux PT with INR INR PTT (Actin FS) VBG pH 7.42 H POC VBG pCO2 35.0 L POC VBG pO2 138 H VBG HCO3 22.2 L VBG O2 Sat (Mehran) 99.3 H VBG Base Excess -1.4 Sodium 143 Potassium 2.6 L* Chloride 106 Carbon Dioxide 23 Anion Gap 15 BUN 25.7 H Creatinine 1.5 H Est GFR (CKD-EPI)AfAm 37.74 Est GFR (CKD-EPI)NonAf 32.56 POC Glucometer Random Glucose 135 H Lactic Acid 9.2 H* Calcium 7.9 L Magnesium 1.3 L Total Bilirubin 1.1 H AST 22 ALT 24 Alkaline Phosphatase 45 Troponin I Total Protein 5.2 L Albumin 2.7 L Urine Color Urine Appearance Urine pH Ur Specific [place] Urine Protein Urine Glucose (UA) Urine Ketones Urine Blood Urine Nitrite Urine Bilirubin Urine Urobilinogen Ur Leukocyte Esterase Urine WBC (Auto) Urine RBC (Auto) Urine Casts (Auto) U Epithel Cells (Auto) Urine Bacteria (Auto) Influenza A (Rapid) Influenza B (Rapid) Imaging studies reviewedhead CT was negative for any acute insults, CT of cervical C-spine without contrast was negative for any acute fracture ASSESSMENT/PLAN: Critically ill 79-year-old woman with severe sepsis, tachycardia, high lactic acidosis up to 9. Source of infection is uncertain however should rule out meningitis especially given recent altered mental status. Chest CT was not very suggestive of intrathoracic infection. Should rule out COVID19. Altered mental status may be metabolic encephalopathy secondary to underlying infection. High lactic acidosis with borderline anion gap suspect is likely secondary to seizure activity. Severe electrolyte derangements including severe hypokalemia, hypomagnesemia AKImay be secondary to sepsis versus prerenal azotemia. Hypoalbuminemia was present. Seizure disorder may be secondary to underlying infection or may be organic cause of altered mental status. Would rule out meningitis with lumbar puncture once patient is more willing to undergo procedure. Troponinemia is likely secondary to underlying sepsis. Severe microcytic anemiawe will work-up and trend CBC to ensure is not worsening. At this time patient is excepted to ICU Contact and airborne precautions, rule out COVID19 Contact Department of Health COVID19 nasopharyngeal swab PCR Bedrest and fall precautions ID, critical care, neurology consults Cyclovir, cefepime, vancomycin, ampicillin to cover empirically for possible meningitisdosed renally Blood cultures, urine culture Neurology to perform LP BGM's and fingerstick coverage with NovoLog insulin Gentle IV fluid hydration Transthoracic echo Monitor closely patient's vital signs Avoid narcotics and other sedatives Send LDH, reticulocyte count, haptoglobin Ferritin, iron level, vitamin B12, TSH Correct electrolytes including potassium, magnesium Avoid nephrotoxins Renal ultrasound I's and O's and daily weights Trend lactic acid Status post Keppra 1000 mg loading, continue 500 mg IV twice daily Keep n.p.o. for now DVT prophylaxisheparin subcu 35 minutes spent on this critically ill patient. Visit type - Emergency Visit Emergency Visit: Yes ED Registration Date: 12/19/19 Care time: The patient presented to the Emergency Department on the above date and was hospitalized for further evaluation of their emergent condition. - New Patient This patient is new to me today: Yes Date on this admission: 12/19/19 - Critical Care Critical Care patient: Yes Total Critical Care Time (in minutes): 35 Critical Care Statement: The care of this patient involved high complexity decision making to prevent further life threatening deterioration of the patient's condition and/or to evaluate & treat vital organ system(s) failure or risk of failure.
--- NOTE | 2019-12-19 20:31 | PDOC ---
*Physical Exam - Vital Signs Last Vital Signs Temp Pulse Resp BP Pulse Ox 102.5 F H 100 H 20 126/65 98 12/19/19 15:50 12/19/19 19:00 12/19/19 19:00 12/19/19 19:00 12/19/19 19:00 - Physical Exam General Appearance: Yes: Nourished, Appropriately Dressed, Apparent Distress, Obese HEENT: positive: PRINCESS, Normal ENT Inspection Neck: positive: Trachea midline, Supple Respiratory/Chest: positive: Rhonchi (lower right). negative: Lungs Clear Cardiovascular: positive: Regular Rhythm, S1, S2, Tachycardia Vascular Pulses: Dorsalis-Pedis (R): 2+, Doralis-Pedis (L): 2+ Gastrointestinal/Abdominal: positive: Soft Rectal Exam: positive: deferred Musculoskeletal: positive: Normal Inspection, Other (left arm/hand swelling) Extremity: positive: Normal Inspection Integumentary: positive: Normal Color, Dry, Warm Neurologic: positive: Confused, Disoriented. negative: Fully Oriented ED Treatment Course - LABORATORY CBC & Chemistry Diagram: 12/19/19 16:00 12/19/19 16:00 - ADDITIONAL ORDERS Additional order review: Laboratory Results 12/19/19 12/19/19 12/19/19 16:00 16:00 16:00 PT with INR INR PTT (Actin FS) VBG pH 7.42 H POC VBG pCO2 35.0 L POC VBG pO2 138 H VBG HCO3 22.2 L VBG O2 Sat (Mehran) 99.3 H VBG Base Excess -1.4 Sodium 143 Potassium 2.6 L* Chloride 106 Carbon Dioxide 23 Anion Gap 15 BUN 25.7 H Creatinine 1.5 H Est GFR (CKD-EPI)AfAm 37.74 Est GFR (CKD-EPI)NonAf 32.56 POC Glucometer Random Glucose 135 H Lactic Acid 9.2 H* Calcium 7.9 L Magnesium 1.3 L Total Bilirubin 1.1 H AST 22 ALT 24 Alkaline Phosphatase 45 Troponin I Total Protein 5.2 L Albumin 2.7 L Urine Color Urine Appearance Urine pH Ur Specific [place] Urine Protein Urine Glucose (UA) Urine Ketones Urine Blood Urine Nitrite Urine Bilirubin Urine Urobilinogen Ur Leukocyte Esterase Urine WBC (Auto) Urine RBC (Auto) Urine Casts (Auto) U Epithel Cells (Auto) Urine Bacteria (Auto) 12/19/19 12/19/19 12/19/19 16:00 16:00 16:00 PT with INR 12.80 INR 1.08 PTT (Actin FS) 23.6 L VBG pH POC VBG pCO2 POC VBG pO2 VBG HCO3 VBG O2 Sat (Mehran) VBG Base Excess Sodium Potassium Chloride Carbon Dioxide Anion Gap BUN Creatinine Est GFR (CKD-EPI)AfAm Est GFR (CKD-EPI)NonAf POC Glucometer Random Glucose Lactic Acid Calcium Magnesium Total Bilirubin AST ALT Alkaline Phosphatase Troponin I 0.09 H Total Protein Albumin Urine Color Yellow Urine Appearance Cloudy Urine pH 5.0 D Ur Specific [place] 1.017 Urine Protein 1+ H Urine Glucose (UA) Trace Urine Ketones Negative Urine Blood Negative Urine Nitrite Negative Urine Bilirubin Negative Urine Urobilinogen 1.0 Ur Leukocyte Esterase Negative Urine WBC (Auto) 5 Urine RBC (Auto) 4 Urine Casts (Auto) 1 U Epithel Cells (Auto) 14 Urine Bacteria (Auto) 5320 12/19/19 15:57 PT with INR INR PTT (Actin FS) VBG pH POC VBG pCO2 POC VBG pO2 VBG HCO3 VBG O2 Sat (Mehran) VBG Base Excess Sodium Potassium Chloride Carbon Dioxide Anion Gap BUN Creatinine Est GFR (CKD-EPI)AfAm Est GFR (CKD-EPI)NonAf POC Glucometer 142 Random Glucose Lactic Acid Calcium Magnesium Total Bilirubin AST ALT Alkaline Phosphatase Troponin I Total Protein Albumin Urine Color Urine Appearance Urine pH Ur Specific [place] Urine Protein Urine Glucose (UA) Urine Ketones Urine Blood Urine Nitrite Urine Bilirubin Urine Urobilinogen Ur Leukocyte Esterase Urine WBC (Auto) Urine RBC (Auto) Urine Casts (Auto) U Epithel Cells (Auto) Urine Bacteria (Auto) 12/19/19 12/19/19 16:00 15:57 RBC 2.32 L MCV 106.5 H MCHC 32.9 RDW 14.0 D MPV 8.6 Neutrophils % 63.1 Lymphocytes % 32.0 D Monocytes % 3.7 L Eosinophils % 0.3 Basophils % 0.9 POC Glucometer 142 - Medications Given in the ED: ED Medications Discontinued Medications Generic Name Dose Route Start Last Admin Trade Name Freq PRN Reason Stop Dose Admin Acetaminophen 1,000 mg 12/19/19 16:41 12/19/19 16:49 Ofirmev Injection - IVPB 12/19/19 16:42 1,000 mg ONCE ONE Administration Ceftriaxone Sodium 1,000 mg/ 50 mls @ 100 mls/hr 12/19/19 17:07 12/19/19 19:32 Dextrose IVPB 12/19/19 17:36 100 mls/hr ONCE ONE Administration Levetiracetam 1,000 mg 12/19/19 17:15 12/19/19 19:20 Keppra Injection - IVPB 12/19/19 17:16 1,000 mg ONCE ONE Administration Medical Decision Making - Critical Care Time Total Critical Care Time (minutes): 60 Critical Care Statement: The care of this patient involved high complexity decision making to prevent further life threatening deterioration of the patient's condition and/or to evaluate & treat vital organ system(s) failure or risk of failure. - Medical Decision Making Patient signed out to me from Dr. Dugan pending CT reads, consistent IV access, and admission to the ICU for likely meningitis vs pneumonia vs seizures - I ordered Vanc, ceftriaxone, and acyclovir - Patient also received other Abx first Central triple lumen placed in right femoral for access as patient's only access was a left arm IV which apparently cannot be used because she had breast cancer on the left. CT results: No acute bleed in head, chronic infarcts. When I reviewed the Chest CT there appeared to be some abnormal markings in the right lower lobe. Disposition: Admission to ICU - Seizures - Meningitis r/o - PNA r/o - AMS - Hypokalemia - Lactic acidosis Discharge - Discharge Information Problems reviewed: Yes Clinical Impression/Diagnosis: Fever, Altered mental status Condition: Guarded - Admission Yes - Follow up/Referral - Patient Discharge Instructions - Post Discharge Activity Procedures - Central Line Central Line Lumen: triple Central Line Position: femoral (R) Anesthesia: 1% Lidocaine Amount of anesthesia (ccs): 5 Complications: none Post Central Line Insertion: sutured, good blood return
[2019-12-19] MEDS ORDERED: WATER IVPB ONE (21:00)
[2019-12-19] MEDS ORDERED: WATER IVPB SCH (21:00)
[2019-12-19] MEDS ORDERED: DEXTROSE 5% IVPB ONE (21:00)
[2019-12-19] MEDS ORDERED: ACYCLOVIR SODIUM IVPB ONE (21:00)
[2019-12-19] MEDS ORDERED: DEXTROSE 5% IVPB SCH (21:00)
[2019-12-19] MEDS ORDERED: ACYCLOVIR SODIUM IVPB SCH (21:00)
[2019-12-19] MEDS ORDERED: INSULIN SLIDING SCALE (NOVOLOG) 1 VIAL SQ SCH (22:00)
[2019-12-19] MEDS ORDERED: CEFEPIME 1 GM/100 ML BAG IVPB ONE (22:09)
[2019-12-19] MEDS ORDERED: HALOPERIDOL LACTATE 5 MG/ML IM ONE (22:47)
[2019-12-19] MEDS ORDERED: HALOPERIDOL LACTATE 5 MG/ML ONE (23:30)
[2019-12-19] MEDS ORDERED: AMPICILLIN SODIUM 2 GM VIAL ONE (23:33)
[2019-12-19] MEDS: AMPICILLIN - 2 GM in SODIUM CHLORIDE 100 ML IVPB SCH (23:55)
--- NOTE | 2019-12-20 00:14 | PDOC ---
Documentation entered by Drew Ojeda SCRIBE, acting as scribe for Mando Michael DO. Mando Michael DO: This documentation has been prepared by the Rusty reese Daniel, SCRIBE, under my direction and personally reviewed by me in its entirety. I confirm that the documentation accurately reflects all work, treatment, procedures, and medical decision making performed by me. 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 She is drowsy on arrival into the ED and unable to provide any medical history or to converse. Family is not present for additional history, but EMS elaborates that the symptoms began this morning and family was concerned when she was less responsive and interactive than normal. - Physicial Exam PE: 12/19/19 17:26 GENERAL: +Awake but lethargic and somnolent. In no acute distress HEAD: No signs of trauma EYES: PERRLA, EOMI, sclera anicteric, conjunctiva clear ENT: Auricles normal inspection, hearing grossly normal, nares patent, oropharynx clear without exudates. Moist mucosa NECK: Normal ROM, supple, no lymphadenopathy, JVD, or masses LUNGS: +bibasilar crackles. No wheezes HEART: Regular rate and rhythm, normal S1 and S2, no murmurs, rubs or gallops ABDOMEN: Soft, nontender, normoactive bowel sounds. No guarding, no rebound. No masses EXTREMITIES: +2-3+ pitting edema. Normal range of motion. No clubbing or cyanosis. No cords, erythema, or tenderness NEUROLOGICAL: +responds to voice. +still in postictal state. Not posturing, non focal findings. No gaze deviation. Moving all extremities. Cranial nerves II through XII grossly intact. Normal speech SKIN: Warm, Dry, normal turgor, no rashes or lesions noted. - Medical Decision Making 12/19/19 17:26 Patient is an 79 year old here with seizure, fever, and AMS. Will obtain CT head, will order IV antibiotics, conservative IV fluids. Will evaluate fever and AMS with flu swab, Covid testing, and will obtain CT chest with and without con trast to evaluate for PE vs pneumonia vs Covid. Will obtain septic workout. Differential is hyponatremia vs hypoglycemia vs intracranial hemorrhage resulting in seizure and central fever vs pneumonia vs UTI secondart to flu vs community acquired pneumonia. Patient is hypokalemic with elevated lactate. Appreciate renal impairment but benefits of IV contrast outweigh the risks. Will proceed with CT chest with and without contrast. On reassessment, patient's vitals are stable, still in postictal state, but is protecting her airway. New differential is meningococcal meningitis vs sepsis with pneumonia with hypoglycemia episode and seizure. CT head negative for gross hemorrhage, comprehensive reads for CT head and chest pending. Will consider intubation at this time. Patient is arousable to physical stimuli, not vomiting, and is protecting airway but given AMS will likely intubate. Patient had left upper extremity IV in place. Patient's son states that her left upper extremity should not be used. IV treatment was discontinued through the left upper extremity and a right femoral TLC was placed due to the patient's poor access. Patient is still altered but is more awake, her eyes are open, and she is answering simple questions. Patient is being covered by antivirals and antibiotics. Patient accepted to the ICU. EKG: Sinus tachycardia at 117. Left forward axis LVH with nonspecific T wave inversions in V4-6, 1 in AVL. No acute ischemia, EKG performed at 1704, unchanged from prior. Discharge - Discharge Information Clinical Impression/Diagnosis: Fever, Altered mental status Condition: Guarded - Follow up/Referral - Patient Discharge Instructions - Post Discharge Activity
[2019-12-20] MEDS ORDERED: KCL 10 MEQ IVPB 10 MEQ/100 ML INFUS.BAG IVPB ONE (00:21)
[2019-12-20] MEDS: KCL 10 MEQ IVPB 10 MEQ/100 ML INFUS.BAG IVPB SCH ×6 (00:26→17:58)
[2019-12-20] MEDS: SODIUM CHLORIDE 1,000 ML IV SCH ×4 (01:22→21:53)
[2019-12-20] MEDS: levETIRAcetam 500 MG/5 ML INJECTION VIAL IVPB SCH ×3 (01:31→21:51)
[2019-12-20] MEDS ORDERED: AMPICILLIN SODIUM 2 GM VIAL ONE (01:35)
[2019-12-20] MEDS ORDERED: DEXTROSE 5%-WATER 100 ML IVPB ONE ×3 (01:36→21:05)
[2019-12-20] MEDS ORDERED: SODIUM CHLORIDE 100 ML IVPB ONE (01:36)
[2019-12-20] MEDS ORDERED: CEFEPIME HCL 1 GM VIAL (RESTRICTED TO ID) ONE (01:36)
[2019-12-20] MEDS: AMPICILLIN - 2 GM in SODIUM CHLORIDE 100 ML IVPB SCH (01:43)
[2019-12-20] MEDS: INSULIN SLIDING SCALE (NOVOLOG) 1 VIAL SQ SCH ×4 (01:48→21:52)
[2019-12-20] MEDS: HEPARIN NA (PORCINE) 5,000 UNITS/ML 1ML VIAL SQ SCH ×3 (01:49→17:59)
[2019-12-20] MEDS: ACETAMINOPHEN 1000 MG/100 ML VIAL (NON FORMULARY) IVPB PRN ×3 (01:49→21:51)
[2019-12-20] MEDS: MAGNESIUM SULF 50% (8.12 MEQ/2 ML-1 GM VIAL) IVPB SCH (01:53)
[2019-12-20] MEDS ORDERED: CEFEPIME 1 GM in DEXTROSE 5%-WATER 100 ML IVPB SCH (02:00)
[2019-12-20 06:33] LABS: BASO % 0.5 % (0-2.0); EOS % 0.6 % (0-4.5); HEMATOCRIT 21.4 % (32.4-45.2); HEMOGLOBIN 7.3 GM/dL (10.7-15.3); LYMPH % 20.8 % (8-40); MCH 35.5 pg (25.7-33.7); MCHC 34.1 g/dl (32.0-36.0); MEAN CELL VOLUME 104.2 fl (80-96); MEAN PLT VOLUME 7.9 fl (7.5-11.1); MONO % 3.1 % (3.8-10.2); PLATELET COUNT 161 K/MM3 (134-434); RBC 2.06 M/mm3 (3.60-5.2); RDW 14.4 % (11.6-15.6); WHITE BLOOD COUNT 7.4 K/mm3 (4.0-10.0)
[2019-12-20 07:30] LABS: ALBUMIN 2.2 g/dl (3.4-5.0); BLOOD UREA NITROGEN 17.3 mg/dL (7-18); MAGNESIUM 1.6 mg/dL (1.8-2.4); PHOSPHOROUS 1.4 mg/dL (2.5-4.9); TOT PROT 4.6 g/dl (6.4-8.2)
[2019-12-20] MEDS ORDERED: ACYCLOVIR 1000 MG (50MG/ML) VIAL IVPB ONE ×2 (08:00)
[2019-12-20 08:04] LABS: CALCIUM 6.9 mg/dL (8.5-10.1)
[2019-12-20 08:43] LABS: ANISOCYTOSIS 0; MACROCYTOSIS 0; PLATELET ESTIMATE DECREASED; TEAR DROP CELLS 1+
[2019-12-20] MEDS ORDERED: VANCOMYCIN 1,250 MG in DEXTROSE 5%-WATER - 250 ML IVPB SCH ×3 (09:00→22:00)
[2019-12-20] MEDS ORDERED: KCL 10 MEQ IVPB 10 MEQ/100 ML INFUS.BAG IVPB SCH (09:00)
[2019-12-20] MEDS ORDERED: CEFTRIAXONE 2 GM in DEXTROSE 5%-WATER 100 ML IVPB SCH (09:16)
[2019-12-20 09:51] LABS: PHOSPHOROUS 1.5 mg/dL (2.5-4.9)
[2019-12-20] MEDS ORDERED: PT OWN MED DRAWER 7, Y5N ONE ×2 (09:51→12:27)
[2019-12-20] MEDS ORDERED: DEXTROSE 5% IVPB SCH (10:00)
[2019-12-20] MEDS ORDERED: WATER IVPB SCH (10:00)
[2019-12-20] MEDS ORDERED: PREDNISONE 5 MG PO SCH (10:00)
[2019-12-20] MEDS ORDERED: predniSONE 20 MG TABLET (UD) PO SCH (10:00)
[2019-12-20] MEDS ORDERED: ACYCLOVIR SODIUM IVPB SCH (10:00)
[2019-12-20] MEDS ORDERED: POTASSIUM PHOSPHATE 15 MM in SODIUM CHLORIDE 250 ML IVPB ONE (10:00)
[2019-12-20] MEDS ORDERED: predniSONE 5 MG TABLET (UD) PO SCH ×2 (10:00→13:15)
[2019-12-20] MEDS ORDERED: PNEUMOC 13-VAL CONJ-DIP CRM/PF 0.5 ML DISP.SYRIN IM ONE (10:00)
[2019-12-20] MEDS: MUPIROCIN 2% TOPICAL OINTMENT FOR DECOLONIZATION NS SCH ×2 (10:09→21:54)
[2019-12-20] MEDS: PANTOPRAZOLE SODIUM 40 MG VIAL IVPUSH SCH (10:09)
[2019-12-20] MEDS: CEFTRIAXONE 2 GM in DEXTROSE 5%-WATER 100 ML IVPB SCH ×2 (10:11→21:55)
[2019-12-20] MEDS ORDERED: MAGNESIUM SULF 50% (8.12 MEQ/2 ML-1 GM VIAL) IVPB ONE (10:30)
--- NOTE | 2019-12-20 10:44 | PN ---
Physical Exam: SUBJECTIVE: Patient seen and examined. Pt confused and continues to spike fevers. currently at 101F. OBJECTIVE: Vital Signs Period Temp Pulse Resp BP Sys/Hale Pulse Ox Last 24 Hr 99.3 F-102.5 F 100-128 20-28 124-158/65-101 96-100 GENERAL: The patient is awake, alert, but confused. in mod distress. HEAD: Normal with no signs of trauma. EYES: PERRL, extraocular movements intact, sclera anicteric, conjunctiva clear. No ptosis. ENT: oropharynx clear without exudates, slightly dry mucous membranes. NECK: Trachea midline, full range of motion, supple. LUNGS: Breath sounds equal, clear to auscultation bilaterally but decreased at the bases HEART: Regular rate and rhythm, S1, S2 without murmur, rub or gallop. ABDOMEN: Soft, nontender, nondistended but obese, normoactive bowel sounds, no guarding, no rebound, no hepatosplenomegaly, no masses. EXTREMITIES: 2+ pulses, warm, well-perfused, 1+ edema in UE and LE NEUROLOGICAL: unable to assess given confusion. however, pt is agitated and moving arms and legs. thus motor grossly intact. negative kernig and brudzinski sign PSYCH: agitated and confused SKIN: Warm, dry Laboratory Results - last 24 hr 12/19/19 12/19/19 12/19/19 15:57 16:00 16:00 WBC RBC Hgb Hct MCV MCH MCHC RDW Plt Count MPV Absolute Neuts (auto) Neutrophils % Neutrophils % (Manual) Band Neutrophils % Lymphocytes % Lymphocytes % (Manual) Monocytes % Monocytes % (Manual) Eosinophils % Eosinophils % (Manual) Basophils % Basophils % (Manual) Myelocytes % (Man) Promyelocytes % (Man) Blast Cells % (Manual) Nucleated RBC % Metamyelocytes Hypochromia Platelet Estimate Polychromasia Poikilocytosis Anisocytosis Microcytosis Macrocytosis Spherocytes Tear Drop Cells [place] Cells Rouleaux Schistocytes Retic Count PT with INR 12.80 INR 1.08 PTT (Actin FS) 23.6 L VBG pH POC VBG pCO2 POC VBG pO2 VBG HCO3 VBG O2 Sat (Mehran) VBG Base Excess Sodium Potassium Chloride Carbon Dioxide Anion Gap BUN Creatinine Est GFR (CKD-EPI)AfAm Est GFR (CKD-EPI)NonAf POC Glucometer 142 Random Glucose Lactic Acid Calcium Phosphorus Magnesium Iron Ferritin Total Bilirubin AST ALT Alkaline Phosphatase LD Total Creatine Kinase 18 L CK-MB (CK-2) < 1.0 Troponin I 0.09 H Total Protein Albumin Vitamin B12 TSH Urine Color Urine Appearance Urine pH Ur Specific Sawyer Urine Protein Urine Glucose (UA) Urine Ketones Urine Blood Urine Nitrite Urine Bilirubin Urine Urobilinogen Ur Leukocyte Esterase Urine WBC (Auto) Urine RBC (Auto) Urine Casts (Auto) U Epithel Cells (Auto) Urine Bacteria (Auto) Random Vancomycin Influenza A (Rapid) Influenza B (Rapid) 12/19/19 12/19/19 12/19/19 16:00 16:00 16:00 WBC 6.8 RBC 2.32 L Hgb 8.1 L Hct 24.7 L MCV 106.5 H MCH 35.0 H MCHC 32.9 RDW 14.0 D Plt Count 200 MPV 8.6 Absolute Neuts (auto) 4.3 Neutrophils % 63.1 Neutrophils % (Manual) 65.0 Band Neutrophils % 3.0 Lymphocytes % 32.0 D Lymphocytes % (Manual) 25.0 D Monocytes % 3.7 L Monocytes % (Manual) 6 D Eosinophils % 0.3 Eosinophils % (Manual) 1.0 Basophils % 0.9 Basophils % (Manual) Myelocytes % (Man) Promyelocytes % (Man) Blast Cells % (Manual) Nucleated RBC % 0 Metamyelocytes Hypochromia 2+ Platelet Estimate Adequate Polychromasia Poikilocytosis Anisocytosis 2+ Microcytosis Macrocytosis 2+ Spherocytes Tear Drop Cells [place] Cells Rouleaux 2+ Schistocytes Retic Count PT with INR INR PTT (Actin FS) VBG pH POC VBG pCO2 POC VBG pO2 VBG HCO3 VBG O2 Sat (Mehran) VBG Base Excess Sodium Potassium Chloride Carbon Dioxide Anion Gap BUN Creatinine Est GFR (CKD-EPI)AfAm Est GFR (CKD-EPI)NonAf POC Glucometer Random Glucose Lactic Acid Calcium Phosphorus Magnesium Iron Ferritin Total Bilirubin AST ALT Alkaline Phosphatase LD Total Creatine Kinase CK-MB (CK-2) Troponin I Total Protein Albumin Vitamin B12 TSH Urine Color Yellow Urine Appearance Cloudy Urine pH 5.0 D Ur Specific [place]yer 1.017 Urine Protein 1+ H Urine Glucose (UA) Trace Urine Ketones Negative Urine Blood Negative Urine Nitrite Negative Urine Bilirubin Negative Urine Urobilinogen 1.0 Ur Leukocyte Esterase Negative Urine WBC (Auto) 5 Urine RBC (Auto) 4 Urine Casts (Auto) 1 U Epithel Cells (Auto) 14 Urine Bacteria (Auto) 5320 Random Vancomycin Influenza A (Rapid) Negative Influenza B (Rapid) Negative 12/19/19 12/19/19 12/19/19 16:00 16:00 16:00 WBC RBC Hgb Hct MCV MCH MCHC RDW Plt Count MPV Absolute Neuts (auto) Neutrophils % Neutrophils % (Manual) Band Neutrophils % Lymphocytes % Lymphocytes % (Manual) Monocytes % Monocytes % (Manual) Eosinophils % Eosinophils % (Manual) Basophils % Basophils % (Manual) Myelocytes % (Man) Promyelocytes % (Man) Blast Cells % (Manual) Nucleated RBC % Metamyelocytes Hypochromia Platelet Estimate Polychromasia Poikilocytosis Anisocytosis Microcytosis Macrocytosis Spherocytes Tear Drop Cells Juan Cells Rouleaux Schistocytes Retic Count PT with INR INR PTT (Actin FS) VBG pH 7.42 H POC VBG pCO2 35.0 L POC VBG pO2 138 H VBG HCO3 22.2 L VBG O2 Sat (Mehran) 99.3 H VBG Base Excess -1.4 Sodium 143 Potassium 2.6 L* Chloride 106 Carbon Dioxide 23 Anion Gap 15 BUN 25.7 H Creatinine 1.5 H Est GFR (CKD-EPI)AfAm 37.74 Est GFR (CKD-EPI)NonAf 32.56 POC Glucometer Random Glucose 135 H Lactic Acid 9.2 H* Calcium 7.9 L Phosphorus Magnesium 1.3 L Iron Ferritin Total Bilirubin 1.1 H AST 22 ALT 24 Alkaline Phosphatase 45 LD Total Creatine Kinase CK-MB (CK-2) Troponin I Total Protein 5.2 L Albumin 2.7 L Vitamin B12 TSH Urine Color Urine Appearance Urine pH Ur Specific [place]yer Urine Protein Urine Glucose (UA) Urine Ketones Urine Blood Urine Nitrite Urine Bilirubin Urine Urobilinogen Ur Leukocyte Esterase Urine WBC (Auto) Urine RBC (Auto) Urine Casts (Auto) U Epithel Cells (Auto) Urine Bacteria (Auto) Random Vancomycin Influenza A (Rapid) Influenza B (Rapid) 12/19/19 12/19/19 12/19/19 22:59 22:59 22:59 WBC RBC Hgb Hct MCV MCH MCHC RDW Plt Count MPV Absolute Neuts (auto) Neutrophils % Neutrophils % (Manual) Band Neutrophils % Lymphocytes % Lymphocytes % (Manual) Monocytes % Monocytes % (Manual) Eosinophils % Eosinophils % (Manual) Basophils % Basophils % (Manual) Myelocytes % (Man) Promyelocytes % (Man) Blast Cells % (Manual) Nucleated RBC % Metamyelocytes Hypochromia Platelet Estimate Polychromasia Poikilocytosis Anisocytosis Microcytosis Macrocytosis Spherocytes Tear Drop Cells Juan Cells Rouleaux Schistocytes Retic Count PT with INR INR PTT (Actin FS) VBG pH POC VBG pCO2 POC VBG pO2 VBG HCO3 VBG O2 Sat (Mehran) VBG Base Excess Sodium Potassium Chloride Carbon Dioxide Anion Gap BUN Creatinine Est GFR (CKD-EPI)AfAm Est GFR (CKD-EPI)NonAf POC Glucometer Random Glucose Lactic Acid 3.4 H* Calcium Phosphorus Magnesium Iron 19 L Ferritin 1171.4 H Total Bilirubin AST ALT Alkaline Phosphatase LD Total 526 H Creatine Kinase CK-MB (CK-2) Troponin I Total Protein Albumin Vitamin B12 443 TSH Urine Color Urine Appearance Urine pH Ur Specific [place] Urine Protein Urine Glucose (UA) Urine Ketones Urine Blood Urine Nitrite Urine Bilirubin Urine Urobilinogen Ur Leukocyte Esterase Urine WBC (Auto) Urine RBC (Auto) Urine Casts (Auto) U Epithel Cells (Auto) Urine Bacteria (Auto) Random Vancomycin Influenza A (Rapid) Influenza B (Rapid) 12/19/19 12/20/19 12/20/19 22:59 01:44 05:00 WBC RBC Hgb Hct MCV MCH MCHC RDW Plt Count MPV Absolute Neuts (auto) Neutrophils % Neutrophils % (Manual) Band Neutrophils % Lymphocytes % Lymphocytes % (Manual) Monocytes % Monocytes % (Manual) Eosinophils % Eosinophils % (Manual) Basophils % Basophils % (Manual) Myelocytes % (Man) Promyelocytes % (Man) Blast Cells % (Manual) Nucleated RBC % Metamyelocytes Hypochromia Platelet Estimate Polychromasia Poikilocytosis Anisocytosis Microcytosis Macrocytosis Spherocytes Tear Drop Cells [place] Cells Rouleaux Schistocytes Retic Count 6.50 H D PT with INR INR PTT (Actin FS) VBG pH POC VBG pCO2 POC VBG pO2 VBG HCO3 VBG O2 Sat (Mehran) VBG Base Excess Sodium Potassium Chloride Carbon Dioxide Anion Gap BUN Creatinine Est GFR (CKD-EPI)AfAm Est GFR (CKD-EPI)NonAf POC Glucometer 241 Random Glucose Lactic Acid Calcium Phosphorus Magnesium Iron Ferritin Total Bilirubin AST ALT Alkaline Phosphatase LD Total Creatine Kinase CK-MB (CK-2) Troponin I Total Protein Albumin Vitamin B12 TSH Urine Color Urine Appearance Urine pH Ur Specific [place] Urine Protein Urine Glucose (UA) Urine Ketones Urine Blood Urine Nitrite Urine Bilirubin Urine Urobilinogen Ur Leukocyte Esterase Urine WBC (Auto) Urine RBC (Auto) Urine Casts (Auto) U Epithel Cells (Auto) Urine Bacteria (Auto) Random Vancomycin 5.6 Influenza A (Rapid) Influenza B (Rapid) 12/20/19 12/20/19 12/20/19 05:00 05:00 06:00 WBC 7.4 RBC 2.06 L Hgb 7.3 L Hct 21.4 L MCV 104.2 H MCH 35.5 H MCHC 34.1 RDW 14.4 Plt Count 161 MPV 7.9 Absolute Neuts (auto) 5.5 Neutrophils % 75.0 Neutrophils % (Manual) 76.0 Band Neutrophils % 9.0 Lymphocytes % 20.8 D Lymphocytes % (Manual) 11.0 D Monocytes % 3.1 L Monocytes % (Manual) 2 L Eosinophils % 0.6 D Eosinophils % (Manual) 0.0 D Basophils % 0.5 Basophils % (Manual) 0.0 Myelocytes % (Man) 0 D Promyelocytes % (Man) 0 Blast Cells % (Manual) 0 Nucleated RBC % 0 Metamyelocytes 0 D Hypochromia 0 Platelet Estimate Decreased Polychromasia 1+ Poikilocytosis 1+ Anisocytosis 0 Microcytosis 0 Macrocytosis 0 Spherocytes 1+ Tear Drop Cells 1+ Juan Cells 1+ Rouleaux Schistocytes 1+ Retic Count PT with INR INR PTT (Actin FS) VBG pH POC VBG pCO2 POC VBG pO2 VBG HCO3 VBG O2 Sat (Mehran) VBG Base Excess Sodium 143 Potassium 3.0 L 3.0 L Chloride 109 H Carbon Dioxide 25 Anion Gap 9 BUN 17.3 Creatinine 1.0 Est GFR (CKD-EPI)AfAm 61.62 Est GFR (CKD-EPI)NonAf 53.17 POC Glucometer Random Glucose 107 H Lactic Acid Calcium 6.9 L* Phosphorus 1.4 L 1.5 L Magnesium 1.6 L Iron Ferritin Total Bilirubin 1.0 AST 22 ALT 22 Alkaline Phosphatase 38 L LD Total Creatine Kinase 27 CK-MB (CK-2) Troponin I 0.10 H Total Protein 4.6 L Albumin 2.2 L Vitamin B12 TSH 0.66 Urine Color Urine Appearance Urine pH Ur Specific [place] Urine Protein Urine Glucose (UA) Urine Ketones Urine Blood Urine Nitrite Urine Bilirubin Urine Urobilinogen Ur Leukocyte Esterase Urine WBC (Auto) Urine RBC (Auto) Urine Casts (Auto) U Epithel Cells (Auto) Urine Bacteria (Auto) Random Vancomycin Influenza A (Rapid) Influenza B (Rapid) 12/20/19 12/20/19 06:18 10:31 WBC RBC Hgb Hct MCV MCH MCHC RDW Plt Count MPV Absolute Neuts (auto) Neutrophils % Neutrophils % (Manual) Band Neutrophils % Lymphocytes % Lymphocytes % (Manual) Monocytes % Monocytes % (Manual) Eosinophils % Eosinophils % (Manual) Basophils % Basophils % (Manual) Myelocytes % (Man) Promyelocytes % (Man) Blast Cells % (Manual) Nucleated RBC % Metamyelocytes Hypochromia Platelet Estimate Polychromasia Poikilocytosis Anisocytosis Microcytosis Macrocytosis Spherocytes Tear Drop Cells [place] Cells Rouleaux Schistocytes Retic Count PT with INR INR PTT (Actin FS) VBG pH POC VBG pCO2 POC VBG pO2 VBG HCO3 VBG O2 Sat (Mehran) VBG Base Excess Sodium Potassium Chloride Carbon Dioxide Anion Gap BUN Creatinine Est GFR (CKD-EPI)AfAm Est GFR (CKD-EPI)NonAf POC Glucometer 104 97 Random Glucose Lactic Acid Calcium Phosphorus Magnesium Iron Ferritin Total Bilirubin AST ALT Alkaline Phosphatase LD Total Creatine Kinase CK-MB (CK-2) Troponin I Total Protein Albumin Vitamin B12 TSH Urine Color Urine Appearance Urine pH Ur Specific [place] Urine Protein Urine Glucose (UA) Urine Ketones Urine Blood Urine Nitrite Urine Bilirubin Urine Urobilinogen Ur Leukocyte Esterase Urine WBC (Auto) Urine RBC (Auto) Urine Casts (Auto) U Epithel Cells (Auto) Urine Bacteria (Auto) Random Vancomycin Influenza A (Rapid) Influenza B (Rapid) Active Medications Generic Name Dose Route Start Last Admin Trade Name Freq PRN Reason Stop Dose Admin Acetaminophen 1,000 mg 12/20/19 01:14 12/20/19 10:07 Ofirmev Injection - IVPB 1,000 mg Q6H PRN Administration FEVER Chlorhexidine Gluconate 1 applic 12/20/19 22:00 Hibiclens For Decolonization - TP HS GERRI Heparin Sodium (Porcine) 5,000 unit 12/20/19 02:00 12/20/19 10:09 Heparin - SQ 5,000 unit Q8H-IV GERRI Administration Sodium Chloride 1,000 mls @ 75 mls/hr 12/19/19 20:45 12/20/19 01:51 Normal Saline - IV Not Given ASDIR GERRI Vancomycin HCl 1,250 mg/ 250 mls @ 166.667 mls/hr 12/20/19 09:00 Dextrose IVPB Q12H GERRI Protocol Potassium Phosphate 15 mm/ 255 mls @ 62.5 mls/hr 12/20/19 10:00 Sodium Chloride IVPB 12/20/19 14:04 ONCE ONE Vancomycin HCl 1,250 mg/ 250 mls @ 166.667 mls/hr 12/20/19 10:00 Dextrose IVPB 12/20/19 23:29 Q12H GERRI Ceftriaxone Sodium 2 gm/ 100 mls @ 200 mls/hr 12/20/19 10:00 12/20/19 10:11 Dextrose IVPB Not Given BID GERRI Insulin Aspart 1 vial 12/19/19 22:00 12/20/19 01:48 Novolog Vial Sliding Scale - SQ 4 units ACHS GERRI Administration Protocol Levetiracetam 500 mg 12/19/19 22:00 12/20/19 10:09 Keppra Injection - IVPB 500 mg BID GERRI Administration Mupirocin 1 applic 12/20/19 10:00 12/20/19 10:09 Bactroban Ointment (For Decolonization) - NS 12/25/19 09:59 1 applic BID GERRI Administration Pantoprazole Sodium 40 mg 12/20/19 10:00 12/20/19 10:09 Protonix Iv IVPUSH 40 mg DAILY GERRI Administration Prednisone 15 mg 12/30/19 10:00 Deltasone - PO 01/02/20 10:01 DAILY GERRI Prednisone 10 mg 01/03/20 10:00 Deltasone - PO 01/06/20 10:01 DAILY GERRI Prednisone 5 mg 01/07/20 10:00 Deltasone - PO 01/10/20 10:01 DAILY GERRI ASSESSMENT/PLAN: 79 yo M w h/o HTN, HLD, IDDM, diverticuloisis, chronic systolic and diastolic heart failure, morbid obesity, breast cancer s/p chemoradiation, 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 Patient with 2/4 SIRS criteria in ED (Temp 102.5, HR 127, BP 137/85, RR 20, O2 100 % on RA). admitted to for sepsis ,r/o meningitis and r/o covid (low suspicion) Neuro: - Pt today is agitated, awake and alert however remains confused. - Based on convo this morning with family, pt had fever, chills and was confused prompting them to bring her to the ED. unclear if seizure activity occured. - CT Head (12-19-19): No acute intracranial pathology. Chronic supratentorial, and infratentorial infarcts - Cervical Spine CT (12-19-19): No fracture identified - Levetiracetam 1000 mg IV in ED. - Continue Levetiracetam 500 mg IV BID - UA and CXR negative. Pt bacteremic with gram positive cocci in chain. given AMS and fever, cannot r/o meningitis. - In ED, pt received Ceftriaxone 1000 mg. then overnight Vancomycin 1000 mg IV, Azithromycin 500 mg IV, Cefepime 1000 mg IV , Acyclovir 850 IV. - Per ID, continue with vancomycin 1250mg daily, rocephin 2gm Q12H to ensure adequate CSF presensation. - cont neurochecks - Neurology consulted: agree with above care. - will hold off LP today. given unclear last dose of AC unclear. per son last dose might have been 2 weeks ago given GIB at that time. Cardio: - BP stable. remains tachycardic in the 120s - Tachycardia likely 2/2 sepsis vs agitation - Troponin 0.09 -> 0.10 -> 0.08. Troponinemia Likely 2/2 demand ischemia, - EKG: LVH, TWI V4-V6, AvL (12-19-19). Similiar to prior interval EKG (06-03-19) - Echocardiogram ordered - fem line placed in ED 12/19/19 Pulmonary: - Airway intact - Nasal Cannula 2 Liters, O2 100 % - ABG (12-19-19): 7.42/35/138/22.0 - CXR (12-19-19): No acute process Gastrointestinal: - No active issues. - Home Protonix 40 mg QD - Continue 40 mg Protonix PPI IV QD - CT A/P and CT CHEST: Partially occlusive thrombus is seen within the lower third of the inferior vena cava extending into the right common iliac, and right external iliac veins and possibly into the right common femoral vein. The common bile duct is dilated with a 1.2 cm diameter. This finding appears to be mildly increased previously measuring 1 cm. No gross intraductal calculus is identified with the limitations of CT. Borderline splenic size. There is no hydronephrosis. Mild to moderate diffuse renal cortical atrophy. Stable 5.3 cm left renal cortical cyst. The liver, pancreas, and adrenal glands demonstrate no discrete pathology. There is no aortic aneurysm. The appendix appears to be partially visualized. There is no obvious acute appendicitis. Sigmoid diverticulosis is seen without evidence of acute diverticulitis. There is no obvious acute colitis. No gross small bowel abnormality is noted. Small hiatal hernia. Absent versus atrophic uterus. Renal: - BUN/Cr: 17.3/1 (Cr~0.8) - abnormal lytes : mag, K, Phos. all repleted - f/u afternoon BMP - Cantu Catheter in place (12-19-19) - Follow up renal ultrasound - Maintain accurate Is/Os Hematology/Oncology: History of Autoimmune Hemolytic Anemia - H/H: 8.1/24.7, PLT 200 -> 7.3/21.4 , plt 161 - monitor - Transfuse PRBC Hemoglobin < 7.0. - Iron studies : iron 19, Ferritin 1171.4, Reticulocyte Count 6.50, LDH 526, Haptoglobin pending) - pt on prednisone at home. unclear which dose. per son, might be between 7-8mg of prednisone. pt in hemolytic crisis. will give one dose of medrol 80 once and recheck hem panel in the am. 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 med still on list. to be confirmed by primary team. - sepsis from unclear etiology. r/o meningitis, r/o COVID - initial (Temp 102.5, HR 127). this morning temp remain 101F. tylenol given. - initial WBC ~6.8, Lactic Acid ~9.2, this am tem - CXR (12-19-19): No sign of an acute process - Influenza A/B: Negative - UA: Negative LE, Negative Nitrite, 5 WBC, 4 RBC - blood cx growing gram positive cocci in chain. urine culture pending. - Pending COVID-19 nasopharyngeal swab obtained in ED (12-19-19) - given low suspicion for COVID since bt has clear source for symptoms, will D/C airborne precautions and keep droplet precautions - Patient received Ceftriaxone 1000 mg in ED - overnight Vancomycin 1000 mg IV, Azithromycin 500 mg IV, Cefepime 1000 mg IV, Acyclovir 850 IV - F/u Vancomycin Trough - will continue with vanco 1250 mg daily and rocephin 2gm Q12H - Repeat Lactic Acid 2.6 . downtrended - ID recs appreciated Endocrine: - BS 113 - BGM - Sliding scale Insulin FEN: - currently edematous. d/c standing fluids - lytes PRN - NPO T/L/N: Right fem line PPx: Mechanical/SCDs, Heparin SubQ, Protonix 40 mg QD Code Status : Full Code Dispo: Continue ICU monitoring Visit type - Emergency Visit Emergency Visit: Yes ED Registration Date: 12/19/19 Care time: The patient presented to the Emergency Department on the above date and was hospitalized for further evaluation of their emergent condition. - New Patient This patient is new to me today: Yes Date on this admission: 12/20/19 - Critical Care Critical Care patient: Yes Total Critical Care Time (in minutes): 36 Critical Care Statement: The care of this patient involved high complexity decision making to prevent further life threatening deterioration of the patient's condition and/or to evaluate & treat vital organ system(s) failure or risk of failure. ATTENDING PHYSICIAN STATEMENT I saw and evaluated the patient. I reviewed the resident's note and discussed the case with the resident. I agree with the resident's findings and plan as documented. SUBJECTIVE: OBJECTIVE: ASSESSMENT AND PLAN:
--- NOTE | 2019-12-20 11:04 | PN ---
Progress Note (short form) - Note Progress Note: ID consult dictated brought to ed with mental status changes lethargy yesterday ?seizure fevers noted ?chronic prednisone for hemolytic anemia unable to reach family ct scans of chest and head done notable for chronic infarcts, no acute infarcts chest ct no acute infiltrates blood cultures 4/4- gram positive cocci in chains on exam she is afebrile and confused responsive to name does not follow commands neck is supple confusion/fever/new seizure r/o meningitis strep bacteremia- ?pneumococcal isolation for possible pneumococcal meningitis LP low clinical suspicion for covid-19- maintain droplet isolation vancomycin/rocephin-meningitis dose thrombus IVC-?need for A/c history of hemolytic anemia history of positve quant- s/p rifampin treatment d/w ICU team please try to reach family for more history over 45 minutes spent in the care of this critically ill ICU patient repeat blood cultures in am Problem List - Problems (1) Altered mental status Code(s): R41.82 - ALTERED MENTAL STATUS, UNSPECIFIED (2) Streptococcal meningitis Code(s): G00.2 - STREPTOCOCCAL MENINGITIS (3) Autoimmune hemolytic anemias Code(s): D59.1 - OTHER AUTOIMMUNE HEMOLYTIC ANEMIAS (4) Diabetes mellitus Code(s): E11.9 - TYPE 2 DIABETES MELLITUS WITHOUT COMPLICATIONS (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
--- NOTE | 2019-12-20 12:06 | CONS ---
INFECTIOUS DISEASE CONSULTATION DATE OF CONSULTATION: DATE OF DICTATION: 12/20/2019 HISTORY: This is an 79-year-old woman. She presented to the ER yesterday with apparently she became confused during the course of the day yesterday, and she apparently started having fever. There was apparently a witnessed seizure-like activity, per EMS after exiting the ambulance at [facility]. There was no family present, and this history is all from the ER note. I attempted to contact the family but was unable to reach anybody. Per the ER note, the symptoms began that morning, and she was less interactive than usual. PAST MEDICAL HISTORY: Significant for breast cancer with left mastectomy with chemotherapy and radiation. Positive hemolytic anemia, syncope, hypertension, hyperlipidemia, morbid obesity, and diabetes. She has a history as well of positive QuantiFERON has been on rifampin for latent TB. She was last in the hospital in June. At that time, she was on rifampin, but further details regarding her hemolytic anemia are not known. SURGICAL HISTORY: Not available. SOCIAL HISTORY: She lives at home. She has no known drug allergies. MEDICATIONS: Her medication list is not updated. REVIEW OF SYSTEMS: As well is not available as she has altered mental status. PHYSICAL EXAMINATION: Vital Signs: She has fever. Maximum temperature of 102.5, current temperature is 99.3, pulse of 112, blood pressure 113/92, respiratory rate is 28. She weighs 85 kg. HEENT: She is normocephalic. General: She is restless in bed. She opens her eyes to [place], but she is not following any commands, and she is not able to converse. DIAGNOSTIC DATA: Her white count is 7.4, hemoglobin 7.3, platelets are 161. Her INR is 1. Her BUN 17, creatinine 1. Her albumin is 2.2. Urinalysis has 5 white cells. Her Influenza screen is negative. She has had multiple imaging including her head. She had 2 head CTs, a cervical spine CT and a CT of her chest. No infiltrate or pleural effusion is noted. She has had resolution of a large pericardial effusion. Head CT shows evidence of multiple old CVAs. No acute CVAs. CAT scan also shows that she has a partially occlusive thrombus in the lower 1/3 of the inferior vena cava extending into the right common iliac, right external iliac, and right common femoral vein. She has a mildly dilated CBD duct. Her blood cultures, 4/4 bottles drawn on admission are growing gram-positive cocci in chains. In summary, this is an 79-year-old woman with confusion, fever, new seizure, rule out meningitis, strep bacteremia, possibly pneumococcal. On exam, she does not have any nuchal rigidity, but given the clinical picture would be reasonable to isolate her for possible pneumococcal meningitis and get an LP. Low clinical suspicion for COVID-19 with regards to the fact that there is a source for her fever as well as a clear CAT scan of her chest. Of note, on the CAT scan of her abdomen and pelvis, there is evidence of a thrombus, which needs to be addressed by the primary team. Lastly, she has a history of hemolytic anemia so unclear if she has been maintained on steroids. It is unclear what her baseline medications are. History of positive QuantiFERON status post rifampin treatment. Further recommendations to follow. JAH GUTIERREZ M.D. MAYO/[id number]
[2019-12-20 12:23] LABS: EPI CELLS 7 /uL (0-25.1); HYALINE CASTS 1 /uL (0-3.1); URINE APPEARANCE CLEAR; URINE BACTERIA 88 /uL (0-1359); URINE BILIRUBIN NEGATIVE (NEGATIVE); URINE COLOR YELLOW; URINE GLUCOSE (UA) NEGATIVE (NEGATIVE); URINE KETONE NEGATIVE (NEGATIVE); URINE LEUK ESTERASE NEGATIVE (NEGATIVE); URINE NITRITE NEGATIVE (NEGATIVE); URINE PROTEIN 2+ (NEGATIVE); URINE RBC 14 /uL (0-23.9); URINE UROBILINOGEN 0.2 mg/dL (0.2-1.0)
--- NOTE | 2019-12-20 12:40 | PN ---
Teaching Attending Note Name of Resident: Trey Vivas ATTENDING PHYSICIAN STATEMENT I saw and evaluated the patient. I reviewed the resident's note and discussed the case with the resident. I agree with the resident's findings and plan as documented. SUBJECTIVE: Unable to obtain hx due to condition . No events after ICU admission . per son, her base line is awake, oriented x 3, walkes wit a walker. had fever x 2 days with change in mental status. no travel or sick contact. no other sx . OBJECTIVE: Restless, responsive to her name and sternal rub. dry MM. no facial droop. L mastectomy scar CV: hard to appreciate any murmur, snoring. has RRR. Lungs: snoring, but sound clear on sides and anteriorly. could not be turned Abd: obese, soft, NT, ND, nl BS Ext: pitting edema on upper extremities. No edema on legs clay in. moves all her extremities. no facial droop. ASSESSMENT AND PLAN: 79 y/o lady with h/o HTN, HLD, IDDM, Morbid obesity, breast cancer s/p chemoradiation, Arlyn + hemolytic anemia, latent TB, chronic systolic and diastolic heart failure, pericardial effusion, severe MR, external hemorrhoids who presented with AMS. she was found to have severe sepsis. 1- Severe sepsis 2/2 G+ bacteremia, with suspected meningitis . - cont Ceftriaxone, and vanco - follow final blood cx. - Echo to r/o vegetations - case was d/w Dr. Lorenzo. - cont IVF. follow lactic. follow CBC. - Low suspicion for COVID-19 since she has another source for infection . - Akilah Friedman helped calling son who speaks only Serbian. patient was on Eliquis that was stopped by her pay per click strategist 2 weeks ago due to rectal bleed. - This was d/w Dr. Juarez. ICU team will be performing LP. 2- Seizure: likely due to the [employer] process. ? meningitis. - cont Keppra for now. - neuro eval. - might need an MRI given her h/o cancer, but can't stay still now 3- VON: likely prerena. responded to IVF. Cr imporved . - cont IVF and monitor 4- High AG acidosis: due to lactic acidosis. resolved 5- IVC thrombus: per son, he was not aware of this diagnosis . team could gather that she was on eliquis for PICC line thrombosis. that was stopped 2 weeks ago - can't anticoagulate now, pending LP 7-Electrolyte derangements: replete K , Mg, and Phos 8- RUL nodule: f/u as out pt 9- CBD dilation: per CT read indicates it was 1cm before. - will get US of the rUQ - doubt that sepsis is from biliary source as bacteremia is G+ 10 - h/o hemolytic anemia. Son indicates she was on 70 of prednisone - will resume steroids - will try to reach out to her pay per click strategist Dr. Rucker [phone] 11- H/o Latent TB: started Rifampin in 06/20. she should be finished by now. confirmed with Dr. cast DVT PX . scds . holding eliquis for LP D/w ID, ICU, and Neuro.
--- NOTE | 2019-12-20 13:20 | PN ---
Teaching Attending Note Name of Resident: Bindu Godoy ATTENDING PHYSICIAN STATEMENT I saw and evaluated the patient. I reviewed the resident's note and discussed the case with the resident. I agree with the resident's findings and plan as documented. SUBJECTIVE: Pt seen and examined in the ICU. Confused but arousable. Blood cultures growing gram positive cocci in chains. Febrile to 102.5 OBJECTIVE: Vital Signs Period Temp Pulse Resp BP Sys/Hale Pulse Ox Last 24 Hr 99.3 F-102.5 F 100-128 20-28 100-158/65-101 96-100 Intake & Output 12/17/19 12/18/19 12/19/19 12/20/19 23:59 23:59 23:59 23:59 Intake Total 983 Output Total 1500 Balance -517 Weight 86.1 kg 85.417 kg Gen: confused Heart: tachycardic, regular Lung: decreased breath sounds at the bases Abd: soft, nontender Ext: no edema CBC, BMP 12/20/19 05:00 12/20/19 06:00 Active Medications Acetaminophen (Ofirmev Injection -) 1,000 mg IVPB Q6H PRN PRN Reason: FEVER Last Admin: 12/20/19 10:07 Dose: 1,000 mg Documented by: Chlorhexidine Gluconate (Hibiclens For Decolonization -) 1 applic TP HS [facility] Heparin Sodium (Porcine) (Heparin -) 5,000 unit SQ Q8H-IV [facility] Last Admin: 12/20/19 10:09 Dose: 5,000 unit Documented by: Sodium Chloride (Normal Saline -) 1,000 mls @ 75 mls/hr IV ASDIR GERRI Last Admin: 12/20/19 01:51 Dose: Not Given Documented by: Vancomycin HCl 1,250 mg/ (Dextrose) 250 mls @ 166.667 mls/hr IVPB Q12H [facility]; Protocol Potassium Phosphate 15 mm/ (Sodium Chloride) 255 mls @ 62.5 mls/hr IVPB ONCE ONE Stop: 12/20/19 14:04 Last Admin: 12/20/19 10:50 Dose: 62.5 mls/hr Documented by: Vancomycin HCl 1,250 mg/ (Dextrose) 250 mls @ 166.667 mls/hr IVPB Q12H [facility] Stop: 12/20/19 23:29 Ceftriaxone Sodium 2 gm/ (Dextrose) 100 mls @ 200 mls/hr IVPB BID [facility] Last Admin: 12/20/19 10:11 Dose: Not Given Documented by: Insulin Aspart (Novolog Vial Sliding Scale -) 1 vial SQ ACHS [facility]; Protocol Last Admin: 12/20/19 10:50 Dose: Not Given Documented by: Levetiracetam (Keppra Injection -) 500 mg IVPB BID [facility] Last Admin: 12/20/19 10:09 Dose: 500 mg Documented by: Mupirocin (Bactroban Ointment (For Decolonization) -) 1 applic NS BID [facility] Stop: 12/25/19 09:59 Last Admin: 12/20/19 10:09 Dose: 1 applic Documented by: Pantoprazole Sodium (Protonix Iv) 40 mg IVPUSH DAILY [facility] Last Admin: 12/20/19 10:09 Dose: 40 mg Documented by: Prednisone (Deltasone -) 5 mg PO DAILY [facility] ASSESSMENT AND PLAN: Altered Mental Status r/o Acute Meningitis Gram Positive Bacteremia Sepsis Acute Kidney Injury Lactic Acidosis +Troponins likely Demand Ischemia LV Systolic/Diastolic Dysfunction Hemolytic Anemia HTN Hyperlipidemia DM Diverticulosis IVC Thrombus - continue antibiotics - f/u cultures - LP for diagnosis - on empiric antiepileptics - IVF - monitor urine output, creatinine - replete lytes - O2 to keep SpO2 >90% - aspiration precautions - echocardiogram - resume anticoagulation after LP
--- NOTE | 2019-12-20 13:32 | PN ---
Physical Exam: SUBJECTIVE: Patient seen and examined at bedside. pt is agitated and is upset about restraints but is altered. OBJECTIVE: Vital Signs Period Temp Pulse Resp BP Sys/Hale Pulse Ox Last 24 Hr 99.3 F-102.5 F 100-128 20-28 100-158/65-101 96-100 GENERAL: The patient is awake, alert, and oriented to self, in no acute distress. HEAD: Normal with no signs of trauma. EYES: PERRL ENT: oropharynx clear without exudates, moist mucous membranes. NECK: Trachea midline, full range of motion, supple. LUNGS: Breath sounds equal, clear to auscultation bilaterally, no accessory muscle use. HEART:tachycardic, + murmur, regular rhythm ABDOMEN: Soft, nontender, nondistended, normoactive bowel sounds, no guarding EXTREMITIES: 2+ pulses, warm, well-perfused, 2+ UE edema, 2+ LE edema SKIN: multiple skin tears and lesions throughout, especially b/l UE Laboratory Last Values WBC 7.4 K/mm3 (4.0-10.0) 12/20/19 05:00 RBC 2.06 M/mm3 (3.60-5.2) L 12/20/19 05:00 Hgb 7.3 GM/dL (10.7-15.3) L 12/20/19 05:00 Hct 21.4 % (32.4-45.2) L 12/20/19 05:00 MCV 104.2 fl (80-96) H 12/20/19 05:00 MCH 35.5 pg (25.7-33.7) H 12/20/19 05:00 MCHC 34.1 g/dl (32.0-36.0) 12/20/19 05:00 RDW 14.4 % (11.6-15.6) 12/20/19 05:00 Plt Count 161 K/MM3 (134-434) 12/20/19 05:00 MPV 7.9 fl (7.5-11.1) 12/20/19 05:00 Absolute Neuts (auto) 5.5 K/mm3 (1.5-8.0) 12/20/19 05:00 Neutrophils % 75.0 % (42.8-82.8) 12/20/19 05:00 Neutrophils % (Manual) 76.0 % (42.8-82.8) 12/20/19 05:00 Band Neutrophils % 9.0 % 12/20/19 05:00 Lymphocytes % 20.8 % (8-40) D 12/20/19 05:00 Lymphocytes % (Manual) 11.0 % (8-40) D 12/20/19 05:00 Monocytes % 3.1 % (3.8-10.2) L 12/20/19 05:00 Monocytes % (Manual) 2 % (3.8-10.2) L 12/20/19 05:00 Eosinophils % 0.6 % (0-4.5) D 12/20/19 05:00 Eosinophils % (Manual) 0.0 % (0-4.5) D 12/20/19 05:00 Basophils % 0.5 % (0-2.0) 12/20/19 05:00 Basophils % (Manual) 0.0 % (0-2.0) 12/20/19 05:00 Myelocytes % (Man) 0 % (0-2) D 12/20/19 05:00 Promyelocytes % (Man) 0 % (0-2) 12/20/19 05:00 Blast Cells % (Manual) 0 % (0-0) 12/20/19 05:00 Nucleated RBC % 0 % (0-0) 12/20/19 05:00 Metamyelocytes 0 % (0-2) D 12/20/19 05:00 Hypochromia 0 12/20/19 05:00 Platelet Estimate Decreased 12/20/19 05:00 Polychromasia 1+ 12/20/19 05:00 Poikilocytosis 1+ 12/20/19 05:00 Anisocytosis 0 12/20/19 05:00 Microcytosis 0 12/20/19 05:00 Macrocytosis 0 12/20/19 05:00 Spherocytes 1+ 12/20/19 05:00 Tear Drop Cells 1+ 12/20/19 05:00 Juan Cells 1+ 12/20/19 05:00 Rouleaux 2+ 12/19/19 16:00 Schistocytes 1+ 12/20/19 05:00 Retic Count 6.50 % (0.5-1.5) H D 12/19/19 22:59 PT with INR 12.80 SEC (9.7-13.0) 12/19/19 16:00 INR 1.08 (0.83-1.09) 12/19/19 16:00 PTT (Actin FS) 23.6 SECONDS (25.2-36.5) L 12/19/19 16:00 VBG pH 7.42 (7.31-7.41) H 12/19/19 16:00 POC VBG pCO2 35.0 mmHg (38-52) L 12/19/19 16:00 POC VBG pO2 138 mmHg (28-48) H 12/19/19 16:00 VBG HCO3 22.2 mmol/L (23-29) L 12/19/19 16:00 VBG O2 Sat (Mehran) 99.3 % (70-80) H 12/19/19 16:00 VBG Base Excess -1.4 meq/l (-2-2) 12/19/19 16:00 Sodium 144 mmol/L (136-145) 12/20/19 14:00 Potassium 3.0 mmol/L (3.5-5.1) L 12/20/19 14:00 Chloride 109 mmol/L (98-107) H 12/20/19 14:00 Carbon Dioxide 23 mmol/L (21-32) 12/20/19 14:00 Anion Gap 11 MMOL/L (8-16) 12/20/19 14:00 BUN 16.6 mg/dL (7-18) 12/20/19 14:00 Creatinine 1.0 mg/dL (0.55-1.3) 12/20/19 14:00 Est GFR (CKD-EPI)AfAm 61.62 12/20/19 14:00 Est GFR (CKD-EPI)NonAf 53.17 12/20/19 14:00 POC Glucometer 176 UNITS (80-120) 12/20/19 16:18 Random Glucose 151 mg/dL (74-106) H 12/20/19 14:00 Lactic Acid 2.6 mmol/L (0.4-2.0) H* 12/20/19 16:00 Calcium 6.9 mg/dL (8.5-10.1) L* 12/20/19 14:00 Phosphorus 1.5 mg/dL (2.5-4.9) L 12/20/19 06:00 Magnesium 1.6 mg/dL (1.8-2.4) L 12/20/19 05:00 Iron 19 ug/dL (50-175) L 12/19/19 22:59 Ferritin 1171.4 ng/ml (8-388) H 12/19/19 22:59 Total Bilirubin 1.0 mg/dL (0.2-1) 12/20/19 05:00 AST 22 U/L (15-37) 12/20/19 05:00 ALT 22 U/L (13-61) 12/20/19 05:00 Alkaline Phosphatase 38 U/L (45-117) L 12/20/19 05:00 LD Total 526 U/L (84-246) H 12/19/19 22:59 Creatine Kinase 27 U/L (26-192) 12/20/19 06:00 CK-MB (CK-2) < 1.0 ng/mL (0.5-3.6) 12/19/19 16:00 Troponin I 0.08 ng/ml (0.00-0.05) H 12/20/19 14:00 Total Protein 4.6 g/dl (6.4-8.2) L 12/20/19 05:00 Albumin 2.2 g/dl (3.4-5.0) L 12/20/19 05:00 Vitamin B12 443 pg/ml (193-986) 12/19/19 22:59 Serum Folate 37 ng/mL (3.1-17.5) H 12/20/19 06:00 TSH 0.66 uIU/ml (0.358-3.74) 12/20/19 06:00 Urine Color Yellow 12/20/19 11:00 Urine Appearance Clear 12/20/19 11:00 Urine pH 6.0 (5.0-8.0) 12/20/19 11:00 Ur Specific [place] 1.030 (1.010-1.035) 12/20/19 11:00 Urine Protein 2+ (NEGATIVE) H 12/20/19 11:00 Urine Glucose (UA) Negative (NEGATIVE) 12/20/19 11:00 Urine Ketones Negative (NEGATIVE) 12/20/19 11:00 Urine Blood 1+ (NEGATIVE) H 12/20/19 11:00 Urine Nitrite Negative (NEGATIVE) 12/20/19 11:00 Urine Bilirubin Negative (NEGATIVE) 12/20/19 11:00 Urine Urobilinogen 0.2 mg/dL (0.2-1.0) 12/20/19 11:00 Ur Leukocyte Esterase Negative (NEGATIVE) 12/20/19 11:00 Urine WBC (Auto) 5 /uL (0-25.8) 12/19/19 16:00 Urine RBC (Auto) 14 /uL (0-23.9) 12/20/19 11:00 Urine Casts (Auto) 1 /uL (0-3.1) 12/20/19 11:00 U Epithel Cells (Auto) 7 /uL (0-25.1) 12/20/19 11:00 Urine Bacteria (Auto) 88 /uL (0-1359) 12/20/19 11:00 Random Vancomycin 5.6 ug/ml (5-26) 12/20/19 05:00 Influenza A (Rapid) Negative (Negative) 12/19/19 16:00 Influenza B (Rapid) Negative (Negative) 12/19/19 16:00 Current Medications Acetaminophen (Ofirmev Injection -) 1,000 mg IVPB Q6H PRN PRN Reason: FEVER Last Admin: 12/20/19 10:07 Dose: 1,000 mg Documented by: Chlorhexidine Gluconate (Hibiclens For Decolonization -) 1 applic TP HS [facility] Heparin Sodium (Porcine) (Heparin -) 5,000 unit SQ Q8H-IV [facility] Last Admin: 12/20/19 17:59 Dose: 5,000 unit Documented by: Sodium Chloride (Normal Saline -) 1,000 mls @ 75 mls/hr IV ASDIR [facility] Last Admin: 12/20/19 16:25 Dose: 75 mls/hr Documented by: Ceftriaxone Sodium 2 gm/ (Dextrose) 100 mls @ 200 mls/hr IVPB BID [facility] Last Admin: 12/20/19 10:11 Dose: Not Given Documented by: Vancomycin HCl 1,250 mg/ (Dextrose) 250 mls @ 166.667 mls/hr IVPB Q12H [facility] Potassium Chloride (Potassium Chloride 10 Meq Premix Ivpb -) 10 meq in 100 mls @ 100 mls/hr IVPB Q60M [facility] Stop: 12/20/19 18:29 Last Admin: 12/20/19 17:58 Dose: 100 mls/hr Documented by: Insulin Aspart (Novolog Vial Sliding Scale -) 1 vial SQ ACHS [facility]; Protocol Last Admin: 12/20/19 16:24 Dose: 2 units Documented by: Levetiracetam (Keppra Injection -) 500 mg IVPB BID [facility] Last Admin: 12/20/19 10:09 Dose: 500 mg Documented by: Methylprednisolone Sodium Succinate (Solu-Medrol -) 60 mg IVPUSH DAILY [facility] Mupirocin (Bactroban Ointment (For Decolonization) -) 1 applic NS BID [facility] Stop: 12/25/19 09:59 Last Admin: 12/20/19 10:09 Dose: 1 applic Documented by: Pantoprazole Sodium (Protonix Iv) 40 mg IVPUSH DAILY [facility] ASSESSMENT/PLAN: 79 yo M w h/o HTN, HLD, IDDM, Morbid obesity, breast cancer s/p chemoradiation, Arlyn + hemolytic anemia requiring transfusion who presented to the emergency department with seizure like activity, altered mental status. Pt is admitted for sepsis workup . Confirmed that pt was tx in October for EPEC with ceftriaxone, had PICC placed- developed DVT and started on eliquis. eliquis was stopped b/c of rectal bleeding. pt has not taken eliquis in 2 weeks. Acute Toxic Metabolic encephalopathy - likely 2/2 endocarditis vs meningitis - pt has gram + bacteremia, + small vegetation on LV aspect of aortic valve -on vanc and rocephin. vanc trough at 1:30 tomorrow - ID following -low suspicion of covid-19, pending test results Seizure - r/o meningitis - Neuro following. will eval for possible LP tomorrow -c/w ceftriaxone, vanco - c/w keppra 500 BID VON - improved - c/w IVF High Anion gap likely 2/2 Lactic acidosis - improving. c.w IVF Hemolytic anemia - confirmed with family, home dose is 70 mg prednisone daily. equivalent to approx 56 mg solumedrol IV IVC thrombus CBD dilation - pending U/S RUQ Lung nodule - f/u outpt Lactic acidosis - improving , continue to monitor F/E/N -IV NS @ 75 mls/ hr - lytes repleted, continue to monitor -NPO DVT ppx: SCDs GI ppx: protonix Continue ICU monitoring Visit type - Emergency Visit Emergency Visit: No - New Patient This patient is new to me today: No - Critical Care Critical Care patient: Yes Total Critical Care Time (in minutes): 38 Critical Care Statement: The care of this patient involved high complexity decision making to prevent further life threatening deterioration of the patient's condition and/or to evaluate & treat vital organ system(s) failure or risk of failure. - Discharge Referral Referred to [facility] Med P.C.: No ATTENDING PHYSICIAN STATEMENT I saw and evaluated the patient. I reviewed the resident's note and discussed the case with the resident. I agree with the resident's findings and plan as documented. SUBJECTIVE: OBJECTIVE: ASSESSMENT AND PLAN:
[2019-12-20] MEDS ORDERED: methylPREDNISolone NA SUCC 125 MG/2 ML VIAL IVPUSH ONE (14:00)
[2019-12-20] MEDS ORDERED: methylPREDNISolone NA SUCC 125 MG/2 ML VIAL IVPUSH SCH (14:00)
[2019-12-20 14:48] LABS: BLOOD UREA NITROGEN 16.6 mg/dL (7-18)
[2019-12-20 14:51] LABS: CALCIUM 6.9 mg/dL (8.5-10.1)
--- NOTE | 2019-12-20 15:44 | ECHO ---
Name: DE LOS SANTOS CHIDI OLIVIA Exam:Adult Echocardiogram Study Date: 12/20/2019 02:49 PM Age: 79 yrs Reason For Study: r/o chf MMode/2D Measurements & Calculations IVSd: 1.1 cm Ao root diam: 2.7 cm LVIDd: 4.7 cm LA dimension: 4.0 cm LVIDs: 3.9 cm LVPWd: 1.3 cm LVPWs: 1.8 cm EDV(Teich): 103.9 ml ESV(Teich): 66.5 ml LVOT diam: 2.1 cm Doppler Measurements & Calculations MV E max subha: 113.0 cm/sec Ao V2 max: 298.6 cm/sec MV A max subha: 162.2 cm/sec Ao max P.7 mmHg MV E/A: 0.70 Ao V2 mean: 211.0 cm/sec MV dec time: 0.06 sec Ao mean P.8 mmHg Ao V2 VTI: 61.3 cm WILLI(V,D): 1.4 cm2 LV V1 max P.1 mmHg PA V2 max: 142.5 cm/sec LV V1 max: 123.9 cm/sec PA max P.1 mmHg Left Ventricle Left ventricular systolic function is normal. Ejection Fraction = 50-55%. Septal motion is consistent with conduction abnormality. Right Ventricle The right ventricle is normal in size and function. Atria The left atrium is mildly dilated. Mitral Valve There is moderate mitral annular calcification. There is no mitral valve stenosis. There is moderate mitral regurgitation. Tricuspid Valve The tricuspid valve is normal in structure and function. There is mild tricuspid regurgitation. Aortic Valve Small (0.2cm x 0.7cm) mobile echodensity on the left ventricular aspect of the aortic valve suspiciou s for a small vegetation. Clinical correlation required. Mild to moderate valvular aortic stenosis. No aortic regurgitation is present. Pulmonic Valve The pulmonic valve is not well visualized. There is no pulmonic valvular stenosis. Great Vessels The aortic root is normal size. Pericardium/Pleura Trivial pericardial effusion not hemodynamically significant. Interpretation Summary Septal motion is consistent with conduction abnormality. Left ventricular systolic function is normal. Ejection Fraction = 50-55%. The right ventricle is normal in size and function. The left atrium is mildly dilated. There is moderate mitral annular calcification. There is moderate mitral regurgitation. Mild to moderate valvular aortic stenosis. Small (0.2cm x 0.7cm) mobile echodensity on the left ventricular aspect of the aortic valve suspiciou s for a small vegetation. Clinical correlation required. No aortic regurgitation is present. Trivial pericardial effusion not hemodynamically significant MD Moreira *Darline 12/20/2019 03:43 PM
[2019-12-20] MEDS: CHLORHEXIDINE GLUCONATE 4% CLEANSER FOR DECOLONIZATION TP SCH (21:53)
[2019-12-20] MEDS: VANCOMYCIN 1,250 MG in DEXTROSE 5%-WATER - 250 ML IVPB SCH (21:54)
--- NOTE | 2019-12-20 21:55 | PN ---
Progress Note (short form) - Note Progress Note: Cc Altered mental status and ? seizure 79 Year old woman came to hospital for AMS and ? seizure , as it was not confirmed. Kathy tis on prednisone for hemolytic anemia. Patient has high grade fever and has been started on abx ( ceftriaxone and vanco) . Lilian has ct head negative. She also take eliquis. She was stested for COVID 19 , test is pending. I spoke to house staff, attending and review chart She was also treated with quantiferon in past and got rifampicin for latent tb. Patient is hemodynamically stable. She was also started on keppra . No seizure since in ICU Recent Travel: no PAST MEDICAL HISTORY: HTN, HLD, IDDM, Morbid obesity, breast cancer s/p chemoradiation, Arlyn + hemolytic anemia PSH,SH,ROS reviewed in chart HOME MEDICATIONS: Home Medications Medication Instructions Recorded Exemestane [Aromasin -] 25 mg PO DAILY 01/05/19 Metformin HCl [Glucophage] 500 mg PO BID 02/18/19 Folic Acid - 1 mg PO DAILY #30 tablet 02/23/19 Losartan Potassium [Cozaar -] 100 mg PO DAILY tablet 02/23/19 Metoprolol Succinate [Toprol XL -] 50 mg PO DAILY tab.sr.24h 02/23/19 Lancets/Blood Glucose Strips [Fora 1 each MC DAILY 30 Days combo..pkg 05/17/19 [id number] Strp-Lnct] Pantoprazole Sodium [Protonix -] 40 mg PO DAILY #30 tablet.ec 05/17/19 Atovaquone [Mepron Oral Solution -] 1,500 mg PO DAILY@0800 #300 ml 06/15/19 Prednisone 5 mg PO DAILY #80 tab.ds.pk 06/15/19 Rifampin [Rifadin -] 600 mg PO DAILY #30 capsule 06/15/19 ct head unremarkable Assessment/Plan 1. Suspected Meningitis , abx as per ID. She is also being suspected for COVID 19( though low risk), given patient is in eliquis . We agree to hold spinal tap for now and treat empirically . I concur with these deicsion. 3. Posssible seizure , continue keppra for now watch clinically now Thanking you so much Case Lorenzo MD
[2019-12-21] MEDS: HEPARIN NA (PORCINE) 5,000 UNITS/ML 1ML VIAL SQ SCH ×3 (01:40→17:48)
[2019-12-21] MEDS: SODIUM CHLORIDE 1,000 ML IV SCH (06:00)
[2019-12-21] MEDS: INSULIN SLIDING SCALE (NOVOLOG) 1 VIAL SQ SCH ×5 (06:55→23:12)
[2019-12-21 08:16] LABS: BASO % 0.2 % (0-2.0); HEMATOCRIT 18.2 % (32.4-45.2); LYMPH % 7.7 % (8-40); MCHC 32.9 g/dl (32.0-36.0); MEAN CELL VOLUME 106.3 fl (80-96); MEAN PLT VOLUME 8.7 fl (7.5-11.1); MONO % 1.4 % (3.8-10.2); NEUT % 90.7 % (42.8-82.8); PLATELET COUNT 140 K/MM3 (134-434); RBC 1.71 M/mm3 (3.60-5.2); RDW 14.5 % (11.6-15.6); WHITE BLOOD COUNT 4.9 K/mm3 (4.0-10.0)
[2019-12-21 08:33] LABS: BILIRUBIN,TOTAL 0.8 mg/dL (0.2-1); BLOOD UREA NITROGEN 14.8 mg/dL (7-18); CREATININE 0.8 mg/dL (0.55-1.3); PHOSPHOROUS 3.1 mg/dL (2.5-4.9); POTASSIUM 3.5 mmol/L (3.5-5.1); TOT PROT 4.1 g/dl (6.4-8.2)
[2019-12-21 08:44] LABS: CALCIUM 6.5 mg/dL (8.5-10.1)
--- NOTE | 2019-12-21 08:47 | PN ---
Progress Note (short form) - Note Progress Note: Pulm/CCM SUBJECTIVE: GPC--Grp D strep Hgb down 1.5gm, without overt bleeding, has been off A/c for sometime mental status improved low grade temp OBJECTIVE: Vital Signs Temp 99.1 F 12/21/19 08:00 Pulse 113 H 12/21/19 08:00 Resp 23 H 12/21/19 08:00 BP 149/69 12/21/19 08:00 Pulse Ox 98 12/20/19 22:47 Intake & Output 12/20/19 12/20/19 12/21/19 11:59 23:59 11:59 Intake Total 983 1500 1350 Output Total 1500 950 600 Balance -517 550 750 Weight 85.417 kg 85.275 kg 85.638 kg Intake: IV 283 750 900 Normal Saline - 1,000 ml 283 750 900 @ 75 mls/hr IV ASDIR [facility] Rx#:[id number] IVPB 700 750 450 Oral 0 Output: Urine 1500 950 600 Cantu 1500 950 600 Other: Voiding Method Indwelling Catheter Indwelling Catheter Bowel Movement No Height 5 ft 2 in Body Mass Index (BMI) 34.4 Weight Measurement Method Built in [facility] Gen: awake, follows commands Heart: tachycardic, regular Lung: decreased breath sounds at the bases Abd: soft, nontender Ext: no edema CBC, BMP 12/21/19 06:45 12/21/19 06:45 ASSESSMENT AND PLAN: Altered Mental Status Grp D strep Bacteremia Sepsis Acute Kidney Injury Lactic Acidosis improving +Troponins likely Demand Ischemia LV Systolic/Diastolic Dysfunction Hemolytic Anemia HTN Hyperlipidemia DM Diverticulosis IVC Thrombus - continue antibiotics, toby 6 week course - LP for diagnosis deferred as will need mcc abx regardless - on empiric antiepileptics - IVF - monitor urine output, creatinine - replete lytes - O2 to keep SpO2 >90% - aspiration precautions - echocardiogram - 1 PRBC, repeat CBC after. Srini ACNP [phone]
[2019-12-21] MEDS ORDERED: DEXTROSE 5%-WATER 100 ML IVPB ONE ×2 (09:58→21:47)
[2019-12-21] MEDS: CEFTRIAXONE 2 GM in DEXTROSE 5%-WATER 100 ML IVPB SCH ×2 (10:00→21:48)
[2019-12-21] MEDS: methylPREDNISolone NA SUCC 40 MG/1 ML VIAL IVPUSH SCH (10:01)
[2019-12-21] MEDS: levETIRAcetam 500 MG/5 ML INJECTION VIAL IVPB SCH ×2 (10:01→21:48)
[2019-12-21] MEDS: PANTOPRAZOLE SODIUM 40 MG VIAL IVPUSH SCH (10:01)
[2019-12-21] MEDS: VANCOMYCIN 1,250 MG in DEXTROSE 5%-WATER - 250 ML IVPB SCH ×3 (10:02→23:18)
[2019-12-21] MEDS: MUPIROCIN 2% TOPICAL OINTMENT FOR DECOLONIZATION NS SCH ×2 (10:03→22:03)
--- NOTE | 2019-12-21 10:07 | PN ---
Physical Exam: SUBJECTIVE: Patient seen and examined. No acute events overnight. Repeat LP deferred from yesterday as unclear when last dose of Eliquis was taken. Confirmed with son that it was over 2 weeks ago. Upon chart review of PCP (Dr. Rincon and his received documents from Director Cardiac), Pt. takes 70mg daily of Prednisone for AIHA. Pt. was recently seen in office by Dr. Ventura for intermitted GI bleed and was recommeneded to hold Eliquis. Pt. initially was started on Eliquis for DVT around PICC line on Nov 07, while being treated for EPEC at [facility]. During our own imaging IVC thrombus was found. No reported bleeding form overnight. Used [employer] interpre[employer] #[id number], Pt. unable to answer questions about pain. Pt. able to follow simple commands with demonstration but states she has pain and then states she has no pain after repeated questioning. OBJECTIVE: Vital Signs Period Temp Pulse Resp BP Sys/Hale Pulse Ox Last 24 Hr 99 F-101 F 87-122 15-23 90-149/53-97 98-98 GENERAL: The patient is awake, alert, and oriented to self, in no acute distress. HEAD: Normal with no signs of trauma. EYES: PERRL, b/l pingecula present. ENT: oropharynx clear without exudates, moist mucous membranes. NECK: Trachea midline, full range of motion, supple. LUNGS: anterior Breath sounds equal, clear to auscultation bilaterally, no accessory muscle use. HEART: tachycardic, + systolic murmur, regular rhythm ABDOMEN: Soft, nontender, nondistended, normoactive bowel sounds, no guarding, Cantu present and draining RECTAL: multiple external hemmorhoids, no immanuel blood on glove, did not appreciate internal hemmohoids however exam was limited 2/2 body habitus, adequate sphincter tone. EXTREMITIES: 2+ dorsal pedal pulses, warm, well-perfused, 2+ UE edema, 2+ LE edema SKIN: multiple skin tears and lesions throughout, especially b/l UE Laboratory Results - last 24 hr 12/19/19 12/20/19 12/20/19 22:59 06:00 10:31 WBC RBC Hgb Hct MCV MCH MCHC RDW Plt Count MPV Absolute Neuts (auto) Neutrophils % Lymphocytes % Monocytes % Eosinophils % Basophils % Nucleated RBC % Retic Count Haptoglobin 163 Sodium Potassium Chloride Carbon Dioxide Anion Gap BUN Creatinine Est GFR (CKD-EPI)AfAm Est GFR (CKD-EPI)NonAf POC Glucometer 97 Random Glucose Lactic Acid Calcium Phosphorus Magnesium Total Bilirubin AST ALT Alkaline Phosphatase LD Total Troponin I C-Reactive Protein Total Protein Albumin Serum Folate 37 H Urine Color Urine Appearance Urine pH Ur Specific [place] Urine Protein Urine Glucose (UA) Urine Ketones Urine Blood Urine Nitrite Urine Bilirubin Urine Urobilinogen Ur Leukocyte Esterase Urine RBC (Auto) Urine Casts (Auto) U Epithel Cells (Auto) Urine Bacteria (Auto) 12/20/19 12/20/19 12/20/19 11:00 14:00 16:00 WBC RBC Hgb Hct MCV MCH MCHC RDW Plt Count MPV Absolute Neuts (auto) Neutrophils % Lymphocytes % Monocytes % Eosinophils % Basophils % Nucleated RBC % Retic Count Haptoglobin Sodium 144 Potassium 3.0 L Chloride 109 H Carbon Dioxide 23 Anion Gap 11 BUN 16.6 Creatinine 1.0 Est GFR (CKD-EPI)AfAm 61.62 Est GFR (CKD-EPI)NonAf 53.17 POC Glucometer Random Glucose 151 H Lactic Acid 2.6 H* Calcium 6.9 L* Phosphorus Magnesium Total Bilirubin AST ALT Alkaline Phosphatase LD Total Troponin I 0.08 H C-Reactive Protein Total Protein Albumin Serum Folate Urine Color Yellow Urine Appearance Clear Urine pH 6.0 Ur Specific [place] 1.030 Urine Protein 2+ H Urine Glucose (UA) Negative Urine Ketones Negative Urine Blood 1+ H Urine Nitrite Negative Urine Bilirubin Negative Urine Urobilinogen 0.2 Ur Leukocyte Esterase Negative Urine RBC (Auto) 14 Urine Casts (Auto) 1 U Epithel Cells (Auto) 7 Urine Bacteria (Auto) 88 12/20/19 12/20/19 12/21/19 16:18 21:13 06:45 WBC RBC Hgb Hct MCV MCH MCHC RDW Plt Count MPV Absolute Neuts (auto) Neutrophils % Lymphocytes % Monocytes % Eosinophils % Basophils % Nucleated RBC % Retic Count 3.25 H D Haptoglobin Sodium Potassium Chloride Carbon Dioxide Anion Gap BUN Creatinine Est GFR (CKD-EPI)AfAm Est GFR (CKD-EPI)NonAf POC Glucometer 176 222 Random Glucose Lactic Acid Calcium Phosphorus Magnesium Total Bilirubin AST ALT Alkaline Phosphatase LD Total Troponin I C-Reactive Protein Total Protein Albumin Serum Folate Urine Color Urine Appearance Urine pH Ur Specific [place] Urine Protein Urine Glucose (UA) Urine Ketones Urine Blood Urine Nitrite Urine Bilirubin Urine Urobilinogen Ur Leukocyte Esterase Urine RBC (Auto) Urine Casts (Auto) U Epithel Cells (Auto) Urine Bacteria (Auto) 12/21/19 12/21/19 12/21/19 06:45 06:45 06:45 WBC 4.9 RBC 1.71 L Hgb 6.0 L* Hct 18.2 L MCV 106.3 H MCH 35.0 H MCHC 32.9 RDW 14.5 Plt Count 140 MPV 8.7 D Absolute Neuts (auto) 4.5 Neutrophils % 90.7 H Lymphocytes % 7.7 L D Monocytes % 1.4 L Eosinophils % 0.0 D Basophils % 0.2 Nucleated RBC % 0 Retic Count Haptoglobin Sodium 145 Potassium 3.5 Chloride 112 H Carbon Dioxide 24 Anion Gap 10 BUN 14.8 Creatinine 0.8 Est GFR (CKD-EPI)AfAm 80.70 Est GFR (CKD-EPI)NonAf 69.63 POC Glucometer Random Glucose 198 H Lactic Acid Calcium 6.5 L* Phosphorus 3.1 Magnesium 2.0 Total Bilirubin 0.8 AST 13 L ALT 21 Alkaline Phosphatase 38 L LD Total 548 H Troponin I C-Reactive Protein 17.4 H Total Protein 4.1 L Albumin 2.0 L Serum Folate Urine Color Urine Appearance Urine pH Ur Specific [place] Urine Protein Urine Glucose (UA) Urine Ketones Urine Blood Urine Nitrite Urine Bilirubin Urine Urobilinogen Ur Leukocyte Esterase Urine RBC (Auto) Urine Casts (Auto) U Epithel Cells (Auto) Urine Bacteria (Auto) 12/21/19 06:53 WBC RBC Hgb Hct MCV MCH MCHC RDW Plt Count MPV Absolute Neuts (auto) Neutrophils % Lymphocytes % Monocytes % Eosinophils % Basophils % Nucleated RBC % Retic Count Haptoglobin Sodium Potassium Chloride Carbon Dioxide Anion Gap BUN Creatinine Est GFR (CKD-EPI)AfAm Est GFR (CKD-EPI)NonAf POC Glucometer 208 Random Glucose Lactic Acid Calcium Phosphorus Magnesium Total Bilirubin AST ALT Alkaline Phosphatase LD Total Troponin I C-Reactive Protein Total Protein Albumin Serum Folate Urine Color Urine Appearance Urine pH Ur Specific [place] Urine Protein Urine Glucose (UA) Urine Ketones Urine Blood Urine Nitrite Urine Bilirubin Urine Urobilinogen Ur Leukocyte Esterase Urine RBC (Auto) Urine Casts (Auto) U Epithel Cells (Auto) Urine Bacteria (Auto) Active Medications Generic Name Dose Route Start Last Admin Trade Name Freq PRN Reason Stop Dose Admin Acetaminophen 1,000 mg 12/20/19 01:14 12/20/19 21:51 Ofirmev Injection - IVPB 1,000 mg Q6H PRN Administration FEVER Chlorhexidine Gluconate 1 applic 12/20/19 22:00 12/20/19 21:53 Hibiclens For Decolonization - TP 1 applic HS GERRI Administration Heparin Sodium (Porcine) 5,000 unit 12/20/19 02:00 12/21/19 10:01 Heparin - SQ 5,000 unit Q8H-IV GERRI Administration Ceftriaxone Sodium 2 gm/ 100 mls @ 200 mls/hr 12/20/19 10:00 12/21/19 10:00 Dextrose IVPB 200 mls/hr BID GERRI Administration Vancomycin HCl 1,250 mg/ 250 mls @ 166.667 mls/hr 12/20/19 22:00 12/21/19 10:02 Dextrose IVPB 166.667 mls/hr Q12H GERRI Administration Insulin Aspart 1 vial 12/19/19 22:00 12/21/19 06:55 Novolog Vial Sliding Scale - SQ 4 units ACHS GERIR Administration Protocol Levetiracetam 500 mg 12/19/19 22:00 12/21/19 10:01 Keppra Injection - IVPB 500 mg BID GERRI Administration Methylprednisolone Sodium Succinate 60 mg 12/21/19 10:00 12/21/19 10:01 Solu-Medrol - IVPUSH 60 mg DAILY GERRI Administration Mupirocin 1 applic 12/20/19 10:00 12/21/19 10:03 Bactroban Ointment (For Decolonization) - NS 12/25/19 09:59 1 applic BID GERRI Administration Pantoprazole Sodium 40 mg 12/20/19 10:00 12/21/19 10:01 Protonix Iv IVPUSH 40 mg DAILY GERRI Administration ASSESSMENT/PLAN: Pt. is an 79 y.o. M w/ PMHx. of HTN, HLD, IDDM, Morbid obesity, breast cancer s/p chemoradiation, autoimmune hemolytic anemia requiring transfusion who presented to the emergency department with seizure like activity, altered mental status. Pt is admitted for sepsis workup . Confirmed that Pt. was treated in October for EPEC with ceftriaxone, had PICC placed- developed DVT and started on Eliquis. Eliquis was stopped b/c of rectal bleeding. Pt. has not taken eliquis in 2 weeks. Acute Toxic Metabolic encephalopathy - likely 2/2 endocarditis - pt has gram + bacteremia in 4/4 cultures (12/18), + small vegetation on LV aspect of aortic valve; f/u Rpt. cultures 12/20 - on vanc and rocephin, will continue - f/u vanc trough - ID following - low suspicion of covid-19, pending test results Seizure - r/o meningitis- low likelihood - Neuro following, will not get LP - c/w ceftriaxone, vanco - c/w keppra 500 BID VON- resolved - improved - d/c IVF High Anion gap likely 2/2 Lactic acidosis -resolved - s/p IV hydration - d/c IVF - LA decreasing, c/w trend Hemolytic anemia - confirmed with family, home dose is 70 mg prednisone daily. equivalent to approx 56 mg solumedrol IV - c/w Solumedrol 60 mg daily - Consult to Heme/ Onc appreciated - Hgb 6.0, ordered 2pRBCs 1 unit to be given after T&S, will f/u repeat CBC - Discussed with son who is health care proxy IVC thrombus - consult to Heme/Onc appreciated - Per discussion with Dr. Davis will treat conservatively while we address the florid bacteremia. No indication to treat DVT in brachial vein as this is a known complication - holding A/C this time 2/2 hemolytic anemia, as GI bleed? likely because of hemorrhoids. - f/u FOBT CBD dilation - pending U/S RUQ HTN HLD Hx. of Breast CA c/w home medications once mental stats improves and pending swallow evaluation Lung nodule - f/u outpt F/E/N - IV NS @ 75 mls/ hr - lytes repleted, continue to monitor - NPO DVT ppx: SCD GI ppx: protonix Continue ICU monitoring ATTENDING PHYSICIAN STATEMENT I saw and evaluated the patient. I reviewed the resident's note and discussed the case with the resident. I agree with the resident's findings and plan as documented. SUBJECTIVE: OBJECTIVE: ASSESSMENT AND PLAN:
--- NOTE | 2019-12-21 14:20 | PN ---
Progress Note (short form) - Note Progress Note: doing well awake and alert no cough, no resp complaints blood cultures 4/4- gram positive cocci in chains-prellim enterococcus Vital Signs Period Temp Pulse Resp BP Sys/Hale Pulse Ox Last 24 Hr 99 F-99.5 F 87-118 15-25 90-151/53-97 98-98 cor-rrr lungs decreased bs at bases abd soft,nt ext no edema echo with possible aortic valve vegetation CBC, BMP 12/21/19 06:45 12/21/19 06:45 Microbiology 12/19/19 16:00 Blood - Peripheral Venous Blood Culture - Preliminary Group D Strep Or Entero Coccus 12/19/19 16:00 Blood - Peripheral Venous Blood Culture - Preliminary Group D Strep Or Entero Coccus 12/20/19 11:00 Urine For Antigen Detection Streptococcus pneumoniae Antigen (M - Final echo possible small aortic valve vegetation a/p enterococcal bacteremia, r/o endocarditis- ?source- gi vs gu continue rocephin/vanco check vanco trough before next dose repeat blood cultures history of hemolytic anemia for transfusion no need for LP d/w resident Problem List - Problems (1) Altered mental status Code(s): R41.82 - ALTERED MENTAL STATUS, UNSPECIFIED (2) Streptococcal meningitis Code(s): G00.2 - STREPTOCOCCAL MENINGITIS (3) Autoimmune hemolytic anemias Code(s): D59.1 - OTHER AUTOIMMUNE HEMOLYTIC ANEMIAS (4) Diabetes mellitus Code(s): E11.9 - TYPE 2 DIABETES MELLITUS WITHOUT COMPLICATIONS (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
--- NOTE | 2019-12-21 14:24 | PN ---
Teaching Attending Note Name of Resident: Trye iVvas ATTENDING PHYSICIAN STATEMENT I saw and evaluated the patient. I reviewed the resident's note and discussed the case with the resident. I agree with the resident's findings and plan as documented. SUBJECTIVE: Unable to obtain hx as patient is still confused and speaks English. NO events over night OBJECTIVE: awake, alert, cooperative , smiling. no distress . Per dr. Vivas ( used aerial photograph interpreter phone) confused was not able to participate much, knew she was in [place], knew name , and the year but wasnot able to answer further questions ) CV: RRR, no MRG Lungs: CTAB anteriorly and on sides. restraints applied, patient was not turned. Abd: obese, soft, NT, ND, nl BS Ext: pitting edema on upper extremities. trace edema on legs clay in. restrained for safety . no facial droop. EOMI. ASSESSMENT AND PLAN: 79 y/o lady with h/o HTN, HLD, IDDM, Morbid obesity, breast cancer s/p chemoradiation, Arlyn + hemolytic anemia, latent TB( finished rafampin treatment ) , chronic systolic and diastolic heart failure, pericardial effusion, severe MR, external hemorrhoids, recent upper extremity DVT at PICC line site, s/p AC and resultant GI bleed, who presented with AMS. she was found to have severe sepsis. 1- Severe sepsis/enterococcus bacteremia/ endocarditis /? meningitis - d/w ICU staff and Dr. cast. - LP will be deferred due to no change in duration of Abx treatment, regardless of the results - vanco trough today - cont ceftriaxone and vanco - repeat blood cx sent - echo reviewed. - COVID pending - RUL density ---> ? septic embolus 2- Acute on chronic anemia. LDH was done and is elevated. This raises suspicion for acute hemolytic anemia. - send hapto - doubt acute GI bleed at this time, but rectal exam will be done by resident. - OB - will transfuse 1 unit of RBCs - repeat HB - will consult heme - cont Solu-Medrol daily ( takes 70 of prednisone daily at home for hemolytic anemia ) 3- VON: likely prerena. - resolved with IVF . 4- IVC /R common iliac/R external iliac thrombosis: - can not anticoagulate now due to acute anemia - consult vascular - Dr. Vivas d/myles Davis, who agreed with no AC for now. He did not think a procedure is appropriate at this time ( SVC filter ) as the patient is bacteremic still. He will evaluate patient on Monday since it is not urgent. - h/o recent upper ext DVT at picc site. Monitor . 7-Electrolyte derangements: replete K , Mg, and Phos improved . corrected C 8.1 monitor 8 -h/o heart failure. on fluids now. stable 9- AMS suspect acute metabolic encephalopathy contributing , can't r/o meningitis .Slightly improved DVT PX : SCDs Critical Care Total Critical Care Time (in minutes): 40 Critical Care Statement: The care of this patient involved high complexity decision making to prevent further life threatening deterioration of the patient's condition and/or to evaluate & treat vital organ system(s) failure or risk of failure.
[2019-12-21] MEDS ORDERED: SODIUM CHLORIDE 1,000 ML IV SCH (14:45)
[2019-12-21 16:28] LABS: HEMATOCRIT 18.7 % (32.4-45.2); MCH 34.6 pg (25.7-33.7); MCHC 32.5 g/dl (32.0-36.0); MEAN CELL VOLUME 106.7 fl (80-96); MEAN PLT VOLUME 8.7 fl (7.5-11.1); PLATELET COUNT 161 K/MM3 (134-434); RBC 1.75 M/mm3 (3.60-5.2); RDW 14.5 % (11.6-15.6); WHITE BLOOD COUNT 5.5 K/mm3 (4.0-10.0)
[2019-12-21 16:34] LABS: HEMOGLOBIN 6.1 GM/dL (10.7-15.3)
[2019-12-21] MEDS: CHLORHEXIDINE GLUCONATE 4% CLEANSER FOR DECOLONIZATION TP SCH (22:03)
[2019-12-21 22:37] LABS: BASO % 0.3 % (0-2.0); HEMATOCRIT 21.9 % (32.4-45.2); HEMOGLOBIN 7.3 GM/dL (10.7-15.3); MCH 34.8 pg (25.7-33.7); MCHC 33.5 g/dl (32.0-36.0); MEAN PLT VOLUME 8.9 fl (7.5-11.1); MONO % 2.1 % (3.8-10.2); NEUT % 90.6 % (42.8-82.8); PLATELET COUNT 142 K/MM3 (134-434); RBC 2.11 M/mm3 (3.60-5.2); RDW 16.3 % (11.6-15.6); WHITE BLOOD COUNT 5.3 K/mm3 (4.0-10.0)
[2019-12-22] MEDS: HEPARIN NA (PORCINE) 5,000 UNITS/ML 1ML VIAL SQ SCH ×3 (01:57→18:02)
[2019-12-22] MEDS: INSULIN SLIDING SCALE (NOVOLOG) 1 VIAL SQ SCH ×4 (06:17→22:03)
[2019-12-22 07:08] LABS: BILIRUBIN,TOTAL 1.1 mg/dL (0.2-1); BLOOD UREA NITROGEN 18.6 mg/dL (7-18); CREATININE 0.9 mg/dL (0.55-1.3); MAGNESIUM 1.8 mg/dL (1.8-2.4); PHOSPHOROUS 2.8 mg/dL (2.5-4.9); POTASSIUM 3.4 mmol/L (3.5-5.1); TOT PROT 4.1 g/dl (6.4-8.2)
[2019-12-22 07:10] LABS: BASO % 0.7 % (0-2.0); HEMATOCRIT 20.9 % (32.4-45.2); HEMOGLOBIN 7.1 GM/dL (10.7-15.3); LYMPH % 8.2 % (8-40); MCH 35.1 pg (25.7-33.7); MEAN CELL VOLUME 103.3 fl (80-96); MONO % 3.1 % (3.8-10.2); PLATELET COUNT 149 K/MM3 (134-434); RBC 2.02 M/mm3 (3.60-5.2); RDW 16.7 % (11.6-15.6); WHITE BLOOD COUNT 4.7 K/mm3 (4.0-10.0)
[2019-12-22 07:16] LABS: CALCIUM 6.6 mg/dL (8.5-10.1)
[2019-12-22 08:39] LABS: HEMATOCRIT 21.7 % (32.4-45.2); HEMOGLOBIN 7.2 GM/dL (10.7-15.3); MCH 34.9 pg (25.7-33.7); MCHC 33.3 g/dl (32.0-36.0); MEAN CELL VOLUME 104.8 fl (80-96); MEAN PLT VOLUME 9.4 fl (7.5-11.1); PLATELET COUNT 150 K/MM3 (134-434); RBC 2.07 M/mm3 (3.60-5.2); WHITE BLOOD COUNT 4.8 K/mm3 (4.0-10.0)
[2019-12-22] MEDS ORDERED: DEXTROSE 5%-WATER 100 ML IVPB ONE ×2 (09:56→20:21)
[2019-12-22] MEDS ORDERED: predniSONE 10 MG TABLET (UD) PO SCH (10:00)
[2019-12-22] MEDS: MUPIROCIN 2% TOPICAL OINTMENT FOR DECOLONIZATION NS SCH ×2 (10:40→22:04)
[2019-12-22] MEDS: PANTOPRAZOLE SODIUM 40 MG VIAL IVPUSH SCH (10:40)
[2019-12-22] MEDS: CEFTRIAXONE 2 GM in DEXTROSE 5%-WATER 100 ML IVPB SCH ×2 (10:40→21:52)
[2019-12-22] MEDS: levETIRAcetam 500 MG/5 ML INJECTION VIAL IVPB SCH ×2 (10:40→21:52)
[2019-12-22] MEDS: methylPREDNISolone NA SUCC 40 MG/1 ML VIAL IVPUSH SCH (10:40)
[2019-12-22] MEDS ORDERED: FUROSEMIDE 40 MG/4 ML INJECTABLE VIAL IVPUSH ONE ×2 (10:55→22:40)
--- NOTE | 2019-12-22 11:01 | PN ---
Progress Note (short form) - Note Progress Note: Pulm/CCM SUBJECTIVE: GPC--Grp D strep still growing + blood cxl from yesterday 1 x prbc with appropriate bump, no overt blood loss, remains off ac OBJECTIVE: Vital Signs Temp 98.4 F 12/22/19 08:00 Pulse 100 H 12/22/19 08:00 Resp 22 H 12/22/19 09:00 BP 148/70 12/22/19 08:00 Pulse Ox 96 12/22/19 09:00 Intake & Output 12/21/19 12/21/19 12/22/19 11:59 23:59 11:59 Intake Total 1350 993 704 Output Total 600 800 250 Balance 750 193 454 Weight 85.638 kg 86.324 kg Intake: IV 900 243 504 Normal Saline - 1,000 ml 168 504 @ 42 mls/hr IV ASDIR GERRI Rx#:[id number] Normal Saline - 1,000 ml 900 75 @ 75 mls/hr IV ASDIR GERRI Rx#:[id number] IVPB 450 400 200 Oral 0 Packed Cells 350 Output: Urine 600 800 250 Cantu 600 800 250 Other: Voiding Method Indwelling Catheter Indwelling Catheter Indwelling Catheter Bowel Movement Yes: large # Bowel Movements 1 Gen: awake, follows simple commands, swedish speaking only Heart: tachycardic, regular Lung: decreased breath sounds at the bases Abd: soft, nontender Ext: no edema Neuro: north x 4. diffusely weak but non focal, seems confused CBC, BMP 12/22/19 05:30 12/22/19 05:30 ASSESSMENT AND PLAN: Altered Mental Status Grp D strep Bacteremia Sepsis Acute Kidney Injury Lactic Acidosis improving +Troponins likely Demand Ischemia LV Systolic/Diastolic Dysfunction Hemolytic Anemia HTN Hyperlipidemia DM Diverticulosis IVC Thrombus - continue antibiotics, cieloley 6 week course - repeat bcxl tomorrow - LP for diagnosis deferred as will need fpc abx regardless - on empiric antiepileptics - IVF STOPPED,starting to diurese - monitor urine output, creatinine - replete lytes - O2 to keep SpO2 >90% - aspiration precautions - echocardiogram - 1 PRBC, yesterday, will likely need more -needs roasterman access for abx -to floor today [place] ACNP [id number]
[2019-12-22] MEDS ORDERED: FUROSEMIDE 40 MG/4 ML INJECTABLE VIAL ONE (12:01)
--- NOTE | 2019-12-22 13:39 | PN ---
Progress Note (short form) - Note Progress Note: Patient known to hematology. Has been following with hematology faculty practice at [facility] since diagnosis here in June 2019. Last seen by Dr Dominguez at [facility] on 12/10/19. Note as below. "79 year old woman with hx HFpEF, DM, HTN, breast cancer s/p left mastectomy and s/p chemo/RT on exemstane, Quant positive s/p rifampin, autoimmune hemolytic anemia (PATRIC negative) unresponsive to rituxan and on prednisone since 11/2018 with recent acute admission in 10/2019 for AIHA flare, EPEC assoc GI bleed, ?delayed transfusion reaction. - Hg7.5, stabletoday. - c/w prednisone 80 mg - could not get imuran due to insurance issues - Planned for rituxan today but no recent HBV core so has to be rescheduled - continue mepron - she is a possible candidate for Incyte trial pending tapering of steroids. - RLE DVT (dx 10/29/2019 during last AIHA flare). Continue eliquis 5 mg BID. No bleeding today. Plt normal.Of Eliquis x 2 weeks now for rectal bleeding. Has GI appt." Currently admitted with change in mental status, and diagnosed with E faecalis bacteremia. On appropriate antibiotics, with improvement in mental status Inpatient Meds reviewed. Current Medications Acetaminophen (Ofirmev Injection -) 1,000 mg IVPB Q6H PRN PRN Reason: FEVER Last Admin: 12/20/19 21:51 Dose: 1,000 mg Documented by: Chlorhexidine Gluconate (Hibiclens For Decolonization -) 1 applic TP HS GERRI Last Admin: 12/21/19 22:03 Dose: 1 applic Documented by: Heparin Sodium (Porcine) (Heparin -) 5,000 unit SQ Q8H-IV GERRI Last Admin: 12/22/19 10:40 Dose: 5,000 unit Documented by: Ceftriaxone Sodium 2 gm/ (Dextrose) 100 mls @ 200 mls/hr IVPB BID GERRI Last Admin: 12/22/19 10:40 Dose: 200 mls/hr Documented by: Ampicillin Sodium 2 gm/ Sodium (Chloride) 100 mls @ 200 mls/hr IVPB Q4H-IV GERRI; Protocol Insulin Aspart (Novolog Vial Sliding Scale -) 1 vial SQ ACHS GERRI; Protocol Last Admin: 12/22/19 12:22 Dose: Not Given Documented by: Levetiracetam (Keppra Injection -) 500 mg IVPB BID [facility] Last Admin: 12/22/19 10:40 Dose: 500 mg Documented by: Methylprednisolone Sodium Succinate (Solu-Medrol -) 60 mg IVPUSH DAILY [facility] Last Admin: 12/22/19 10:40 Dose: 60 mg Documented by: Mupirocin (Bactroban Ointment (For Decolonization) -) 1 applic NS BID [facility] Stop: 12/25/19 09:59 Last Admin: 12/22/19 10:40 Dose: 1 applic Documented by: Pantoprazole Sodium (Protonix Iv) 40 mg IVPUSH DAILY [facility] Last Admin: 12/22/19 10:40 Dose: 40 mg Documented by: On Examination: Last Vital Signs Temp Pulse Resp BP Pulse Ox 98.4 F 79 22 H 141/69 100 12/22/19 08:00 12/22/19 12:00 12/22/19 12:00 12/22/19 12:00 12/22/19 10:00 General: In no acute distress, lying comfortably in bed, obese. Extremities: No pallor or icterus. No palpable lymphadenopathy. CVS: S1, S2, regular, no gallop or murmur. Chest: good air entry bilaterally, clear, mastectomy Abdomen: Non-distended, non-tender, no palpable organomegaly. Neuro: Alert, appropriately interactive Labs: CBC, BMP 12/22/19 05:30 12/22/19 05:30 Assessment. Known warm AIHA, currently on steroid taper, actively managed by hematology at [facility]. Presently admitted with changed mental status and bacteremia, now significantly improved following institution of Abics. Hb is at baseline. Increased LDH, increased MCV, and increased reticulocyte count all suggestive of ongoing hemolysis, but surprisingly haptoglobin is within the normal range. (Was decreased on presentation in June, but has been repeatedly normal last several weeks, despite other data suggestive of ongoing hemolysis). History of GI bleed, and currently off Eliquis for that reason. (Eliquis instituted for history of DVT). Check all stools for occult blood. Daily reticulocyte count, and LDH please.
--- NOTE | 2019-12-22 13:45 | PN ---
Progress Note (short form) - Note Progress Note: 79 Year old woman came to hospital for AMS and ? seizure , as it was not confirmed. Kathy tis on prednisone for hemolytic anemia. Patient has high grade fever and has been started on abx ( ceftriaxone and vanco) . Lilian has ct head negative. She also take eliquis. She was stested for COVID 19 , test is pending. Spoke to house staff, and nursing staff, both yesterday and today. Patient is improving clinically afebrile and more awake , and moving all extremity, do gets agitated She was also treated with quantiferon in past and got rifampicin for latent tb. she came back to be enterococcus positive Neurological exam Alert agiated, confused eomi, pupils reactive moving all ext ct head unremarkable Assessment/Plan 1. Suspected Meningitis , abx as per ID. She is also being suspected for COVID 19( though low risk), given patient is in eliquis . she is enterococcus positive , source /GI, Less suspician for meningitis, hold spinal tap for now 2. Delrium due to septicemia 3. Posssible seizure , continue keppra for now Thanking you so much Case Lorenzo MD
--- NOTE | 2019-12-22 15:29 | PN ---
Physical Exam: SUBJECTIVE: Patient seen and examined this AM. Interpretor Marta ([id number]). Patient feels better but remains confused. OBJECTIVE: Vital Signs Period Temp Pulse Resp BP Sys/Hale Pulse Ox Last 24 Hr 97.9 F-98.9 F 70-100 13-22 110-149/59-89 96-100 GENERAL: A&Ox2 (to name and age, unsure of location), NAD, follows some commands HEAD: NCAT EYES: PERRL, EOMI ENT: MMM NECK: Supple LUNGS: CTAB, no wheezes, no crackles HEART: Regular rate and rhythm, S1, S2 without murmur ABDOMEN: Soft, nontender, nondistended, + bowel sounds, no guarding EXTREMITIES: B/L UE Pitting edema. NEUROLOGICAL: Confused SKIN: Warm, dry Laboratory Last Values WBC 4.7 K/mm3 (4.0-10.0) 12/22/19 05:30 WBC 4.8 K/mm3 (4.0-10.0) 12/22/19 05:30 RBC 2.02 M/mm3 (3.60-5.2) L 12/22/19 05:30 RBC 2.07 M/mm3 (3.60-5.2) L 12/22/19 05:30 Hgb 7.1 GM/dL (10.7-15.3) L 12/22/19 05:30 Hgb 7.2 GM/dL (10.7-15.3) L 12/22/19 05:30 Hct 20.9 % (32.4-45.2) L 12/22/19 05:30 Hct 21.7 % (32.4-45.2) L 12/22/19 05:30 MCV 103.3 fl (80-96) H 12/22/19 05:30 MCV 104.8 fl (80-96) H 12/22/19 05:30 MCH 34.9 pg (25.7-33.7) H 12/22/19 05:30 MCH 35.1 pg (25.7-33.7) H 12/22/19 05:30 MCHC 33.3 g/dl (32.0-36.0) 12/22/19 05:30 MCHC 34.0 g/dl (32.0-36.0) 12/22/19 05:30 RDW 16.7 % (11.6-15.6) H 12/22/19 05:30 RDW 17.0 % (11.6-15.6) H 12/22/19 05:30 Plt Count 149 K/MM3 (134-434) 12/22/19 05:30 Plt Count 150 K/MM3 (134-434) 12/22/19 05:30 MPV 9.0 fl (7.5-11.1) 12/22/19 05:30 MPV 9.4 fl (7.5-11.1) 12/22/19 05:30 Absolute Neuts (auto) 4.1 K/mm3 (1.5-8.0) 12/22/19 05:30 Neutrophils % 88.0 % (42.8-82.8) H 12/22/19 05:30 Neutrophils % (Manual) 76.0 % (42.8-82.8) 12/20/19 05:00 Band Neutrophils % 9.0 % 12/20/19 05:00 Lymphocytes % 8.2 % (8-40) 12/22/19 05:30 Lymphocytes % (Manual) 11.0 % (8-40) D 12/20/19 05:00 Monocytes % 3.1 % (3.8-10.2) L 12/22/19 05:30 Monocytes % (Manual) 2 % (3.8-10.2) L 12/20/19 05:00 Eosinophils % 0.0 % (0-4.5) 12/22/19 05:30 Eosinophils % (Manual) 0.0 % (0-4.5) D 12/20/19 05:00 Basophils % 0.7 % (0-2.0) 12/22/19 05:30 Basophils % (Manual) 0.0 % (0-2.0) 12/20/19 05:00 Myelocytes % (Man) 0 % (0-2) D 12/20/19 05:00 Promyelocytes % (Man) 0 % (0-2) 12/20/19 05:00 Blast Cells % (Manual) 0 % (0-0) 12/20/19 05:00 Nucleated RBC % 0 % (0-0) 12/22/19 05:30 Metamyelocytes 0 % (0-2) D 12/20/19 05:00 Hypochromia 0 12/20/19 05:00 Platelet Estimate Decreased 12/20/19 05:00 Polychromasia 1+ 12/20/19 05:00 Poikilocytosis 1+ 12/20/19 05:00 Anisocytosis 0 12/20/19 05:00 Microcytosis 0 12/20/19 05:00 Macrocytosis 0 12/20/19 05:00 Spherocytes 1+ 12/20/19 05:00 Tear Drop Cells 1+ 12/20/19 05:00 [place] Cells 1+ 12/20/19 05:00 Rouleaux 2+ 12/19/19 16:00 Schistocytes 1+ 12/20/19 05:00 Retic Count 3.25 % (0.5-1.5) H D 12/21/19 06:45 Haptoglobin 108 mg/dL (42-346) 12/21/19 06:45 PT with INR 12.80 SEC (9.7-13.0) 12/19/19 16:00 INR 1.08 (0.83-1.09) 12/19/19 16:00 PTT (Actin FS) 23.6 SECONDS (25.2-36.5) L 12/19/19 16:00 VBG pH 7.42 (7.31-7.41) H 12/19/19 16:00 POC VBG pCO2 35.0 mmHg (38-52) L 12/19/19 16:00 POC VBG pO2 138 mmHg (28-48) H 12/19/19 16:00 VBG HCO3 22.2 mmol/L (23-29) L 12/19/19 16:00 VBG O2 Sat (Mehran) 99.3 % (70-80) H 12/19/19 16:00 VBG Base Excess -1.4 meq/l (-2-2) 12/19/19 16:00 Sodium 145 mmol/L (136-145) 12/22/19 05:30 Potassium 3.4 mmol/L (3.5-5.1) L 12/22/19 05:30 Chloride 113 mmol/L (98-107) H 12/22/19 05:30 Carbon Dioxide 24 mmol/L (21-32) 12/22/19 05:30 Anion Gap 8 MMOL/L (8-16) 12/22/19 05:30 BUN 18.6 mg/dL (7-18) H 12/22/19 05:30 Creatinine 0.9 mg/dL (0.55-1.3) 12/22/19 05:30 Est GFR (CKD-EPI)AfAm 69.99 12/22/19 05:30 Est GFR (CKD-EPI)NonAf 60.39 12/22/19 05:30 POC Glucometer 133 UNITS (80-120) 12/22/19 12:14 Random Glucose 185 mg/dL (74-106) H 12/22/19 05:30 Lactic Acid 2.6 mmol/L (0.4-2.0) H* 12/20/19 16:00 Calcium 6.6 mg/dL (8.5-10.1) L* 12/22/19 05:30 Phosphorus 2.8 mg/dL (2.5-4.9) 12/22/19 05:30 Magnesium 1.8 mg/dL (1.8-2.4) 12/22/19 05:30 Iron 19 ug/dL (50-175) L 12/19/19 22:59 Ferritin 1171.4 ng/ml (8-388) H 12/19/19 22:59 Total Bilirubin 1.1 mg/dL (0.2-1) H 12/22/19 05:30 AST 13 U/L (15-37) L 12/22/19 05:30 ALT 17 U/L (13-61) 12/22/19 05:30 Alkaline Phosphatase 38 U/L (45-117) L 12/22/19 05:30 LD Total 548 U/L (84-246) H 12/21/19 06:45 Creatine Kinase 27 U/L (26-192) 12/20/19 06:00 CK-MB (CK-2) < 1.0 ng/mL (0.5-3.6) 12/19/19 16:00 Troponin I 0.08 ng/ml (0.00-0.05) H 12/20/19 14:00 C-Reactive Protein 17.4 MG/DL (0.00-0.3) H 12/21/19 06:45 Total Protein 4.1 g/dl (6.4-8.2) L 12/22/19 05:30 Albumin 2.0 g/dl (3.4-5.0) L 12/22/19 05:30 Vitamin B12 443 pg/ml (193-986) 12/19/19 22:59 Serum Folate 37 ng/mL (3.1-17.5) H 12/20/19 06:00 TSH 0.66 uIU/ml (0.358-3.74) 12/20/19 06:00 Urine Color Yellow 12/20/19 11:00 Urine Appearance Clear 12/20/19 11:00 Urine pH 6.0 (5.0-8.0) 12/20/19 11:00 Ur Specific [place] 1.030 (1.010-1.035) 12/20/19 11:00 Urine Protein 2+ (NEGATIVE) H 12/20/19 11:00 Urine Glucose (UA) Negative (NEGATIVE) 12/20/19 11:00 Urine Ketones Negative (NEGATIVE) 12/20/19 11:00 Urine Blood 1+ (NEGATIVE) H 12/20/19 11:00 Urine Nitrite Negative (NEGATIVE) 12/20/19 11:00 Urine Bilirubin Negative (NEGATIVE) 12/20/19 11:00 Urine Urobilinogen 0.2 mg/dL (0.2-1.0) 12/20/19 11:00 Ur Leukocyte Esterase Negative (NEGATIVE) 12/20/19 11:00 Urine WBC (Auto) 5 /uL (0-25.8) 12/19/19 16:00 Urine RBC (Auto) 14 /uL (0-23.9) 12/20/19 11:00 Urine Casts (Auto) 1 /uL (0-3.1) 12/20/19 11:00 U Epithel Cells (Auto) 7 /uL (0-25.1) 12/20/19 11:00 Urine Bacteria (Auto) 88 /uL (0-1359) 12/20/19 11:00 Random Vancomycin 40.0 ug/ml (5-26) H* 12/22/19 09:25 Vancomycin Pre-Dose 29.2 ug/ml (5-10) H 12/21/19 21:45 Influenza A (Rapid) Negative (Negative) 12/19/19 16:00 Influenza B (Rapid) Negative (Negative) 12/19/19 16:00 Blood Type A POSITIVE 12/21/19 10:30 Antibody Screen Positive 12/21/19 10:30 Prewarmed Antibody Srcn Negative 12/21/19 10:30 Antibody Identification Cold auto 12/21/19 10:30 Antigen Identification No Result Required. 12/21/19 10:30 Crossmatch See Detail 12/21/19 10:30 Microbiology 12/19/19 16:00 Blood - Peripheral Venous Blood Culture - Final Enterococcus Faecalis 12/19/19 16:00 Blood - Peripheral Venous Blood Culture - Final Enterococcus Faecalis 12/21/19 06:45 Blood - Peripheral Venous Blood Culture - Preliminary NO GROWTH OBTAINED AFTER 24 HOURS, INCUBATION TO CONTINUE FOR 4 DAYS. 12/21/19 06:48 Blood - Peripheral Venous Blood Culture - Preliminary Pending Organism 12/20/19 11:00 Urine For Antigen Detection Streptococcus pneumoniae Antigen (M - Final Active Medications Acetaminophen (Ofirmev Injection -) 1,000 mg IVPB Q6H PRN PRN Reason: FEVER Last Admin: 12/20/19 21:51 Dose: 1,000 mg Documented by: Chlorhexidine Gluconate (Hibiclens For Decolonization -) 1 applic TP HS GERRI Last Admin: 12/21/19 22:03 Dose: 1 applic Documented by: Heparin Sodium (Porcine) (Heparin -) 5,000 unit SQ Q8H-IV GERRI Last Admin: 12/22/19 10:40 Dose: 5,000 unit Documented by: Ceftriaxone Sodium 2 gm/ (Dextrose) 100 mls @ 200 mls/hr IVPB BID [facility] Last Admin: 12/22/19 10:40 Dose: 200 mls/hr Documented by: Ampicillin Sodium 2 gm/ Sodium (Chloride) 100 mls @ 200 mls/hr IVPB Q4H-IV GERRI; Protocol Insulin Aspart (Novolog Vial Sliding Scale -) 1 vial SQ ACHS [facility]; Protocol Last Admin: 12/22/19 12:22 Dose: Not Given Documented by: Levetiracetam (Keppra Injection -) 500 mg IVPB BID [facility] Last Admin: 12/22/19 10:40 Dose: 500 mg Documented by: Methylprednisolone Sodium Succinate (Solu-Medrol -) 60 mg IVPUSH DAILY [facility] Last Admin: 12/22/19 10:40 Dose: 60 mg Documented by: Mupirocin (Bactroban Ointment (For Decolonization) -) 1 applic NS BID [facility] Stop: 12/25/19 09:59 Last Admin: 12/22/19 10:40 Dose: 1 applic Documented by: Pantoprazole Sodium (Protonix Iv) 40 mg IVPUSH DAILY [facility] Last Admin: 12/22/19 10:40 Dose: 40 mg Documented by: ASSESSMENT/PLAN: 79 y/o M PMHx HFpEF, HTN, HLD, IDDM, Morbid obesity, breast ca s/p chemoradiation, autoimmune hemolytic anemia (requiring transfusion; On high dose steroids at home) who was recently treated for EPEC (developed DVT s/p PICC Line placement [for ceftriaxone] and was subsequently started on DOAC but was dc'ed due to GIB) presents with seizure like activity and AMS, admitted for sepsis workup. Hgb dropped to 6's and patient was transfused 1u pRBC on 12/20. #Acute Toxic Metabolic encephalopathy -In the setting of Sepsis due to endocarditis (mobile hypodensity noted on ECHO), Bacteremia (Repeat Blood Cx growing Gram + coccin in chains, aerobic bottle) -Lactic acidosis resolving -Continue Ceftriaxone, Ampicillin (ABx course started on 12/18) -Follow cultures, COVID19 -ID and ICU consulted, appreciate rec's -[facility] for fevers -For fdc access by ICU Team #Acute Hemolytic anemia (Direct antiglobulin test negative) -Previously unresponsive to rituxan and on high dose prednisone at home -S/p 1u pRBC on 12/20 -Haptoglobin, LDH, Ferritin noted -FOBT Pending -Continue Solumedrol 60mg Daily -Heme/Onc consulted, appreciate rec's, Daily retic count, LDH #Seizure -Neurology consulted, appreciate rec's -Continue Levetiracetam #VON, Resolved #Thrombus -Partially occlusive thrombus Noted on imaging to extend from IVC into the right common iliac, right external iliac veins and possibly right common femoral vein -Vascular surgery consulted; Appreciate rec's, will treat conservatively in the setting of bacteremia -AC Held in the setting of acute hemolytic anemia #DM -ISS BGMs ACHS #Elevated Troponin I -Likely demand ischemia in the setting of sepsis -Peaked and downtrending #FEN -No standing fluids; will give single dose IV Lasix 40mg for now and monitor urine output and Cr -Replete Carole PRN -NPO #PPx -DVT: Heparin -GI: PPI Dispo: Can monitor on Floor Visit type - Emergency Visit Emergency Visit: Yes ED Registration Date: 12/19/19 Care time: The patient presented to the Emergency Department on the above date and was hospitalized for further evaluation of their emergent condition. - New Patient This patient is new to me today: Yes Date on this admission: 12/23/19 - Critical Care Critical Care patient: Yes Total Critical Care Time (in minutes): 36 Critical Care Statement: The care of this patient involved high complexity decision making to prevent further life threatening deterioration of the patient's condition and/or to evaluate & treat vital organ system(s) failure or risk of failure. ATTENDING PHYSICIAN STATEMENT I saw and evaluated the patient. I reviewed the resident's note and discussed the case with the resident. I agree with the resident's findings and plan as documented. SUBJECTIVE: OBJECTIVE: ASSESSMENT AND PLAN:
--- NOTE | 2019-12-22 16:25 | PN ---
Progress Note (short form) - Note Progress Note: doing well awake and alert no cough, no resp complaints s/p transfusion yesterday s/p Vital Signs Period Temp Pulse Resp BP Sys/Hale Pulse Ox Last 24 Hr 97.9 F-98.9 F 70-100 13-22 110-149/59-89 96-100 cor-rrr llungs decreased bs at bases abd soft,nt ext no edema CBC, BMP 12/22/19 05:30 12/22/19 05:30 Microbiology 12/19/19 16:00 Blood - Peripheral Venous Blood Culture - Final Enterococcus Faecalis 12/19/19 16:00 Blood - Peripheral Venous Blood Culture - Final Enterococcus Faecalis 12/21/19 06:45 Blood - Peripheral Venous Blood Culture - Preliminary NO GROWTH OBTAINED AFTER 24 HOURS, INCUBATION TO CONTINUE FOR 4 DAYS. 12/21/19 06:48 Blood - Peripheral Venous Blood Culture - Preliminary Pending Organism 12/20/19 11:00 Urine For Antigen Detection Streptococcus pneumoniae Antigen (M - Final echo possible small aortic valve vegetation a/p enterococcal bacteremia, r/o endocarditis- ?source- gi vs gu switch to ampicillin and rocephin repeat blood cultures positive repeat again in am history of hemolytic anemia for transfusion add probiotics Problem List - Problems (1) Altered mental status Code(s): R41.82 - ALTERED MENTAL STATUS, UNSPECIFIED (2) Streptococcal meningitis Code(s): G00.2 - STREPTOCOCCAL MENINGITIS (3) Autoimmune hemolytic anemias Code(s): D59.1 - OTHER AUTOIMMUNE HEMOLYTIC ANEMIAS (4) Diabetes mellitus Code(s): E11.9 - TYPE 2 DIABETES MELLITUS WITHOUT COMPLICATIONS (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
[2019-12-22] MEDS: AMPICILLIN - 2 GM in SODIUM CHLORIDE 100 ML IVPB SCH ×3 (16:35→21:51)
[2019-12-22] MEDS ORDERED: AMPICILLIN SODIUM 2 GM VIAL ONE ×2 (17:46→18:49)
[2019-12-22] MEDS ORDERED: SODIUM CHLORIDE 100 ML IVPB ONE ×2 (17:47→18:49)
--- NOTE | 2019-12-22 18:05 | PN ---
Teaching Attending Note Name of Resident: Jael Tobin ATTENDING PHYSICIAN STATEMENT I saw and evaluated the patient. I reviewed the resident's note and discussed the case with the resident. I agree with the resident's findings and plan as documented. SUBJECTIVE: limited conversation due to language barrier, even resident used recovery unit operator phone which did not help as she was confused and did not cooperate denies pain, or SOB . OBJECTIVE: awake, alert, cooperative no distress . CV: RRR, no MRG Lungs: CTAB anteriorly and on sides. Abd: obese, soft, NT, ND, nl BS Ext: pitting edema on upper extremities. worse edema on legs clay in. ASSESSMENT AND PLAN: 79 y/o lady with h/o HTN, HLD, IDDM, Morbid obesity, breast cancer s/p chemoradiation, Arlyn + hemolytic anemia, latent TB( finished rafampin treatment ) , chronic systolic and diastolic heart failure, pericardial effusion, severe MR, external hemorrhoids, recent upper extremity DVT at PICC line site, s/p AC and resultant GI bleed, who presented with AMS. she was found to have severe sepsis. 1- Severe sepsis/enterococcus bacteremia/ endocarditis /? meningitis - d/w ID - dc vanco due to final sensitivity - cont ceftriaxone - vanco level noted - repeat blood cx sent is still positive., will repeat in am - COVID pending - RUL density ---> ? septic embolus 2- Acute on chronic anemia. due to hemolysis - folow retic and LDh daily - monitor HB - transfusion today - cont steroids 3- VON: likely prerena. -will diurese today due to edema 4- IVC /R common iliac/R external iliac thrombosis: - can not anticoagulate now due to acute anemia -monitor , vascular consult pending - h/o recent upper ext DVT at picc site. Monitor . 7-Electrolyte derangements:monitor 8 -h/o heart failure. diurese 9- AMS suspect acute metabolic encephalopathy contributing/delirium , can't r/o meningitis .Slightly improved DVT PX : SCDs Critical Care Total Critical Care Time (in minutes): 34 Critical Care Statement: The care of this patient involved high complexity decision making to prevent further life threatening deterioration of the patient's condition and/or to evaluate & treat vital organ system(s) failure or risk of failure.
--- NOTE | 2019-12-22 18:49 | PROC ---
Central Line Insertion Indication: Poor Venous Access Risks and Benefits Explained: Yes Consent on Chart: Yes (Discussed with son) Central Line: Triple Lumen Catheter Anesthesia: 1% Lidocaine Sterile Technique: Yes Ultrasound Guided Assistance: Yes Position: Left Internal Jugular Post Insertion: Yes: Bilateral Breath Sounds Sterile Dressing Applied: Yes
--- NOTE | 2019-12-22 20:13 | CONSULT ---
Admitting History and Physical - Primary Care Physician PCP: Jossy Machado - Admission History of Present Illness: 79 yo M w h/o HTN, HLD, IDDM, Morbid obesity, breast cancer s/p chemoradiation, Arlyn + hemolytic anemia requiring transfusion who presented to the emergency department with seizure like activity, altered mental status. Pt is admitted for sepsis workup Severe sepsis/enterococcus bacteremia/ endocarditis /? meningitis Selected Entries 12/19/19 12/19/19 12/19/19 15:50 20:31 22:45 Supper Temperature 102.5 F H 101.5 F H 99.3 F 12/20/19 12/20/19 12/20/19 08:33 10:00 12:00 Supper Temperature 101.2 F H 101 F H 101 F H 12/20/19 12/20/19 12/20/19 14:00 18:00 22:00 Supper NPO Temperature 100.9 F H 99 F 12/20/19 12/21/19 12/21/19 22:49 02:00 06:00 Supper Temperature 99.5 F 99.3 F 99 F 12/21/19 12/21/19 12/21/19 08:00 10:00 14:00 Supper Temperature 99.1 F 98.7 F 98.0 F 12/21/19 12/21/19 12/21/19 16:00 18:00 19:47 Supper NPO Temperature 98.3 F 97.9 F 12/21/19 12/22/19 12/22/19 22:00 02:00 06:00 Supper Temperature 98.7 F 98.9 F 98.5 F 12/22/19 12/22/19 12/22/19 08:00 10:00 16:00 Supper NPO Temperature 98.4 F 98.3 F Laboratory Tests 12/19/19 12/22/19 16:00 05:30 WBC 6.8 4.8 Chart reviewed 12/21 and . Discussed with medical team, including Resident, Critical Care MD, and primary nurse. Reported to be much improved mentally. I spoke with primary nurse, to inquire if po trial was given, and she told me that she coughed after applesauce. MBS can not be done on pt's in COVID isolation. Reported thrush on palate and bucal mucosa and gingiva. Nystatin initiated today. Conservative mgmt on COVID pt's including NGT vs modified diets of puree/honey, until respiratory status is stable. Bedside swallowing evaluation is not indicated at this time. If pt coughs responsively after applesauce, continue NPO, consider NGT. History Source: Medical Record Limitations to Obtaining History: Language Barrier - Past Medical History Cardiovascular: Yes: CHF (Diastolic oper the chart), HTN Gastrointestinal: Yes: Hiatal Hernia ...: No Heme/Onc: Yes: Anemia (hemolysis), Cancer (breast cancer s/p resection and chemotherapy) Musculoskeletal: Yes: Osteoarthritis Endocrine: Yes: Diabetes Mellitus (DM II) - Past Surgical History Past Surgical History: Yes: Cholecystectomy (Open), Hysterectomy (LEYLA) - Smoking History Smoking history: Never smoked Have you smoked in the past 12 months: No - Alcohol/Substance Use Hx Alcohol Use: No History of Substance Use: reports: None - Social History ADL: Independent History of Recent Travel: Yes ([facility]) History - Admission Reason For Visit: FEVER - Diagnostics X-ray: Report Reviewed CT Scan: Report Reviewed - General Mental Status: Alert and Oriented, Awake and Alert, Able to Follow Commands Attention: Intact Ability to Follow Directions: Good - Hearing Hearing: Functional Speech Evaluation - Communication Primary Language: ENGLISH Communication: Yes: Within Normal Limits - Swallow Evaluation/Bedside Assessment Current Nutritional Intake: NPO Oral Secretions: Yes: R/O Candidiasis ( Thrush on palate and bucal mucosa and gingiva. Nystatin ordered.) Dentition: Yes: Edentulous Recommendations - Speech Evaluation, Impression/Plan Impression: . Thrush on palate and bucal mucosa and gingiva . Nystatin ordered.
[2019-12-22] MEDS: CHLORHEXIDINE GLUCONATE 4% CLEANSER FOR DECOLONIZATION TP SCH (22:03)
[2019-12-23] MEDS: HEPARIN NA (PORCINE) 5,000 UNITS/ML 1ML VIAL SQ SCH ×3 (01:19→17:40)
[2019-12-23] MEDS: AMPICILLIN - 2 GM in SODIUM CHLORIDE 100 ML IVPB SCH ×6 (01:20→22:00)
[2019-12-23] MEDS ORDERED: AMPICILLIN SODIUM 2 GM VIAL ONE ×5 (03:29→23:02)
[2019-12-23] MEDS ORDERED: SODIUM CHLORIDE 100 ML IVPB ONE ×5 (03:29→23:04)
[2019-12-23] MEDS: INSULIN SLIDING SCALE (NOVOLOG) 1 VIAL SQ SCH ×3 (06:46→17:39)
[2019-12-23 07:13] LABS: BASO % 0.3 % (0-2.0); HEMATOCRIT 23.1 % (32.4-45.2); HEMOGLOBIN 7.7 GM/dL (10.7-15.3); LYMPH % 9.5 % (8-40); MCH 34.5 pg (25.7-33.7); MCHC 33.6 g/dl (32.0-36.0); MEAN CELL VOLUME 102.9 fl (80-96); MEAN PLT VOLUME 8.9 fl (7.5-11.1); MONO % 5.7 % (3.8-10.2); NEUT % 84.5 % (42.8-82.8); PLATELET COUNT 182 K/MM3 (134-434); RBC 2.24 M/mm3 (3.60-5.2); RDW 16.2 % (11.6-15.6); RETICULOCYTES 3.67 % (0.5-1.5); WHITE BLOOD COUNT 3.6 K/mm3 (4.0-10.0)
[2019-12-23 07:37] LABS: BLOOD UREA NITROGEN 23.1 mg/dL (7-18); CALCIUM 7.2 mg/dL (8.5-10.1); CREATININE 0.9 mg/dL (0.55-1.3); MAGNESIUM 1.6 mg/dL (1.8-2.4); PHOSPHOROUS 3.6 mg/dL (2.5-4.9)
[2019-12-23] MEDS ORDERED: MAGNESIUM SULF 50% (8.12 MEQ/2 ML-1 GM VIAL) IVPB ONE (08:15)
[2019-12-23] MEDS ORDERED: POTASSIUM CHLORIDE 20 MEQ PREMIX IVPB 100 ML IVPB ONE (09:00)
[2019-12-23] MEDS ORDERED: LACTOBACILLUS ACIDOPHILUS 1 TABLET PO SCH (10:00)
[2019-12-23] MEDS ORDERED: methylPREDNISolone NA SUCC 40 MG/1 ML VIAL IVPUSH SCH (10:00)
--- NOTE | 2019-12-23 10:02 | PN ---
Progress Note (short form) - Note Progress Note: doing well awake and alert no cough, no resp complaints resting comfortably no complaints Vital Signs Period Temp Pulse Resp BP Sys/Hale Pulse Ox Last 24 Hr 98.3 F-98.9 F 73-85 11-22 140-156/69-84 100-100 cor-rrr llungs decreased bs at bases abd soft,nt ext +edema CBC, BMP 12/23/19 05:00 12/23/19 05:00 Microbiology 12/21/19 06:45 Blood - Peripheral Venous Blood Culture - Preliminary NO GROWTH OBTAINED AFTER 48 HOURS, INCUBATION TO CONTINUE FOR 3 DAYS. 12/19/19 16:00 Blood - Peripheral Venous Blood Culture - Final Enterococcus Faecalis 12/19/19 16:00 Blood - Peripheral Venous Blood Culture - Final Enterococcus Faecalis 12/21/19 06:48 Blood - Peripheral Venous Blood Culture - Preliminary Pending Organism 12/20/19 11:00 Urine For Antigen Detection Streptococcus pneumoniae Antigen (M - Final echo possible small aortic valve vegetation a/p enterococcal bacteremia, r/o endocarditis- ?source- gi vs gu continue ampicillin and rocephin repeat blood cultures positive repeat sent today consider cardiology eval if repeat blood cultures remain positive history of hemolytic anemia add probiotics Problem List - Problems (1) Altered mental status Code(s): R41.82 - ALTERED MENTAL STATUS, UNSPECIFIED (2) Streptococcal meningitis Code(s): G00.2 - STREPTOCOCCAL MENINGITIS (3) Autoimmune hemolytic anemias Code(s): D59.1 - OTHER AUTOIMMUNE HEMOLYTIC ANEMIAS (4) Diabetes mellitus Code(s): E11.9 - TYPE 2 DIABETES MELLITUS WITHOUT COMPLICATIONS (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
[2019-12-23] MEDS: CEFTRIAXONE 2 GM in DEXTROSE 5%-WATER 100 ML IVPB SCH ×2 (10:25→22:00)
[2019-12-23] MEDS ORDERED: DEXTROSE 5%-WATER 100 ML IVPB ONE ×2 (10:31→23:04)
[2019-12-23] MEDS ORDERED: MAGNESIUM SULFATE 2 GM in SODIUM CHLORIDE 100 ML IVPB ONE (10:45)
[2019-12-23] MEDS ORDERED: MAGNESIUM SULFATE IN WATER 2 GM/50 ML IVPB IVPB ONE (10:55)
[2019-12-23] MEDS: levETIRAcetam 500 MG/5 ML INJECTION VIAL IVPB SCH ×2 (10:55→22:00)
[2019-12-23] MEDS ORDERED: FUROSEMIDE 40 MG/4 ML INJECTABLE VIAL IVPUSH SCH (11:15)
[2019-12-23] MEDS ORDERED: LOSARTAN POTASSIUM 50 MG TABLET (FP) PO SCH (11:15)
[2019-12-23 11:34] LABS: ANISOCYTOSIS 1+; MACROCYTOSIS 1+; PLATELET ESTIMATE NORMAL; TARGET CELLS 1+; TEAR DROP CELLS 1+
--- NOTE | 2019-12-23 11:37 | PN ---
Teaching Attending Note Name of Resident: Jael Tobin ATTENDING PHYSICIAN STATEMENT I saw and evaluated the patient. I reviewed the resident's note and discussed the case with the resident. I agree with the resident's findings and plan as documented. SUBJECTIVE: dr. Hurd who is fluent in Arabic helped with translation . No fever or chills. she denies abd pain, Cp, or SOB . No cough. she feels fine. she thinks she is here because fo her chronic anemia OBJECTIVE: awake, alert, cooperative no distress . knows location, age, name, and the month/year. Thrush on palate and bucal mucosa and gingiva . no teeth CV: RRR, no MRG Lungs: CTAB posteriorly Abd: obese, soft, NT, ND, nl BS Ext: 3+ pitting edema on upper extremities and 1+ pitting edema on legs clay in. ASSESSMENT AND PLAN: 79 y/o lady with h/o HTN, HLD, IDDM, Morbid obesity, breast cancer s/p chemoradiation, Arlyn + hemolytic anemia, latent TB( finished rafampin treatment ) , chronic systolic and diastolic heart failure, pericardial effusion, severe MR, external hemorrhoids, recent upper extremity DVT at PICC line site, s/p AC and resultant GI bleed, who presented with AMS. she was found to have severe sepsis. 1- Severe sepsis/enterococcus bacteremia/ endocarditis / doubt meningitis - cont ceftriaxone and ampicillin - blood cx this am - blood cx yesterday with group D strep - COVID pending - RUL density ---> ? septic embolus 2- Acute on chronic anemia. due to hemolysis - retic count and LDH this am noted . HB has stabilized - solumedrol was decreased yesterday to 40, but she takes prednisone 70-80 mg daily = 60 mg of Solumedrole. - will not decreased her dose . will change steroids to 70 of prednisone since she is able to take po - heme follow up today. Input on steroid dosing 3- Acute CHF exacerbation: - did not receive her lasix yesterday. - will start lasix 40 mg IV daily 4- IVC /R common iliac/R external iliac thrombosis: - can not anticoagulate now due to acute hemolytic anemia. - monitor , vascular consult pending - h/o recent upper ext DVT at picc site. Monitor . 5-Sharri : resolved 6- AMS suspect acute metabolic encephalopathy contributing/delirium , can't r/o meningitis .much improved 7- thrush: use nystatin swish and swallow DVT PX : SCDs
[2019-12-23] MEDS ORDERED: predniSONE 20 MG TABLET (UD) PO SCH (11:45)
[2019-12-23] MEDS: MUPIROCIN 2% TOPICAL OINTMENT FOR DECOLONIZATION NS SCH ×2 (11:50→22:00)
[2019-12-23] MEDS: NYSTATIN 500,000 UNITS/5 ML SUSPENSION PO SCH ×2 (11:54→17:41)
[2019-12-23] MEDS: PANTOPRAZOLE SODIUM 40 MG VIAL IVPUSH SCH (11:54)
--- NOTE | 2019-12-23 12:31 | PN ---
Teaching Attending Note Name of Resident: Bindu Godoy ATTENDING PHYSICIAN STATEMENT I saw and evaluated the patient. I reviewed the resident's note and discussed the case with the resident. I agree with the resident's findings and plan as documented. SUBJECTIVE: Patient in the ICU. Awake and alert. Denies CP or SOB. Intake & Output 12/20/19 12/21/19 12/22/19 12/23/19 23:59 23:59 23:59 23:59 Intake Total 2483 2343 1266 400 Output Total 2450 1400 1550 1200 Balance 33 943 284 -800 Weight 188 lb 188 lb 12.8 oz 190 lb 5 oz 186 lb 12.8 oz Last Vital Signs Temp Pulse Resp BP Pulse Ox 98.4 F 83 12 146/80 100 12/23/19 06:00 12/23/19 06:00 12/23/19 06:00 12/23/19 06:00 12/22/19 19:36 Active Medications Acetaminophen (Ofirmev Injection -) 1,000 mg IVPB Q6H PRN PRN Reason: FEVER Last Admin: 12/20/19 21:51 Dose: 1,000 mg Documented by: Chlorhexidine Gluconate (Hibiclens For Decolonization -) 1 applic TP HS [facility] Last Admin: 12/22/19 22:03 Dose: 1 applic Documented by: Furosemide (Lasix Injection -) 40 mg IVPUSH DAILY [facility] Last Admin: 12/23/19 11:51 Dose: 40 mg Documented by: Heparin Sodium (Porcine) (Heparin -) 5,000 unit SQ Q8H-IV [facility] Last Admin: 12/23/19 10:57 Dose: 5,000 unit Documented by: Ceftriaxone Sodium 2 gm/ (Dextrose) 100 mls @ 200 mls/hr IVPB BID [facility] Last Admin: 12/23/19 10:25 Dose: 200 mls/hr Documented by: Ampicillin Sodium 2 gm/ Sodium (Chloride) 100 mls @ 200 mls/hr IVPB Q4H-IV [facility]; Protocol Last Admin: 12/23/19 10:58 Dose: 200 mls/hr Documented by: Insulin Aspart (Novolog Vial Sliding Scale -) 1 vial SQ ACHS [facility]; Protocol Last Admin: 12/23/19 06:46 Dose: 2 units Documented by: Lactobacillus Acidophilus (Bacid -) 1 tab PO DAILY [facility] Last Admin: 12/23/19 10:58 Dose: 1 tab Documented by: Levetiracetam (Keppra Injection -) 500 mg IVPB BID [facility] Last Admin: 12/23/19 10:55 Dose: 500 mg Documented by: Losartan Potassium (Cozaar -) 50 mg PO DAILY [facility] Last Admin: 12/23/19 11:54 Dose: 50 mg Documented by: Mupirocin (Bactroban Ointment (For Decolonization) -) 1 applic NS BID [facility] Stop: 12/25/19 09:59 Last Admin: 12/23/19 11:50 Dose: 1 applic Documented by: Nystatin (Nystatin Oral Suspension -) 500,000 units PO Q6HPO [facility] Last Admin: 12/23/19 11:54 Dose: 500,000 units Documented by: Pantoprazole Sodium (Protonix Iv) 40 mg IVPUSH DAILY [facility] Last Admin: 12/23/19 11:54 Dose: 40 mg Documented by: Prednisone (Deltasone -) 70 mg PO DAILY [facility] Gen: awake, alert, NAD Heart: S1S2 Lung: decreased breath sounds at the bases Abd: soft, nontender Ext: no edema Neuro: Non-focal Intake & Output 12/20/19 12/21/19 12/22/19 12/23/19 23:59 23:59 23:59 23:59 Intake Total 2483 2343 1266 400 Output Total 2450 1400 1550 1200 Balance 33 943 284 -800 Weight 188 lb 188 lb 12.8 oz 190 lb 5 oz 186 lb 12.8 oz Last Vital Signs Temp Pulse Resp BP Pulse Ox 98.4 F 83 12 146/80 100 12/23/19 06:00 12/23/19 06:00 12/23/19 06:00 12/23/19 06:00 12/22/19 19:36 Active Medications Acetaminophen (Ofirmev Injection -) 1,000 mg IVPB Q6H PRN PRN Reason: FEVER Last Admin: 12/20/19 21:51 Dose: 1,000 mg Documented by: Chlorhexidine Gluconate (Hibiclens For Decolonization -) 1 applic TP HS [facility] Last Admin: 12/22/19 22:03 Dose: 1 applic Documented by: Furosemide (Lasix Injection -) 40 mg IVPUSH DAILY [facility] Last Admin: 12/23/19 11:51 Dose: 40 mg Documented by: Heparin Sodium (Porcine) (Heparin -) 5,000 unit SQ Q8H-IV [facility] Last Admin: 12/23/19 10:57 Dose: 5,000 unit Documented by: Ceftriaxone Sodium 2 gm/ (Dextrose) 100 mls @ 200 mls/hr IVPB BID [facility] Last Admin: 12/23/19 10:25 Dose: 200 mls/hr Documented by: Ampicillin Sodium 2 gm/ Sodium (Chloride) 100 mls @ 200 mls/hr IVPB Q4H-IV [facility]; Protocol Last Admin: 12/23/19 10:58 Dose: 200 mls/hr Documented by: Insulin Aspart (Novolog Vial Sliding Scale -) 1 vial SQ ACHS [facility]; Protocol Last Admin: 12/23/19 06:46 Dose: 2 units Documented by: Lactobacillus Acidophilus (Bacid -) 1 tab PO DAILY [facility] Last Admin: 12/23/19 10:58 Dose: 1 tab Documented by: Levetiracetam (Keppra Injection -) 500 mg IVPB BID [facility] Last Admin: 12/23/19 10:55 Dose: 500 mg Documented by: Losartan Potassium (Cozaar -) 50 mg PO DAILY [facility] Last Admin: 12/23/19 11:54 Dose: 50 mg Documented by: Mupirocin (Bactroban Ointment (For Decolonization) -) 1 applic NS BID [facility] Stop: 12/25/19 09:59 Last Admin: 12/23/19 11:50 Dose: 1 applic Documented by: Nystatin (Nystatin Oral Suspension -) 500,000 units PO Q6HPO [facility] Last Admin: 12/23/19 11:54 Dose: 500,000 units Documented by: Pantoprazole Sodium (Protonix Iv) 40 mg IVPUSH DAILY [facility] Last Admin: 12/23/19 11:54 Dose: 40 mg Documented by: Prednisone (Deltasone -) 70 mg PO DAILY [facility] ASSESSMENT AND PLAN: Altered Mental Status: improved Group D strep Bacteremia Sepsis Acute Kidney Injury Lactic Acidosis improving +Troponins likely [place] Ischemia LV Systolic/Diastolic Dysfunction Hemolytic Anemia HTN Hyperlipidemia DM Diverticulosis IVC Thrombus - continue antibiotics per ID - on empiric antiepileptics - Diuresis as tolerated - monitor urine output, creatinine - replete lytes - O2 to keep SpO2 >90% - aspiration precautions - Floor Dr Hyman
--- NOTE | 2019-12-23 14:09 | PN ---
Physical Exam: SUBJECTIVE: Patient seen and examined. no complaints. tries to pull restraints. BM overnight. OBJECTIVE: Vital Signs Period Temp Pulse Resp BP Sys/Hale Pulse Ox Last 24 Hr 98.3 F-98.9 F 73-88 11-13 140-156/69-84 100-100 GENERAL: AAOx2 (to name and age, unsure of location), NAD, follows some commands HEAD: NCAT EYES: PERRL, EOMI ENT: MMM NECK: Supple LUNGS: CTAB, no wheezes, no crackles HEART: Regular rate and rhythm, S1, S2 without murmur ABDOMEN: Soft, nontender, nondistended, + bowel sounds, no guarding EXTREMITIES: B/L UE and LE Pitting edema. NEUROLOGICAL: awake and alert SKIN: Warm, dry Laboratory Results - last 24 hr 12/22/19 12/22/19 12/22/19 18:00 18:23 22:01 WBC RBC Hgb Hct MCV MCH MCHC RDW Plt Count MPV Absolute Neuts (auto) Neutrophils % Neutrophils % (Manual) Band Neutrophils % Lymphocytes % Lymphocytes % (Manual) Monocytes % Monocytes % (Manual) Eosinophils % Eosinophils % (Manual) Basophils % Basophils % (Manual) Myelocytes % (Man) Promyelocytes % (Man) Blast Cells % (Manual) Nucleated RBC % Metamyelocytes Hypochromia Platelet Estimate Platelet Comment Polychromasia Poikilocytosis Anisocytosis Microcytosis Macrocytosis Target Cells Tear Drop Cells [place] Cells Retic Count Sodium Potassium Chloride Carbon Dioxide Anion Gap BUN Creatinine Est GFR (CKD-EPI)AfAm Est GFR (CKD-EPI)NonAf POC Glucometer 191 220 Random Glucose Calcium Phosphorus Magnesium LD Total Random Vancomycin 31.2 H* 12/23/19 12/23/19 12/23/19 05:00 05:00 13:36 WBC 3.6 L RBC 2.24 L Hgb 7.7 L Hct 23.1 L MCV 102.9 H MCH 34.5 H MCHC 33.6 RDW 16.2 H Plt Count 182 D MPV 8.9 Absolute Neuts (auto) 3.1 Neutrophils % 84.5 H Neutrophils % (Manual) 85.9 H Band Neutrophils % 0.0 Lymphocytes % 9.5 Lymphocytes % (Manual) 7.1 L D Monocytes % 5.7 D Monocytes % (Manual) 5 D Eosinophils % 0.0 Eosinophils % (Manual) 0.0 Basophils % 0.3 Basophils % (Manual) 0.0 Myelocytes % (Man) 1 D Promyelocytes % (Man) 0 Blast Cells % (Manual) 0 Nucleated RBC % 1 H Metamyelocytes 1 D Hypochromia 0 Platelet Estimate Normal Platelet Comment Present Polychromasia 1+ Poikilocytosis 1+ Anisocytosis 1+ Microcytosis 0 Macrocytosis 1+ Target Cells 1+ Tear Drop Cells 1+ Juan Cells 1+ Retic Count 3.67 H D Sodium 148 H Potassium 3.0 L Chloride 111 H Carbon Dioxide 26 Anion Gap 11 BUN 23.1 H Creatinine 0.9 Est GFR (CKD-EPI)AfAm 69.99 Est GFR (CKD-EPI)NonAf 60.39 POC Glucometer 159 Random Glucose 189 H Calcium 7.2 L Phosphorus 3.6 Magnesium 1.6 L LD Total 521 H Random Vancomycin Active Medications Generic Name Dose Route Start Last Admin Trade Name Freq PRN Reason Stop Dose Admin Acetaminophen 1,000 mg 12/20/19 01:14 12/20/19 21:51 Ofirmev Injection - IVPB 1,000 mg Q6H PRN Administration FEVER Chlorhexidine Gluconate 1 applic 12/20/19 22:00 12/22/19 22:03 Hibiclens For Decolonization - TP 1 applic HS [facility] Administration Furosemide 40 mg 12/23/19 11:15 12/23/19 11:51 Lasix Injection - IVPUSH 40 mg DAILY [facility] Administration Heparin Sodium (Porcine) 5,000 unit 12/20/19 02:00 12/23/19 10:57 Heparin - SQ 5,000 unit Q8H-IV [facility] Administration Ceftriaxone Sodium 2 gm/ 100 mls @ 200 mls/hr 12/20/19 10:00 12/23/19 10:25 Dextrose IVPB 200 mls/hr BID [facility] Administration Ampicillin Sodium 2 gm/ Sodium 100 mls @ 200 mls/hr 12/22/19 15:15 12/23/19 10:58 Chloride IVPB 200 mls/hr Q4H-IV [facility] Administration Protocol Insulin Aspart 1 vial 12/19/19 22:00 12/23/19 06:46 Novolog Vial Sliding Scale - SQ 2 units ACHS [facility] Administration Protocol Lactobacillus Acidophilus 1 tab 12/23/19 10:00 12/23/19 10:58 Bacid - PO 1 tab DAILY [facility] Administration Levetiracetam 500 mg 12/19/19 22:00 12/23/19 10:55 Keppra Injection - IVPB 500 mg BID [facility] Administration Losartan Potassium 50 mg 12/23/19 11:15 12/23/19 11:54 Cozaar - PO 50 mg DAILY [facility] Administration Mupirocin 1 applic 12/20/19 10:00 12/23/19 11:50 Bactroban Ointment (For Decolonization) - NS 12/25/19 09:59 1 applic BID [facility] Administration Nystatin 500,000 units 12/23/19 12:00 12/23/19 11:54 Nystatin Oral Suspension - PO 500,000 units Q6HPO [facility] Administration Pantoprazole Sodium 40 mg 12/20/19 10:00 12/23/19 11:54 Protonix Iv IVPUSH 40 mg DAILY [facility] Administration Prednisone 70 mg 12/23/19 11:45 Deltasone - PO DAILY [facility] ASSESSMENT/PLAN: 79 yo M w h/o HTN, HLD, IDDM, diverticuloisis, chronic systolic and diastolic heart failure, morbid obesity, breast cancer s/p chemoradiation, 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 Patient with 2/4 SIRS criteria in ED (Temp 102.5, HR 127, BP 137/85, RR 20, O2 100 % on RA). admitted to for sepsis ,r/o meningitis and r/o covid (low suspicion) Neuro: - Pt today is awake and alert - being suspected for COVID 19( though low risk), given hx of eliquis use, enterococcus positive bacteremia , source /GI, Less suspician for meningitis, hold spinal tap for now and Delrium due to septicemia. - CT Head (12-19-19): No acute intracranial pathology. Chronic supratentorial, and infratentorial infarcts - Cervical Spine CT (12-19-19): No fracture identified - Levetiracetam 1000 mg IV in ED. - Continue Levetiracetam 500 mg IV BID - Neurology recs appreciated Cardio: - BP stable. - given poor access central line placed 12/21 - Troponin 0.09 -> 0.10 -> 0.08. Troponinemia Likely 2/2 demand ischemia, - EKG: LVH, TWI V4-V6, AvL (12-19-19). Similiar to prior interval EKG (06-03-19) - Echocardiogram with possible vegetation - treating for possible endocarditis with ampicillin and rocephin. - cardio recs appreciated Pulmonary: - Airway intact - O2 100 % on RA - CXR No acute process Gastrointestinal: - No active issues. - Home Protonix 40 mg QD - Continue 40 mg Protonix PPI IV QD Renal: - BUN/Cr: 23.1/0.9 (Cr~0.8) - abnormal lytes : mag, K. all repleted - f/u afternoon BMP - Cantu Catheter in place (12-19-19) - lasix 40 daily - Maintain accurate Is/Os Hematology/Oncology: History of Autoimmune Hemolytic Anemia - H/H: 7.7/23.1 , plt 182 - monitor - Transfuse PRBC Hemoglobin < 7.0. - cont medrol 40mg daily - f/u daily hemolytic labs Infectious Disease: - was on rifampin 06/20 for latent TB. med still on list. to be confirmed by primary team. - sepsis from unclear etiology. r/o meningitis, r/o COVID - afebrile overnight. WBC 3.6 - CXR (12-19-19): No sign of an acute process - Influenza A/B: Negative - blood cx growing enterococcus faceale. BC 12/20 still positive. repeat today pending - Pending COVID-19 nasopharyngeal swab obtained in ED (12-19-19) - given low suspicion for COVID since bt has clear source for symptoms, will D/C airborne precautions and keep droplet precautions - antibiotics switched to ampicillin and rocephin per ID recs - ID recs appreciated - Repeat Lactic Acid 2.6 . downtrended Endocrine: - BGM - Sliding scale Insulin FEN: - currently edematous. d/c standing fluids - lytes PRN - NPO T/L/N: Left IJ 12/21 PPx: Mechanical/SCDs, Heparin SubQ, Protonix 40 mg QD Code Status : Full Code Dispo: Continue ICU monitoring Visit type - Emergency Visit Emergency Visit: Yes ED Registration Date: 12/19/19 Care time: The patient presented to the Emergency Department on the above date and was hospitalized for further evaluation of their emergent condition. - New Patient This patient is new to me today: No - Critical Care Critical Care patient: Yes Total Critical Care Time (in minutes): 36 Critical Care Statement: The care of this patient involved high complexity decision making to prevent further life threatening deterioration of the patient's condition and/or to evaluate & treat vital organ system(s) failure or risk of failure. ATTENDING PHYSICIAN STATEMENT I saw and evaluated the patient. I reviewed the resident's note and discussed the case with the resident. I agree with the resident's findings and plan as documented. SUBJECTIVE: OBJECTIVE: ASSESSMENT AND PLAN:
[2019-12-23] MEDS ORDERED: FOLIC ACID 1 MG TABLET (FP) PO SCH (14:15)
[2019-12-23] MEDS ORDERED: PT OWN MED DRAWER 7, Y5N ONE (14:22)
[2019-12-23 14:36] VITALS: BMI 34.0
--- NOTE | 2019-12-23 15:18 | PN ---
Physical Exam: SUBJECTIVE: Patient seen and examined at bedside. pt has no acute complaints. denies CP, sob, denies any pain. pt is more conversational today OBJECTIVE: Vital Signs Period Temp Pulse Resp BP Sys/Hale Pulse Ox Last 24 Hr 98.3 F-98.9 F 73-88 11-13 140-156/69-84 100-100 GENERAL: The patient is awake, alert, and oriented to person and place, in no acute distress. HEAD: Normal with no signs of trauma. EYES: PERRL, extraocular movements intact, sclera anicteric, conjunctiva clear. No ptosis. LUNGS: Breath sounds equal,decreased at bases, no accessory muscle use. HEART: Regular rate and rhythm, S1, S2 ABDOMEN: Soft, nontender, nondistended, normoactive bowel sounds, no guarding EXTREMITIES: 2+ pulses, warm, well-perfused, 3+ UE edema, 2+ LE edema b/l SKIN: Warm, dry, normal turgor, no rashes or lesions noted Laboratory Results - last 24 hr 12/23/19 12/23/19 12/23/19 05:00 05:00 13:36 WBC 3.6 L RBC 2.24 L Hgb 7.7 L Hct 23.1 L MCV 102.9 H MCH 34.5 H MCHC 33.6 RDW 16.2 H Plt Count 182 D MPV 8.9 Absolute Neuts (auto) 3.1 Neutrophils % 84.5 H Neutrophils % (Manual) 85.9 H Band Neutrophils % 0.0 Lymphocytes % 9.5 Lymphocytes % (Manual) 7.1 L D Monocytes % 5.7 D Monocytes % (Manual) 5 D Eosinophils % 0.0 Eosinophils % (Manual) 0.0 Basophils % 0.3 Basophils % (Manual) 0.0 Myelocytes % (Man) 1 D Promyelocytes % (Man) 0 Blast Cells % (Manual) 0 Nucleated RBC % 1 H Metamyelocytes 1 D Hypochromia 0 Platelet Estimate Normal Platelet Comment Present Polychromasia 1+ Poikilocytosis 1+ Anisocytosis 1+ Microcytosis 0 Macrocytosis 1+ Target Cells 1+ Tear Drop Cells 1+ [place] Cells 1+ Retic Count 3.67 H D Sodium 148 H Potassium 3.0 L Chloride 111 H Carbon Dioxide 26 Anion Gap 11 BUN 23.1 H Creatinine 0.9 Est GFR (CKD-EPI)AfAm 69.99 Est GFR (CKD-EPI)NonAf 60.39 POC Glucometer 159 Random Glucose 189 H Calcium 7.2 L Phosphorus 3.6 Magnesium 1.6 L LD Total 521 H Random Vancomycin Current Medications Acetaminophen (Ofirmev Injection -) 1,000 mg IVPB Q6H PRN PRN Reason: FEVER Last Admin: 12/20/19 21:51 Dose: 1,000 mg Documented by: Chlorhexidine Gluconate (Hibiclens For Decolonization -) 1 applic TP HS [facility] Last Admin: 12/22/19 22:03 Dose: 1 applic Documented by: Folic Acid (Folic Acid -) 1 mg PO DAILY [facility] Furosemide (Lasix Injection -) 40 mg IVPUSH DAILY [facility] Last Admin: 12/23/19 11:51 Dose: 40 mg Documented by: Heparin Sodium (Porcine) (Heparin -) 5,000 unit SQ Q8H-IV [facility] Last Admin: 12/23/19 10:57 Dose: 5,000 unit Documented by: Ceftriaxone Sodium 2 gm/ (Dextrose) 100 mls @ 200 mls/hr IVPB BID [facility] Last Admin: 12/23/19 10:25 Dose: 200 mls/hr Documented by: Ampicillin Sodium 2 gm/ Sodium (Chloride) 100 mls @ 200 mls/hr IVPB Q4H-IV [facility]; Protocol Last Admin: 12/23/19 10:58 Dose: 200 mls/hr Documented by: Insulin Aspart (Novolog Vial Sliding Scale -) 1 vial SQ ACHS [facility]; Protocol Last Admin: 12/23/19 06:46 Dose: 2 units Documented by: Lactobacillus Acidophilus (Bacid -) 1 tab PO DAILY [facility] Last Admin: 12/23/19 10:58 Dose: 1 tab Documented by: Levetiracetam (Keppra Injection -) 500 mg IVPB BID [facility] Last Admin: 12/23/19 10:55 Dose: 500 mg Documented by: Losartan Potassium (Cozaar -) 50 mg PO DAILY [facility] Last Admin: 12/23/19 11:54 Dose: 50 mg Documented by: Mupirocin (Bactroban Ointment (For Decolonization) -) 1 applic NS BID [facility] Stop: 12/25/19 09:59 Last Admin: 12/23/19 11:50 Dose: 1 applic Documented by: Nystatin (Nystatin Oral Suspension -) 500,000 units PO Q6HPO [facility] Last Admin: 12/23/19 11:54 Dose: 500,000 units Documented by: Pantoprazole Sodium (Protonix Iv) 40 mg IVPUSH DAILY [facility] Last Admin: 12/23/19 11:54 Dose: 40 mg Documented by: Prednisone (Deltasone -) 70 mg PO DAILY [facility] ASSESSMENT/PLAN: 79 y/o M PMHx HFpEF, HTN, HLD, IDDM, Morbid obesity, breast ca s/p chemoradiation, autoimmune hemolytic anemia (requiring transfusion; On high dose steroids at home) who was recently treated for EPEC (developed DVT s/p PICC Line placement [for ceftriaxone] and was subsequently started on DOAC but was dc'ed due to GIB) presents with seizure like activity and AMS, admitted for sepsis workup. Hgb dropped to 6's and patient was transfused 1u pRBC on 12/20. Acute Toxic Metabolic encephalopathy -likely 2/2 Sepsis 2/2 endocarditis (mobile hypodensity noted on ECHO), gram + Bacteremia -Lactic acidosis resolving -Continue Ceftriaxone, Ampicillin (ABx course started on 12/18) -Follow cultures, pending rpt. low suspicion for covd -ID and ICU consulted Acute Hemolytic anemia -Previously unresponsive to rituxan and on high dose prednisone at home -S/p 1u pRBC on 12/20 -Continue prednisoe 70 daily. continue folic acid daily -Heme/Onc consulted acute on chronic HFpEF -will restart lasix 40 daily - cardio consult Seizure -Neurology consulted, appreciate rec's -Continue Levetiracetam VON, Resolved Thrombus -Partially occlusive thrombus Noted on imaging to extend from IVC into the right common iliac, right external iliac veins and possibly right common femoral vein -Vascular surgery consulted; Appreciate rec's, will treat conservatively in the setting of bacteremia -AC Held in the setting of acute hemolytic anemia DM -ISS BGMs ACHS Oral thrush - will start nystatin swish and swallow Tropinemia Likely 2/2 demand ischemia in the setting of sepsis; improved PPx -DVT: Heparin -GI: PPI LIJ access on 12/21 as pt has difficult access points. pt will need PICC on dc Visit type - Emergency Visit Emergency Visit: No - New Patient This patient is new to me today: No - Critical Care Critical Care patient: Yes Total Critical Care Time (in minutes): 38 Critical Care Statement: The care of this patient involved high complexity decision making to prevent further life threatening deterioration of the patient's condition and/or to evaluate & treat vital organ system(s) failure or risk of failure. - Discharge Referral Referred to [facility] No ATTENDING PHYSICIAN STATEMENT I saw and evaluated the patient. I reviewed the resident's note and discussed the case with the resident. I agree with the resident's findings and plan as documented. SUBJECTIVE: OBJECTIVE: ASSESSMENT AND PLAN:
--- NOTE | 2019-12-23 15:31 | CON.CARD ---
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 She was admitted with altered mental status and had a seizure on route to emergency room. Patient initially had waxing and waning of mental status with slurred speech and disorientation. She also had lactic acidosis.She also had been treated with DOAC for DVT s/p PICC line placement but was discontinued due to GI bleed. Hospital course included a head CT which was unremarkable. Echocardiography revealed borderline LVEF 50-55%, moderate MR, mild to moderate and small echodensity on LV side of aortic valve suggestive of vegetation. Blood culture grew 4/4 bottles of gram positive cocci c/w enterococcus. Other suspicion was possible menigitis which now appears low on th e list and also COVID 19 (though low on the list, nevertheless she is still isolated until test result comes back). Troponin was slightly elevated to 0.10. She is awake. Denies chest pain or shortness of breath. She does not have fever at this time. She denies nausea, vomiting , diarrhea or abdominal pain. She denies headache or lightheadedness. - History Source History Provided By: Medical Record Limitations to Obtaining History: Clinical Condition - Past Medical History Cardio/Vascular: Yes: Aortic Stenosis, CHF (Diastolic oper the chart), HTN, Hyperlipdemia, Mitral Insufficiency Gastrointestinal: Yes: Hiatal Hernia ...: No Heme/Onc: Yes: Anemia (nikkie + hemolytic anemia) Musculoskeletal: Yes: Osteoarthritis Endocrine: Yes: Diabetes Mellitus - Past Surgical History Past Surgical History: Yes: Cholecystectomy (Open), Hysterectomy (LEYLA) - Alcohol/Substance Use Hx Alcohol Use: No History of Substance Use: reports: None - Smoking History Smoking history: Never smoked Have you smoked in the past 12 months: No - Social History Usual Living Arrangement: With Spouse ADL: Independent History of Recent Travel: Yes ([place]) Home Medications - Allergies Allergies/Adverse Reactions: Allergies Allergy/AdvReac Type Severity Reaction Status Date / Time No Known Allergies Allergy Verified 02/18/19 14:41 - Home Medications Home Medications: Ambulatory Orders Exemestane [Aromasin -] 25 mg PO DAILY 01/05/19 Metformin HCl [Glucophage] 500 mg PO BID 02/18/19 Folic Acid - 1 mg PO DAILY #30 tablet 02/23/19 Metoprolol Succinate [Toprol XL -] 50 mg PO DAILY tab.sr.24h 02/23/19 Lancets/Blood Glucose Strips [Fora [id number] Strp-Lnct] 1 each MC DAILY 30 Days combo..pkg 05/17/19 Pantoprazole Sodium [Protonix -] 40 mg PO DAILY #30 tablet.ec 05/17/19 Atovaquone [Mepron Oral Solution -] 1,500 mg PO DAILY@0800 #300 ml 06/15/19 Prednisone 5 mg PO DAILY #80 tab.ds.pk 06/15/19 Amlodipine Besylate [Norvasc -] 5 mg PO DAILY 12/23/19 Chlorthalidone 25 mg PO DAILY 12/23/19 Furosemide [Lasix] 40 mg PO DAILY 12/23/19 Losartan Potassium [Cozaar -] 50 mg PO DAILY 12/23/19 Review of Systems - Review of Systems Constitutional: reports: Weakness. denies: Chills, Fever Respiratory: denies: Cough, Hemoptysis, Orthopnea, PND, SOB, SOB on Exertion Gastrointestinal: denies: Abdominal Pain, Constipation, Diarrhea, Melena, Nausea, Rectal Bleeding, Vomiting Genitourinary: denies: Dysuria, Hematuria Neurological: reports: Seizure. denies: Dizziness, Headache, Syncope Vital Signs: Vital Signs Temperature 98.4 F 12/23/19 06:00 Pulse Rate 80 12/23/19 12:00 Respiratory Rate 13 12/23/19 12:00 Blood Pressure 146/80 12/23/19 12:00 O2 Sat by Pulse Oximetry (%) 100 12/22/19 19:36 Neck: Yes: Supple Respiratory: Yes: Diminished Gastrointestinal: Yes: Normal Bowel Sounds, Soft. No: Tenderness Cardiovascular: Yes: Tachycardia JVD: No PMI: Non-Displaced Heart Sounds: Yes: S1, S2 Murmur: Yes: Systolic Murmur, Grade 1 Edema: No - Other Data Labs, Other Data: CBC, BMP 12/23/19 05:00 12/23/19 05:00 INR, PTT INR 1.08 (0.83-1.09) 12/19/19 16:00 Laboratory Results - last 24 hr 12/23/19 12/23/19 12/23/19 05:00 05:00 13:36 WBC 3.6 L RBC 2.24 L Hgb 7.7 L Hct 23.1 L MCV 102.9 H MCH 34.5 H MCHC 33.6 RDW 16.2 H Plt Count 182 D MPV 8.9 Absolute Neuts (auto) 3.1 Neutrophils % 84.5 H Neutrophils % (Manual) 85.9 H Band Neutrophils % 0.0 Lymphocytes % 9.5 Lymphocytes % (Manual) 7.1 L D Monocytes % 5.7 D Monocytes % (Manual) 5 D Eosinophils % 0.0 Eosinophils % (Manual) 0.0 Basophils % 0.3 Basophils % (Manual) 0.0 Myelocytes % (Man) 1 D Promyelocytes % (Man) 0 Blast Cells % (Manual) 0 Nucleated RBC % 1 H Metamyelocytes 1 D Hypochromia 0 Platelet Estimate Normal Platelet Comment Present Polychromasia 1+ Poikilocytosis 1+ Anisocytosis 1+ Microcytosis 0 Macrocytosis 1+ Target Cells 1+ Tear Drop Cells 1+ Juan Cells 1+ Retic Count 3.67 H D Sodium 148 H Potassium 3.0 L Chloride 111 H Carbon Dioxide 26 Anion Gap 11 BUN 23.1 H Creatinine 0.9 Est GFR (CKD-EPI)AfAm 69.99 Est GFR (CKD-EPI)NonAf 60.39 POC Glucometer 159 Random Glucose 189 H Calcium 7.2 L Phosphorus 3.6 Magnesium 1.6 L LD Total 521 H Random Vancomycin Echo: Report Reviewed Imaging - Results Chest X-ray: Report Reviewed (Large heart) Cat Scan: Report Reviewed (Head CT, chest CT noted) Problem List - Problems (1) Endocarditis Code(s): I38 - ENDOCARDITIS, VALVE UNSPECIFIED (2) Altered mental status Code(s): R41.82 - ALTERED MENTAL STATUS, UNSPECIFIED (3) Fever Code(s): R50.9 - FEVER, UNSPECIFIED (4) Thrombus Code(s): I82.90 - ACUTE EMBOLISM AND THROMBOSIS OF UNSPECIFIED VEIN (5) Aortic stenosis Code(s): I35.0 - NONRHEUMATIC AORTIC (VALVE) STENOSIS Qualifiers: Cardiac valve disease etiology: nonrheumatic Qualified Code(s): I35.0 - Nonrheumatic aortic (valve) stenosis (6) Autoimmune hemolytic anemias Code(s): D59.1 - OTHER AUTOIMMUNE HEMOLYTIC ANEMIAS (7) Diabetes mellitus Code(s): E11.9 - TYPE 2 DIABETES MELLITUS WITHOUT COMPLICATIONS (8) HTN (hypertension) Code(s): I10 - ESSENTIAL (PRIMARY) HYPERTENSION Qualifiers: Hypertension type: essential hypertension Qualified Code(s): I10 - Essentia l (primary) hypertension (9) Hyperlipidemia Code(s): E78.5 - HYPERLIPIDEMIA, UNSPECIFIED Qualifiers: Hyperlipidemia type: pure hypercholesterolemia Qualified Code(s): E78.00 - Pure hypercholesterolemia, unspecified; E78.0 - Pure hypercholesterolemia (10) Moderate mitral regurgitation Code(s): I34.0 - NONRHEUMATIC MITRAL (VALVE) INSUFFICIENCY (11) Acute on chronic diastolic (congestive) heart failure Code(s): I50.33 - ACUTE ON CHRONIC DIASTOLIC (CONGESTIVE) HEART FAILURE Assessment/Plan 1. Nikkie (+) hemolytic anemia 2. Sinus tachycardia due to sepsis 3. Suspicious for aortic vegetation and endocarditis 4. Mitral valve regurgitation 5. Altered mental status improved 6. HTN 7. Hypercholesterolemia 8. Demand ischemia due to sepsis 9. Partially occlusive thrombus in distal 1/3 of IVC extending into right iliac and common femoral PLAN: 1. Antibiotic coverage as per ID. Would treat to total duration for endocarditis 2. Continue Losartan 50 mg QD 3. Steroids 4. Diuretics (Furosemide) 5. No need to further cardiac intervention at the moment 6. COVID 19 testing pending (low probability) 7. Vascular surgery evaluation and decision regarding anticoagulation to follow (previously was discontinued due to GI bleed) Further plans are to follow Beka Stock MD
--- NOTE | 2019-12-23 17:18 | PN ---
Progress Note (short form) - Note Progress Note: 79 Year old woman came to hospital for AMS and ? seizure , there was possible seizure . Patient is on prednisone for hemolytic anemia. On admission Patient has high grade fever and has been started on abx ( ceftriaxone and vanco) . Patinet has ct head negative. She also take eliquis at home and now she is off as her hemoglobin was low . She was tested for COVID 19 , test is pending. Chart was reviewed and patient is improving clinnically . She has been afebrile. Neurological exam Alert follow simple command, afebrile vss eomi, pupils reactive moving all ext ct head unremarkable Assessment/Plan 1. Suspected Meningitis, though low suspician as she has ente rococcus positive. She is also being suspected for COVID 19( though low risk), Low suspician for Meningitis, hold LP and continue abx as per iD. 2. Delrium due to septicemia 3. Posssible seizure , continue keppra for now Thanking you so much Case Lorenzo MD
[2019-12-23 18:58] LABS: INR 1.09 (0.83-1.09); PROTHROMBIN TIME (PATIENT) 12.9 SEC (9.7-13.0)
[2019-12-23 19:00] LABS: ACTIVATED PTT 30.1 SECONDS (25.2-36.5)
[2019-12-23 19:14] LABS: BLOOD UREA NITROGEN 23.7 mg/dL (7-18); CALCIUM 7.8 mg/dL (8.5-10.1); POTASSIUM 3.2 mmol/L (3.5-5.1)
[2019-12-23] MEDS: CHLORHEXIDINE GLUCONATE 4% CLEANSER FOR DECOLONIZATION TP SCH (22:00)
--- NOTE | 2019-12-23 22:29 | CONSULT ---
Consult - text type - Consultation Consultation Note: 79YOF with h/o IDDM, breast CA s/p left mastectomy with chemo and radiation, Arlyn+ hemolytic anemia requiring admission and transfusions, syncope, HTN, HLD, and morbid obesity who was BIBEMS for altered mental status per family and fever, also had a 30 second episode of seizure-like activity per EMS just after exiting the ambulance. She came in for altered mentl status/fever. Found to have enterococcal bacteremia We have been consulted for h/o autoimmunehemolytic anemia - Past Medical History Allergies/Adverse Reactions: Allergies Allergy/AdvReac Type Severity Reaction Status Date / Time No Known Allergies Allergy Verified 02/18/19 14:41 Home Medications: Ambulatory Orders Exemestane [Aromasin -] 25 mg PO DAILY 01/05/19 Metformin HCl [Glucophage] 500 mg PO BID 02/18/19 Folic Acid - 1 mg PO DAILY #30 tablet 02/23/19 Metoprolol Succinate [Toprol XL -] 50 mg PO DAILY tab.sr.24h 02/23/19 Lancets/Blood Glucose Strips [Fora [id number] Strp-Lnct] 1 each MC DAILY 30 Days combo..pkg 05/17/19 Pantoprazole Sodium [Protonix -] 40 mg PO DAILY #30 tablet.ec 05/17/19 Atovaquone [Mepron Oral Solution -] 1,500 mg PO DAILY@0800 #300 ml 06/15/19 Prednisone 5 mg PO DAILY #80 tab.ds.pk 06/15/19 Amlodipine Besylate [Norvasc -] 5 mg PO DAILY 12/23/19 Chlorthalidone 25 mg PO DAILY 12/23/19 Furosemide [Lasix] 40 mg PO DAILY 12/23/19 Losartan Potassium [Cozaar -] 50 mg PO DAILY 12/23/19 Anemia: Yes Cancer: Yes (BREAST L mastectomy) Cardiac Disorders: Yes COPD: No CHF: Yes Diabetes: Yes GI Disorders: Yes (HEMMOROIDS) HTN: Yes Hypercholesterolemia: Yes - Surgical History Cholecystectomy: Yes (open cholecystectomy) - Psycho Social/Smoking Cessation Hx Smoking History: Never smoked A/P 79YOF with h/o IDDM, breast CA s/p left mastectomy with chemo and radiation, Arlyn+ hemolytic anemia requiring admission and transfusions, syncope, HTN, HLD, and morbid obesity who was BIBEMS for altered mental status per family and fever, also had a 30 second episode of seizure-like activity per EMS just after exiting the ambulance. She came in for altered mentl status/fever. Found to have enterococcal bacteremia We have been consulted for h/o autoimmunehemolytic anemia autoimmune hemolytic anemia s/p rituxan with Dr. Spears at [facility] [id number]--multifactorial Haptoglobin --nl Hgb 6.8 on presentation stool occult neg. On prednisone --70mg --- taper to 50 mg isf hgb staabel Once infection clears up willl consider rituxan MAy need colonoscopy to r/o occult blood loss as cause of anemia, Consider gI consut check iron studies IVC thrombus -- extending to rt. external iliac and ? common femoral -- noted on CT 12/19/19, incidentally nl coags/ CR 1 Would considedr vascular consi=ult would check duplex lower ext Would consider anticoagulation with heparin drip without bolus and monitor clinical course will discuss with primary team
[2019-12-24] MEDS: INSULIN SLIDING SCALE (NOVOLOG) 1 VIAL SQ SCH ×5 (01:43→22:38)
[2019-12-24] MEDS: NYSTATIN 500,000 UNITS/5 ML SUSPENSION PO SCH ×4 (01:44→17:24)
[2019-12-24] MEDS ORDERED: AMPICILLIN SODIUM 2 GM VIAL ONE ×5 (04:07→22:07)
[2019-12-24] MEDS ORDERED: SODIUM CHLORIDE 100 ML IVPB ONE ×5 (04:08→22:08)
[2019-12-24] MEDS: HEPARIN NA (PORCINE) 5,000 UNITS/ML 1ML VIAL SQ SCH ×3 (04:10→22:25)
[2019-12-24] MEDS: AMPICILLIN - 2 GM in SODIUM CHLORIDE 100 ML IVPB SCH ×6 (04:11→22:18)
[2019-12-24] MEDS ORDERED: INSULIN SLIDING SCALE (NOVOLOG) 1 VIAL SQ ONE (06:51)
[2019-12-24 07:00] LABS: BASO % 0.4 % (0-2.0); HEMATOCRIT 23.5 % (32.4-45.2); LYMPH % 9.3 % (8-40); MEAN CELL VOLUME 102.9 fl (80-96); MEAN PLT VOLUME 8.9 fl (7.5-11.1); MONO % 4.6 % (3.8-10.2); NEUT % 85.7 % (42.8-82.8); PLATELET COUNT 217 K/MM3 (134-434); RBC 2.28 M/mm3 (3.60-5.2); RDW 15.8 % (11.6-15.6); RETICULOCYTES 3.55 % (0.5-1.5); WHITE BLOOD COUNT 4.1 K/mm3 (4.0-10.0)
[2019-12-24 07:25] LABS: ALBUMIN 2.2 g/dl (3.4-5.0); BILIRUBIN,TOTAL 0.8 mg/dL (0.2-1); BLOOD UREA NITROGEN 24.3 mg/dL (7-18); CALCIUM 7.9 mg/dL (8.5-10.1); CREATININE 0.9 mg/dL (0.55-1.3); MAGNESIUM 2.2 mg/dL (1.8-2.4); PHOSPHOROUS 3.4 mg/dL (2.5-4.9); TOT PROT 4.7 g/dl (6.4-8.2)
[2019-12-24] MEDS ORDERED: ACETAMINOPHEN 1000 MG/100 ML VIAL (NON FORMULARY) IVPB PRN (07:33)
[2019-12-24 09:04] LABS: ANISOCYTOSIS 1+; MACROCYTOSIS 1+; PLATELET ESTIMATE NORMAL; TEAR DROP CELLS 1+
[2019-12-24] MEDS ORDERED: DEXTROSE 5%-WATER 100 ML IVPB ONE ×2 (09:10→22:08)
[2019-12-24] MEDS: CEFTRIAXONE 2 GM in DEXTROSE 5%-WATER 100 ML IVPB SCH ×2 (09:20→22:19)
[2019-12-24] MEDS: PANTOPRAZOLE SODIUM 40 MG VIAL IVPUSH SCH (09:22)
[2019-12-24] MEDS: FUROSEMIDE 40 MG/4 ML INJECTABLE VIAL IVPUSH SCH (09:23)
[2019-12-24] MEDS ORDERED: POTASSIUM CHLORIDE TABS 20 MEQ TABLET.ER (FP) PO ONE (10:09)
--- NOTE | 2019-12-24 10:25 | PN ---
Physical Exam: SUBJECTIVE: Patient seen and examined at bedside. pt has no acute complaints. OBJECTIVE: Vital Signs Period Temp Pulse Resp BP Sys/Hale Pulse Ox Last 24 Hr 97.3 F-98 F 80-90 12-16 146-169/76-93 100 GENERAL: The patient is awake, alert, and oriented to self, in no acute distress. HEAD: Normal with no signs of trauma. LUNGS: Breath sounds equal, decreased at bases,no accessory muscle use. HEART: Regular rate and rhythm, S1, S2 ABDOMEN: Soft, nontender, nondistended, normoactive bowel sounds, no guarding EXTREMITIES: 2+ pulses, warm, well-perfused, 3+ UE edema , 2+ LE edema SKIN: Warm, dry, normal turgor, no rashes or lesions noted RECTAL : stool in vault, good sphincter tone, external hemorrhoid noted, no internal hemorrhoid felt, no active bleeding noted, no blood on tip of glove Laboratory Last Values WBC 4.1 K/mm3 (4.0-10.0) 12/24/19 05:45 RBC 2.28 M/mm3 (3.60-5.2) L 12/24/19 05:45 Hgb 8.0 GM/dL (10.7-15.3) L 12/24/19 05:45 Hct 23.5 % (32.4-45.2) L 12/24/19 05:45 MCV 102.9 fl (80-96) H 12/24/19 05:45 MCH 35.0 pg (25.7-33.7) H 12/24/19 05:45 MCHC 34.0 g/dl (32.0-36.0) 12/24/19 05:45 RDW 15.8 % (11.6-15.6) H 12/24/19 05:45 Plt Count 217 K/MM3 (134-434) 12/24/19 05:45 MPV 8.9 fl (7.5-11.1) 12/24/19 05:45 Absolute Neuts (auto) 3.5 K/mm3 (1.5-8.0) 12/24/19 05:45 Neutrophils % 85.7 % (42.8-82.8) H 12/24/19 05:45 Neutrophils % (Manual) 92.9 % (42.8-82.8) H 12/24/19 05:45 Band Neutrophils % 2.0 % 12/24/19 05:45 Lymphocytes % 9.3 % (8-40) 12/24/19 05:45 Lymphocytes % (Manual) 2.0 % (8-40) L D 12/24/19 05:45 Monocytes % 4.6 % (3.8-10.2) 12/24/19 05:45 Monocytes % (Manual) 3 % (3.8-10.2) L 12/24/19 05:45 Eosinophils % 0.0 % (0-4.5) 12/24/19 05:45 Eosinophils % (Manual) 0.0 % (0-4.5) 12/24/19 05:45 Basophils % 0.4 % (0-2.0) 12/24/19 05:45 Basophils % (Manual) 0.0 % (0-2.0) 12/24/19 05:45 Myelocytes % (Man) 0 % (0-2) D 12/24/19 05:45 Promyelocytes % (Man) 0 % (0-2) 12/24/19 05:45 Blast Cells % (Manual) 0 % (0-0) 12/24/19 05:45 Nucleated RBC % 1 % (0-0) H 12/24/19 05:45 Metamyelocytes 0 % (0-2) D 12/24/19 05:45 Hypochromia 0 12/24/19 05:45 Platelet Estimate Normal 12/24/19 05:45 Platelet Comment Present 12/23/19 05:00 Polychromasia 1+ 12/24/19 05:45 Poikilocytosis 1+ 12/24/19 05:45 Anisocytosis 1+ 12/24/19 05:45 Microcytosis 0 12/24/19 05:45 Macrocytosis 1+ 12/24/19 05:45 Spherocytes 1+ 12/20/19 05:00 Target Cells 1+ 12/23/19 05:00 Tear Drop Cells 1+ 12/24/19 05:45 [place] Cells 1+ 12/24/19 05:45 Rouleaux 2+ 12/19/19 16:00 Schistocytes 1+ 12/20/19 05:00 Retic Count 3.55 % (0.5-1.5) H 12/24/19 05:45 Haptoglobin 108 mg/dL (42-346) 12/21/19 06:45 PT with INR 12.90 SEC (9.7-13.0) 12/23/19 18:00 INR 1.09 (0.83-1.09) 12/23/19 18:00 PTT (Actin FS) 30.1 SECONDS (25.2-36.5) 12/23/19 18:00 VBG pH 7.42 (7.31-7.41) H 12/19/19 16:00 POC VBG pCO2 35.0 mmHg (38-52) L 12/19/19 16:00 POC VBG pO2 138 mmHg (28-48) H 12/19/19 16:00 VBG HCO3 22.2 mmol/L (23-29) L 12/19/19 16:00 VBG O2 Sat (Mehran) 99.3 % (70-80) H 12/19/19 16:00 VBG Base Excess -1.4 meq/l (-2-2) 12/19/19 16:00 Sodium 148 mmol/L (136-145) H 12/24/19 05:45 Potassium 3.0 mmol/L (3.5-5.1) L 12/24/19 05:45 Chloride 110 mmol/L (98-107) H 12/24/19 05:45 Carbon Dioxide 27 mmol/L (21-32) 12/24/19 05:45 Anion Gap 11 MMOL/L (8-16) 12/24/19 05:45 BUN 24.3 mg/dL (7-18) H 12/24/19 05:45 Creatinine 0.9 mg/dL (0.55-1.3) 12/24/19 05:45 Est GFR (CKD-EPI)AfAm 69.99 12/24/19 05:45 Est GFR (CKD-EPI)NonAf 60.39 12/24/19 05:45 POC Glucometer 259 UNITS (80-120) 12/24/19 16:41 Random Glucose 238 mg/dL (74-106) H 12/24/19 05:45 Lactic Acid 2.6 mmol/L (0.4-2.0) H* 12/20/19 16:00 Calcium 7.9 mg/dL (8.5-10.1) L 12/24/19 05:45 Phosphorus 3.4 mg/dL (2.5-4.9) 12/24/19 05:45 Magnesium 2.2 mg/dL (1.8-2.4) 12/24/19 05:45 Iron 64 ug/dL (50-175) 12/24/19 05:45 TIBC 152 ug/dL (250-450) L 12/24/19 05:45 Iron Saturation 42 % (17.5-39) H 12/24/19 05:45 Unsaturated IBC 88 ug/dL (200-275) L 12/24/19 05:45 Ferritin 1694.0 ng/ml (8-388) H 12/24/19 05:45 Total Bilirubin 0.8 mg/dL (0.2-1) 12/24/19 05:45 AST 14 U/L (15-37) L 12/24/19 05:45 ALT 19 U/L (13-61) 12/24/19 05:45 Alkaline Phosphatase 55 U/L (45-117) 12/24/19 05:45 LD Total 506 U/L (84-246) H 12/24/19 05:45 Creatine Kinase 27 U/L (26-192) 12/20/19 06:00 CK-MB (CK-2) < 1.0 ng/mL (0.5-3.6) 12/19/19 16:00 Troponin I 0.08 ng/ml (0.00-0.05) H 12/20/19 14:00 C-Reactive Protein 17.4 MG/DL (0.00-0.3) H 12/21/19 06:45 Total Protein 4.7 g/dl (6.4-8.2) L 12/24/19 05:45 Albumin 2.2 g/dl (3.4-5.0) L 12/24/19 05:45 Vitamin B12 443 pg/ml (193-986) 12/19/19 22:59 Serum Folate 37 ng/mL (3.1-17.5) H 12/20/19 06:00 TSH 0.66 uIU/ml (0.358-3.74) 12/20/19 06:00 Urine Color Yellow 12/20/19 11:00 Urine Appearance Clear 12/20/19 11:00 Urine pH 6.0 (5.0-8.0) 12/20/19 11:00 Ur Specific [place] 1.030 (1.010-1.035) 12/20/19 11:00 Urine Protein 2+ (NEGATIVE) H 12/20/19 11:00 Urine Glucose (UA) Negative (NEGATIVE) 12/20/19 11:00 Urine Ketones Negative (NEGATIVE) 12/20/19 11:00 Urine Blood 1+ (NEGATIVE) H 12/20/19 11:00 Urine Nitrite Negative (NEGATIVE) 12/20/19 11:00 Urine Bilirubin Negative (NEGATIVE) 12/20/19 11:00 Urine Urobilinogen 0.2 mg/dL (0.2-1.0) 12/20/19 11:00 Ur Leukocyte Esterase Negative (NEGATIVE) 12/20/19 11:00 Urine WBC (Auto) 5 /uL (0-25.8) 12/19/19 16:00 Urine RBC (Auto) 14 /uL (0-23.9) 12/20/19 11:00 Urine Casts (Auto) 1 /uL (0-3.1) 12/20/19 11:00 U Epithel Cells (Auto) 7 /uL (0-25.1) 12/20/19 11:00 Urine Bacteria (Auto) 88 /uL (0-1359) 12/20/19 11:00 Stool Occult Blood Negative (NEGATIVE) 12/24/19 10:14 Random Vancomycin 31.2 ug/ml (5-26) H* 12/22/19 18:00 Vancomycin Pre-Dose 29.2 ug/ml (5-10) H 12/21/19 21:45 Influenza A (Rapid) Negative (Negative) 12/19/19 16:00 Influenza B (Rapid) Negative (Negative) 12/19/19 16:00 Blood Type A POSITIVE 12/23/19 18:00 Antibody Screen Positive H 12/23/19 18:00 Prewarmed Antibody Srcn Negative 12/21/19 10:30 Antibody Identification Cold auto 12/23/19 18:00 Antigen Identification No Result Required. 12/23/19 18:00 Crossmatch See Detail 12/21/19 10:30 Current Medications Acetaminophen (Ofirmev Injection -) 1,000 mg IVPB Q6H PRN PRN Reason: FEVER Folic Acid (Folic Acid -) 1 mg PO DAILY [facility] [place] Last Admin: 12/24/19 10:33 Dose: 1 mg Documented by: Furosemide (Lasix Injection -) 40 mg IVPUSH DAILY [facility] [place] Last Admin: 12/24/19 09:23 Dose: 40 mg Documented by: Heparin Sodium (Porcine) (Heparin -) 5,000 unit SQ TID GERRI Last Admin: 12/24/19 13:34 Dose: 5,000 unit Documented by: Ampicillin Sodium 2 gm/ Sodium (Chloride) 100 mls @ 200 mls/hr IVPB Q4H-IV [facility]; Protocol Last Admin: 12/24/19 16:10 Dose: 200 mls/hr Documented by: Ceftriaxone Sodium 2 gm/ (Dextrose) 100 mls @ 200 mls/hr IVPB BID [facility] [place] Last Admin: 12/24/19 09:20 Dose: 200 mls/hr Documented by: Insulin Aspart (Novolog Vial Sliding Scale -) 1 vial SQ ACHS [facility] [place]; Protocol Last Admin: 12/24/19 16:42 Dose: 6 units Documented by: Lactobacillus Acidophilus (Bacid -) 1 tab PO DAILY [facility] [place] Last Admin: 12/24/19 10:32 Dose: 1 tab Documented by: Levetiracetam (Keppra Injection -) 500 mg IVPB BID [facility] [place] Last Admin: 12/24/19 11:29 Dose: 500 mg Documented by: Losartan Potassium (Cozaar -) 50 mg PO DAILY [facility] [place] Last Admin: 12/24/19 10:33 Dose: 50 mg Documented by: Nystatin (Nystatin Oral Suspension -) 500,000 units PO Q6HPO [facility] [place] Last Admin: 12/24/19 12:33 Dose: 500,000 units Documented by: Pantoprazole Sodium (Protonix Iv) 40 mg IVPUSH DAILY [facility] [place] Last Admin: 12/24/19 09:22 Dose: 40 mg Documented by: Prednisone (Deltasone -) 70 mg PO DAILY [facility] [place] Last Admin: 12/24/19 10:29 Dose: 70 mg ASSESSMENT/PLAN: 79 yo F PMHx HFpEF, HTN, HLD, IDDM, Morbid obesity, breast ca s/p chemoradiation, autoimmune hemolytic anemia (requiring transfusion; On high dose steroids at home) who was recently treated for EPEC (developed DVT s/p PICC Line placement [for ceftriaxone] and was subsequently started on DOAC but was dc'ed due to GIB) presents with seizure like activity and AMS, admitted for sepsis workup. Hgb dropped to 6's and patient was transfused 1u pRBC on 12/20. Acute Toxic Metabolic encephalopathy -likely 2/2 Sepsis 2/2 endocarditis (mobile hypodensity noted on ECHO), gram + Bacteremia . rpt cultures are negative to date -Lactic acidosis resolving -Continue Ceftriaxone, Ampicillin (ABx course started on 12/18) -Follow cultures, pending rpt. low suspicion for covd -ID and ICU consulted Acute Hemolytic anemia -Previously unresponsive to rituxan and on high dose prednisone at home -S/p 1u pRBC on 12/20 -Continue prednisone 70 daily. recommending to follow up outpt to titrate down to 50 mg prednisone. continue folic acid daily . -Heme/Onc consulted acute on chronic HFpEF -will continue lasix 40 daily - cardio consult appreciated Seizure -Neurology consult appreciated -Continue Levetiracetam VON, Resolved IVC Thrombus -Partially occlusive thrombus Noted on imaging to extend from IVC into the right common iliac, right external iliac veins and possibly right common femoral vein . likely a chronic incidental finding. Duplex LE negative for DVT -Vascular surgery consult appreciated; Appreciate rec's, will treat conservatively in the setting of bacteremia - will consult GI to evaluate for possible evaluation for colonoscopy or source of bleeding. DM -ISS BGMs ACHS Oral thrush - will continue nystatin swish and swallow Tropinemia Likely 2/2 demand ischemia in the setting of sepsis; improved PPx -DVT: Heparin -GI: PPI [facility] access on 12/21 as pt has difficult access points. pt will need PICC on dc Visit type - Emergency Visit Emergency Visit: No - New Patient This patient is new to me today: No - Critical Care Critical Care patient: No - Discharge Referral Referred to [facility] No ATTENDING PHYSICIAN STATEMENT I saw and evaluated the patient. I reviewed the resident's note and discussed the case with the resident. I agree with the resident's findings and plan as documented. SUBJECTIVE: OBJECTIVE: ASSESSMENT AND PLAN:
[2019-12-24] MEDS: predniSONE 20 MG TABLET (UD) PO SCH (10:29)
[2019-12-24] MEDS: LACTOBACILLUS ACIDOPHILUS 1 TABLET PO SCH (10:32)
[2019-12-24] MEDS: FOLIC ACID 1 MG TABLET (FP) PO SCH (10:33)
[2019-12-24] MEDS: LOSARTAN POTASSIUM 50 MG TABLET (FP) PO SCH (10:33)
[2019-12-24] MEDS: levETIRAcetam 500 MG/5 ML INJECTION VIAL IVPB SCH ×2 (11:29→22:19)
--- NOTE | 2019-12-24 11:39 | PN ---
Progress Note (short form) - Note Progress Note: Vascular Surgery CT abd and pelvis images reviewed. Clot seen in iliac vein and IVC. This is a incidental finding on CT. Pt has no symptoms in legs. Could be old clot. Would watch for now. Clot not a source for bacteremia. Will follow Cristian Davis DO
--- NOTE | 2019-12-24 11:44 | PN ---
Progress Note, [facility] - Note Progress Note: Selected Entries 12/24/19 12/24/19 12/24/19 01:09 02:02 06:00 Temperature 97.3 F L Blood Pressure 165/93 162/87 164/76 12/24/19 10:00 Temperature 98.5 F Blood Pressure 186/77 H Laboratory Tests 12/24/19 05:45 WBC 4.1 Pt now on 4 s. Pending Covid 19 results Chart reviewed. Case reviewed with primary nurse. No cough response with applesauce with medication. Pt completed applesause without overt signs of difficulty. Nursing feels pt is swallowing well with puree and deferred trial of thin water due to possible aspiration risk in this medically fragile pt. I concur. Suggest-trial of Dys puree, honey thick liquid for now, Ensure pudding, magic cup. Monitor pulmonary/nutritional status.
[2019-12-24] MEDS: KCL 10 MEQ IVPB 10 MEQ/100 ML INFUS.BAG IVPB SCH ×3 (12:33→14:49)
--- NOTE | 2019-12-24 13:47 | PN ---
Progress Note (short form) - Note Progress Note: PULMONARY CHART REVIEWED RESIDENT/ATTENDING NOTE REVIEWED AFEBRILE/SPO2 97% R/A CXR DOES NOT SHOW INFILTRATE APPEARS STABLE RESTING COMFORTABLY ANICTERIC DIMINISHED B/L BREATH SOUNDS S1S2 OBESE SOFT EDEMA B/L LOWER EXT LABS/MEDS/NOTES/IMAGES REVIEWED Group D strep Bacteremia Sepsis Acute Kidney Injury Lactic Acidosis improving +Troponins likely Demand Ischemia LV Systolic/Diastolic Dysfunction Hemolytic Anemia HTN Hyperlipidemia DM Diverticulosis IVC Thrombus - continue antibiotics per ID - on empiric antiepileptics - Diuresis as tolerated - monitor urine output, creatinine - replete lytes - O2 to keep SpO2 >90% - aspiration precautions Addison LALA MD
--- NOTE | 2019-12-24 14:36 | CON.GI ---
Consult Consult Specialty:: GI Referred by:: Hospitalist service - History of Present Illness Chief Complaint: [employer] [id number] utilized. Patient offers no complaints. Asked by medical team to evaluate for colonoscopy. History of Present Illness: 79F admitted 12/18 for evaluation of altered mental status. Asked to evaluate for colonoscopy. Had rectal bleeding 2 weeks ago. Sent to see me in office. patient was wheelchair bound and tachycardic. Examination was limited. She was referred to her PMD Dr. Mueller across the [place] however she could not see him. Her health aid was advised to have her evaluated in an emergency room setting. It is unclear if she was evaluated. Seen By Dr. Weber 06/20. Was guaiac negative at that time and was actively being treated for hemolytic anemia. Was evaluated by Dr. Kerr 05/20 for anemia. She refused procedures. Was seen by myself 02/17 for anemia. She had refused procedures. Now she is confused. 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 She is being ruled out for COVID-19. - History Source History Provided By: Patient, Medical Record Limitations to Obtaining History: Poor Historian - Past Medical History Cardio/Vascular: Yes: Aortic Stenosis, CHF (Diastolic oper the chart), HTN, Hyperlipdemia, Mitral Insufficiency Gastrointestinal: Yes: Hiatal Hernia ...: No Musculoskeletal: Yes: Osteoarthritis Endocrine: Yes: Diabetes Mellitus - Past Surgical History Past Surgical History: Yes: Cholecystectomy (Open), Hysterectomy (LEYLA), Mastectomy - Alcohol/Substance Use Hx Alcohol Use: No History of Substance Use: reports: None - Smoking History Smoking history: Never smoked Have you smoked in the past 12 months: No - Social History Usual Living Arrangement: With Spouse ADL: Independent History of Recent Travel: Yes ([facility]) Home Medications - Allergies Allergies/Adverse Reactions: Allergies Allergy/AdvReac Type Severity Reaction Status Date / Time No Known Allergies Allergy Verified 02/18/19 14:41 - Home Medications Home Medications: Ambulatory Orders Exemestane [Aromasin -] 25 mg PO DAILY 01/05/19 Metformin HCl [Glucophage] 500 mg PO BID 02/18/19 Folic Acid - 1 mg PO DAILY #30 tablet 02/23/19 Metoprolol Succinate [Toprol XL -] 50 mg PO DAILY tab.sr.24h 02/23/19 Lancets/Blood Glucose Strips [Fora [id number] Strp-Lnct] 1 each MC DAILY 30 Days combo..pkg 05/17/19 Pantoprazole Sodium [Protonix -] 40 mg PO DAILY #30 tablet.ec 05/17/19 Atovaquone [Mepron Oral Solution -] 1,500 mg PO DAILY@0800 #300 ml 06/15/19 Amlodipine Besylate [Norvasc -] 5 mg PO DAILY 12/23/19 Chlorthalidone 25 mg PO DAILY 12/23/19 Furosemide [Lasix] 40 mg PO DAILY 12/23/19 Losartan Potassium [Cozaar -] 50 mg PO DAILY 12/23/19 Prednisone [Prednisone 50 MG TABLETS] 70 mg PO DAILY 12/24/19 Family Medical History Family History: Unable to Obtain Review of Systems - Review of Systems Cardiovascular: denies: Chest Pain Respiratory: denies: SOB Gastrointestinal: denies: Abdominal Pain, Melena, Rectal Bleeding Physical Exam-GI Vital Signs: Vital Signs Temperature 97.9 F 12/24/19 13:54 Pulse Rate 95 H 12/24/19 13:54 Respiratory Rate 16 12/24/19 13:54 Blood Pressure 135/76 12/24/19 13:54 O2 Sat by Pulse Oximetry (%) 97 12/24/19 09:00 Constitutional: Yes: Calm Eyes: No: Sclera Icterus Cardiovascular: Yes: Regular Rate and Rhythm Respiratory: Yes: Diminished (at bases bilaterally with poor insp effort) Gastrointestinal Inspection: Yes: Scars (+ RUQ scar, + pelvic scar). No: Distention ...Auscultate: Yes: Normoactive Bowel Sounds ...Palpate: Yes: Soft. No: Hepatomegaly, Splenomegaly, Tenderness ...Percussion: No: Tympanitic ...Rectal Exam: Yes: Other (+ external skin tags, no masses, light brown stool in rectal vault, tracely guaiac positive.) Edema: Yes (Trace b/l) Neurological: Yes: Alert, Confusion Labs: CBC, BMP 12/24/19 05:45 12/24/19 05:45 INR, PTT INR 1.09 (0.83-1.09) 12/23/19 18:00 Problem List - Problems (1) Anemia Assessment/Plan: Discussed finding of anemia with the patient. Discussed possibility of having colonoscopy performed and if unrevealing, upper endoscopy to exclude GI source of anemia such as bleeding blood vessels, polyps, tumors. Discussed potential risks of the procedure like but not limited to bleeding, perforation requiring surgery to repair, infection, sedation medication effects all of which could be potentially life threatening. She was confused and could not an. She was not oriented to place or time and I do not think she understood what we were discussing. I explained this to and discussed the above with her son Kai via telephone. He explained that he would give permission to have her mother undergo the colonoscopy once she was able to do so and that he would discuss things with her. I explained that my concern currently would be her altered mental status and ability to comply with a bowel preparation. When the patient is medically cleared, COVID-19 ruled out and mental status improved / patient can comply with bowel preparation, non-urgent colonoscopy c ould be undertaken. Continued care per primary team Code(s): D64.9 - ANEMIA, UNSPECIFIED Qualifiers: Anemia type: unspecified type Qualified Code(s): D64.9 - Anemia, unspecified
--- NOTE | 2019-12-24 16:28 | PN ---
Progress Note (short form) - Note Progress Note: Chief Complaint: Events noted, notes reviewed, spoke with nursing staff no active cardiovascular issues History of Present Illness: Not seen or examined. Events noted, notes reviewed, spoke with nursing staff no active cardiovascular issues No PPE available- specifically gowns Current Medications: Current Medications Acetaminophen (Ofirmev Injection -) 1,000 mg IVPB Q6H PRN PRN Reason: FEVER Folic Acid (Folic Acid -) 1 mg PO DAILY [facility] Last Admin: 12/24/19 10:33 Dose: 1 mg Documented by: Furosemide (Lasix Injection -) 40 mg IVPUSH DAILY [facility] Last Admin: 12/24/19 09:23 Dose: 40 mg Documented by: Heparin Sodium (Porcine) (Heparin -) 5,000 unit SQ TID GERRI Last Admin: 12/24/19 13:34 Dose: 5,000 unit Documented by: Ampicillin Sodium 2 gm/ Sodium (Chloride) 100 mls @ 200 mls/hr IVPB Q4H-IV [facility]; Protocol Last Admin: 12/24/19 16:10 Dose: 200 mls/hr Documented by: Ceftriaxone Sodium 2 gm/ (Dextrose) 100 mls @ 200 mls/hr IVPB BID [facility] Last Admin: 12/24/19 09:20 Dose: 200 mls/hr Documented by: Insulin Aspart (Novolog Vial Sliding Scale -) 1 vial SQ ACHS [facility]; Protocol Last Admin: 12/24/19 12:15 Dose: Not Given Documented by: Lactobacillus Acidophilus (Bacid -) 1 tab PO DAILY [facility] Last Admin: 12/24/19 10:32 Dose: 1 tab Documented by: Levetiracetam (Keppra Injection -) 500 mg IVPB BID [facility] Last Admin: 12/24/19 11:29 Dose: 500 mg Documented by: Losartan Potassium (Cozaar -) 50 mg PO DAILY [facility] Last Admin: 12/24/19 10:33 Dose: 50 mg Documented by: Nystatin (Nystatin Oral Suspension -) 500,000 units PO Q6HPO [facility] Last Admin: 12/24/19 12:33 Dose: 500,000 units Documented by: Pantoprazole Sodium (Protonix Iv) 40 mg IVPUSH DAILY [facility] Last Admin: 12/24/19 09:22 Dose: 40 mg Documented by: Prednisone (Deltasone -) 70 mg PO DAILY [facility] Last Admin: 12/24/19 10:29 Dose: 70 mg Documented by: Review of Systems Not obtained - Objective Vital Signs: Last Vital Signs Temp Pulse Resp BP Pulse Ox 97.9 F 95 H 16 135/76 97 12/24/19 13:54 12/24/19 13:54 12/24/19 13:54 12/24/19 13:54 12/24/19 09:00 Intake & Output 12/21/19 12/22/19 12/23/19 12/24/19 23:59 23:59 23:59 23:59 Intake Total 2343 1266 400 750 Output Total 1400 1550 3200 1300 Balance 097 -168 -0933 -550 Weight 188 lb 12.8 oz 190 lb 5 oz 186 lb 12.8 oz Not performed Labs: CBC, BMP 12/24/19 05:45 12/24/19 05:45 Hepatic Panel Total Bilirubin 0.8 mg/dL (0.2-1) 12/24/19 05:45 AST 14 U/L (15-37) L 12/24/19 05:45 ALT 19 U/L (13-61) 12/24/19 05:45 Alkaline Phosphatase 55 U/L (45-117) 12/24/19 05:45 Albumin 2.2 g/dl (3.4-5.0) L 12/24/19 05:45 INR, PTT INR 1.09 (0.83-1.09) 12/23/19 18:00 Assessment/Plan ASSESSMENT: 1. CAD with evidence of demand ishemic injury angina pectoris 2. Sinus tachycardia, multi-factorial, resolved 3. Hemolytic anemia/Arlyn (+) 4. Suspected aortic valve vegetation/endocarditis 5. Mitral valve regurgitation 6. HTN 7. Hypercholesterolemia 8. Altered mental status improved 9. 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 Antibiotic as per ID/primary teams, recommend endocarditis treatment as per guidelines, if recurrent fever and/or persistent bacteremia noted recommend proceeding with [facility] for further evaluation 2. Continue Cozaar 3. Continue diuretics/Furosemide 4. Consider B-Blockers if tachycardia persists without any clear secondary causes 5. A/C for the above noted partially occlusive thrombus in the distal IVC as per vascular surgery, currently deferred 6. Please call as needed if any cardiovascular issues arise/[phone] Christa Lozano.
--- NOTE | 2019-12-24 19:35 | PN ---
Teaching Attending Note Name of Resident: Trey Vivas ATTENDING PHYSICIAN STATEMENT I saw and evaluated the patient. I reviewed the resident's note and discussed the case with the resident. I agree with the resident's findings and plan as documented. SUBJECTIVE: No fever or chills. no pain, no SOB .no PC , no abd pain OBJECTIVE: awake, alert, cooperative no distress . CV: RRR, no MRG Lungs: CTAB anteriorly Abd: obese, soft, NT, ND, nl BS Ext: 3+ pitting edema on upper extremities L > R and 1+ pitting edema on legs ASSESSMENT AND PLAN: 79 y/o lady with h/o HTN, HLD, IDDM, Morbid obesity, breast cancer s/p chemoradiation, Arlyn + hemolytic anemia, latent TB( finished rafampin treatment ) , chronic systolic and diastolic heart failure, pericardial effusion, severe MR, external hemorrhoids, recent upper extremity DVT at PICC line site, s/p AC and resultant GI bleed, who presented with AMS. she was found to have severe sepsis. 1- Severe sepsis/enterococcus bacteremia/ endocarditis / doubt meningitis - cont ceftriaxone and ampicillin - follow repeat blood cx - COVID pending 2- Acute on chronic anemia. due to hemolysis - LDH noted - cont prednsione at 69 her home dose to be tapered as out pt 3- Acute CHF exacerbation: - cont lasix daily 4- IVC /R common iliac/R external iliac thrombosis: - can not anticoagulate now due to acute hemolytic anemia, and because of recent GI bleed ( 2 weeks ago) - Vascular input noted. - HB is 8 today, if HB is > 8 persistently tomorrow, then can start heparin gtt and interrupt for EGD/col. once endoscopy is performed and it is deemed safe to start po ACm,,then can start. 5-VON : resolved 6- AMS suspect acute metabolic encephalopathy contributing/delirium , can't r/o meningitis .much improved 7- thrush: nystatin swish and swallow DVT PX : SCDs , SQ heparin
[2019-12-24] MEDS ORDERED: HEPARIN NA (PORCINE) 5,000 UNITS/ML 1ML VIAL IVPUSH PRN ×2 (19:37)
[2019-12-24] MEDS ORDERED: HEPARIN - 25,000 UNIT in SODIUM CHLORIDE 495 ML IV SCH (19:45)
--- NOTE | 2019-12-24 21:06 | PN ---
Progress Note (short form) - Note Progress Note: 79 Year old woman came to hospital for AMS and ? seizure . Patient is on prednisone for hemolytic anemia. On admission Patient has high grade fever and has been started on abx ( ceftriaxone and vanco) . Cherisenet has ct head negative. She also take eliquis at home and now she is off as her hemoglobin was low . she is been cleared to start anticoagulation. She was tested for COVID 19 , test is pending.he has been afebrile. patient is off icu and feeling better patient is afebrile and oriented x1 otherwisse exam remaine dunchaged ct head unremarkable Assessment/Plan 1. Suspected Meningitis, though low suspician as she has enterococcus positive. She is also being suspected for COVID 19( though low risk), Low suspician for Meningitis,contineu abx 2. Delrium due to septicemia ,improving 3. Posssible seizure , continue keppra for now Thanking you so much Case Lorenzo MD
[2019-12-25] MEDS: NYSTATIN 500,000 UNITS/5 ML SUSPENSION PO SCH ×4 (00:56→18:47)
[2019-12-25] MEDS ORDERED: AMPICILLIN SODIUM 2 GM VIAL ONE ×6 (02:20→21:18)
[2019-12-25] MEDS ORDERED: SODIUM CHLORIDE 100 ML IVPB ONE ×6 (02:21→21:18)
[2019-12-25] MEDS: AMPICILLIN - 2 GM in SODIUM CHLORIDE 100 ML IVPB SCH ×6 (02:30→21:28)
[2019-12-25] MEDS: HEPARIN NA (PORCINE) 5,000 UNITS/ML 1ML VIAL SQ SCH (06:30)
[2019-12-25] MEDS: INSULIN SLIDING SCALE (NOVOLOG) 1 VIAL SQ SCH ×4 (06:30→22:15)
--- NOTE | 2019-12-25 09:04 | PN ---
Progress Note, Physician History of Present Illness: Afebrile, hemodynamics stable. - Current Medication List Current Medications: Active Medications Acetaminophen (Ofirmev Injection -) 1,000 mg IVPB Q6H PRN PRN Reason: FEVER Folic Acid (Folic Acid -) 1 mg PO DAILY [facility] Last Admin: 12/24/19 10:33 Dose: 1 mg Documented by: Furosemide (Lasix Injection -) 40 mg IVPUSH DAILY [facility] Last Admin: 12/24/19 09:23 Dose: 40 mg Documented by: Heparin Sodium (Porcine) (Heparin -) 5,000 unit SQ TID [facility] Last Admin: 12/25/19 06:30 Dose: 5,000 unit Documented by: Ampicillin Sodium 2 gm/ Sodium (Chloride) 100 mls @ 200 mls/hr IVPB Q4H-IV [facility]; Protocol Last Admin: 12/25/19 06:30 Dose: 200 mls/hr Documented by: Ceftriaxone Sodium 2 gm/ (Dextrose) 100 mls @ 200 mls/hr IVPB BID [facility] Last Admin: 12/24/19 22:19 Dose: 200 mls/hr Documented by: Insulin Aspart (Novolog Vial Sliding Scale -) 1 vial SQ ACHS [facility]; Protocol Last Admin: 12/25/19 06:30 Dose: 8 units Documented by: Lactobacillus Acidophilus (Bacid -) 1 tab PO DAILY [facility] Last Admin: 12/24/19 10:32 Dose: 1 tab Documented by: Levetiracetam (Keppra Injection -) 500 mg IVPB BID [facility] Last Admin: 12/24/19 22:19 Dose: 500 mg Documented by: Losartan Potassium (Cozaar -) 50 mg PO DAILY [facility] Last Admin: 12/24/19 10:33 Dose: 50 mg Documented by: Nystatin (Nystatin Oral Suspension -) 500,000 units PO Q6HPO [facility] Last Admin: 12/25/19 06:30 Dose: 500,000 units Documented by: Pantoprazole Sodium (Protonix Iv) 40 mg IVPUSH DAILY [facility] Last Admin: 12/24/19 09:22 Dose: 40 mg Documented by: Prednisone (Deltasone -) 70 mg PO DAILY [facility] Last Admin: 12/24/19 10:29 Dose: 70 mg Documented by: - Objective Vital Signs: Vital Signs Temperature 98.3 F 12/25/19 05:29 Pulse Rate 89 12/25/19 05:29 Respiratory Rate 16 12/25/19 05:29 Blood Pressure 156/91 12/25/19 05:29 O2 Sat by Pulse Oximetry (%) 97 12/24/19 21:00 Constitutional: Yes: Other (Exam per hospitalist noted) Labs: CBC, BMP 12/24/19 05:45 12/24/19 05:45 INR, PTT INR 1.09 (0.83-1.09) 12/23/19 18:00 Problem List - Problems (1) Endocarditis Code(s): I38 - ENDOCARDITIS, VALVE UNSPECIFIED Qualifiers: Endocarditis type: unspecified (2) Thrombus Code(s): I82.90 - ACUTE EMBOLISM AND THROMBOSIS OF UNSPECIFIED VEIN (3) Autoimmune hemolytic anemias Code(s): D59.1 - OTHER AUTOIMMUNE HEMOLYTIC ANEMIAS (4) HTN (hypertension) Code(s): I10 - ESSENTIAL (PRIMARY) HYPERTENSION Qualifiers: Hypertension type: essential hypertension Qualified Code(s): I10 - Essen tial (primary) hypertension (5) Hyperlipidemia Code(s): E78.5 - HYPERLIPIDEMIA, UNSPECIFIED Qualifiers: Hyperlipidemia type: pure hypercholesterolemia Qualified Code(s): E78.00 - Pure hypercholesterolemia, unspecified; E78.0 - Pure hypercholesterolemia Assessment/Plan 12/20/2019 Normal LV and RV size and fxn LVEF 50-55%, mod MR, mild-mod , small AV mobile echodensity w/o AR ASSESSMENT: 1. CAD with evidence of demand ishemic injury angina pectoris 2. Sinus tachycardia, multi-factorial, resolved 3. Acute diastolic heart failure resolving 4. Hemolytic anemia/Arlyn (+) on prednisone 5. Suspected aortic valve vegetation/endocarditis->Enterococcus bacteremia 6. Mitral valve regurgitation 7. HTN 8. Hypercholesterolemia 9. Altered mental status 2/2 acute metabolic encephalopathy improved 10. 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 Seizure d/o 12. Latent TB( finished rifampin treatment 13. Breast cancer s/p chemoRtx 14. H/o GI bleed PLAN: 1. Antibiotic as per ID/primary teams, recommend endocarditis treatment as per guidelines, if recurrent fever and/or persistent bacteremia noted recommend proceeding with [facility] for further evaluation, most recent surveillance cultures 12/23/2019 NGTD thus far, COVID pcr pending 2. Continue Cozaar 50 qd, add Toprol XL 25 qd 3. Continue IV Furosemide with monitor diuretic response, renal fxn and john ctrolytes, replete K 4. Heparin gtt for partially occlusive thrombus in the distal IVC pending endos copic evaluation 5. Colonoscopy once clinically improved
--- NOTE | 2019-12-25 09:13 | PN ---
Teaching Attending Note Name of Resident: Janie Etienne ATTENDING PHYSICIAN STATEMENT I reviewed the resident's note and discussed the case with the resident. I agree with the resident's findings and plan as documented. SUBJECTIVE: Patient is lying in bed with no acute distress. OBJECTIVE: Vital Signs Temperature 98.3 F 12/25/19 05:29 Pulse Rate 89 12/25/19 05:29 Respiratory Rate 16 12/25/19 05:29 Blood Pressure 156/91 12/25/19 05:29 O2 Sat by Pulse Oximetry (%) 97 12/24/19 21:00 PE: per resident's note CBCD WBC 4.1 K/mm3 (4.0-10.0) 12/24/19 05:45 RBC 2.28 M/mm3 (3.60-5.2) L 12/24/19 05:45 Hgb 8.0 GM/dL (10.7-15.3) L 12/24/19 05:45 Hct 23.5 % (32.4-45.2) L 12/24/19 05:45 MCV 102.9 fl (80-96) H 12/24/19 05:45 MCHC 34.0 g/dl (32.0-36.0) 12/24/19 05:45 RDW 15.8 % (11.6-15.6) H 12/24/19 05:45 Plt Count 217 K/MM3 (134-434) 12/24/19 05:45 MPV 8.9 fl (7.5-11.1) 12/24/19 05:45 CMP Sodium 148 mmol/L (136-145) H 12/24/19 05:45 Potassium 3.0 mmol/L (3.5-5.1) L 12/24/19 05:45 Chloride 110 mmol/L (98-107) H 12/24/19 05:45 Carbon Dioxide 27 mmol/L (21-32) 12/24/19 05:45 Anion Gap 11 MMOL/L (8-16) 12/24/19 05:45 BUN 24.3 mg/dL (7-18) H 12/24/19 05:45 Creatinine 0.9 mg/dL (0.55-1.3) 12/24/19 05:45 Random Glucose 238 mg/dL (74-106) H 12/24/19 05:45 Calcium 7.9 mg/dL (8.5-10.1) L 12/24/19 05:45 Total Bilirubin 0.8 mg/dL (0.2-1) 12/24/19 05:45 AST 14 U/L (15-37) L 12/24/19 05:45 ALT 19 U/L (13-61) 12/24/19 05:45 Alkaline Phosphatase 55 U/L (45-117) 12/24/19 05:45 Total Protein 4.7 g/dl (6.4-8.2) L 12/24/19 05:45 Albumin 2.2 g/dl (3.4-5.0) L 12/24/19 05:45 CARDIAC ENZYMES Creatine Kinase 27 U/L (26-192) 12/20/19 06:00 Troponin I 0.08 ng/ml (0.00-0.05) H 12/20/19 14:00 Current Medications Generic Name Dose Route Start Last Admin Trade Name Freq PRN Reason Stop Dose Admin Acetaminophen 1,000 mg 12/24/19 07:33 Ofirmev Injection - IVPB Q6H PRN FEVER Folic Acid 1 mg 12/24/19 10:00 12/24/19 10:33 Folic Acid - PO 1 mg DAILY GERRI Administration Furosemide 40 mg 12/24/19 10:00 12/24/19 09:23 Lasix Injection - IVPUSH 40 mg DAILY [facility] Administration Heparin Sodium (Porcine) 5,000 unit 12/24/19 14:00 12/25/19 06:30 Heparin - SQ 5,000 unit TID GERRI Administration Ampicillin Sodium 2 gm/ Sodium 100 mls @ 200 mls/hr 12/24/19 10:00 12/25/19 06:30 Chloride IVPB 200 mls/hr Q4H-IV [facility] Administration Protocol Ceftriaxone Sodium 2 gm/ 100 mls @ 200 mls/hr 12/24/19 10:00 12/24/19 22:19 Dextrose IVPB 200 mls/hr BID [facility]ERRI Administration Insulin Aspart 1 vial 12/24/19 11:00 12/25/19 06:30 Novolog Vial Sliding Scale - SQ 8 units ACHS [facility] Administration Protocol Lactobacillus Acidophilus 1 tab 12/24/19 10:00 12/24/19 10:32 Bacid - PO 1 tab DAILY [facility] Administration Levetiracetam 500 mg 12/24/19 10:00 12/24/19 22:19 Keppra Injection - IVPB 500 mg BID [facility] Administration Losartan Potassium 50 mg 12/24/19 10:00 12/24/19 10:33 Cozaar - PO 50 mg DAILY [facility] Administration Metoprolol Succinate 25 mg 12/25/19 10:00 Toprol Xl - PO DAILY [facility] Nystatin 500,000 units 12/24/19 12:00 12/25/19 06:30 Nystatin Oral Suspension - PO 500,000 units Q6HPO [facility] Administration Pantoprazole Sodium 40 mg 12/24/19 10:00 12/24/19 09:22 Protonix Iv IVPUSH 40 mg DAILY [facility] Administration Prednisone 70 mg 12/24/19 10:00 12/24/19 10:29 Deltasone - PO 70 mg DAILY [facility] Administration Home Medications Medication Instructions Recorded Exemestane [Aromasin -] 25 mg PO DAILY 01/05/19 Metformin HCl [Glucophage] 500 mg PO BID 02/18/19 Folic Acid - 1 mg PO DAILY #30 tablet 02/23/19 Metoprolol Succinate [Toprol XL -] 50 mg PO DAILY tab.sr.24h 02/23/19 Lancets/Blood Glucose Strips [Fora 1 each MC DAILY 30 Days combo..pkg 05/17/19 [id number] Strp-Lnct] Pantoprazole Sodium [Protonix -] 40 mg PO DAILY #30 tablet.ec 05/17/19 Atovaquone [Mepron Oral Solution -] 1,500 mg PO DAILY@0800 #300 ml 06/15/19 Amlodipine Besylate [Norvasc -] 5 mg PO DAILY 12/23/19 Chlorthalidone 25 mg PO DAILY 12/23/19 Furosemide [Lasix] 40 mg PO DAILY 12/23/19 Losartan Potassium [Cozaar -] 50 mg PO DAILY 12/23/19 Prednisone [Prednisone 50 MG 70 mg PO DAILY 12/24/19 TABLETS] Laboratory Tests 12/20/19 12/21/19 12/23/19 16:00 06:45 05:00 Lactic Acid 2.6 H* Magnesium 1.6 L Ferritin LD Total 521 H C-Reactive Protein 17.4 H Stool Occult Blood 12/23/19 12/24/19 12/24/19 18:00 05:45 10:14 Lactic Acid Magnesium Ferritin 1694.0 H LD Total C-Reactive Protein Stool Occult Blood Negative Negative Laboratory Tests 06/02/19 12/19/19 12/19/19 20:15 16:00 16:00 Lactic Acid Magnesium LD Total C-Reactive Protein Stool Occult Blood Negative COVID-19 ([facility]) Pending Influenza A (Rapid) Negative Influenza B (Rapid) Negative 12/20/19 12/21/19 12/23/19 16:00 06:45 05:00 Lactic Acid 2.6 H* Magnesium 1.6 L LD Total 521 H C-Reactive Protein 17.4 H Stool Occult Blood COVID-19 ([facility]) Influenza A (Rapid) Influenza B (Rapid) 12/23/19 12/24/19 18:00 10:14 Lactic Acid Magnesium LD Total C-Reactive Protein Stool Occult Blood Negative Negative COVID-19 ([facility]) pending Influenza A (Rapid) Influenza B (Rapid) ECHO: small(0.2cm x 0.7cm) mobile echodensity on the left ventricular aspect of the aortic valve suspecious for a small vegetation. ejf 50-55%, moderate mr, mild to moderate valvular aortic stenosis. CXR: LJ line , the tip is in the left upper right atrium, no pneumonthorax, large heart, no sign of infiltrate CT of the head: negative, chronic supratentorial, and infratentorial infarcts. Cervical spine: no fx ASSESSMENT AND PLAN: Patient is 79yof with Pmhx of HTN, HLD, IDDM, Morbid obesity, breast cancer s/p chemoRtx, Arlyn + hemolytic anemia, latent TB( finished rifampin treatment), chronic systolic and diastolic heart failure, pericardial effusion, severe MR, external hemorrhoids, recent upper extremity DVT at PICC line site, s/p AC which patient developed GI bleed, who presented with AMS. she was found to have severe sepsis. # Severe sepsis due to enterococcus bacteremia with endocarditis , echo as above , on ceftriaxone and ampicillin continue, follow repeat blood cx - COVID pending , Id on the case # Acute on chronic anemia with hx of hemolytic anemia on Prednisone 70mg to taper as per ONCOLOGY, DISCUSSED WITH , follow h/h, LDH noted # Acute diastolic CHF exacerbation: cont lasix daily # Acute hypokalemia: replete # IVC /R common iliac/R external iliac thrombosis: can not anticoagulate now due to acute hemolytic anemia, with recent GI bleed ( 2 weeks ago) Vascular input noted. HB is 8 today, if HB is > 8 persistently tomorrow, then can start heparin gtt and interrupt for EGD/col. once endoscopy is performed and it is deemed safe to start po ACm,,then can start. #VON : resolved # AMS suspect acute metabolic encephalopathy contributing/delirium , can't r/o meningitis .much improved # thrush: nystatin swish and swallow DVT PX : SCDs , SQ heparin COVID is pending
[2019-12-25] MEDS ORDERED: DEXTROSE 5%-WATER 100 ML IVPB ONE ×2 (10:20→21:15)
[2019-12-25] MEDS ORDERED: predniSONE 20 MG TABLET (UD) PO SCH (12:05)
[2019-12-25] MEDS: metoPROLOL SUCCINATE 25 MG TAB.SR.24H (FP) PO SCH (12:17)
[2019-12-25] MEDS: LOSARTAN POTASSIUM 50 MG TABLET (FP) PO SCH (12:18)
[2019-12-25] MEDS: LACTOBACILLUS ACIDOPHILUS 1 TABLET PO SCH (12:18)
[2019-12-25] MEDS: FOLIC ACID 1 MG TABLET (FP) PO SCH (12:18)
[2019-12-25] MEDS: FUROSEMIDE 40 MG/4 ML INJECTABLE VIAL IVPUSH SCH (12:21)
[2019-12-25] MEDS: predniSONE 20 MG TABLET (UD) PO SCH (12:22)
[2019-12-25] MEDS: levETIRAcetam 500 MG/5 ML INJECTION VIAL IVPB SCH ×2 (12:22→21:27)
[2019-12-25] MEDS: CEFTRIAXONE 2 GM in DEXTROSE 5%-WATER 100 ML IVPB SCH ×2 (12:23→21:27)
[2019-12-25] MEDS: PANTOPRAZOLE SODIUM 40 MG VIAL IVPUSH SCH (12:23)
[2019-12-25] MEDS ORDERED: HEPARIN NA (PORCINE) 5,000 UNITS/ML 1ML VIAL IVPUSH PRN ×2 (13:20)
[2019-12-25] MEDS ORDERED: INSULIN (LEVEMIR) 100 UNITS/ML UNITS SQ ONE ×2 (13:25→17:30)
--- NOTE | 2019-12-25 13:42 | PN ---
Progress Note, Physician - Current Medication List Current Medications: Active Medications Acetaminophen (Ofirmev Injection -) 1,000 mg IVPB Q6H PRN PRN Reason: FEVER Folic Acid (Folic Acid -) 1 mg PO DAILY [facility] Last Admin: 12/25/19 12:18 Dose: 1 mg Documented by: Furosemide (Lasix Injection -) 40 mg IVPUSH DAILY [facility] Last Admin: 12/25/19 12:21 Dose: 40 mg Documented by: Heparin Sodium (Porcine) (Heparin -) 1,000 unit IVPUSH PRN PRN PRN Reason: Heparin Heparin Sodium (Porcine) (Heparin -) 5,000 unit IVPUSH PRN PRN PRN Reason: Heparin Ampicillin Sodium 2 gm/ Sodium (Chloride) 100 mls @ 200 mls/hr IVPB Q4H-IV [facility]; Protocol Last Admin: 12/25/19 12:18 Dose: 200 mls/hr Documented by: Ceftriaxone Sodium 2 gm/ (Dextrose) 100 mls @ 200 mls/hr IVPB BID [facility] Last Admin: 12/25/19 12:23 Dose: 200 mls/hr Documented by: Heparin Sodium (Porcine) 25, (000 unit/ Sodium Chloride) 500 mls @ 20 mls/hr IV TITR [facility]; Protocol Insulin Aspart (Novolog Vial Sliding Scale -) 1 vial SQ ACHS [facility]; Protocol Last Admin: 12/25/19 12:38 Dose: 10 units Documented by: Lactobacillus Acidophilus (Bacid -) 1 tab PO DAILY [facility] Last Admin: 12/25/19 12:18 Dose: 1 tab Documented by: Levetiracetam (Keppra Injection -) 500 mg IVPB BID [facility] Last Admin: 12/25/19 12:22 Dose: 500 mg Documented by: Losartan Potassium (Cozaar -) 50 mg PO DAILY [facility] Last Admin: 12/25/19 12:18 Dose: 50 mg Documented by: Metoprolol Succinate (Toprol Xl -) 25 mg PO DAILY [facility] Last Admin: 12/25/19 12:17 Dose: 25 mg Documented by: Nystatin (Nystatin Oral Suspension -) 500,000 units PO Q6HPO [facility] Last Admin: 12/25/19 12:23 Dose: 500,000 units Documented by: Pantoprazole Sodium (Protonix Iv) 40 mg IVPUSH DAILY [facility] Last Admin: 12/25/19 12:23 Dose: 40 mg Documented by: Prednisone (Deltasone -) 50 mg PO DAILY [facility] - Objective Vital Signs: Vital Signs Temperature 98.3 F 12/25/19 05:29 Pulse Rate 89 12/25/19 05:29 Respiratory Rate 16 12/25/19 05:29 Blood Pressure 156/91 12/25/19 05:29 O2 Sat by Pulse Oximetry (%) 97 12/24/19 21:00 Labs: CBC, BMP 12/24/19 05:45 INR, PTT INR 1.09 (0.83-1.09) 12/23/19 18:00 Assessment/Plan Group D strep Bacteremia Sepsis Acute Kidney Injury Lactic Acidosis improving +Troponins likely Demand Ischemia LV Systolic/Diastolic Dysfunction Hemolytic Anemia HTN Hyperlipidemia DM Diverticulosis IVC Thrombus - continue antibiotics per ID - on empiric antiepileptics - Diuresis as tolerated - monitor urine output, creatinine - replete lytes - O2 to keep SpO2 >90% - aspiration precautions
[2019-12-25 13:54] LABS: ALBUMIN 2.3 g/dl (3.4-5.0); BILIRUBIN,TOTAL 1.2 mg/dL (0.2-1); CALCIUM 8.4 mg/dL (8.5-10.1); CREATININE 1.2 mg/dL (0.55-1.3); MAGNESIUM 2.1 mg/dL (1.8-2.4); PHOSPHOROUS 2.8 mg/dL (2.5-4.9); POTASSIUM 3.9 mmol/L (3.5-5.1); TOT PROT 4.8 g/dl (6.4-8.2)
--- NOTE | 2019-12-25 17:59 | PN ---
Progress Note (short form) - Note Progress Note: alert nad Vital Signs Period Temp Pulse Resp BP Sys/Hale Pulse Ox Last 24 Hr 97.6 F-98.4 F 81-95 16-17 132-156/73-91 97-97 cor-rrr lungs decreased bs at bases abd soft,nt ext +edema CBC, BMP 12/24/19 05:45 12/25/19 11:30 Microbiology 12/22/19 18:00 Blood - Central Line Blood Culture - Preliminary Group D Strep Or Entero Coccus 12/22/19 18:00 Blood - Central Line Blood Culture - Preliminary Group D Strep Or Entero Coccus 12/21/19 06:45 Blood - Peripheral Venous Blood Culture - Preliminary NO GROWTH OBTAINED AFTER 96 HOURS, INCUBATION TO CONTINUE FOR 1 DAYS. 12/23/19 06:35 Blood - Peripheral Venous Blood Culture - Preliminary NO GROWTH OBTAINED AFTER 48 HOURS, INCUBATION TO CONTINUE FOR 3 DAYS. 12/23/19 06:20 Blood - Peripheral Venous Blood Culture - Preliminary NO GROWTH OBTAINED AFTER 48 HOURS, INCUBATION TO CONTINUE FOR 3 DAYS. 12/20/19 11:00 Urine For Antigen Detection Legionella Antigen - Final 12/20/19 11:00 Urine For Antigen Detection Streptococcus pneumoniae Antigen (M - Final 12/21/19 06:48 Blood - Peripheral Venous Blood Culture - Final Enterococcus Faecalis 12/19/19 16:00 Blood - Peripheral Venous Blood Culture - Final Enterococcus Faecalis 12/19/19 16:00 Blood - Peripheral Venous Blood Culture - Final Enterococcus Faecalis low clinical suspicion for covid-19- maintain droplet isolation a/p enterococcal endocarditis-possible aortic valve vegetation- repeat blood cultures are negative- will plan for 6 weeks of iv antibiotics she will need a picc line thrombus IVC-?need for A/c history of hemolytic anemia history of positve quant- s/p rifampin treatment repeat blood cutlrues in am Problem List - Problems (1) Altered mental status Code(s): R41.82 - ALTERED MENTAL STATUS, UNSPECIFIED (2) Streptococcal meningitis Code(s): G00.2 - STREPTOCOCCAL MENINGITIS (3) Autoimmune hemolytic anemias Code(s): D59.1 - OTHER AUTOIMMUNE HEMOLYTIC ANEMIAS (4) Diabetes mellitus Code(s): E11.9 - TYPE 2 DIABETES MELLITUS WITHOUT COMPLICATIONS (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
--- NOTE | 2019-12-25 18:17 | PN ---
Physical Exam: SUBJECTIVE: Patient seen and examined at bedside. pt has no acute complaints. states she does not have an appetitie but that she is not nauseas OBJECTIVE: Vital Signs Period Temp Pulse Resp BP Sys/Hale Pulse Ox Last 24 Hr 97.6 F-98.4 F 86-95 16-16 132-156/73-91 97-97 GENERAL: The patient is awake, alert, and oriented, in no acute distress. HEAD: Normal with no signs of trauma. LUNGS: Breath sounds equal, clear to auscultation bilaterally, no accessory muscle use. HEART: Regular rate and rhythm, S1, S2 ABDOMEN: Soft, nontender, nondistended, normoactive bowel sounds, no guarding EXTREMITIES: 2+ pulses, warm, well-perfused, 3+ UE edema, 2+ LE edema SKIN: Warm, dry, normal turgor, no rashes or lesions noted Laboratory Results - last 24 hr 12/25/19 12/25/19 11:30 17:49 Haptoglobin Sodium 149 H Potassium 3.9 Chloride 113 H Carbon Dioxide 26 Anion Gap 10 BUN 31.0 H Creatinine 1.2 Est GFR (CKD-EPI)AfAm 49.43 Est GFR (CKD-EPI)NonAf 42.65 POC Glucometer 459 Random Glucose 347 H Calcium 8.4 L Phosphorus 2.8 Magnesium 2.1 Ferritin 1840.3 H Total Bilirubin 1.2 H AST 42 H ALT 29 Alkaline Phosphatase 106 LD Total 597 H Total Protein 4.8 L Albumin 2.3 L Crossmatch Active Medications Generic Name Dose Route Start Last Admin Trade Name Freq PRN Reason Stop Dose Admin Acetaminophen 1,000 mg 12/24/19 07:33 Ofirmev Injection - IVPB Q6H PRN FEVER Folic Acid 1 mg 12/24/19 10:00 12/25/19 12:18 Folic Acid - PO 1 mg DAILY [facility] Administration Furosemide 40 mg 12/24/19 10:00 12/25/19 12:21 Lasix Injection - IVPUSH 40 mg DAILY [facility] Administration Heparin Sodium (Porcine) 1,000 unit 12/25/19 13:20 Heparin - IVPUSH PRN PRN Heparin Heparin Sodium (Porcine) 5,000 unit 12/25/19 13:20 Heparin - IVPUSH PRN PRN Heparin Ampicillin Sodium 2 gm/ Sodium 100 mls @ 200 mls/hr 12/24/19 10:00 12/25/19 12:18 Chloride IVPB 200 mls/hr Q4H-IV [facility] Administration Protocol Ceftriaxone Sodium 2 gm/ 100 mls @ 200 mls/hr 12/24/19 10:00 12/25/19 12:23 Dextrose IVPB 200 mls/hr BID [facility] Administration Heparin Sodium (Porcine) 25, 500 mls @ 20 mls/hr 12/25/19 13:30 000 unit/ Sodium Chloride IV TITR [facility] Protocol 1,000 UNIT/HR Insulin Aspart 1 vial 12/24/19 11:00 12/25/19 12:38 Novolog Vial Sliding Scale - SQ 10 units ACHS [facility] Administration Protocol Lactobacillus Acidophilus 1 tab 12/24/19 10:00 12/25/19 12:18 Bacid - PO 1 tab DAILY [facility] Administration Levetiracetam 500 mg 12/24/19 10:00 12/25/19 12:22 Keppra Injection - IVPB 500 mg BID [facility] Administration Losartan Potassium 50 mg 12/24/19 10:00 12/25/19 12:18 Cozaar - PO 50 mg DAILY [facility] Administration Metoprolol Succinate 25 mg 12/25/19 10:00 12/25/19 12:17 Toprol Xl - PO 25 mg DAILY [facility] Administration Nystatin 500,000 units 12/24/19 12:00 12/25/19 12:23 Nystatin Oral Suspension - PO 500,000 units Q6HPO [facility] Administration Pantoprazole Sodium 40 mg 12/24/19 10:00 12/25/19 12:23 Protonix Iv IVPUSH 40 mg DAILY [facility] Administration Prednisone 50 mg 12/25/19 12:05 Deltasone - PO DAILY [facility] ASSESSMENT/PLAN: 79 yo F PMHx HFpEF, HTN, HLD, IDDM, Morbid obesity, breast ca s/p ch emoradiation, autoimmune hemolytic anemia (requiring transfusion; On high dose steroids at home) who was recently treated for EPEC (developed DVT s/p PICC Line placement [for ceftriaxone] and was subsequently started on DOAC but was dc'ed due to GIB) presents with seizure like activity and AMS, admitted for sepsis workup. Hgb dropped to 6's and patient was transfused 1u pRBC on 12/20. Acute Toxic Metabolic encephalopathy -likely 2/2 Sepsis 2/2 endocarditis (mobile hypodensity noted on ECHO), gram + Bacteremia . rpt cultures are negative to date -Lactic acidosis resolving -Continue Ceftriaxone, Ampicillin (ABx course started on 12/18) -Follow cultures, pending rpt. low suspicion for covd -ID and ICU consulted Acute Hemolytic anemia -will taper steroid to prednisone 50, once bacteremia clears outpt heme onc may consider rituxan -S/p 1u pRBC on 12/20 -will taper down to prednisone 50 today continue folic acid daily . -Heme/Onc consulted acute on chronic HFpEF -will continue lasix 40 daily - cardio consult appreciated Seizure -Neurology consult appreciated -Continue Levetiracetam VON, Resolved IVC Thrombus -Partially occlusive thrombus Noted on imaging to extend from IVC into the right common iliac, right external iliac veins and possibly right common femoral vein . likely a chronic incidental finding. Duplex LE negative for DVT -Vascular surgery consult appreciated; Appreciate rec's, will treat conservatively in the setting of bacteremia - will start heparin drip without bolus as discussed with hematology DM -ISS BGMs ACHS - will give levemir 9 today Oral thrush - will continue nystatin swish and swallow Tropinemia Likely 2/2 demand ischemia in the setting of sepsis; improved PPx -DVT: Heparin -GI: PPI [facility] access on 12/21 as pt has difficult access points. pt will need PICC on dc Visit type - Emergency Visit Emergency Visit: No - New Patient This patient is new to me today: No - Critical Care Critical Care patient: No - Discharge Referral Referred to [facility] Med P.C.: No ATTENDING PHYSICIAN STATEMENT I saw and evaluated the patient. I reviewed the resident's note and discussed the case with the resident. I agree with the resident's findings and plan as documented. SUBJECTIVE: OBJECTIVE: ASSESSMENT AND PLAN:
[2019-12-25] MEDS: HEPARIN - 25,000 UNIT in SODIUM CHLORIDE 495 ML IV SCH (18:46)
--- NOTE | 2019-12-25 19:10 | PN.GI ---
GI Progress Note Subjective: chart reviewed - pt was not examined secondary to limited PPE -- no report of GI bleed. some nausea occasionally - Objective Vital Signs: Vital Signs Temperature 98.4 F 12/25/19 18:00 Pulse Rate 81 12/25/19 18:00 Respiratory Rate 17 12/25/19 18:00 Blood Pressure 139/75 12/25/19 18:00 O2 Sat by Pulse Oximetry (%) 97 12/25/19 09:00 Labs: CBC, BMP 12/24/19 05:45 12/25/19 11:30 INR, PTT INR 1.09 (0.83-1.09) 12/23/19 18:00 Problem List - Problems (1) GI bleed Assessment/Plan: h/h stable - trend daily diet as tolerated outpt endoscopic evaluation please call with any concerns Code(s): K92.2 - GASTROINTESTINAL HEMORRHAGE, UNSPECIFIED (2) Anemia Code(s): D64.9 - ANEMIA, UNSPECIFIED Qualifiers: Anemia type: unspecified type Qualified Code(s): D64.9 - Anemia, unspecified
[2019-12-25] MEDS ORDERED: INSULIN SLIDING SCALE (NOVOLOG) 1 VIAL SQ ONE (22:08)
--- NOTE | 2019-12-25 23:51 | PN ---
Progress Note (short form) - Note Progress Note: 79 Year old woman came to hospital for AMS and ? seizure . Patient is on prednisone for hemolytic anemia. On admission Patient has high grade fever and has been started on abx ( ceftriaxone and vanco) . Lilian has ct head negative. She also take eliquis at home and now she is off as her hemoglobin was low . she is been cleared to start anticoagulation. She was tested for COVID 19 , test is pending.he has been afebrile. Patient is feeling better patient is afebrile and follow simple command otherwisse exam remaine dunchaged ct head unremarkable Assessment/Plan 1. Suspected Meningitis, though low suspician as she has enterococcus positive. She is also being suspected for COVID 19( though low risk), Low suspician for Meningitis,contineu abx 2. Delrium due to septicemia ,improving 3. Posssible seizure , continue keppra for now Thanking you so much Case Lorenzo MD
[2019-12-26] MEDS: AMPICILLIN - 2 GM in SODIUM CHLORIDE 100 ML IVPB SCH ×5 (03:13→18:23)
[2019-12-26] MEDS: NYSTATIN 500,000 UNITS/5 ML SUSPENSION PO SCH ×4 (03:14→18:23)
[2019-12-26] MEDS: INSULIN SLIDING SCALE (NOVOLOG) 1 VIAL SQ SCH ×4 (06:35→23:40)
[2019-12-26] MEDS ORDERED: INSULIN (LEVEMIR) 100 UNITS/ML UNITS SQ SCH (07:00)
[2019-12-26 07:26] LABS: HEMATOCRIT 25.1 % (32.4-45.2); HEMOGLOBIN 8.2 GM/dL (10.7-15.3); MCH 34.6 pg (25.7-33.7); MCHC 32.9 g/dl (32.0-36.0); MEAN CELL VOLUME 105.1 fl (80-96); MEAN PLT VOLUME 8.6 fl (7.5-11.1); PLATELET COUNT 254 K/MM3 (134-434); RBC 2.38 M/mm3 (3.60-5.2); RDW 15.8 % (11.6-15.6); WHITE BLOOD COUNT 8.6 K/mm3 (4.0-10.0)
--- NOTE | 2019-12-26 08:27 | PN ---
Progress Note (short form) - Note Progress Note: Last Vital Signs Temp Pulse Resp BP Pulse Ox 97.9 F 89 18 152/100 97 12/26/19 03:41 12/26/19 03:41 12/26/19 03:41 12/26/19 03:41 12/25/19 22:00 Abnormal Lab Results 12/25/19 12/25/19 12/26/19 11:30 22:40 00:30 RBC Hgb Hct MCV MCH RDW PTT (Actin FS) 118.8 H Sodium 149 H Chloride 113 H BUN 31.0 H Random Glucose 347 H 498 H* Calcium 8.4 L Ferritin 1840.3 H Total Bilirubin 1.2 H AST 42 H LD Total 597 H Total Protein 4.8 L Albumin 2.3 L 12/26/19 07:00 RBC 2.38 L Hgb 8.2 L Hct 25.1 L MCV 105.1 H MCH 34.6 H RDW 15.8 H PTT (Actin FS) Sodium Chloride BUN Random Glucose Calcium Ferritin Total Bilirubin AST LD Total Total Protein Albumin Home Medication List Medication Instructions Recorded Confirmed Type Exemestane [Aromasin -] 25 mg PO DAILY 01/05/19 12/23/19 History Metformin HCl [Glucophage] 500 mg PO BID 02/18/19 12/23/19 History Amlodipine Besylate [Norvasc -] 5 mg PO DAILY 12/23/19 12/23/19 History Chlorthalidone 25 mg PO DAILY 12/23/19 12/23/19 History Furosemide [Lasix] 40 mg PO DAILY 12/23/19 12/23/19 History Losartan Potassium [Cozaar -] 50 mg PO DAILY 12/23/19 12/23/19 History Prednisone [Prednisone 50 MG 70 mg PO DAILY 12/24/19 12/24/19 History TABLETS] Active Medications Generic Name Dose Route Start Last Admin Trade Name Freq PRN Reason Stop Dose Admin Acetaminophen 1,000 mg 12/24/19 07:33 Ofirmev Injection - IVPB Q6H PRN FEVER Folic Acid 1 mg 12/24/19 10:00 12/25/19 12:18 Folic Acid - PO 1 mg DAILY [facility] Administration Furosemide 40 mg 12/24/19 10:00 12/25/19 12:21 Lasix Injection - IVPUSH 40 mg DAILY [facility] Administration Heparin Sodium (Porcine) 1,000 unit 12/25/19 13:20 Heparin - IVPUSH PRN PRN Heparin Heparin Sodium (Porcine) 5,000 unit 12/25/19 13:20 Heparin - IVPUSH PRN PRN Heparin Ampicillin Sodium 2 gm/ Sodium 100 mls @ 200 mls/hr 12/24/19 10:00 12/26/19 06:27 Chloride IVPB 200 mls/hr Q4H-IV [facility] Administration Protocol Ceftriaxone Sodium 2 gm/ 100 mls @ 200 mls/hr 12/24/19 10:00 12/25/19 21:27 Dextrose IVPB 200 mls/hr BID [facility] Administration Heparin Sodium (Porcine) 25, 500 mls @ 20 mls/hr 12/25/19 13:30 12/25/19 18:46 000 unit/ Sodium Chloride IV 1,000 unit/hr TITR [facility] 20 mls/hr Administration Protocol 1,000 UNIT/HR Insulin Aspart 1 vial 12/24/19 11:00 12/26/19 06:35 Novolog Vial Sliding Scale - SQ 2 units ACHS [facility] Administration Protocol Insulin Detemir 20 units 12/26/19 07:00 12/26/19 06:34 Levemir Vial SQ 20 units DAILY@0700 [facility] Administration Lactobacillus Acidophilus 1 tab 12/24/19 10:00 12/25/19 12:18 Bacid - PO 1 tab DAILY [facility] Administration Levetiracetam 500 mg 12/24/19 10:00 12/25/19 21:27 Keppra Injection - IVPB 500 mg BID [facility] Administration Losartan Potassium 50 mg 12/24/19 10:00 12/25/19 12:18 Cozaar - PO 50 mg DAILY [facility] Administration Metoprolol Succinate 25 mg 12/25/19 10:00 12/25/19 12:17 Toprol Xl - PO 25 mg DAILY [facility] Administration Nystatin 500,000 units 12/24/19 12:00 12/26/19 06:27 Nystatin Oral Suspension - PO 500,000 units Q6HPO [facility] Administration Pantoprazole Sodium 40 mg 12/24/19 10:00 12/25/19 12:23 Protonix Iv IVPUSH 40 mg DAILY [facility] Administration Prednisone 50 mg 12/25/19 12:05 Deltasone - PO DAILY [facility] A/P 79YOF with h/o IDDM, breast CA s/p left mastectomy with chemo and radiation, Arlyn+ hemolytic anemia requiring admission and transfusions, syncope, HTN, HLD, and morbid obesity who was BIBEMS for altered mental status per family and fever, also had a 30 second episode of seizure-like activity per EMS just after exiting the ambulance. She came in for altered mentl status/fever. Found to have enterococcal bacteremia We have been consulted for h/o autoimmunehemolytic anemia autoimmune hemolytic anemia s/p rituxan with Dr. Spears at [facility] [id number]--multifactorial Haptoglobin --nl Hgb 6.8 on presentation stool occult neg. On prednisone --70mg --- taper to 50 mg 12/24 Once infection clears up willl consider rituxan MAy need colonoscopy to r/o occult blood loss as cause of anemia, --eventually check iron studies IVC thrombus -- extending to rt. external iliac and ? common femoral -- noted on CT 12/19/19, incidentally nl coags/ CR 1 Would considedr vascular consult would check duplex lower ext Would consider anticoagulation with heparin drip without bolus and monitor clinical course will discuss with primary team
--- NOTE | 2019-12-26 08:27 | PN ---
Physical Exam: SUBJECTIVE: Patient seen and examined at bedside . pt is having abdominal discomfort. OBJECTIVE: Vital Signs Period Temp Pulse Resp BP Sys/Hale Pulse Ox Last 24 Hr 97.8 F-98.4 F 81-95 16-18 132-152/73-100 97-97 GENERAL: The patient is awake, alert, and oriented, in no acute distress. HEAD: Normal with no signs of trauma. LUNGS: decreased breath sounds b/l ,no accessory muscle use HEART: Regular rate and rhythm, S1, S2 ABDOMEN: Soft, diffusely tender to palpation , nondistended, normoactive bowel sounds, no guarding EXTREMITIES: 2+ pulses, warm, well-perfused, 3+ UE edema, 2+ LE edema SKIN: Warm, dry, normal turgor, no rashes or lesions noted CBC, BMP 12/26/19 07:00 12/26/19 07:00 Current Medications Acetaminophen (Ofirmev Injection -) 1,000 mg IVPB Q6H PRN PRN Reason: FEVER Docusate Sodium (Colace -) 100 mg PO BID PRN PRN Reason: CONSTIPATION Folic Acid (Folic Acid -) 1 mg PO DAILY [facility] Last Admin: 12/26/19 10:58 Dose: 1 mg Documented by: Furosemide (Lasix Injection -) 40 mg IVPUSH DAILY [facility] Last Admin: 12/26/19 10:58 Dose: 40 mg Documented by: Heparin Sodium (Porcine) (Heparin -) 1,000 unit IVPUSH PRN PRN PRN Reason: Heparin Heparin Sodium (Porcine) (Heparin -) 5,000 unit IVPUSH PRN PRN PRN Reason: Heparin Ampicillin Sodium 2 gm/ Sodium (Chloride) 100 mls @ 200 mls/hr IVPB Q4H-IV [facility]; Protocol Last Admin: 12/26/19 10:57 Dose: 200 mls/hr Documented by: Ceftriaxone Sodium 2 gm/ (Dextrose) 100 mls @ 200 mls/hr IVPB BID [facility] Last Admin: 12/26/19 10:59 Dose: 200 mls/hr Documented by: Heparin Sodium (Porcine) 25, (000 unit/ Sodium Chloride) 500 mls @ 20 mls/hr IV TITR [facility]; Protocol Last Admin: 12/25/19 18:46 Dose: 1,000 unit/hr, 20 mls/hr Documented by: Insulin Aspart (Novolog Vial Sliding Scale -) 1 vial SQ ACHS [facility]; Protocol Last Admin: 12/26/19 06:35 Dose: 2 units Documented by: Insulin Detemir (Levemir Vial) 20 units SQ DAILY@0700 [facility] Last Admin: 12/26/19 06:34 Dose: 20 units Documented by: Lactobacillus Acidophilus (Bacid -) 1 tab PO DAILY [facility] Last Admin: 12/26/19 10:57 Dose: 1 tab Documented by: Levetiracetam (Keppra Injection -) 500 mg IVPB BID [facility] Last Admin: 12/26/19 10:58 Dose: 500 mg Documented by: Losartan Potassium (Cozaar -) 50 mg PO DAILY [facility] Last Admin: 12/26/19 10:57 Dose: 50 mg Documented by: Metoprolol Succinate (Toprol Xl -) 50 mg PO DAILY [facility] Nystatin (Nystatin Oral Suspension -) 500,000 units PO Q6HPO [facility] Last Admin: 12/26/19 06:27 Dose: 500,000 units Documented by: Pantoprazole Sodium (Protonix Iv) 40 mg IVPUSH DAILY [facility] Last Admin: 12/26/19 10:59 Dose: 40 mg Documented by: Polyethylene Glycol (Miralax (For Daily Use) -) 17 gm PO DAILY [facility] Prednisone (Deltasone -) 50 mg PO DAILY [facility] Last Admin: 12/26/19 10:58 Dose: 50 mg ASSESSMENT/PLAN: 79 yo F PMHx HFpEF, HTN, HLD, IDDM, Morbid obesity, breast ca s/p chemoradiation, autoimmune hemolytic anemia (requiring transfusion; On high dose steroids at home) who was recently treated for EPEC (developed DVT s/p PICC Line placement [for ceftriaxone] and was subsequently started on DOAC but was dc'ed due to GIB) presents with seizure like activity and AMS, admitted for sepsis workup. Hgb dropped to 6's and patient was transfused 1u pRBC on 12/20. Acute Toxic Metabolic encephalopathy -likely 2/2 Sepsis 2/2 endocarditis (mobile hypodensity noted on ECHO), gram + Bacteremia . rpt cultures are negative to date -Continue Ceftriaxone, Ampicillin (ABx course started on 12/18) -Follow cultures, pending rpt. low suspicion for covd -ID consulted Acute Hemolytic anemia -will taper steroid to prednisone 50, once bacteremia clears outpt heme onc may consider rituxan -S/p 1u pRBC on 12/20 -continue prednisone 50 continue folic acid daily . -Heme/Onc consulted acute on chronic HFpEF -will continue lasix 40 daily - cardio consult appreciated Seizure -Neurology consult appreciated -Continue Levetiracetam VON, Resolved IVC Thrombus -Partially occlusive thrombus Noted on imaging to extend from IVC into the right common iliac, right external iliac veins and possibly right common femoral vein . likely a chronic incidental finding. Duplex LE negative for DVT -Vascular surgery consult appreciated; Appreciate rec's, will treat conservatively in the setting of bacteremia - continue heparin drip DM -ISS BGMs ACHS - will give levemir 20 today Oral thrush - will continue nystatin swish and swallow Tropinemia Likely 2/2 demand ischemia in the setting of sepsis; improved PPx -DVT: Heparin -GI: PPI [facility] access on 12/21 as pt has difficult access points. pt will need PICC on dc Visit type - Emergency Visit Emergency Visit: No - New Patient This patient is new to me today: No - Critical Care Critical Care patient: No - Discharge Referral Referred to [facility] Med P.C.: No ATTENDING PHYSICIAN STATEMENT I saw and evaluated the patient. I reviewed the resident's note and discussed the case with the resident. I agree with the resident's findings and plan as documented. SUBJECTIVE: OBJECTIVE: ASSESSMENT AND PLAN:
[2019-12-26 08:45] LABS: ALBUMIN 2.2 g/dl (3.4-5.0); BILIRUBIN,TOTAL 0.8 mg/dL (0.2-1); BLOOD UREA NITROGEN 27.4 mg/dL (7-18); CALCIUM 8.8 mg/dL (8.5-10.1); CREATININE 1.1 mg/dL (0.55-1.3); MAGNESIUM 1.9 mg/dL (1.8-2.4); PHOSPHOROUS 2.4 mg/dL (2.5-4.9); POTASSIUM 3.1 mmol/L (3.5-5.1)
[2019-12-26] MEDS ORDERED: DEXTROSE 5%-WATER 100 ML IVPB ONE ×2 (08:56→21:15)
--- NOTE | 2019-12-26 09:16 | PN ---
Progress Note (short form) - Note Progress Note: Vascular Asked to evaluate patient for IVC thrombus extending to right iliac. CT from 12/[address] Garcia. No evidence of filling defect or thrombus in IVC or iliacs. No vascular intervention indicated. Please continue current plan of care. Re-consult vascular surgery as needed.
[2019-12-26] MEDS ORDERED: predniSONE 20 MG TABLET (UD) PO SCH (10:00)
[2019-12-26] MEDS: LACTOBACILLUS ACIDOPHILUS 1 TABLET PO SCH (10:57)
[2019-12-26] MEDS: LOSARTAN POTASSIUM 50 MG TABLET (FP) PO SCH (10:57)
[2019-12-26] MEDS: FUROSEMIDE 40 MG/4 ML INJECTABLE VIAL IVPUSH SCH (10:58)
[2019-12-26] MEDS: FOLIC ACID 1 MG TABLET (FP) PO SCH (10:58)
[2019-12-26] MEDS: levETIRAcetam 500 MG/5 ML INJECTION VIAL IVPB SCH (10:58)
[2019-12-26] MEDS: CEFTRIAXONE 2 GM in DEXTROSE 5%-WATER 100 ML IVPB SCH (10:59)
[2019-12-26] MEDS: PANTOPRAZOLE SODIUM 40 MG VIAL IVPUSH SCH (10:59)
--- NOTE | 2019-12-26 10:59 | PN ---
Progress Note, Physician Chief Complaint: Events noted Not in distress Afebrile History of Present Illness: Patient was seen and examined. Awake. Chart was reviewed Moved to 4S - Current Medication List Current Medications: Active Medications Acetaminophen (Ofirmev Injection -) 1,000 mg IVPB Q6H PRN PRN Reason: FEVER Folic Acid (Folic Acid -) 1 mg PO DAILY [facility] Last Admin: 12/25/19 12:18 Dose: 1 mg Documented by: Furosemide (Lasix Injection -) 40 mg IVPUSH DAILY [facility] Last Admin: 12/25/19 12:21 Dose: 40 mg Documented by: Heparin Sodium (Porcine) (Heparin -) 1,000 unit IVPUSH PRN PRN PRN Reason: Heparin Heparin Sodium (Porcine) (Heparin -) 5,000 unit IVPUSH PRN PRN PRN Reason: Heparin Ampicillin Sodium 2 gm/ Sodium (Chloride) 100 mls @ 200 mls/hr IVPB Q4H-IV [facility]; Protocol Last Admin: 12/26/19 06:27 Dose: 200 mls/hr Documented by: Ceftriaxone Sodium 2 gm/ (Dextrose) 100 mls @ 200 mls/hr IVPB BID [facility] Last Admin: 12/25/19 21:27 Dose: 200 mls/hr Documented by: Heparin Sodium (Porcine) 25, (000 unit/ Sodium Chloride) 500 mls @ 20 mls/hr IV TITR [facility]; Protocol Last Admin: 12/25/19 18:46 Dose: 1,000 unit/hr, 20 mls/hr Documented by: Insulin Aspart (Novolog Vial Sliding Scale -) 1 vial SQ ACHS [facility]; Protocol Last Admin: 12/26/19 06:35 Dose: 2 units Documented by: Insulin Detemir (Levemir Vial) 20 units SQ DAILY@0700 [facility] Last Admin: 12/26/19 06:34 Dose: 20 units Documented by: Lactobacillus Acidophilus (Bacid -) 1 tab PO DAILY [facility] Last Admin: 12/25/19 12:18 Dose: 1 tab Documented by: Levetiracetam (Keppra Injection -) 500 mg IVPB BID [facility] Last Admin: 12/25/19 21:27 Dose: 500 mg Documented by: Losartan Potassium (Cozaar -) 50 mg PO DAILY [facility] Last Admin: 12/25/19 12:18 Dose: 50 mg Documented by: Metoprolol Succinate (Toprol Xl -) 25 mg PO DAILY [facility] Last Admin: 12/25/19 12:17 Dose: 25 mg Documented by: Nystatin (Nystatin Oral Suspension -) 500,000 units PO Q6HPO [facility] Last Admin: 12/26/19 06:27 Dose: 500,000 units Documented by: Pantoprazole Sodium (Protonix Iv) 40 mg IVPUSH DAILY [facility] Last Admin: 12/25/19 12:23 Dose: 40 mg Documented by: Prednisone (Deltasone -) 50 mg PO DAILY [facility] - Objective Vital Signs: Vital Signs Temperature 97.9 F 12/26/19 03:41 Pulse Rate 89 12/26/19 03:41 Respiratory Rate 18 12/26/19 03:41 Blood Pressure 152/100 12/26/19 03:41 O2 Sat by Pulse Oximetry (%) 97 12/25/19 22:00 Neck: Yes: Supple Cardiovascular: Yes: Regular Rate and Rhythm, Murmur (Soft SM), S1, S2 Respiratory: Yes: Diminished Gastrointestinal: Yes: Normal Bowel Sounds, Soft. No: Tenderness Edema: No Additional Findings/Remarks: - Review of Systems Constitutional: reports: Weakness. denies: Chills, Fever Respiratory: denies: Cough, Hemoptysis, Orthopnea, PND, SOB, SOB on Exertion Gastrointestinal: denies: Abdominal Pain, Constipation, Diarrhea, Melena, Nausea, Rectal Bleeding, Vomiting Genitourinary: denies: Dysuria, Hematuria Neurological: reports: Seizure. denies: Dizziness, Headache, Syncope Labs: CBC, BMP 12/26/19 07:00 12/26/19 07:00 Problem List - Problems (1) Endocarditis Code(s): I38 - ENDOCARDITIS, VALVE UNSPECIFIED Qualifiers: Endocarditis type: unspecified (2) Altered mental status Code(s): R41.82 - ALTERED MENTAL STATUS, UNSPECIFIED (3) Fever Code(s): R50.9 - FEVER, UNSPECIFIED (4) Thrombus Code(s): I82.90 - ACUTE EMBOLISM AND THROMBOSIS OF UNSPECIFIED VEIN (5) Aortic stenosis Code(s): I35.0 - NONRHEUMATIC AORTIC (VALVE) STENOSIS Qualifiers: Cardiac valve disease etiology: nonrheumatic Qualified Code(s): I35.0 - Nonrheumatic aortic (valve) stenosis (6) Autoimmune hemolytic anemias Code(s): D59.1 - OTHER AUTOIMMUNE HEMOLYTIC ANEMIAS (7) Diabetes mellitus Code(s): E11.9 - TYPE 2 DIABETES MELLITUS WITHOUT COMPLICATIONS (8) HTN (hypertension) Code(s): I10 - ESSENTIAL (PRIMARY) HYPERTENSION Qualifiers: Hypertension type: essential hypertension Qualified Code(s): I10 - Essential (primary) hypertension (9) Hyperlipidemia Code(s): E78.5 - HYPERLIPIDEMIA, UNSPECIFIED Qualifiers: Hyperlipidemia type: pure hypercholesterolemia Qualified Code(s): E78.00 - Pure hypercholesterolemia, unspecified; E78.0 - Pure hypercholesterolemia (10) Moderate mitral regurgitation Code(s): I34.0 - NONRHEUMATIC MITRAL (VALVE) INSUFFICIENCY (11) Acute on chronic diastolic (congestive) heart failure Code(s): I50.33 - ACUTE ON CHRONIC DIASTOLIC (CONGESTIVE) HEART FAILURE Assessment/Plan 1. CAD with demand ischemia - also partly due to sepsis 2. Arlyn (+) hemolytic anemia 3. Sinus tachycardia partly due to sepsis - resolved 4. Suspicious for aortic vegetation and endocarditis - enterococcal bacteremia 5. Mitral valve regurgitation 6. Altered mental status improved 7. HTN 8. Hypercholesterolemia 9. Partially occlusive thrombus in distal 1/3 of IVC extending into right iliac and common femoral 10. Seizure disorder 11. Latent TB 12. Breast cancer s/p chemo and radiation therapy 13. History of GI bleed PLAN: 1. Antibiotic coverage as per ID and endocarditis treatment as per guidelines. If recurrent fever and/or persistent bacteremia, then consider [place] for further evaluation. COVID testing pending 2. Continue Losartan 50 mg QD. Increase Toprol XL to 50 mg QD 3. Steroids 4. Diuretics (Furosemide) and monitor renal function and electrolytes 5. Heparin drip as per Hematology. Further anticoagulation recommendation to follow 6. Vascular surgery input noted Further plans are to follow Beka Stock MD
[2019-12-26] MEDS: metoPROLOL SUCCINATE 25 MG TAB.SR.24H (FP) PO SCH (11:00)
[2019-12-26] MEDS ORDERED: DOCUSATE SODIUM 100 MG CAPSULE (FP) PO PRN (11:06)
[2019-12-26] MEDS ORDERED: POLYETHYLENE GLYCOL 3350 119 GM BTL PO SCH (11:15)
--- NOTE | 2019-12-26 11:31 | PN ---
Progress Note (short form) - Note Progress Note: PULMONARY Appears comfortable. No fevers recorded. Vital Signs Period Temp Pulse Resp BP Sys/Hale Pulse Ox Last 24 Hr 97.8 F-98.4 F 81-95 16-18 132-152/73-100 97-97 Gen: NAD at rest Heart: RRR Lung: decreased breath sounds at the bases Abd: soft, nontender Ext: no edema CBC, BMP 12/26/19 07:00 12/26/19 07:00 Active Medications Acetaminophen (Ofirmev Injection -) 1,000 mg IVPB Q6H PRN PRN Reason: FEVER Docusate Sodium (Colace -) 100 mg PO BID PRN PRN Reason: CONSTIPATION Folic Acid (Folic Acid -) 1 mg PO DAILY [facility] Last Admin: 12/25/19 12:18 Dose: 1 mg Documented by: Furosemide (Lasix Injection -) 40 mg IVPUSH DAILY [facility] Last Admin: 12/25/19 12:21 Dose: 40 mg Documented by: Heparin Sodium (Porcine) (Heparin -) 1,000 unit IVPUSH PRN PRN PRN Reason: Heparin Heparin Sodium (Porcine) (Heparin -) 5,000 unit IVPUSH PRN PRN PRN Reason: Heparin Ampicillin Sodium 2 gm/ Sodium (Chloride) 100 mls @ 200 mls/hr IVPB Q4H-IV [facility]; Protocol Last Admin: 12/26/19 06:27 Dose: 200 mls/hr Documented by: Ceftriaxone Sodium 2 gm/ (Dextrose) 100 mls @ 200 mls/hr IVPB BID [facility] Last Admin: 12/25/19 21:27 Dose: 200 mls/hr Documented by: Heparin Sodium (Porcine) 25, (000 unit/ Sodium Chloride) 500 mls @ 20 mls/hr IV TITR [facility]; Protocol Last Admin: 12/25/19 18:46 Dose: 1,000 unit/hr, 20 mls/hr Documented by: Insulin Aspart (Novolog Vial Sliding Scale -) 1 vial SQ ACHS [facility]; Protocol Last Admin: 12/26/19 06:35 Dose: 2 units Documented by: Insulin Detemir (Levemir Vial) 20 units SQ DAILY@0700 [facility] Last Admin: 12/26/19 06:34 Dose: 20 units Documented by: Lactobacillus Acidophilus (Bacid -) 1 tab PO DAILY [facility] Last Admin: 12/25/19 12:18 Dose: 1 tab Documented by: Levetiracetam (Keppra Injection -) 500 mg IVPB BID [facility] Last Admin: 12/25/19 21:27 Dose: 500 mg Documented by: Losartan Potassium (Cozaar -) 50 mg PO DAILY [facility] Last Admin: 12/25/19 12:18 Dose: 50 mg Documented by: Metoprolol Succinate (Toprol Xl -) 50 mg PO DAILY [facility] Nystatin (Nystatin Oral Suspension -) 500,000 units PO Q6HPO [facility] Last Admin: 12/26/19 06:27 Dose: 500,000 units Documented by: Pantoprazole Sodium (Protonix Iv) 40 mg IVPUSH DAILY [facility] Last Admin: 12/25/19 12:23 Dose: 40 mg Documented by: Polyethylene Glycol (Miralax (For Daily Use) -) 17 gm PO DAILY [facility] Prednisone (Deltasone -) 50 mg PO DAILY [facility] A/P Enterococcal Bacteremia Sepsis Acute Kidney Injury improving Lactic Acidosis improving +Troponins likely Demand Ischemia LV Systolic/Diastolic Dysfunction Hemolytic Anemia HTN Hyperlipidemia DM Diverticulosis IVC Thrombus - continue antibiotics - f/u pending cultures - on empiric antiepileptics - lasix as needed - monitor urine output, creatinine - replete lytes - O2 to keep SpO2 >90% - aspiration precautions - continue anticoagulation
--- NOTE | 2019-12-26 12:45 | PN ---
Progress Note, WARRANT CLERK - Note Progress Note: Selected Entries 12/24/19 12/24/19 12/24/19 01:09 02:02 06:00 Temperature 97.3 F L Blood Pressure 165/93 162/87 164/76 12/24/19 10:00 Temperature 98.5 F Blood Pressure 186/77 H Laboratory Tests 12/24/19 05:45 WBC 4.1 Selected Entries 12/25/19 12/25/19 12/25/19 02:00 05:29 09:51 Breakfast 100% Diet Tolerated Well Lunch Supper Temperature 97.6 F 98.3 F 12/25/19 12/25/19 12/25/19 13:57 15:31 18:00 Breakfast Diet Tolerated Well Lunch 100% Supper Temperature 97.8 F 98.4 F 12/25/19 12/26/19 12/26/19 22:00 03:41 07:00 Breakfast Diet Tolerated Well Lunch Supper 100% Temperature 98 F 97.9 F 99.9 F H 12/26/19 10:19 Breakfast 25% Diet Tolerated Poor Lunch Supper Temperature Laboratory Tests 12/26/19 07:00 WBC 8.6 chart reviewed - pt was not examined secondary to limited PPE. Dys puree, nectar thick liquids ordered Case reViewed with staff. Pt sleepy today with little PO accepted this am. Pt ate well yesterday, with good appetite and no overt signs of aspiration observed by CONTENT MANAGEMENT SPECIALIST. Pending Covid 19 results Encourage Ensure pudding, magic cup. Feed only when sufficiently alert. Monitor pulmonary/nutritional status.
[2019-12-26] MEDS ORDERED: SODIUM CHLORIDE 100 ML IVPB ONE ×2 (13:54→17:09)
[2019-12-26] MEDS ORDERED: AMPICILLIN SODIUM 2 GM VIAL ONE ×2 (13:54→17:09)
[2019-12-26] MEDS: HEPARIN - 25,000 UNIT in SODIUM CHLORIDE 495 ML IV SCH (14:21)
--- NOTE | 2019-12-26 15:08 | PN ---
Teaching Attending Note Name of Resident: Janie Etienne ATTENDING PHYSICIAN STATEMENT I saw and evaluated the patient. I reviewed the resident's note and discussed the case with the resident. I agree with the resident's findings and plan as documented. SUBJECTIVE: Patient is lying in bed comfortably with no acute distress. No fever at this time. OBJECTIVE: Vital Signs Temperature 98.8 F 12/26/19 14:00 Pulse Rate 99 H 12/26/19 14:00 Respiratory Rate 18 12/26/19 14:00 Blood Pressure 126/73 12/26/19 14:00 O2 Sat by Pulse Oximetry (%) 98 12/26/19 09:00 PE: per resident's note CBCD WBC 8.6 K/mm3 (4.0-10.0) 12/26/19 07:00 RBC 2.38 M/mm3 (3.60-5.2) L 12/26/19 07:00 Hgb 8.2 GM/dL (10.7-15.3) L 12/26/19 07:00 Hct 25.1 % (32.4-45.2) L 12/26/19 07:00 MCV 105.1 fl (80-96) H 12/26/19 07:00 MCHC 32.9 g/dl (32.0-36.0) 12/26/19 07:00 RDW 15.8 % (11.6-15.6) H 12/26/19 07:00 Plt Count 254 K/MM3 (134-434) 12/26/19 07:00 MPV 8.6 fl (7.5-11.1) 12/26/19 07:00 CMP Sodium 153 mmol/L (136-145) H 12/26/19 07:00 Potassium 3.1 mmol/L (3.5-5.1) L 12/26/19 07:00 Chloride 115 mmol/L (98-107) H 12/26/19 07:00 Carbon Dioxide 30 mmol/L (21-32) 12/26/19 07:00 Anion Gap 8 MMOL/L (8-16) 12/26/19 07:00 BUN 27.4 mg/dL (7-18) H 12/26/19 07:00 Creatinine 1.1 mg/dL (0.55-1.3) 12/26/19 07:00 Random Glucose 171 mg/dL (74-106) H 12/26/19 07:00 Calcium 8.8 mg/dL (8.5-10.1) 12/26/19 07:00 Total Bilirubin 0.8 mg/dL (0.2-1) 12/26/19 07:00 AST 19 U/L (15-37) 12/26/19 07:00 ALT 29 U/L (13-61) 12/26/19 07:00 Alkaline Phosphatase 99 U/L (45-117) 12/26/19 07:00 Total Protein 5.0 g/dl (6.4-8.2) L 12/26/19 07:00 Albumin 2.2 g/dl (3.4-5.0) L 12/26/19 07:00 CARDIAC ENZYMES Creatine Kinase 27 U/L (26-192) 12/20/19 06:00 Troponin I 0.08 ng/ml (0.00-0.05) H 12/20/19 14:00 Current Medications Generic Name Dose Route Start Last Admin Trade Name Roberthq PRN Reason Stop Dose Admin Acetaminophen 1,000 mg 12/24/19 07:33 Ofirmev Injection - IVPB Q6H PRN FEVER Docusate Sodium 100 mg 12/26/19 11:06 Colace - PO BID PRN CONSTIPATION Folic Acid 1 mg 12/24/19 10:00 12/26/19 10:58 Folic Acid - PO 1 mg DAILY [facility] Administration Furosemide 40 mg 12/24/19 10:00 12/26/19 10:58 Lasix Injection - IVPUSH 40 mg DAILY [facility] Administration Heparin Sodium (Porcine) 1,000 unit 12/25/19 13:20 Heparin - IVPUSH PRN PRN Heparin Heparin Sodium (Porcine) 5,000 unit 12/25/19 13:20 Heparin - IVPUSH PRN PRN Heparin Ampicillin Sodium 2 gm/ Sodium 100 mls @ 200 mls/hr 12/24/19 10:00 12/26/19 14:12 Chloride IVPB 200 mls/hr Q4H-IV [facility] Administration Protocol Ceftriaxone Sodium 2 gm/ 100 mls @ 200 mls/hr 12/24/19 10:00 12/26/19 10:59 Dextrose IVPB 200 mls/hr BID [facility] Administration Heparin Sodium (Porcine) 25, 500 mls @ 20 mls/hr 12/25/19 13:30 12/25/19 18:46 000 unit/ Sodium Chloride IV 1,000 unit/hr TITR [facility] 20 mls/hr Administration Protocol 1,000 UNIT/HR Insulin Aspart 1 vial 12/24/19 11:00 12/26/19 06:35 Novolog Vial Sliding Scale - SQ 2 units ACHS [facility] Administration Protocol Insulin Detemir 20 units 12/26/19 07:00 12/26/19 06:34 Levemir Vial SQ 20 units DAILY@0700 [facility] Administration Lactobacillus Acidophilus 1 tab 12/24/19 10:00 12/26/19 10:57 Bacid - PO 1 tab DAILY [facility] Administration Levetiracetam 500 mg 12/24/19 10:00 12/26/19 10:58 Keppra Injection - IVPB 500 mg BID [facility] Administration Losartan Potassium 50 mg 12/24/19 10:00 12/26/19 10:57 Cozaar - PO 50 mg DAILY [facility] Administration Metoprolol Succinate 50 mg 12/26/19 11:09 Toprol Xl - PO DAILY [facility] Nystatin 500,000 units 12/24/19 12:00 12/26/19 12:51 Nystatin Oral Suspension - PO 500,000 units Q6HPO [facility] Administration Pantoprazole Sodium 40 mg 12/24/19 10:00 12/26/19 10:59 Protonix Iv IVPUSH 40 mg DAILY [facility] Administration Polyethylene Glycol 17 gm 12/26/19 11:15 12/26/19 13:50 Miralax (For Daily Use) - PO Not Given DAILY [facility] Prednisone 50 mg 12/25/19 12:05 12/26/19 10:58 Deltasone - PO 50 mg DAILY [facility] Administration Home Medications Medication Instructions Recorded Exemestane [Aromasin -] 25 mg PO DAILY 01/05/19 Metformin HCl [Glucophage] 500 mg PO BID 02/18/19 Folic Acid - 1 mg PO DAILY #30 tablet 02/23/19 Metoprolol Succinate [Toprol XL -] 50 mg PO DAILY tab.sr.24h 02/23/19 Lancets/Blood Glucose Strips [Fora 1 each MC DAILY 30 Days combo..pkg 05/17/19 [id number] Strp-Lnct] Pantoprazole Sodium [Protonix -] 40 mg PO DAILY #30 tablet.ec 05/17/19 Atovaquone [Mepron Oral Solution -] 1,500 mg PO DAILY@0800 #300 ml 06/15/19 Amlodipine Besylate [Norvasc -] 5 mg PO DAILY 12/23/19 Chlorthalidone 25 mg PO DAILY 12/23/19 Furosemide [Lasix] 40 mg PO DAILY 12/23/19 Losartan Potassium [Cozaar -] 50 mg PO DAILY 12/23/19 Prednisone [Prednisone 50 MG 70 mg PO DAILY 12/24/19 TABLETS] Laboratory Tests 12/19/19 12/19/19 16:00 16:00 COVID-19 ([facility]) Pending Influenza A (Rapid) Negative Influenza B (Rapid) Negative ECHO: small(0.2cm x 0.7cm) mobile echodensity on the left ventricular aspect of the aortic valve suspecious for a small vegetation. ejf 50-55%, moderate mr, mild to moderate valvular aortic stenosis. CXR: LJ line , the tip is in the left upper right atrium, no pneumonthorax, large heart, no sign of infiltrate CT of the head: negative, chronic supratentorial, and infratentorial infarcts. Cervical spine: no fx ASSESSMENT AND PLAN: Patient is 79yof with Pmhx of HTN, HLD, IDDM, Morbid obesity, breast cancer s/p chemoRtx, Arlyn + hemolytic anemia, latent TB( finished rifampin treatment), chronic systolic and diastolic heart failure, pericardial effusion, severe MR, external hemorrhoids, recent upper extremity DVT at PICC line site, s/p AC which patient developed GI bleed, who presented with AMS. she was found to have severe sepsis. # Severe sepsis due to enterococcus bacteremia with endocarditis , echo as above , on ceftriaxone and ampicillin continue, follow repeat blood cx - COVID pending , Id on the case # Echo: suspicious for small aortic vegetation and endocarditis - enterococcal bacteremia, continue IV antibioc as per protocol , ID on the case. #+Troponins likely Demand Ischemia on heparin drip now # Acute on chronic anemia with hx of hemolytic anemia on Prednisone 70mg to taper as per ONCOLOGY, DISCUSSED WITH , follow h/h, LDH noted # Acute diastolic CHF exacerbation: cont lasix daily # Acute hypokalemia: replete # IVC /R common iliac/R external iliac thrombosis: on Herparin drip now, as per hem/omc to ac the patient , Vascular input noted. HB is 8.2 today, follow H/H . #VON : resolved # AMS suspect acute metabolic encephalopathy contributing/delirium can't r/o meningitis .much improved # thrush: nystatin swish and swallow DVT PX : SCDs , SQ heparin COVID is pending
[2019-12-26] MEDS ORDERED: POTASSIUM CHLORIDE 20 MEQ PREMIX IVPB 100 ML IVPB ONE (15:35)
[2019-12-26] MEDS ORDERED: KCL 10 MEQ IVPB 10 MEQ/100 ML INFUS.BAG IVPB SCH (15:45)
--- NOTE | 2019-12-26 21:11 | PN ---
Progress Note (short form) - Note Progress Note: 79 Year old woman came to hospital for AMS and ? seizure . Patient is on prednisone for hemolytic anemia. On admission Patient has high grade fever and has been started on abx ( ceftriaxone and vanco) . Lilian has ct head negative. She also take eliquis at home and now she is off as her hemoglobin was low . she is been cleared to start anticoagulation. She was tested for COVID 19 , test is pending.he has been afebrile. Patient is feeling better, no acute distress patient is afebrile and follow simple command otherwisse exam remaine dunchaged ct head unremarkable Assessment/Plan 1. Suspected Meningitis, though low suspician as she has enterococcus positive. She is also being suspected for COVID 19( though low risk), Low suspician for Meningitis,contineu abx ,covid pending 2. Delrium due to septicemia ,improving 3. Posssible seizure , continue keppra for now Thanking you so much Case Lorenzo MD
--- NOTE | 2019-12-26 21:58 | RAPID ---
Physical Examination Vital Signs: Vital Signs Temperature 98.3 F 12/26/19 18:00 Pulse Rate 101 H 12/26/19 18:00 Respiratory Rate 18 12/26/19 18:00 Blood Pressure 144/75 12/26/19 18:00 O2 Sat by Pulse Oximetry (%) 98 12/26/19 09:00 Rapid response called at 21:47 to 4s and the rapid team arrived immediately. RN reports pt passing gross clots and brb MA. Prior to rapid response RN paged to notify resident that pt pulled out central line. Access site not grossly bleeding. No peripheral access. - Intervention Heparin drip stopped cbc, cmp coags US guided peripheral line attempted Labs: CBC, BMP 12/26/19 07:00 12/26/19 07:00
[2019-12-26 22:09] VITALS: BP 109/67; PULSE 134; TEMP 101.7
[2019-12-26 23:32] LABS: BASO % 0.4 % (0-2.0); HEMATOCRIT 26.1 % (32.4-45.2); HEMOGLOBIN 8.2 GM/dL (10.7-15.3); LYMPH % 18.5 % (8-40); MCH 34.5 pg (25.7-33.7); MCHC 31.4 g/dl (32.0-36.0); MEAN CELL VOLUME 109.8 fl (80-96); MEAN PLT VOLUME 9.7 fl (7.5-11.1); MONO % 0.8 % (3.8-10.2); NEUT % 80.3 % (42.8-82.8); PLATELET COUNT 275 K/MM3 (134-434); RBC 2.38 M/mm3 (3.60-5.2); RDW 16.1 % (11.6-15.6); WHITE BLOOD COUNT 4.9 K/mm3 (4.0-10.0)
[2019-12-26 23:51] LABS: INR 1.32 (0.83-1.09); PROTHROMBIN TIME (PATIENT) 15.6 SEC (9.7-13.0)
[2019-12-26 23:54] LABS: ACTIVATED PTT 36.6 SECONDS (25.2-36.5)
[2019-12-26 23:56] LABS: ALBUMIN 2.1 g/dl (3.4-5.0); BLOOD UREA NITROGEN 30.3 mg/dL (7-18); CALCIUM 8.2 mg/dL (8.5-10.1); CREATININE 1.7 mg/dL (0.55-1.3); POTASSIUM 4.7 mmol/L (3.5-5.1); TOT PROT 4.5 g/dl (6.4-8.2)
[2019-12-27] MEDS: AMPICILLIN - 2 GM in SODIUM CHLORIDE 100 ML IVPB SCH (00:50)
[2019-12-27] MEDS: CEFTRIAXONE 2 GM in DEXTROSE 5%-WATER 100 ML IVPB SCH (00:50)
[2019-12-27] MEDS: levETIRAcetam 500 MG/5 ML INJECTION VIAL IVPB SCH (00:50)
[2019-12-27] MEDS: NYSTATIN 500,000 UNITS/5 ML SUSPENSION PO SCH (01:39)
--- NOTE | 2019-12-27 04:44 | RAPID ---
Physical Examination Vital Signs: Vital Signs Temperature 101.7 F H 12/26/19 21:30 Pulse Rate 134 H 12/26/19 21:30 Respiratory Rate 19 12/26/19 21:30 Blood Pressure 109/67 12/26/19 21:30 O2 Sat by Pulse Oximetry (%) 93 L 12/26/19 21:00 Labs: CBC, BMP 12/26/19 23:00 12/26/19 23:00 Rapid Response - Rapid Response Assessment: Code 99 called. Presented to bedside. ACLS protocol initiated. Refer to CODE sheet for details.
--- NOTE | 2019-12-27 04:47 | PN ---
Progress Note (short form) - Note Progress Note: Pt unresponsive without a pulse s/p CODE. PE: Pt with pupils dilated and nonreactive to light. Cardio- no pulse, no S1/S2 appreciated Resp- No BS b/l Extremities cool to touch Attempted to notify family Will notify primary team in AM.
[2019-12-27 07:15] LABS: MACROCYTOSIS 2+
--- NOTE | 2019-12-27 15:33 | DS ---
Physical Exam: Code 99 overnight, pt . had conversation with family. HOSPITAL COURSE: Date of Admission:12/19/19 79 yo F PMHx HFpEF, HTN, HLD, IDDM, Morbid obesity, breast ca s/p chemoradiation, autoimmune hemolytic anemia (requiring transfusion; On high dose steroids at home) who was recently treated for EPEC (developed DVT s/p PICC Line placement [for ceftriaxone] and was subsequently started on DOAC but was dc'ed due to GIB) presents with seizure like activity and AMS, admitted for sepsis workup. Hgb dropped to 6's and patient was transfused 1u pRBC on 12/20.pt was found to have gram positve bacteremia, has endocarditis. treated with ceftriaxone and ampicillin . pt was covid negative . pt had acute episode of hemolytic anemia. was tx with prednisone. GI, heme followed the pt. pt was getting lasix for acute on chronic hf. pt had ivc thrombus and was on heparin drip as recommended by thais. pts chronic conditions were managed. code 99 called. pt Date of Discharge: 12/27/19 Minutes to complete discharge: 38 Discharge Summary Problems reviewed: Yes Reason For Visit: FEVER Condition: - Instructions Disposition: - Home Medications Comprehensive Discharge Medication List: Ambulatory Orders Exemestane [Aromasin -] 25 mg PO DAILY 01/05/19 Metformin HCl [Glucophage] 500 mg PO BID 02/18/19 Folic Acid - 1 mg PO DAILY #30 tablet 02/23/19 Metoprolol Succinate [Toprol XL -] 50 mg PO DAILY tab.sr.24h 02/23/19 Lancets/Blood Glucose Strips [Fora [id number] Strp-Lnct] 1 each MC DAILY 30 Days combo..pkg 05/17/19 Pantoprazole Sodium [Protonix -] 40 mg PO DAILY #30 tablet.ec 05/17/19 Atovaquone [Mepron Oral Solution -] 1,500 mg PO DAILY@0800 #300 ml 06/15/19 Amlodipine Besylate [Norvasc -] 5 mg PO DAILY 12/23/19 Chlorthalidone 25 mg PO DAILY 12/23/19 Furosemide [Lasix] 40 mg PO DAILY 12/23/19 Losartan Potassium [Cozaar -] 50 mg PO DAILY 12/23/19 Prednisone [Prednisone 50 MG TABLETS] 70 mg PO DAILY 12/24/19 This patient is new to me today: No Emergency Visit: No Critical Care patient: No - Discharge Referral Referred to [facility] Med [facility] No ATTENDING PHYSICIAN STATEMENT I saw and evaluated the patient. I reviewed the resident's note and discussed the case with the resident. I agree with the resident's findings and plan as documented. SUBJECTIVE: OBJECTIVE: ASSESSMENT AND PLAN:
[2019-12-29 07:06] LABS: IGA IMMUNOGLOBULIN 120 mg/dL (64-422); IGG QN IMMUNOGLOBULIN 395 mg/dL (700-1600); IGM QN SERUM 16 mg/dL (26-217)
[2019-12-30] MEDS ORDERED: predniSONE 5 MG TABLET (UD) PO SCH (10:00)
[2020-01-03] MEDS ORDERED: predniSONE 10 MG TABLET (UD) PO SCH (10:00)
[2020-01-07] MEDS ORDERED: predniSONE 5 MG TABLET (UD) PO SCH (10:00)
== END 2019-12-27 03:00 | disposition expired | DRG 720 ==
LOC: JER 15:49 → JERBED 20:31 → JICU 12-20 01:02 → J4S 12-24 02:35
PROVIDERS: ADMIT Internal Medicine; ATTEND Internal Medicine
PROC: 0T9B70Z Drainage of Bladder with Drainage Device, Via Natural or Artificial Opening (ICD-10-PCS; 2019-12-19)
PROC: 30243N1 Transfusion of Nonautologous Red Blood Cells into Central Vein, Percutaneous Approach (ICD-10-PCS; 2019-12-21)
PROC: 06HY33Z Insertion of Infusion Device into Lower Vein, Percutaneous Approach (ICD-10-PCS; principal; 2019-12-22)
DX: A41.81 Sepsis due to Enterococcus (principal); R65.20 Severe sepsis without septic shock; I82.220 Acute embolism and thrombosis of inferior vena cava; I33.0 Acute and subacute infective endocarditis; Z71.3 Dietary counseling and surveillance; N17.9 Acute kidney failure, unspecified; G93.41 Metabolic encephalopathy; G00.1 Pneumococcal meningitis; I11.0 Hypertensive heart disease with heart failure; I50.42 Chronic combined systolic (congestive) and diastolic (congestive) heart failure; D58.9 Hereditary hemolytic anemia, unspecified; E83.42 Hypomagnesemia; E87.2 Acidosis; E66.01 Morbid (severe) obesity due to excess calories; R56.9 Unspecified convulsions; I31.3 Pericardial effusion (noninflammatory); I24.8 Other forms of acute ischemic heart disease; R41.82 Altered mental status, unspecified; R47.81 Slurred speech; E78.5 Hyperlipidemia, unspecified; E11.9 Type 2 diabetes mellitus without complications; Z68.34 Body mass index [BMI] 34.0-34.9, adult; C50.919 Malignant neoplasm of unspecified site of unspecified female breast; E87.6 Hypokalemia; E78.00 Pure hypercholesterolemia, unspecified; S43.005A Unspecified dislocation of left shoulder joint, initial encounter; X58.XXXA Exposure to other specified factors, initial encounter; Y93.9 Activity, unspecified; Y92.9 Unspecified place or not applicable; Y99.9 Unspecified external cause status; J98.11 Atelectasis; R00.0 Tachycardia, unspecified; R50.9 Fever, unspecified; E04.9 Nontoxic goiter, unspecified; I34.0 Nonrheumatic mitral (valve) insufficiency; K57.90 Diverticulosis of intestine, part unspecified, without perforation or abscess without bleeding; B37.9 Candidiasis, unspecified; Z29.9 Encounter for prophylactic measures, unspecified; Z86.11 Personal history of tuberculosis; Z86.73 Personal history of transient ischemic attack (TIA), and cerebral infarction without residual deficits; Z90.12 Acquired absence of left breast and nipple
CPT/HCPCS: 36415; 36430; 36511; 70450-TC; 70460-TC; 71045-TC-FY; 71270-TC; 72125-TC; 74177-TC; 80048; 80053; 81003; 82272; 82550; 82553; 82607; 82728; 82746; 82784; 82803; 82947; 82962; 83010; 83540; 83550; 83605; 83615; 83735; 84100; 84132; 84443; 84484; 85025; 85027; 85044; 85610; 85730; 86140; 86850; 86870; 86900; 86901; 86902; 86922; 87040; 87186; 87798; 87804; 87899; 93306-TC; 93970-TC; 99291; G0480; J0131; J1644; J7030; P9038; P9058; Q9967